=== PATIENT | female | born 1980 | race Caucasian/White ===

== ENCOUNTER → 2017-05-17 15:49 | Outpatient (CLI) | payer BC, SELFPAY ==
[2017-05-24 07:21] LABS: HPV APTIMA, High Risk Negative (Negative)
== END ==
PROVIDERS: Visit Provider Obstetrics & Gynecology
DX: Z12.4 Encounter for screening for malignant neoplasm of cervix (principal)
CPT/HCPCS: 88175; G0145

== ENCOUNTER → 2017-05-19 08:49 | Outpatient (CLI) | payer BC, SELFPAY ==
--- NOTE | 2017-05-19 08:54 | HPBI_ITS ---
MAMMOGRAPHY - BILATERAL DIAGNOSTIC REASON FOR EXAM: Female, 36 years old. Left breast lump. Left nipple inversion. PERTINENT HISTORY: TECHNIQUE: Digital bilateral breast amisha (3D mammographic acquisition) in the CC and MLO projections. 2-D mediolateral oblique (MLO) and craniocaudad (CC) views of both breasts were obtained. CAD: Full Field Digital Mammography with Computer Added Detection was performed. COMPARISON: None. Baseline examination. FINDINGS: Breast Composition: The breasts are heterogeneously dense, which may obscure small masses. There is a 3.1 cm x 2.3 cm spiculated mass in the superior retroareolar region of the left breast corresponding to the palpable abnormality. Suspicious microcalcifications are seen within it. There is also evidence of inversion of left nipple with overlying skin thickening. A biopsy is strongly recommended. No other significant abnormalities are identified. HPBI/DIAG MAMM W/CAD, BILAT IMPRESSION: Spiculated mass in the upper retroareolar region of the left breast as described with amorphus microcalcifications and overlying breast deformity. A biopsy is strongly recommended. ASSESSMENT CATEGORY: BIRADS Category 5: Highly Suggestive of Malignancy - Appropriate Action Should Be Taken. A letter regarding these results will be sent to the patient by the facility within 30 days. Approximately 10% of breast cancers are not detected by mammography. A normal mammogram should not delay biopsy of a clinically suspicious abnormality. Electronically Signed: Ludwin Siu MD at 10:00 EST Tel [phone], Service support ,
--- NOTE | 2017-05-19 08:55 | US_ITS ---
STUDY: ULTRASOUND BREAST - LEFT REASON FOR EXAM: Female, 36 years old. Palpable lump left breast. TECHNIQUE: Axial and longitudinal images of the LEFT breast were performed with a high resolution ultrasound transducer. COMPARISON: Comparison is made with prior mammogram done earlier today. FINDINGS: LEFT Breast: There is a 4 cm x 2.8 cm x 1.8 cm heterogeneous irregular soft tissue mass at the 12:00 region of the breast at 3 cm from nipple. This corresponds to the palpable abnormality and the mammographic abnormality. A biopsy is recommended. US/Breast Limited Unilateral IMPRESSION: 4 cm x 2.8 cm x 1.8 cm heterogeneous hypoechoic solid mass with irregular margins. This is at the 12:00 position breast at 3 cm from the nipple. Biopsy recommended. ASSESSMENT CATEGORY: BIRADS Category 5: Highly Suggestive of Malignancy - Appropriate Action Should Be Taken. A letter regarding these results will be sent to the patient by the facility within 30 days. Electronically Signed: Ludwin Siu MD at 11:29 EST Tel [phone], Service support ,
== END ==
PROVIDERS: Visit Provider Obstetrics & Gynecology
DX: N63.20 Unspecified lump in the left breast, unspecified quadrant (principal)
CPT/HCPCS: 76642; 77062; 77066; G0279

== ENCOUNTER → 2017-05-23 12:19 | Outpatient (CLI) | payer BC, SELFPAY ==
--- NOTE | 2017-05-23 | IMM_PTH ---
PATIENT: LETICIA HAQUE LOC: [facility] U#:[id number] AGE/SX: 44/F ROOM: RE05/23/[address]: Dr. Ede Samayoa MD : 1980 BED: DIS: SPEC #: [id number] RECD: 05/24/17 11:15 STATUS: TAMAR REElmira #: [id number] JEANINE: 05/23/17 00:[address]: Ede Samayoa DEPT: IMMUNOHISTOCHEMISTRY RECD BY: Pam Scott ENTERED: 05/24/17 11:16 SP TYPE: IMMUNO OTHR DR: Dr. Kosta Bernal MD No Primary Care Phys Tissues: Left breast, NOS Procedures: CALPONIN-1 (add) CK5-6 (add) CK8 (add) E-CAD (add) HER2 JITENDRA (add) KI-67 (add) P53 (add) AL (add) IN SITU HYBRIDIZATION P40 (add) ER (initial) PHYSICIAN & INSTITUTION [place] [phone] SPECIMEN INFORMATION: Tissue Source: Left breast Clinical Info: Abnormal mammogram Specimen Number: [id number] CPT code: 15125, 11938 x6, 98953 x3 METHODOLOGY: Deparaffinized sections of prefer/formalin-fixed tissue or PAP/DQ stained slides are incubated with monoclonal/polyclonal antibodies/oligonucleotide probes. Localization is made via biotin free immunoperoxidase method. Appropriate controls are performed and reacted as expected. Results on target cell population are indicated in the following table: RESULTS: ANTIBODY / CLONE RESULT P53 (DO-7) positive, 8% Ki-67 (30-9) positive, moderate CK8 (84tgifR38) positive CK5-6 (D5 & 1684) negative Calponin-1 (EG706X) negative P40 (BC28) negative E-Cad (ECH-6) positive MORPHOMETRIC ANALYSIS ER (clone 6F11) >95%, moderate to strong AL (clone 16/1E2) 75%, moderate Her-2Neu (clone CB11) 1-2+ The prognostic test for HER2 is performed on formalin-fixed paraffin embedded tissue. A 3+ (positive) staining pattern is defined as intense, homogeneous, complete, circumferential membranous staining in >10% of contiguous tumor cells. A similar weak (2+) staining pattern is interpreted as equivocal. RAPHAEL follow-up testing is recommended for all equivocal cases. Positivity/negativity for ER/AL is reported if > or < 1% of the tumor cells are immuno- reactive, respectively. The ASCO/CAP criteria is used for scoring. Reference: Journal of Clinical Oncology, 2013; 31:0176-2429 & 2010; 16:6503-9747. Duration of fixation: 10.5 Hrs; Sample Adequate: Yes. These assays have not been validated on decalcified tissues. Results should be interpreted with caution given the likelihood of false negativity on decalcified specimens. These tests were developed and their performance characteristics determined by [facility]. They may not have been cleared or approved by the U.S. Food and Drug Administration. The FDA has determined that such clearance or approval is not necessary. INTERPRETATION: Left breast, core biopsy: Invasive ductal carcinoma. Positive for estrogen receptors (favorable prognostic indicator). Positive for progesterone receptors (favorable prognostic indicator). Equivocal for overexpression of XOA5xth. AM:bella 05/25/17 ADDENDUM ADDENDUM ADDENDUM ADDENDUM ADDENDUM ADDENDUM ADDENDUM ADDENDUM ADDENDUM ADDENDUM ADDENDUM ADDENDUM ADDENDUM ADDENDUM ADDENDUM ADDENDUM ADDENDUM ADDENDUM ADDENDUM ADDENDUM ADDENDUM 05/29/2017 10:51 ADDENDUM 05/29/2017 10:51 ADDENDUM 05/29/2017 10:51 ADDENDUM 05/29/2017 10:51 ADDENDUM 05/29/2017 10:51 IN SITU HYBRIDIZATION (RAPHAEL) FOR HER2 Interpretation: Not Amplified HER2 : CEP-17 Ratio: 1.32 Average HER2 Signal: 3.25 Average CEP-17 Signal: 2.45 Number of Tumor Cells Scanned: 50 Interpretative Information: The INFORM HER2 Dual RAPHAEL DNA Probe Cocktail assay is performed on formalin-fixed paraffin embedded tissue and determines HER2 gene status by detecting HER2 copies via silver in situ hybridization (SISH) and Chromosome 17 copies via chromogenic red in situ hybridization on tumor cells. A minimum of 20 cells representing > 10% of contiguous and homogeneous invasive tumor cells were analyzed. HER2 gene status is classified as Non-amplified (HER2/Chr17 ratio < 2.0) or Amplified (HER2/Chr17 ratio greater than or equal to 2.0). If the resulting HER2/Chr17 ratio falls within 1.8 - 2.2 (Borderline), retesting by FISH is recommended. Reference: Disha AC, Stephanie BENITO, Slade DG, et al: Recommendations for Human Epidermal Growth Factor Receptor 2 Testing in Breast Cancer: [place] Society of Clinical Oncology / College of [place] [employer] Clinical Practice Guideline Update. J Clin Oncol 31:7892-5590, 2013.
--- NOTE | 2017-05-23 09:00 | BRBX_PTH ---
PATIENT: LETICIA HAQUE LOC: [facility] U#:[id number] AGE/SX: 44/F ROOM: RE05/23/[address]: Dr. Ede Samayoa MD : 1980 BED: DIS: SPEC #: [id number] RECD: 05/23/17 12:07 STATUS: TAMAR DHIRAJ #: [id number] JEANINE: 05/23/17 09:[address]: Ede Samayoa DEPT: SURGICAL PATHOLOGY RECD BY: Rod Yan ENTERED: 05/23/17 13:52 SP TYPE: BREAST BX OTHR DR: Dr. Kosta Bernal MD Tissues: Left breast, NOS Procedures: Surgery Specimen Level IV HEADER OPERATION: Left breast core biopsy PRE-OP DIAGNOSIS: Abnormal mammogram R92.8 TISSUE SUBMITTED: Left breast tissue ISCHEMIC TIME: 5 seconds FIXATION TIME: 10.5 hours MICROSCOPIC DIAGNOSIS Left breast, core biopsy: Invasive ductal carcinoma with the following characteristics: Maximal length ? 6.2 mm Nuclear Grade ? 2/3 Other findings ? 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 AM:bella 05/24/17 COMMENT ER/FL/Ust0qna studies are being performed on sections of tumor and the results from this study will be reported separately ([id number]). MICROSCOPIC DESCRIPTION Slides are reviewed. GROSS DESCRIPTION Received in fixative is one container labeled with the patient's name and designated left breast biopsy. The specimen consists of two elongated fragments of oneill tissue. Each fragment has an average length of 1.5 cm and average diameter of 0.1 cm. The specimen is totally submitted in one cassette. / AM:bella 05/23/17 TC:0 [facility]: [id number]
== END ==
PROVIDERS: Visit Provider Surgery
DX: R92.8 Other abnormal and inconclusive findings on diagnostic imaging of breast (principal)
CPT/HCPCS: 88305; 88341; 88342; 88368

== ENCOUNTER 2017-06-16 08:23 | Day surgery (SDC) | payer BC, SELFPAY ==
--- NOTE | 2017-06-13 15:21 | EKG12_ITS ---
Test Reason : PREOP Blood Pressure : / mmHG Vent. Rate : 086 BPM Atrial Rate : 086 BPM P-R Int : 126 ms QRS Dur : 094 ms QT Int : 364 ms P-R-T Axes : 046 -09 018 degrees QTc Int : 435 ms Normal sinus rhythm Normal ECG Confirmed by LIZANDRO CABRERA, BROOK ([id number]), commissioning editor SELWYN ORTEGA ([id number]) on 06/14/2017 1:17:00 PM Referred By: Sandro Martinez Confirmed By:BROOK BONE MD
[2017-06-13 16:53] LABS: Hematocrit 39.3 % (37-47); Hemoglobin 12.7 g/dl (12.0-15.0); Mean Corp Hgb Conc 32.3 g/gl (32-36); Mean Corpuscular Hgb 29.8 pg (27.0-32.0); Mean Corpuscular Volume 92.3 fL (81-99); Mean Platelet Vol. 10.4 fl (6.2-12.0); Platelet Count 197 K/mm3 (150-450); RBC Distribution Width CV 13.7 % (11.6-14.6); RBC Distribution Width SD 45.9 fl (35.1-43.9); Red Blood Count 4.26 M/mm3 (4.2-5.4); Scan Indicated on CBC? Y/N NO; White Blood Count 7.5 K/mm3 (4.4-11.0)
[2017-06-13 17:04] LABS: Partial Thromboplast Time 29.8 Seconds (24.1-36.2); Prothrombin Time (Protime)PT. 13.3 SECONDS (11.7-14.9)
[2017-06-13 17:15] LABS: AST(SGOT) 5 U/L (15-37); Alanine Aminotransfer ALT/SGPT 14 U/L (13-56); Albumin, Serum 4.4 g/dL (3.2-5.0); Alkaline Phosphatase 57 U/L (45-117); Bilirubin, Direct 0.08 mg/dL (0.00-0.30); Globulin 3.5 g/dL (2.2-4.2); Protein, Total 7.9 g/dL (6.4-8.2)
--- NOTE | 2017-06-15 18:21 | HP.PCM_ITS ---
History and Physical Date of Admission: 06/16/17 HISTORY OF PRESENT ILLNESS 36-year-old woman presents with recent diagnosis of left breast cancer and wants to discuss her breast reconstruction options. The patient had first noticed a breast mass in her left breast in the superior aspect by the nipple. The mammogram and ultrasound was done on May 19, 2017. It was suspicious for carcinoma. Dr. Samayoa then proceeded with a left breast biopsy on May 23, 2017. 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 Estrogen receptors are positive. Progesterone receptors were positive. Her-2Neu was not amplified. The patient is small breasted and decided on a mastectomy. Patient also has concerns about developing breast cancer in her right breast at some point in her life and has developed cancerophobia. She is also interested in discussing a prophylactic mastectomy at this time as well. She presents at this time for further evaluation and treatment. PAST MEDICAL HISTORY Newly diagnosed left breast cancer PAST SURGICAL HISTORY Left breast biopsy on May 23, 2017. MEDICATIONS Norethindrone. ALLERGIES None. SOCIAL HISTORY Patient is a smoker. Patient drinks alcohol occasionally. FAMILY HISTORY Negative for breast cancer. Hypertension - Mother. REVIEW OF SYSTEMS General - Denies fever, fatigue, and weight loss. Eyes - Denies eye pain. ENT - Denies nasal congestion and sore throat. Endocrine - Denies excessive thirst and urination. Has recent diagnosis of left breast cancer. Skin - No suspicious lesions. Musculoskeletal - Denies joint pain, joint stiffness, weakness of muscles and joints, back pain, and arthritis. Neuro - Denies headaches. Cardiovascular - Denies chest pain. Denies shortness of breath with exertion. Respiratory - Denies cough and shortness of breath. Patient is a smoker. Psych - Denies anxiety and depression. Gastrointestinal - Denies nausea, vomiting, diarrhea, and constipation. Hematologic -Denies abnormal bruising and bleeding. Genitourinary - Denies hematuria and urinary frequency. PHYSICAL EXAMINATION General - Alert and oriented. Bra size is 36 B. HEENT - PERRL. EOMI. Throat is clear. Neck - Supple and nontender. No cervical adenopathy. Lungs - Clear to auscultation. Breasts - Palpable mass superolateral aspect left breast at the nipple area. Bruising from recent biopsy. No ptosis seen. Nipple located above inframammary fold. No breast masses noted on right breast. No axillary adenopathy noted. Breast width is 14 cm bilaterally. Breast height is 13 cm. Heart - Regular rate and rhythm. Abdomen - No abdominal scarring. Some skin and subcutaneous redundancy between the umbilicus and the pubic area. Good skin elasticity noted. Extremities - FROM. No axillary adenopathy. Neuro - CN II - XII grossly intact. ASSESSMENT 1. Left breast cancer. 2. Cancer phobia right breast. 3. Planned acquired absence bilateral breasts. 4. Planned disproportion reconstructed breasts. 5. Smoker. 6. Estrogen receptor positive status. PLAN Discussed with the patient her breast reconstruction options. These range from expanders/implants to autogenous tissue to a combination of the two. Because of her concern of cancer phobia, it was recommended to proceed with a prophylactic mastectomy at the same time and then proceed with bilateral reconstruction. The patient is small breasted and wants to stay that way and is a candidate for a bilateral TRAM flap procedure. Because of her history of smoking, a first stage TRAM flap delay would be necessary which can be done at the time of the mastectomies. Because of the longer procedure and longer hospitalization and longer recovery, she expressed interest in proceeding with the use of expanders/implants. It's a shorter hospitalization and shorter recovery period. She has family activities in the Spring and wants to get back to her regular routine in a timely fashion. I gave her the option of immediate placement of implants with prepectoral placement of acellular dermal matrix graft for implant coverage since she is not concerned about the final size of her breasts. I discussed with her that the tissue expanders are a safer procedure because there is no tension on the skin which can have healing issues initially because of the fresh mastectomy skin flaps. Placement of the implants would have a little more tension on the mastectomy skin flaps. The patient has decided to proceed with the placement of the saline tissue expanders bilaterally under the pectoralis major muscle and placement of Alloderm inferiorly for django developer coverage. The approximate time of expansion is 1-2 months. Then wait a month after expansion is completed before proceeding with removal of the expanders with replacement cohesive gel implants. If adjuvant therapy is needed, then the implant replacement procedure would occur after the adjuvant therapy is completed. After creation of the breast mound, can discuss nipple reconstruction options in the future. Will coordinate with Dr. Samayoa's office regarding scheduling these procedures. The mastectomies can be done at the same time using separate instruments and separate staff so there is no cross contamination of cancer cells to the non cancer side. Surgery will be done under general anesthesia with a surgical observation overnight stay in the hospital. She will have drains in for several days and be maintained on antibiotics until the drains are removed. She will wear a compression USHA wrap to minimize seroma formation. Patient was informed of the risks and complications of the procedure including alternatives to surgery. These were discussed with her personally. She voices understanding and wishes to proceed. Some of the risks and complications were included in a form from the [place] [employer]. Encouraged the patient to stop smoking as it may have deleterious effects on wound healing. The patient was nervous and anxious during her visit today. I wrote a script for Valium which she can use preop for anxiety and will need them postop for muscle spasm (30 tabs).
[2017-06-16] VITALS (14 sets, daily range): BP systolic 113–140; BP diastolic 66–98; PULSE 66–98; RESP 16–20; TEMP 36.1–37.5; O2SAT 96–100; BMI 26.8
--- NOTE | 2017-06-16 | BREAST_PTH ---
PATIENT: LETICIA HAQUE LOC: [facility] [place] U#:[id number] AGE/SX: 36/F ROOM: RE06/16/[address]: Dr. Sandro Martinez MD : 1980 BED: DIS: 06/18/2017 SPEC #: [id number] RECD: 06/16/17 12:00 STATUS: TMAAR HEARN #: [id number] JEANINE: 06/16/17 00:[address]: Sandro Martinez DEPT: SURGICAL PATHOLOGY RECD BY: Pam Scott ENTERED: 06/16/17 12:56 SP TYPE: BREAST OTHR DR: No Primary Care Phys Tissues: A - Left breast, NOS B - Left breast, NOS C - Axillary lymph node, NOS D - Right breast, NOS E - Axilla, NOS Procedures: Frozen Section (charge) Surgery Specimen Level IV Surgery Specimen Level V Surgery Specimen Level Frozen (no charge) HEADER OPERATION: Right mastectomy, prophylactic bilateral breast reconstruction PRE-OP DIAGNOSIS: Cancer phobia right breast TISSUE SUBMITTED: A ? Left breast check margins, B ? Left breast additional tissue, FS, C ? Left sentinel node, FS, D ? Right breast, E ? Left axillary contents FROZEN SECTION DIAGNOSIS B. Additional left breast tissue, biopsy: Benign breast tissue. No evidence of malignancy. C. Left axillary sentinel lymph node, biopsy: One out of one lymph node positive for macrometastatic carcinoma. AM:bella 06/16/17 Case has been reviewed in consultation with Dr. Haney who concurs with the above diagnosis. IDC:SJ MICROSCOPIC DIAGNOSIS A. Left breast, mastectomy: Invasive ductal carcinoma. See cancer checklist below. B. Additional left breast tissue, biopsy: Benign breast tissue. No evidence of malignancy. C. Left axillary sentinel lymph node, biopsy: One out of one lymph node positive for macrometastatic carcinoma (2.5 in greatest dimension). No perinodal tumor extension seen. D. Right breast, mastectomy: Fibrocystic change and focal involutional change. Margins of excision with no pathologic change. No evidence of malignancy. E. Left axillary sentinel lymph node dissection. Five out of five lymph nodes negative for carcinoma. AM: 06/20/17 COMMENT A. INVASIVE BREAST CANCER SUMMARY: Specimen: Complete breast Procedure: Mastectomy Specimen integrity: Single intact specimen. Specimen size: 15 x 12 x 4 cm Specimen laterality: Left breast Invasive tumor: Tumor size: 3.5 x 3 x 1.5 cm Tumor focality: Single focus of invasive carcinoma Macroscopic and Microscopic extent of tumor: Skin: Free of carcinoma Nipple: Free of carcinoma Skeletal muscle: Not present Histologic type of invasive carcinoma: Invasive ductal carcinoma Histologic Grade (Dariana grade): Glandular/tubular differentiation score: 3 Nuclear pleomorphism score: 3 Mitotic count score: 3 Overall grade: Grade 3 (total score of 9) Margins: Uninvolved by invasive carcinoma. Distance from closest margin (posterior margin) ? 2 mm Lymph-Vascular invasion: Not identified Dermal lymph-vascular invasion: Not identified Ductal carcinoma in situ (DCIS): Estimated size (extent) of DCIS: 2 x 1 x 1 mm Number of blocks with DCIS: 4 of 12 Architectural patterns: Solid and focal comedo Nuclear grade: Grade 3 (high grade) Necrosis: Focally present Lobular carcinoma in situ (LCIS): Not present Lymph nodes: (See specimens C and E) Number of sentinel lymph nodes examined - 1 Total number of lymph nodes examined (sentinel and nonsentinel) ? 6 Macrometastatic carcinoma (2.5 cm in greatest dimension) is present in the specimens submitted as ?sentinel lymph node? (specimen C). Microcalcifications ? present in both carcinoma and non-neoplastic tissue. Treatment effect ? unknown Additional pathologic findings: Fibrocystic change and adenosis. Ancillary studies: Previously performed on same tumor ([id number] / [id number]). ER: positive, >95%, moderate to strong ND: 75%, moderate Her2 rodney: 2+ (IHC) Her2 by dual RAPHAEL: Negative (1.32) PATHOLOGIC STAGE: pT2 N1a Mx The above summary is in compliance with [employer] [place] [employer] (CAP) Cancer Protocols Checklist and [place] Joint Committee on Cancer (AJCC), Staging Manual, 8th Ed. Case has been reviewed in consultation with Dr. Haney who concurs with the above diagnosis. IDC:SJ MICROSCOPIC DESCRIPTION Slides are reviewed. GROSS DESCRIPTION A - Received fresh for OR consultation labeled with the patient's name is a specimen designated left breast. The specimen consists of a left breast mastectomy specimen measuring 15 x 12 x 4 cm and weighing 240 gm. The anterior portion contains portion of skin with centrally located nipple and areola measuring 8 x 3.5 cm. The nipple measures 1 cm in diameter. No cutaneous lesions are identified. The specimen is differentially inked as follows: anterior ? yellow, posterior ? black, superior ? blue, inferior ? green, medial ? red and lateral - orange. Serial sections reveal a firm, oneill-white lesion measuring 3.5 x 3 x 1.5 cm and located 0.2 cm from its closest (posterior) margin of excision. The remainder of the breast parenchyma is yellow-white in color. No other mass lesions are identified. The size of tumor and proximity to closest margin is conveyed to the surgeon intraoperatively. Pipe Finishing Supervisor sections are submitted in 12 cassettes as follows: 1 ? nipple and areola and perpendicular inked margin, 2 & 3 - perpendicular inked margins, 4 ? tumor with adjacent perpendicular posterior margin, 5-7 ? tumor, 812 - telecommunications sales representative sections of uninvolved breast parenchyma. / AM: 06/16/17 B - Received fresh for frozen section consultation labeled with the patient's name is a specimen designated additional left breast tissue. The specimen consists of a oneill-yellow fragment of fibrofatty tissue measuring 2 x 1.5 x 0.6 cm. The specimen is inked, bisected and submitted in its entirety for frozen section consultation in one block. / AM: 06/16/17 C - Received fresh for frozen section consultation labeled with the patient's name is a specimen designated left sentinel lymph node. The specimen consists of an irregular fragment of oneill-yellow fibrofatty tissue measuring 5 x 4 x 1.5 cm. Dissection reveals a firm, oneill-white nodule measuring 2.5 cm in greatest dimension. A telecommunications sales representative section with nodule is submitted for frozen section consultation in one block. The remainder of the specimen is submitted in cassettes 2-5. / AM:bella 06/16/17 D - Received in fixative is one container labeled with the patient's name and designated right breast. The specimen consists of a mastectomy specimen consisting of a piece of breast tissue with overlying skin ellipse measuring 14 x 13 x 4 cm. The skin ellipse measures 8 x 2 cm. The nipple measures 1.5 cm in greatest dimension. The specimen is inked as follows: anterior ? yellow, posterior ? black, superior ? blue, inferior ? green, medial ? red and lateral ? orange. Serial sections reveal oneill-yellow adipose cut surfaces mixed with oneill-white fibrous area. No obvious mass lesion is identified. Pipe Finishing Supervisor sections are submitted in 11 cassettes as follows: 1 ? nipple, 2 ? skin adjacent to the nipple, 3-5 ? telecommunications sales representative sections from the medial portion of the breast, 6-8 - telecommunications sales representative sections from the central portion of the breast, 9-11 - telecommunications sales representative sections from the lateral portion of the breast. / SJ:bella 06/19/17 E - Received in fixative is one container labeled with the patient's name and designated left axillary contents. The specimen consists of a piece of yellow adipose tissue measuring 5.5 x 3 x 2.5 cm. Multiple nodules consistent with lymph nodes are identified. The largest lymph node measures 2.5 cm in greatest dimension. The lymph nodes are submitted in entirety. Pipe Finishing Supervisor sections are submitted in four cassettes as follows: 1 & 2 ? one largest lymph node, 3 ? one bisected lymph node, 4 - one bisected lymph node, 5 ? two possible lymph nodes. / SJ:bella 06/19/17 TC:0 CPT: 25169, 22336 x3, 00532, 89110 x2, 29594
[2017-06-16 09:23] LABS: Internal QC Validated? YES +Cl - CLEAR BKGD
[2017-06-16 09:26] LABS: Pregnancy, Urine Negative Negative
--- NOTE | 2017-06-16 10:48 | PCM.OPRPT ---
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 Estrogen receptor positive Post-Operative Diagnosis: same Surgery/Procedure Performed:: 1. [id number] Injection of 5 cc of Lymphazurin blue. 2. Left modified radical mastectomy. 3. sentinel lymph node biopsy Type of Anesthesia:: General Anesthesiologist: Malick Emerson Specimen's removed: left breast. sln Estimated Blood Loss (mL): 50 cc Description of Procedure: Patient was brought into the operating room. Under excellent general endotracheal intubation I injected 5 cc of Lymphazurin blue circumareolar the around the left nipple. Both the left and right side of the chest were sterilely prepped and draped in the usual fashion. Dr. Martinez did a mastectomy on the right side and will be dictating this part of the procedure. I made a teardrop incision around the nipple areolar complex. The plasma blade was used to create flaps in a medial standpoint superior standpoint and inferior standpoint the dissection went down to the rectus abdominis muscle inferiorly, sternum medially, and down to the latissimus dorsi muscle laterally. I rotated the breast off of the pectoralis major muscle with the use of the plasma blade. Perforating vessels were controlled with small ligaclips. I came to the lateral border of the pectoralis major muscle. I entered the clavipectoral fascia. I encountered an extremely large and hard lymph node which I removed and sent to pathology for frozen section. The sentinel lymph node came back grossly positive. I then performed a standard axillary node dissection identifying the axillary vein the chest wall and down to the latissimus dorsi muscle and removed a grouping of lymph nodes. I sent these to pathology for permanent sectioning and formaldehyde. I transected the remaining part of the breast and sent it to pathology to check for margins. My inferior margin was the closest margin that was down to the pectoralis major muscle this tumor did not involve the muscle whatsoever. I irrigated out the wound. The wound was packed and then Dr. Martinez was going to do temporary implants. Patient tolerated the procedure well.
[2017-06-16] MEDS: Cefazolin 2 GM in 0.9% Normal Saline 100 ML IV (11:04)
[2017-06-16] MEDS: Methylene Blue 1% 100 MG/10 ML VIAL (11:20)
--- NOTE | 2017-06-16 14:40 | PCM.IMDPSTOP ---
Immediate Post-Op Note Date of Procedure: 06/16/17 Primary Surgeon/Physician: Sandro Martinez resume writer: Dane Whitfield. resume writer: Codey Jaffe. Pre-Operative Diagnosis: 1. Left breast cancer. 2. Cancer phobia right breast. 3. Planned acquired absence bilateral breasts. 4. Planned disproportion reconstructed breasts. 5. Smoker. 6. Estrogen receptor positive status. Post-Operative Diagnosis: Same. Surgery/Procedure Performed:: 1. Prophylactic mastectomy right breast. 2. Immediate bilateral breast reconstruction with placement of submuscular saline tissue expanders (350 ml each) and placement of DermACELL decellularized dermis graft (128 cm2, each side). Description of Surgical Findings:: 36-year-old woman presents with recent diagnosis of left breast cancer and wants to discuss her breast reconstruction options. The patient had first noticed a breast mass in her left breast in the superior aspect by the nipple. The mammogram and ultrasound was done on May 19, 2017. It was suspicious for carcinoma. Dr. Samayoa then proceeded with a left breast biopsy on May 23, 2017. 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 Estrogen receptors are positive. Progesterone receptors were positive. Her-2Neu was not amplified. The patient is small breasted and decided on a mastectomy. Patient also has concerns about developing breast cancer in her right breast at some point in her life and has developed cancerophobia. She is also interested in discussing a prophylactic mastectomy at this time as well. Today the patient underwent injection of 5 cc of Lymphazurin blue and left-sided mastectomy and sentinel lymph node biopsy by Dr. Samayoa and prophylactic mastectomy right breast and immediate bilateral breast reconstruction with placement of submuscular saline tissue expanders (350 ml each) and placement of DermACELL decellularized dermis graft (128 cm2, each side) by Dr. Martinez. IV Fluids - 1300 ml. Urine Output - 180 ml. I used [place] CPX4 with Suture Tabs, Medium Height Breast Tissue Box Brander, Textured, Integral Injection Dome, 350 ml, Right Breast. Reference Number - [id number]. Lot Number - [id number]. Serial Number - [id number]. I used [place] CPX4 with Suture Tabs, Medium Height Breast Tissue Box Brander, Textured, Integral Injection Dome, 350 ml, Left Breast. Reference Number - [id number]. Lot Number - [id number]. Serial Number - [id number]. I used DermACELL Decellularized Dermis Graft, 8x16 cm, 128 cm2, Right Breast. ID - [id number]. Code - [id number]. Expiration - November 25, 2020. I used DermACELL Decellularized Dermis Graft, 8x16 cm, 128 cm2, Left Breast. ID - [id number]. Code - [id number]. Expiration - November 25, 2020. I used Pao absorbable hemostat, (I used 2 vials, one in each breast). Reference Number - [id number]. Lot Number - [id number]. Expiration - March 07, 2022. Estimated Blood Loss: 150 ml. Specimen's removed: Right breast tissue to Pathology. Drains: Otoniel x4 (2 drains in each breast). Type of Anesthesia:: General - Admit VTE Documentation VTE Present on Admission: No VTE Mechan Device Prophylaxis: SCD's VTE Pharm Prophylaxis ordered?: Yes
--- NOTE | 2017-06-16 14:43 | OP.PN_ITS ---
Immediate Post-Op Note Date of Procedure: 06/16/17 Primary Surgeon/Physician: Sandro Martinez contact center professional: Dane Whitfield. contact center professional: Codey Jaffe. Pre-Operative Diagnosis: 1. Left breast cancer. 2. Cancer phobia right breast. 3. Planned acquired absence bilateral breasts. 4. Planned disproportion reconstructed breasts. 5. Smoker. 6. Estrogen receptor positive status. Post-Operative Diagnosis: Same. Surgery/Procedure Performed:: 1. Prophylactic mastectomy right breast. 2. Immediate bilateral breast reconstruction with placement of submuscular saline tissue expanders (350 ml each) and placement of DermACELL decellularized dermis graft (128 cm2, each side). Description of Surgical Findings:: 36-year-old woman presents with recent diagnosis of left breast cancer and wants to discuss her breast reconstruction options. The patient had first noticed a breast mass in her left breast in the superior aspect by the nipple. The mammogram and ultrasound was done on May 19, 2017. It was suspicious for carcinoma. Dr. Samayoa then proceeded with a left breast biopsy on May 23, 2017. 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 Estrogen receptors are positive. Progesterone receptors were positive. Her-2Neu was not amplified. The patient is small breasted and decided on a mastectomy. Patient also has concerns about developing breast cancer in her right breast at some point in her life and has developed cancerophobia. She is also interested in discussing a prophylactic mastectomy at this time as well. Today the patient underwent injection of 5 cc of Lymphazurin blue and left- sided mastectomy and sentinel lymph node biopsy by Dr. Samayoa and prophylactic mastectomy right breast and immediate bilateral breast reconstruction with placement of submuscular saline tissue expanders (350 ml each) and placement of DermACELL decellularized dermis graft (128 cm2, each side) by Dr. Martinez. IV Fluids - 1300 ml. Urine Output - 180 ml. I used [place] CPX4 with Suture Tabs, Medium Height Breast Tissue Showroom Consultant, Textured, Integral Injection Dome, 350 ml, Right Breast. Reference Number - [id number]. Lot Number - [id number]. Serial Number - [id number]. I used [place] CPX4 with Suture Tabs, Medium Height Breast Tissue Showroom Consultant, Textured, Integral Injection Dome, 350 ml, Left Breast. Reference Number - [id number]. Lot Number - [id number]. Serial Number - [id number]. I used DermACELL Decellularized Dermis Graft, 8x16 cm, 128 cm2, Right Breast. ID - [id number]. Code - [id number]. Expiration - November 25, 2020. I used DermACELL Decellularized Dermis Graft, 8x16 cm, 128 cm2, Left Breast. ID - [id number]. Code - [id number]. Expiration - November 25, 2020. I used Pao absorbable hemostat, (I used 2 vials, one in each breast). Reference Number - [id number]. Lot Number - [id number]. Expiration - March 07, 2022. Estimated Blood Loss: 150 ml. Specimen's removed: Right breast tissue to Pathology. Drains: Otoniel x4 (2 drains in each breast). Type of Anesthesia:: General - Admit VTE Documentation VTE Present on Admission: No VTE Mechan Device Prophylaxis: SCD's VTE Pharm Prophylaxis ordered?: Yes
--- NOTE | 2017-06-16 15:18 | EKG12_ITS ---
Test Reason : CP Blood Pressure : / mmHG Vent. Rate : 077 BPM Atrial Rate : 077 BPM P-R Int : 146 ms QRS Dur : 084 ms QT Int : 398 ms P-R-T Axes : 067 -02 029 degrees QTc Int : 450 ms Normal sinus rhythm Low voltage QRS Borderline ECG When compared with ECG of 13-JUN-2017 15:26, No significant change was found Confirmed by LIZANDRO CABRERA, BROOK ([id number]), senior editor SELWYN ORTEGA ([id number]) on 06/21/2017 4:17:46 PM Referred By: Sandro Martinez Confirmed By:BROOK BONE MD
--- NOTE | 2017-06-16 16:28 | SUR.PHASEI ---
TROPONIN NEGATIVE, EKG UNCHANGED, PATIENT CONTINUES TO DESCRIBE CHEST PAIN PRESSURE OR BRICKS, EXPLAINED TO PATIENT THAT SHE HAS AN USHA WRAP AND DRAINS IN CHEST. DR HARGROVE NOTIFIED, REVIEWED EKG, NO NEW ORDERS.
--- NOTE | 2017-06-16 17:46 | PCM.OPRPT ---
Report of Operation Date of Procedure: 06/16/17 Pre-Operative Diagnosis: 1. Left breast cancer. 2. Cancer phobia right breast. 3. Planned acquired absence bilateral breasts. 4. Planned disproportion reconstructed breasts. 5. Smoker. 6. Estrogen receptor positive status. Post-Operative Diagnosis: Same. Surgery/Procedure Performed:: 1. Prophylactic mastectomy right breast. 2. Immediate bilateral breast reconstruction with placement of submuscular saline tissue expanders (350 ml each) and placement of DermACELL decellularized dermis graft (128 cm2, each side). Description of Surgical Findings:: 36-year-old woman presents with recent diagnosis of left breast cancer and wants to discuss her breast reconstruction options. The patient had first noticed a breast mass in her left breast in the superior aspect by the nipple. The mammogram and ultrasound was done on May 19, 2017. It was suspicious for carcinoma. Dr. Samayoa then proceeded with a left breast biopsy on May 23, 2017. 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 Estrogen receptors are positive. Progesterone receptors were positive. Her-2Neu was not amplified. The patient is small breasted and decided on a mastectomy. Patient also has concerns about developing breast cancer in her right breast at some point in her life and has developed cancerophobia. She is also interested in discussing a prophylactic mastectomy at this time as well. Patient was informed of the risks and complications of the procedure including alternatives to surgery. These were discussed with her personally. She voices understanding and wishes to proceed. Some of the risks and complications were included in a form from the [place] [employer]. Encouraged the patient to stop smoking as it may have deleterious effects on wound healing. IV Fluids - 1300 ml. Urine Output - 180 ml. I used [place] CPX4 with Suture Tabs, Medium Height Breast Tissue Automotive Customer Experience Advisor, Textured, Integral Injection Dome, 350 ml, Right Breast. Reference Number - [id number]. Lot Number - [id number]. Serial Number - [id number]. I used [place] CPX4 with Suture Tabs, Medium Height Breast Tissue Automotive Customer Experience Advisor, Textured, Integral Injection Dome, 350 ml, Left Breast. Reference Number - [id number]. Lot Number - [id number]. Serial Number - [id number]. I used DermACELL Decellularized Dermis Graft, 8x16 cm, 128 cm2, Right Breast. ID - [id number]. Code - [id number]. Expiration - November 25, 2020. I used DermACELL Decellularized Dermis Graft, 8x16 cm, 128 cm2, Left Breast. ID - [id number]. Code - [id number]. Expiration - November 25, 2020. I used Pao absorbable hemostat, (I used 2 vials, one in each breast). Reference Number - [id number]. Lot Number - [id number]. Expiration - March 07, 2022. informatics physician liaison: Dane Whitfield. informatics physician liaison: Codey Jaffe. Type of Anesthesia:: General Specimen's removed: Right breast tissue to Pathology. Drains: Otoniel x4 (2 in each breast). Estimated Blood Loss (mL): 150 ml. Fluids Replaced: 1480 ml (IV Fluids 1300 ml, Urine Output 180 ml). Description of Procedure: Patient was seen in the preop area and was placed in the sitting position. Preop markings were made. I marked the sternal midline down toward the umbilicus. The midclavicular line was marked to the nipple and then from the nipple to the inframammary fold. The inframammary folds were marked bilaterally. I sabi oval markings around the nipple areolar complex vertically toward the inframammary fold. She was placed in supine position and taken to OR and placed under general anesthesia. Her breasts were prepped and draped in the usual fashion. SCD's were placed for DVT prophylaxis. Perioperative antibiotics were given intravenously. A galindo catheter was then placed. Dr. Samayoa then injected the left breast in preparation for the sentinel node biopsy. Separate teams were used and separate instruments were used to avoid contaminating the noncancerous right side with possible cancer cells. I then proceeded with the prophylactic mastectomy on the right side. The vertical markings were infiltrated with xylocaine and epinephrine. The vertical incision is part of the eventual need for a mastopexy incision for breast reconstruction. A mastopexy incision is usually a combination vertical incision and horizontal incision in the inframammary fold depending on the degree of ptosis. She has slight pseudoptosis and may not need a horizontal incision in the future at the time of the removal of the bender helper with replacement cohesive gel implantation. I dissected the breast tissue off the breast skin flaps at the level of Yadira's fascia down to the chest wall muscular fascia. The breast tissue was then dissected off the chest wall muscular fascia. Dissection was carried superiorly to the clavicle and medially to the sternum and laterally to the anterior axillary line and inferiorly to the inframammary fold. The tissue was then sent to Pathology for analysis to rule out carcinoma. Hemostasis was obtained with electrocautery. The wound was irrigated with saline. I then proceeded with saline tissue bender helper on the right while Dr. Samayoa was working on the left breast. Incision was made at the level of the inferior aspect of the pectoralis muscle. A submuscular pocket was created. Some of the inferior and medial muscular fibers were excised to allow a larger submuscular pocket and to allow ease in insetting the decellularized dermis graft over the bender helper. The wound was irrigated with saline. Hemostasis was obtained with electrocautery. Two size 15 Otoniel drains were placed through separate stab incisions laterally and secured to the skin with 3-0 Nylon interrupted sutures. One drain was used for the breast pocket and the other was for the mastectomy area and axillary area. Based on the size of the submuscular pocket, I determined a size 350 ml saline tissue bender helper from [place] would be used. I removed the air from the [place] saline tissue bender helper. I used a CPX4 with Suture tabs, medium height bender helper. After I removed the air, I instilled 30 ml of saline and tested to see if there were any leaks in the bender helper. When it was noted there were no leaks, the saline was removed. The bender helper was then placed in the submuscular position. The bender helper was secured to the chest wall with 3-0 Vicryl interrupted sutures through the suture tabs. I then covered the inferior aspect of the bender helper with DermACELL decellularized dermis graft and secured the graft to the muscle with 3-0 Vicryl interrupted sutures and from the graft to the chest wall with 3-0 Vicryl interrupted sutures. I then sprayed Pao absorbable hemostat into the right breast wound pocket to minimize seroma formation postoperatively. The vertical breast incision was then approximated in multiple layers with 3-0 Monocryl interrupted sutures for the deep dermis and subcutaneous tissue. The skin was approximated with 3-0 V-lock unidirectional barbed running subcuticular suture followed by Histoacryl skin tissue adhesive. Once the right side was closed, Dr. Samayoa was finished with the left side. There was additional surgery necessary because of the presence of positive lymph nodes. Once he was completed with his portion, I then proceeded with the left breast reconstruction. I incised the inferior aspect of the pectoralis muscle and created a submuscular pocket. I incised the inferior muscle fibers and medial muscle fibers to enlarge the submuscular pocket. The wound was irrigated with saline. Hemostasis was obtained using electrocautery. I placed two size 15 Otoniel drains through separate stab incisions laterally and secured to the skin using 3-0 Nylon suture. Based on the size of the breast pocket, I determined a 350 ml tissue bender helper from [place] will be used for the reconstruction. I removed the air from the bender helper and instilled 30 ml saline into the bender helper. Once it was determined there were no leaks in the bender helper, I removed the saline. The [place] bender helper is the CPX4 with Suture tabs breast tissue bender helper which was then secured to the chest wall using 3-0 Vicryl interrupted sutures through the suture tabs. DermACELL was then used to close the inferior aspect of the bender helper to the pectoralis muscle superiorly using 3-0 Vicryl interrupted sutures and inferiorly to the chest wall using 3-0 Vicryl interrupted sutures. The Otoniel drains were used to drain the axilla and the breast pocket. I then sprayed Pao absorbable hemostat into the left breast pocket. I used two vials, one in each breast. I then closed the vertical incision with 3-0 Monocryl interrupted sutures for the deep dermis and subcutaneous tissue. The skin was approximated with 3-0 V-lock unidirectional barbed running subcuticular suture. This was then followed by Histoacryl skin tissue adhesive. No vascular compromise was noted on both breast area skin flaps. Kerlix gauze was used for dressing followed by a compression USHA wrap. Patient tolerated the procedure well and was sent to PACU in satisfactory condition. She will be sent upstairs for postop care. She will be discharged when tolerated po analgesia and when she is more steady on her feet with ambulation. I anticipate 2-3 days. She will have her drains in for up to 14 days. She will be maintained on antibiotics until the drains are removed. She will keep her head elevated during the initial postop period and be on a lifting restriction. Grafts/Implants Used: [place] CPX4 Breast Tissue Expanders x2, DermACELL Graft x 2. - Complications None. - Admit VTE Documentation VTE Present on Admission: No VTE Mechan Device Prophylaxis: SCD's VTE Pharm Prophylaxis ordered?: Yes Code Visit Surgery Charges CPT - 70564 ICD-10 - C50.412, F40.298, Z90.13, N65.1, Z17.0, F17.200 [id number] C50.412, F40.298, Z90.13, N65.1, Z17.0, F17.200 [id number] C50.412, F40.298, Z90.13, N65.1, Z17.0, F17.200 75837 C50.412, F40.298, Z90.13, N65.1, Z17.0, F17.200 [id number] C50.412, F40.298, Z90.13, N65.1, Z17.0, F17.200
[2017-06-16] MEDS: Cefazolin 1 GM/50 ML BAG IV (18:36)
[2017-06-16] MEDS: HYDROmorphone 1 MG/ML Syringe IV (18:41)
[2017-06-16] MEDS: 0.9% NaCl Peripheral Flush Adult/Peds IV (18:42)
[2017-06-16] MEDS: Docusate Sodium 100 MG Capsule PO (21:45)
[2017-06-17] MEDS: HYDROmorphone 1 MG/ML Syringe IV ×3 (00:36→20:12)
[2017-06-17 04:43] VITALS: BP 121/73; PULSE 86; RESP 16; TEMP 36.6; O2SAT 97
[2017-06-17] MEDS: Cefazolin 1 GM/50 ML BAG IV ×3 (05:06→21:43)
[2017-06-17] MEDS: Enoxaparin 30 MG/0.3 ML Syringe SC (05:06)
[2017-06-17] MEDS: Ondansetron 4 MG/2 ML Vial IV (06:42)
[2017-06-17 07:10] LABS: Hematocrit 34.9 % (37-47); Hemoglobin 11.2 g/dl (12.0-15.0); Mean Corp Hgb Conc 32.1 g/gl (32-36); Mean Corpuscular Volume 93.6 fL (81-99); Mean Platelet Vol. 10.2 fl (6.2-12.0); Platelet Count 166 K/mm3 (150-450); RBC Distribution Width CV 13.7 % (11.6-14.6); RBC Distribution Width SD 47.3 fl (35.1-43.9); Red Blood Count 3.73 M/mm3 (4.2-5.4); White Blood Count 7.7 K/mm3 (4.4-11.0)
[2017-06-17 07:12] LABS: Scan Indicated on CBC? Y/N NO
[2017-06-17 07:31] LABS: Anion Gap 8 (5-15); BUN 15 mg/dL (7-18); Calcium,Total 8.4 mg/dL (8.5-10.1); Chloride 107 mmol/L (98-107); EST Glomerular Filtration Rate 119 mL/min (>60); Est Glom Filt Rate - Afr Amer 144 mL/min (>60); Estimated Creatinine Clearance 124.84 ml/min; Glucose 104 mg/dL (74-106); Potassium 4.1 mmol/L (3.5-5.1); Prealbumin 23.1 mg/dL (20.0-40.0); Sodium Level 140 mmol/L (136-145)
[2017-06-17] MEDS: oxyCODONE 5 MG Tablet 10 MG PO ×4 (07:56→23:05)
[2017-06-17 08:01] VITALS: BP 129/85; PULSE 84; RESP 16; TEMP 36.7; O2SAT 93
--- NOTE | 2017-06-17 08:46 | OP.PCM_ITS ---
Report of Operation Date of Procedure: 06/16/17 Pre-Operative Diagnosis: 1. Left breast cancer. 2. Cancer phobia right breast. 3. Planned acquired absence bilateral breasts. 4. Planned disproportion reconstructed breasts. 5. Smoker. 6. Estrogen receptor positive status. Post-Operative Diagnosis: Same. Surgery/Procedure Performed:: 1. Prophylactic mastectomy right breast. 2. Immediate bilateral breast reconstruction with placement of submuscular saline tissue expanders (350 ml each) and placement of DermACELL decellularized dermis graft (128 cm2, each side). Description of Surgical Findings:: 36-year-old woman presents with recent diagnosis of left breast cancer and wants to discuss her breast reconstruction options. The patient had first noticed a breast mass in her left breast in the superior aspect by the nipple. The mammogram and ultrasound was done on May 19, 2017. It was suspicious for carcinoma. Dr. Samayoa then proceeded with a left breast biopsy on May 23, 2017. 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 Estrogen receptors are positive. Progesterone receptors were positive. Her-2Neu was not amplified. The patient is small breasted and decided on a mastectomy. Patient also has concerns about developing breast cancer in her right breast at some point in her life and has developed cancerophobia. She is also interested in discussing a prophylactic mastectomy at this time as well. Patient was informed of the risks and complications of the procedure including alternatives to surgery. These were discussed with her personally. She voices understanding and wishes to proceed. Some of the risks and complications were included in a form from the [employer] [place] [employer]. Encouraged the patient to stop smoking as it may have deleterious effects on wound healing. IV Fluids - 1300 ml. Urine Output - 180 ml. I used Magnolia CPX4 with Suture Tabs, Medium Height Breast Tissue Education Assistant, Textured, Integral Injection Dome, 350 ml, Right Breast. Reference Number - [id number]. Lot Number - [id number]. Serial Number - [id number]. I used Magnolia CPX4 with Suture Tabs, Medium Height Breast Tissue Education Assistant, Textured, Integral Injection Dome, 350 ml, Left Breast. Reference Number - [id number]. Lot Number - [id number]. Serial Number - [id number]. I used DermACELL Decellularized Dermis Graft, 8x16 cm, 128 cm2, Right Breast. ID - [id number]. Code - [id number]. Expiration - November 25, 2020. I used DermACELL Decellularized Dermis Graft, 8x16 cm, 128 cm2, Left Breast. ID - [id number]. Code - [id number]. Expiration - November 25, 2020. I used Pao absorbable hemostat, (I used 2 vials, one in each breast). Reference Number - [id number]. Lot Number - [id number]. Expiration - March 07, 2022. rotor assembler: Dane Whitfield. rotor assembler: Codey Jaffe. Type of Anesthesia:: General Specimen's removed: Right breast tissue to Pathology. Drains: Otoniel x4 (2 in each breast). Estimated Blood Loss (mL): 150 ml. Fluids Replaced: 1480 ml (IV Fluids 1300 ml, Urine Output 180 ml). Description of Procedure: Patient was seen in the preop area and was placed in the sitting position. Preop markings were made. I marked the sternal midline down toward the umbilicus. The midclavicular line was marked to the nipple and then from the nipple to the inframammary fold. The inframammary folds were marked bilaterally. I sabi oval markings around the nipple areolar complex vertically toward the inframammary fold. She was placed in supine position and taken to OR and placed under general anesthesia. Her breasts were prepped and draped in the usual fashion. SCD's were placed for DVT prophylaxis. Perioperative antibiotics were given intravenously. A galindo catheter was then placed. Dr. Samayoa then injected the left breast in preparation for the sentinel node biopsy. Separate teams were used and separate instruments were used to avoid contaminating the noncancerous right side with possible cancer cells. I then proceeded with the prophylactic mastectomy on the right side. The vertical markings were infiltrated with xylocaine and epinephrine. The vertical incision is part of the eventual need for a mastopexy incision for breast reconstruction. A mastopexy incision is usually a combination vertical incision and horizontal incision in the inframammary fold depending on the degree of ptosis. She has slight pseudoptosis and may not need a horizontal incision in the future at the time of the removal of the chemical engraver with replacement cohesive gel implantation. I dissected the breast tissue off the breast skin flaps at the level of Yadira's fascia down to the chest wall muscular fascia. The breast tissue was then dissected off the chest wall muscular fascia. Dissection was carried superiorly to the clavicle and medially to the sternum and laterally to the anterior axillary line and inferiorly to the inframammary fold. The tissue was then sent to Pathology for analysis to rule out carcinoma. Hemostasis was obtained with electrocautery. The wound was irrigated with saline. I then proceeded with saline tissue chemical engraver on the right while Dr. Samayoa was working on the left breast. Incision was made at the level of the inferior aspect of the pectoralis muscle. A submuscular pocket was created. Some of the inferior and medial muscular fibers were excised to allow a larger submuscular pocket and to allow ease in insetting the decellularized dermis graft over the chemical engraver. The wound was irrigated with saline. Hemostasis was obtained with electrocautery. Two size 15 Otoniel drains were placed through separate stab incisions laterally and secured to the skin with 3-0 Nylon interrupted sutures. One drain was used for the breast pocket and the other was for the mastectomy area and axillary area. Based on the size of the submuscular pocket, I determined a size 350 ml saline tissue chemical engraver from Magnolia would be used. I removed the air from the Magnolia saline tissue chemical engraver. I used a CPX4 with Suture tabs, medium height chemical engraver. After I removed the air, I instilled 30 ml of saline and tested to see if there were any leaks in the chemical engraver. When it was noted there were no leaks, the saline was removed. The chemical engraver was then placed in the submuscular position. The chemical engraver was secured to the chest wall with 3-0 Vicryl interrupted sutures through the suture tabs. I then covered the inferior aspect of the chemical engraver with DermACELL decellularized dermis graft and secured the graft to the muscle with 3-0 Vicryl interrupted sutures and from the graft to the chest wall with 3-0 Vicryl interrupted sutures. I then sprayed Pao absorbable hemostat into the right breast wound pocket to minimize seroma formation postoperatively. The vertical breast incision was then approximated in multiple layers with 3-0 Monocryl interrupted sutures for the deep dermis and subcutaneous tissue. The skin was approximated with 3-0 V-lock unidirectional barbed running subcuticular suture followed by Histoacryl skin tissue adhesive. Once the right side was closed, Dr. Samayoa was finished with the left side. There was additional surgery necessary because of the presence of positive lymph nodes. Once he was completed with his portion, I then proceeded with the left breast reconstruction. I incised the inferior aspect of the pectoralis muscle and created a submuscular pocket. I incised the inferior muscle fibers and medial muscle fibers to enlarge the submuscular pocket. The wound was irrigated with saline. Hemostasis was obtained using electrocautery. I placed two size 15 Otoniel drains through separate stab incisions laterally and secured to the skin using 3 -0 Nylon suture. Based on the size of the breast pocket, I determined a 350 ml tissue chemical engraver from Magnolia will be used for the reconstruction. I removed the air from the chemical engraver and instilled 30 ml saline into the chemical engraver. Once it was determined there were no leaks in the chemical engraver, I removed the saline. The Magnolia chemical engraver is the CPX4 with Suture tabs breast tissue chemical engraver which was then secured to the chest wall using 3-0 Vicryl interrupted sutures through the suture tabs. DermACELL was then used to close the inferior aspect of the chemical engraver to the pectoralis muscle superiorly using 3-0 Vicryl interrupted sutures and inferiorly to the chest wall using 3-0 Vicryl interrupted sutures. The Otoniel drains were used to drain the axilla and the breast pocket. I then sprayed Pao absorbable hemostat into the left breast pocket. I used two vials, one in each breast. I then closed the vertical incision with 3-0 Monocryl interrupted sutures for the deep dermis and subcutaneous tissue. The skin was approximated with 3-0 V-lock unidirectional barbed running subcuticular suture. This was then followed by Histoacryl skin tissue adhesive. No vascular compromise was noted on both breast area skin flaps. Kerlix gauze was used for dressing followed by a compression USHA wrap. Patient tolerated the procedure well and was sent to PACU in satisfactory condition. She will be sent upstairs for postop care. She will be discharged when tolerated po analgesia and when she is more steady on her feet with ambulation. I anticipate 2-3 days. She will have her drains in for up to 14 days. She will be maintained on antibiotics until the drains are removed. She will keep her head elevated during the initial postop period and be on a lifting restriction. Grafts/Implants Used: Magnolia CPX4 Breast Tissue Expanders x2, DermACELL Graft x 2. - Complications None. - Admit VTE Documentation VTE Present on Admission: No VTE Mechan Device Prophylaxis: SCD's VTE Pharm Prophylaxis ordered?: Yes Code Visit Surgery Charges CPT - 39013 ICD-10 - C50.412, F40.298, Z90.13, N65.1, Z17.0, F17.200 24121 C50.412, F40.298, Z90.13, N65.1, Z17.0, F17.200 15379-51 C50.412, F40.298, Z90.13, N65.1, Z17.0, F17.200 46837 C50.412, F40.298, Z90.13, N65.1, Z17.0, F17.200 [id number] C50.412, F40.298, Z90.13, N65.1, Z17.0, F17.200
[2017-06-17] MEDS: Lactated Ringers 1,000 ML 60 ML IV (09:30)
[2017-06-17] MEDS: Docusate Sodium 100 MG Capsule PO ×2 (09:32→21:44)
--- NOTE | 2017-06-17 11:30 | PN.SURG_ITS ---
Patient Problems: Active and Suspected Problems (Last Reviewed 05/29/17 @ 08:21 by Ede Samayoa MD) Malignant neoplasm of upper-outer quadrant of left female breast (Acute) Subjective: Postop #1 Patient complains of some incisional pain and some reflux symptoms and burning in her sternal area. She states she takes an occasional Nexium at home with relief. She is a little unsteady on her feet when she gets out of bed. - Physical Exam General: Alert, Oriented x3 HEENT: PERRLA, EOMI Neck: Supple Lungs: Clear to auscultation Cardiovascular: Regular rate, Regular Rhythm Abdomen: Soft, Non-Distended Skin: Incision - Bilateral breast incisions are dry and intact. No clinical evidence of hematoma. No vascular compromise noted on the breast skin flaps. Neurological: Cranial nerves II-XII grossly intact Psych/Mental Status: Normal Affect, Appropriate Vital Signs Temp Pulse Resp BP Pulse Ox 98.1 F 84 16 129/85 H 93 06/17/17 08:01 06/17/17 08:01 06/17/17 08:01 06/17/17 08:01 06/17/17 08:01 Oxygen Flow Rate (L/min) 1 Oxygen Delivery Method Room Air Weight: 171 lb 1.259 oz Body Mass Index (BMI) 26.8 Intake and Output for Last 24 Hours 06/15/17 06/16/17 06/17/17 23:59 23:59 23:59 Intake Total 2900 / 2900 904 / 904 Output Total 505 / 505 665 / 665 Balance 2395 / 2395 239 / 239 Drainage 215 ml yesterday. Laboratory Tests Past 24 Hrs 06/16/17 06/17/17 06/17/17 15:28 06:45 06:45 WBC 7.7 RBC 3.73 L Hgb 11.2 L Hct 34.9 L MCV 93.6 MCH 30.0 MCHC 32.1 RDW 13.7 RDW Differential 47.3 H Plt Count 166 MPV 10.2 Sodium 140 Potassium 4.1 Chloride 107 Carbon Dioxide 25.0 Anion Gap 8 BUN 15 Creatinine 0.60 Estim Creat Clear Calc 124.84 Est GFR (MDRD) Af Amer 144 Est GFR (MDRD) Non-Af 119 BUN/Creatinine Ratio 25.0 H Glucose 104 Calcium 8.4 L Troponin I < 0.02 Prealbumin 23.1 Assessment/Plan Active and Suspected Problems (Last Reviewed 05/29/17 @ 08:21 by Ede Samayoa MD) Malignant neoplasm of upper-outer quadrant of left female breast (Acute) 1. Left breast cancer. 2. 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 4. Disproportion reconstructed breasts. 5. Smoker. 6. Estrogen receptor positive status. 7. s/p injection of 5 cc of Lymphazurin blue and left-sided mastectomy and ssentinel lymph node biopsy by Dr. Samayoa and prophylactic mastectomy right breast and immediate bilateral breast reconstruction with placement of submuscular saline tissue expanders (350 ml each) and placement of DermACELL decellularized dermis graft (128 cm2, each side) by Dr. Martinez. 8. GERD. Incisions are dry and intact. Continue USHA wrap for chest wall compression. Keep head elevated. Ambulate with assist. If more steady on her feet and tolerating po analgesia, anticipate discharge tomorrow. Has some reflux symptoms. She takes Nexium at home as needed with relief. Will order Protonix. She will followup with her PCP after discharge for further management. She states she needs to find one. If she has difficulty, I will assist in her quest. When discharged, apply dry dressings daily. Maintain on antibiotics until the drains are removed in the office. Anticipate 10-14 days. Wrote script for Minocycline until drains are removed (28 tabs). Wrote scripts for Percocet for pain (60 tabs) and for Valium for spasm (30 tabs) . Wrote scripts for Phenergan for nausea (30 tabs) and a refill and for Colace for constipation (60 tabs). Wrote script for Protonix for GERD (30 tabs) and a refill. Will followup in office in a week. Will try and coordinate with Dr. Samayoa so the patient sees both of us on the same day.
--- NOTE | 2017-06-17 11:44 | PCM.DC ---
- Discharge Diagnoses Current Active Problems: Current Active and Chronic Problems (Last Reviewed 05/29/17 @ 08:21 by Ede Samayoa MD) Malignant neoplasm of upper-outer quadrant of left female breast (Acute) You will use the following diet at home:: No restrictions Discharge Activity: May not drive while taking narcotic pain medications., May Not Shower - until the drains are removed., - - keep head elevated. no heavy lifting. May shower in (days): 14 - when the drains are removed. May resume sexual activity in: 10-14 days Weight Bearing Status: Weight bearing as tolerated Lifting Restrictions: 20 lbs. Keep extremity elevated above heart level: - - elevate head. Call your doctor if your incision/area has: Continuous Slow Oozing, Sudden Increased Bleeding, Increased Pain/ Swelling, Increased Redness, Foul Smelling Discharge, Swelling at the incision site Call your doctor if you observe: Fever of 101 or Higher, Coldness, Increased Pain, Shortness of breath, Chest pain, Calf discomfort, Uncontrolled pain Suture Line Care: - - dry dressings daily followed by compression USHA wrap. Change Dressing in (Days):: 1 - dry dressings daily. Cleanse incision/area with: - - may get incisions wet in the shower after the drains are removed. Drain: Suction - katlin drain x4 to bulb suction. empty and record output daily. Allergies/Adverse Reactions: Allergies No Known Allergies Allergy (Verified 05/30/17 16:15) Medications to take at Discharge norethindrone (contraceptive) 0.35 mg tablet 0.35 mg PO QDAY 05/23/17 Diazepam [Valium] See Label Instructions PO 4X/DAY PRN PRN #30 tab 06/17/17 Docusate Sodium [Colace] 100 mg PO BID #60 cap 06/17/17 Minocycline [Minocin] 100 mg PO BID #28 cap 06/17/17 Oxycodone HCl/Acetaminophen [Percocet 5/325] 1 - 2 tab PO 4X/DAY PRN PRN #60 tab 06/17/17 Pantoprazole Sodium [Protonix] 40 mg PO DAILY #30 tab 06/17/17 ProMETHAzine [Phenergan] 25 mg PO 4X/DAY PRN PRN #30 tab 06/17/17 The following prescriptions were given: Diazepam [Valium] See Label Instructions PO 4X/DAY PRN PRN #30 tab PRN Reason: spasms Oxycodone HCl/Acetaminophen [Percocet 5/325] 1 - 2 tab PO 4X/DAY PRN PRN #60 tab PRN Reason: Pain Pantoprazole Sodium [Protonix] 40 mg PO DAILY #30 tab ProMETHAzine [Phenergan] 25 mg PO 4X/DAY PRN PRN #30 tab PRN Reason: NAUSEA/VOMITING Docusate Sodium [Colace] 100 mg PO BID #60 cap Minocycline [Minocin] 100 mg PO BID #28 cap Primary Care Physician: Care Physician,No Primary [Primary Care Provider] - Please follow up with your Primary Care Physician in: 4-6 weeks to evaluate GERD so she can find a PCP. Please Follow Up With: Sandro Martinez MD - will try and coordinate appointment with Dr. Samayoa on same day. When: one week. call [phone] for appt. Please Follow Up With: Ede Samayoa MD - will try and coordinate appointment with Dr. Martinez on same day. When: one week. call [phone] for appt. Proposed Discharge Date: 06/18/17
[2017-06-17] MEDS: Pantoprazole Sodium 40 MG Tablet PO (12:38)
[2017-06-17 14:00] VITALS: BP 113/64; PULSE 62; RESP 16; TEMP 36.8; O2SAT 97
[2017-06-17] MEDS: 0.9% NaCl Peripheral Flush Adult/Peds IV (20:12)
[2017-06-17 20:24] VITALS: BP 139/93; PULSE 90; RESP 18; TEMP 36.9; O2SAT 99
[2017-06-18 03:30] VITALS: BP 120/72; PULSE 73; RESP 16; TEMP 36.9; O2SAT 95
[2017-06-18] MEDS: Lactated Ringers 1,000 ML 60 ML IV (03:49)
[2017-06-18] MEDS: oxyCODONE 5 MG Tablet 10 MG PO ×2 (03:59→08:07)
[2017-06-18] MEDS: Enoxaparin 30 MG/0.3 ML Syringe SC (05:50)
[2017-06-18] MEDS: Cefazolin 1 GM/50 ML BAG IV (05:50)
[2017-06-18] MEDS: Ondansetron 4 MG/2 ML Vial IV (08:13)
[2017-06-18] MEDS: 0.9% NaCl Peripheral Flush Adult/Peds IV (08:13)
[2017-06-18 08:26] VITALS: BP 114/74; PULSE 64; RESP 16; TEMP 37; O2SAT 95
--- NOTE | 2017-06-18 09:37 | PCM.PN.SRG ---
Patient Problems: Active and Suspected Problems (Last Reviewed 05/29/17 @ 08:21 by Ede Samayoa MD) Malignant neoplasm of upper-outer quadrant of left female breast (Acute) Subjective: pain is improving. roland po Objective: dressing dry - Physical Exam Vital Signs Temp Pulse Resp BP Pulse Ox 98.6 F 64 16 114/74 95 06/18/17 08:26 06/18/17 08:26 06/18/17 08:26 06/18/17 08:26 06/18/17 08:26 Oxygen Flow Rate (L/min) 1 Oxygen Delivery Method Room Air Weight: 171 lb 1.259 oz Body Mass Index (BMI) 26.8 Intake and Output for Last 24 Hours 06/16/17 06/17/17 06/19/17 23:59 23:59 00:59 Intake Total 2900 / 2900 3044 / 3044 1135 / 1135 Output Total 505 / 505 2644 / 2644 817 / 817 Balance 2395 / 2395 400 / 400 318 / 318 Assessment/Plan Active and Suspected Problems (Last Reviewed 05/29/17 @ 08:21 by Ede Samayoa MD) Malignant neoplasm of upper-outer quadrant of left female breast (Acute) will d/c home
[2017-06-18] MEDS: Docusate Sodium 100 MG Capsule PO (10:49)
[2017-06-18] MEDS: Pantoprazole Sodium 40 MG Tablet PO (10:50)
[2017-06-18] MEDS: NORETHINDRONE 0.35 MG TABLET PO (11:11)
== END 2017-06-18 09:40 | disposition home or self-care (01) ==
LOC: SDC 08:23 → AC 08:24 → MS2 15:37
PROVIDERS: Anesthesiology; Surgery; Visit Provider Surgery
PROC: (CPT 19357; principal; 2017-06-16 10:15)
PROC: (CPT 19307; 2017-06-16 10:15)
DX: C50.412 Malignant neoplasm of upper-outer quadrant of left female breast (principal); C77.3 Secondary and unspecified malignant neoplasm of axilla and upper limb lymph nodes; Z17.0 Estrogen receptor positive status [ER+]; F45.29 Other hypochondriacal disorders; N65.1 Disproportion of reconstructed breast; K21.9 Gastro-esophageal reflux disease without esophagitis; F17.200 Nicotine dependence, unspecified, uncomplicated; Z90.13 Acquired absence of bilateral breasts and nipples
CPT/HCPCS: 00404; 19307; 19357; 38900; 36415; 80048; 80076; 81025; 84134; 84484; 85027; 85610; 85730; 88305; 88307; 88309; 88331; 93005; 97802; J3010; J7120; A4216; J2405; Q9968

== ENCOUNTER → 2017-07-06 19:12 | Outpatient (CLI) | payer BC, SELFPAY | PROVIDERS: Visit Provider Surgery | DX: T81.89XA Other complications of procedures, not elsewhere classified, initial encounter (principal); C50.412 Malignant neoplasm of upper-outer quadrant of left female breast; Z90.13 Acquired absence of bilateral breasts and nipples; F17.200 Nicotine dependence, unspecified, uncomplicated | CPT/HCPCS: 87070; 87075; 87077; 87205 ==

== ENCOUNTER 2017-07-19 11:40 | Day surgery (SDC) | payer BC, SELFPAY ==
[2017-07-19 12:06] VITALS: BP 117/88; PULSE 77; RESP 16; TEMP 37.2; O2SAT 100; BMI 28.2
[2017-07-19 12:17] LABS: Internal QC Validated? YES +Cl - CLEAR BKGD; Pregnancy, Urine Negative Negative
[2017-07-19] MEDS: Cefazolin 2 GM in 0.9% Normal Saline 100 ML IV (14:16)
--- NOTE | 2017-07-19 14:28 | PCM.OPRPT ---
Problem List (1) Malignant neoplasm of upper-outer quadrant of left female breast Status: Acute Qualifiers: Estrogen receptor status: positive Qualified Code(s): C50.412 - Malignant neoplasm of upper-outer quadrant of left female breast; Z17.0 - Estrogen receptor positive status [ER+] Report of Operation Date of Procedure: 07/19/17 Pre-Operative Diagnosis: c50.412 malignancy in the upper outer quadrant of the left breast Post-Operative Diagnosis: Same Surgery/Procedure Performed:: Placement of a right IJ PowerPort Type of Anesthesia:: MAC Anesthesiologist: Malick Emerson Description of Procedure: Patient was brought into the operating room placed in the supine position under excellent MAC anesthetic. I ultrasound the right side of her neck identify the internal jugular vein. I marked the neck and chest appropriately. The neck and chest were then sterilely prepped and draped in the usual fashion. Local was injected into the neck. Seldinger's technique was used to gain access to the right internal jugular vein. Guidewire was placed of the needle the needle was removed. Fluoroscopy was used to confirm proper placement. I injected local into the chest. An incision was made. A pocket was created for the port. This was done with the use of electrocautery. A skin dre was made in the neck. Dilator and sheath were placed over the guidewire leaving the sheath in place and removing the guidewire and dilator. Single-lumen catheter was placed into the internal jugular vein and the sheath was removed. Fluoroscopy was used to confirm proper length. I tunneled from the pocket created over the collarbone into the neck and brought the catheter down. It flushed and irrigated well I cut the catheter to length. I placed the locking hub onto the catheter. I placed the port onto the catheter. I secured the 2 with the locking hub. I flushed with 5 cc of hep flush. I sutured it into the pocket created with 2 sutures of 2-0 Prolene. Skin incisions were closed with subcuticular stitches of 3-0 Vicryl in a running 4-0 Monocryl Dermabond was applied sterile dressings were applied and the patient tolerated the procedure well. Postoperative chest x-ray was ordered. - Admit VTE Documentation VTE Present on Admission: No VTE Mechan Device Prophylaxis: SCD's VTE Pharm Prophylaxis ordered?: No Reason prophylaxis not ordered:: Treatment Not Indicated
[2017-07-19] MEDS: Bupivacaine Mpf 0.5% 30 ML VIAL (14:33)
--- NOTE | 2017-07-19 14:57 | DCINST_ITS ---
Discharge Diet: No Restrictions - Pain medication may cause nausea. You should typically eat light foods as you take your pain medication. Discharge Activity: May Shower - with the bandage in place 1-2 days after surgery. DO NOT SHOWER WHEN YOUR PORT IS ACCESSED. Additional Activity Instructions:: May not drive, work with heavy equipment, or sign legal documents for [address] if you are no longer taking narcotic pain medications. You may drive when you are no longer taking pain medications. Additional Dressing/Incision Instructions:: Leave the bandage on for 2-3 days. When you remove the bandage, leave the steri-strips intact until they fall off. Allergies/Adverse Reactions: Allergies No Known Allergies Allergy (Verified 07/18/17 11:17) Medications to take at Discharge norethindrone (contraceptive) 0.35 mg tablet 0.35 mg PO QDAY 05/23/17 Oxycodone HCl/Acetaminophen [Percocet 5/325] 1 - 2 tab PO 4X/DAY PRN PRN #60 tab 06/17/17 Pantoprazole Sodium [Protonix] 40 mg PO DAILY #30 tab 06/17/17 proMETHazine tablet [Phenergan tablet] 25 mg PO 4X/DAY PRN PRN #30 tab 06/17/17 gabapentin 300 mg capsule 300 mg PO BID #60 cap 07/06/17 metronidazole 500 mg tablet 500 mg PO TID #30 tab 07/12/17 Diazepam [Valium] 5 mg PO BID 07/18/17 Oxycodone HCl/Acetaminophen [Percocet 5/325] 1 - 2 tab PO Q4H PRN PRN 4 Days # 30 tab 07/19/17 The following prescriptions were given: Oxycodone HCl/Acetaminophen [Percocet 5/325] 1 - 2 tab PO Q4H PRN PRN 4 Days # 30 tab PRN Reason: Pain Primary Care Physician: Jack Mancuso DO [Primary Care Provider] - Please Follow Up With: Ede Samayoa MD - [phone] When: Please plan to follow up in 7 days in the office.
--- NOTE | 2017-07-19 15:03 | RAD_ITS ---
STUDY: X-RAY CHEST REASON FOR EXAM: Female, 37 years old. Port placement. History of breast cancer. TECHNIQUE: Single AP portable view of the chest. COMPARISON: None. FINDINGS: A right-sided anca catheter is in situ. The tip is at the junction of the superior vena cava and right atrium. The patient is status post bilateral mastectomy and breast implants. The lungs are clear and expanded. There is no demonstrated pleural abnormality. Normal size heart. Normal mediastinum and jason. Normal visualized pulmonary arteries. Normal visualized aortic arch and descending thoracic aorta. Normal visualized thoracic spine. Normal visualized ribs, clavicles, and shoulders. There is no demonstrated abnormality of the visualized soft tissue structures of the upper abdomen. RAD/Chest 1 View (Portable) IMPRESSION: The tip of the right-sided anca catheter is at the junction of the superior vena cava and right atrium. Electronically Signed: Ludwin Siu MD at 15:38 EDT Tel [phone], Service support ,
[2017-07-19 15:04] VITALS: BP 117/88; BP 128/87; PULSE 94; RESP 16; TEMP 36.8; O2SAT 96
[2017-07-19 15:09] VITALS: BP 117/88; BP 124/85; PULSE 91; RESP 16; O2SAT 98
[2017-07-19 15:14] VITALS: BP 117/88; BP 122/89; PULSE 82; RESP 16; O2SAT 100
[2017-07-19 15:19] VITALS: BP 117/88; BP 121/87; PULSE 79; RESP 16; TEMP 36.4; O2SAT 98
[2017-07-19 15:50] VITALS: BP 117/88
== END 2017-07-19 16:14 | disposition home or self-care (01) ==
LOC: SDC 11:41 → AC 11:42
PROVIDERS: Anesthesiology; Family Provider Student in an Organized Health Care Education/Training Program; PCP Student in an Organized Health Care Education/Training Program; Visit Provider Surgery
PROC: (CPT 36561; principal; 2017-07-19 13:35)
DX: C50.412 Malignant neoplasm of upper-outer quadrant of left female breast (principal); Z17.0 Estrogen receptor positive status [ER+]; Z45.2 Encounter for adjustment and management of vascular access device; F45.29 Other hypochondriacal disorders; N65.1 Disproportion of reconstructed breast; K21.9 Gastro-esophageal reflux disease without esophagitis; F41.9 Anxiety disorder, unspecified; F17.210 Nicotine dependence, cigarettes, uncomplicated; Z79.899 Other long term (current) drug therapy
CPT/HCPCS: 36561; 71045; 77001; 81025; J7120; C1788

== ENCOUNTER 2018-07-26 06:00 | Day surgery (SDC) | payer BC, SELFPAY ==
[2018-07-05 15:02] VITALS: BMI 26.8
--- NOTE | 2018-07-18 12:23 | HP.PCM_ITS ---
History and Physical Date of Admission: 07/26/18 Mikki Kraus Physician DIRECTOR OF CURRICULUM H&P Signed Encounter Date: 07/18/2018 Hide copied text Esha for details Tri Marrero is a 38 year old female who presents for discussion for Laparoscopic BSO- pt with ER+ breast cancer (NEGATIVE BRCA) -pt along with oncologist have decided for BSO. Pt is aware of vermin exterminator risks with removal of ovaries. Pt denies any concerns today- denies CP, fever, sob, dizziness. Pt would like to proceed with CARLA scheduled 07/26/18. ? PAST MEDICAL HISTORY Diagnosis Date ? Breast cancer (HCC) 05/2017 ? Left side ? PAST SURGICAL HISTORY Procedure Laterality Date ? BREAST SURGERY HX ? 06/16/2017 ? bilateral ? FAMILY HISTORY Problem Relation Age of Onset ? Heart disease Maternal Grandmother ? ? Cancer Maternal Grandfather ? ? bladder ? Diabetes Maternal Grandfather ? ? Diabetes Paternal Grandmother ? ? other (lupus) Paternal Grandmother ? ? Cancer Paternal Grandfather ? ? colon ? Cancer Paternal Aunt ? ? Uterine cancer ? Social History Socioeconomic History Marital status: Spouse name: Not on file Number of children: 2 Years of education: Not on file Highest education level: Not on file Social Needs Financial resource strain: Not on file Food insecurity - worry: Not on file Food insecurity - inability: Not on file Transportation needs - medical: Not on file Transportation needs - non-medical: Not on file Occupational History Not on file Tobacco Use Smoking status: Current Every Day Smoker Packs/day: 0.50 Years: 20.00 Pack years: 10 Types: Cigarettes Smokeless tobacco: Never Used Substance and Sexual Activity Alcohol use: Yes Alcohol/week: 10.5 oz Types: 7 Glasses of Wine (5oz) per week Drug use: No Sexual activity: Not Currently control/protection: Abstinence Other Topics Concerns: Not on file Social History Narrative , 2 daughters ? ? Current Outpatient Medications: 0.9 % sodium chloride (0.9% NACL) Access implanted vascular access device (IVAD) as needed for flush, blood draw or treatment.Flush IVAD with 10-20 mL NS every 4 weeks and PRN when IVAD not in use. heparin 100 unit/mL injection Access implanted vascular access device (IVAD) as needed for flush, blood draw or treatment. Before de-accessing port, flush with 10-20ml normal saline and follow with 5 mL heparin (100 units/mL) (if no heparin allergy). De-access port on treatment completion. sertraline (ZOLOFT) 50 mg tablet Take 1 tablet by mouth once daily. gabapentin (NEURONTIN) 300 mg capsule Take 1 capsule by mouth twice daily. (Patient taking differently: Take 300 mg by mouth once daily. ) sertraline (ZOLOFT) 25 mg tablet Take 1 tablet by mouth once daily. pantoprazole DR (PROTONIX) 40 mg tablet Take 1 tablet by mouth once daily. melatonin 10 mg tab Take 1-2 tablets by mouth at bedtime as needed. anastrozole (ARIMIDEX) 1 mg tablet Take 1 tablet by mouth once daily. mv,drake,iron,mn/folic acid/chol (BODY, HAIR, SKIN AND NAILS ORAL) Take 3 tablets by mouth once daily. pyridoxine, vitamin B6, (VITAMIN B-6) 100 mg tablet Take 100 mg by mouth twice daily. Cyanocobalamin (VITAMIN B-12) 1,000 mcg subl Dissolve 1 tablet under the tongue twice daily. ibuprofen (MOTRIN) 600 mg tablet Take 1 tablet by mouth every 6 hours as needed for Pain. FOR PAIN. simethicone, chewable (MYLICON) 80 mg chewable tablet Take 1 tablet by mouth every 6 hours as needed. lidocaine-prilocaine (EMLA) cream Apply 1 application to affected area as needed. (Patient not taking: Reported on 06/21/2018 ) ? No current facility-administered medications for this visit. Allergies As of Date: 07/18/2018 (No Known Allergies) Fully Assessed 07/18/2018 ? ? REVIEW OF SYSTEMS Abdomen: No abdominal pain, nausea, vomiting, diarrhea, or constipation. Bladder: no dysuria.. Expanded ROS: GENERAL: Negative for fever Allergies and current medication updated:Yes ? EXAM: BP 112/76 Wt 172 lb (78.0kg) ? GENERAL: pleasant, female in no apparent distress HEENT: Normocephalic, atraumatic, mucus membranes moist and no lesions NECK: Supple, full range of motion, no adenopathy DERMATOLOGY: Normal, without lesions, non-icteric and non-hirsute BREAST: deferred CHEST: Normal inspiratory effort. Clear to auscultation CARDIAC: regular rate and rhythm NEURO: alert and oriented x3,exam grossly non-focal EXTREMITIES: normal ? ASSESSMENT AND PLAN: Encounter Diagnosis ? ? ICD-10-CM ? 1. Malignant neoplasm of left breast in female, estrogen receptor positive, unspecified site of breast (HCC) C50.912 ? ? Z17.0 ? ? 2. Laparoscopic BSO reviewed in detail with patient. We reviewed vermin exterminator comp lications with removal including but not limited to - possible ovarian remnant syndrome- bone disease, cardiac disease, dementia, vaginal dryness, weight changes. Pt wishes to proceed at this time 3. Pt has been counseled on risks/benefits and alternatives of surgery including but not limited to anesthesia, bleeding, infection, injury to pelvic structures including bowel, bladder, ureters and vessels. Pt wishes to proceed with surgery at this time. 4. Post op Motrin and Mylicon given 5. Note for work given 6. Post op restrictions reviewed and pre op direction reviewed ? ? Mikki Clemons MD ?
--- NOTE | 2018-07-23 14:21 | RAD_ITS ---
STUDY: X-RAY CHEST REASON FOR EXAM: Female, 38 years old. Preop for mastectomy TECHNIQUE: PA and lateral views of the chest. COMPARISON: 2017 FINDINGS: Right subclavian port noted, tip is in the distal SVC. Tissue expanders noted over each lung field. The lungs are clear and expanded. There is no demonstrated pleural abnormality. Normal size heart. Normal mediastinum and jason. Normal visualized pulmonary arteries. Normal visualized aortic arch and descending thoracic aorta. Normal visualized thoracic spine. Normal visualized ribs, clavicles, and shoulders. There is no demonstrated abnormality of the visualized soft tissue structures of the upper abdomen. RAD/Chest PA and Lateral IMPRESSION: No acute pulmonary process Electronically Signed: Ignacio Alves MD at 14:52 EDT , Service support ,
[2018-07-23 17:06] LABS: Prothrombin Time (Protime)PT. 12.5 SECONDS (11.7-14.9)
[2018-07-23 17:07] LABS: Partial Thromboplast Time 26.6 Seconds (24.1-36.2)
[2018-07-26] VITALS (8 sets, daily range): BP systolic 87–120; BP diastolic 58–92; PULSE 63–84; RESP 14–18; TEMP 36.4–36.7; O2SAT 94–100; BMI 26.6
--- NOTE | 2018-07-26 | OV_PTH ---
PATIENT: LETICIA HAQUE LOC: [facility] U#:[id number] AGE/SX: 38/F ROOM: RE07/26/[address]: Dr. Mikki Clemons, MDDOB: 1980 BED: DIS: 07/26/2018 SPEC #: [id number] RECD: 07/26/18 14:28 STATUS: TAMAR DHIRAJ #: [id number] JEANINE: 07/26/18 00:[address]: Mikki Clemons DEPT: SURGICAL PATHOLOGY RECD BY: Brandon Patton ENTERED: 07/26/18 14:29 SP TYPE: OVARY OTHR DR: Dr. Jack Mancuso, Tissues: Ovary, NOS Procedures: Surgery Specimen Level IV HEADER OPERATION: Laparoscopic bilateral salpingo-oophorectomy PRE-OP DIAGNOSIS: Breast cancer, ER receptor positive TISSUE SUBMITTED: Bilateral ovaries and fallopian tubes MICROSCOPIC DIAGNOSIS Bilateral fallopian tube and ovaries, bilateral salpingo-oophorectomy: Bilateral fallopian tube and ovaries, no pathologic diagnosis. AVRIL:bella 07/27/18 MICROSCOPIC DESCRIPTION Slides are reviewed. GROSS DESCRIPTION Received in fixative is one container labeled with the patient's name and designated bilateral tubes and ovaries. The specimen consists of bilateral fallopian tubes and ovaries. The ovaries are not identified as right or left. One of the fallopian tubes measure 2.5 cm in length and 0.5 cm in diameter. The fimbrial end is identified. Sections reveal unremarkable cut surfaces. No tubo-ovarian adhesions are noted. The adjacent ovary measures 3 x 1.5 x 1.5 cm. Sections reveal unremarkable cut surfaces. The second fallopian tube measures 5 cm in length and 0.5 cm in diameter. A portion of second ovary is also present adjacent to it measuring 2.5 x 0.7 x 0.7 cm. The second fallopian tube is similar appearance to the first one. The rest of the second ovary present separately in the container and measures 3 x 2 x 1.5 cm. Sections reveal unremarkable cut surfaces. Monument Setter Helper sections are submitted in six cassettes as follows: 1-3 - one fallopian tube and ovary (1 - fallopian tube, 2 & 3 - adjacent ovary), 4-6 - second fallopian tube and ovary (4 - fallopian tube, 5 & 6 - adjacent ovary). / AVRIL:bella 07/26/18 TC:4 CPT: 82490 x2
[2018-07-26 06:33] LABS: Internal QC Validated? YES +Cl - CLEAR BKGD; Pregnancy, Urine Negative Negative
--- NOTE | 2018-07-26 07:05 | EKG12_ITS ---
Test Reason : PRE OP Blood Pressure : / mmHG Vent. Rate : 080 BPM Atrial Rate : 080 BPM P-R Int : 126 ms QRS Dur : 084 ms QT Int : 384 ms P-R-T Axes : 064 001 035 degrees QTc Int : 442 ms Normal sinus rhythm Normal ECG Confirmed by JUAN R CABRERA, MAURICIO ([id number]), editorial specialist COSME GARCIA ([id number]) on 07/30/2018 10:50:24 AM Referred By: Mikki Clemons Confirmed By:MAURICIO PETE MD
--- NOTE | 2018-07-26 07:31 | DCINST_ITS ---
Discharge Diet: No Restrictions, - - Increase fluid intake for 48 hours. Discharge Activity: Return to Normal Activity, May Drive - when you are no longer taking narcotic pain medications., May Shower, May Take a Tub Bath - in 7 days., - - Ambulate often the next week after surgery. May resume sexual activity in: 2 weeks Lifting Restrictions: 20 Additional Activity Instructions:: Nothing in the vagina for the next 5 days. Call your doctor if your incision/area has: Continuous Slow Oozing, Sudden Increased Bleeding, Increased Pain/ Swelling, Increased Redness, Foul Smelling Discharge, Swelling at the incision site Call your doctor if you observe: Fever of 101 or Higher Cleanse incision/area with: - - you have skin glue over incisions, do not pick off. May shower and let soap and water run over incision sites. Allergies/Adverse Reactions: Allergies ondansetron [From Zofran] Adverse Reaction (Verified 07/19/18 10:06) MIGRAINES Medications to take at Discharge Pantoprazole Sodium [Protonix] 40 mg PO DAILY #30 tab 06/17/17 anastrozole 1 mg tablet 1 mg PO DAILY 07/05/18 cyanocobalamin (vitamin B-12) 1,000 mcg capsule 1,000 mcg PO DAILY 07/05/18 gabapentin 300 mg capsule 300 mg PO BID cap 07/05/18 multivitamin tablet 1 tab PO DAILY 07/05/18 pyridoxine (vitamin B6) 100 mg tablet 100 mg PO DAILY 07/05/18 Sertraline HCl [Zoloft] 75 mg PO QDAY 07/19/18 Orders to be completed after discharge: 12 Lead EKG [CVS] Time Frame: 07/19/18, Facility: [facility], Location: Cardiovascular Services Chest PA and Lateral [RAD] Time Frame: 07/19/18, Facility: [facility], Location: Radiology, [facility] Partial Thromboplast Time Time Frame: 07/19/18, Location: Laboratory Prothrombin Time w/INR Time Frame: 07/19/18, Location: Laboratory ,Urine Time Frame: 07/26/18, Location: Laboratory Primary Care Physician: Jack Mancuso DO [Primary Care Provider] - Test Results: Test results from this visit will be discussed in further detail at your follow- up appointment, if applicable. Please Follow Up With: Mikki Clemons MD When: 2 weeks post op
[2018-07-26] MEDS: Bupivacaine Mpf 0.5% 30 ML VIAL (07:52)
--- NOTE | 2018-07-26 08:18 | PCM.OPRPT ---
Report of Operation Date of Procedure: 07/26/18 Pre-Operative Diagnosis: Estrogen receptor Positive Breast cancer Post-Operative Diagnosis: same Surgery/Procedure Performed:: Laparoscopic BSO Description of Surgical Findings:: Normal ovaries and tubes. Both ureters visualized peristalsing after removal of adnexa mine technician: Jennifer Pugh Type of Anesthesia:: General Special Medications: 0.5% marcaine Specimen's removed: Bilateral ovaries and tubes Drains: none Estimated Blood Loss (mL): 5 Fluids Replaced: 800 Description of Procedure: Operative note: After informed consent was obtained patient was taken to the operating room she was placed in supine position she was given anesthesia. She was then placed in the [facility] stirrups and she was prepped and draped in normal sterile fashion. Bladder was drained prior to the start of procedure approximately 100cc of clear yellow urine was expelled. At this time attention was turned to the vaginal portion where weighted speculum placed at posterior fornix vagina single-tooth tenaculum was used to gently grasp the internal the cervix. uterus was gently sounded to approximately 7cm. Uterine manipulator was placed without difficulty. Legs then placed in parallel with the abdomen the tenaculum and the weighted speculum were removed. 2 towel clamps were placed at umbilicus. After Marcaine was injected infraumbilical a small incision was made and a 5 mm trocar was placed under direct visualization. CO2 gas was used to insufflate the intra-abdominal cavity. Upon inspection no gross abnormalities uterus tubes and ovaries appeared to be normal. At this time then the LLQ port was placed again Marcaine was injected small incision was made a knife and the 5 mm trocar was placed. this was repeated on right side. At this time then tubes were traced back to the fimbriated ends. Ligasure was used to coagulate and ligate along IP ligament, uteroovarian and the mesosalpinx bilaterally until ovaries and tubes removed completely. Good hemostasis was appreciated. RLQ incision was extended to 10mm port and endocatch bag placed- specimens collected and removed. The pat tucker was then used to closed fascia of umbilical incision using 0-vicryl suture. At this time procedure was deemed complete successful. The gas was desufflated on from the intra-abdominal cavity. The trochars were removed. Skin was closed using 4-0 Monocryl in a subcutaneous fashion. Dermabond glue was placed. Instrument lap and needle counts were correct ?2. The uterine manipulator was removed. Vaginal sweep was performed it was negative. There were no complications anticipated normal postoperative course for this patient. Grafts/Implants Used: none - Complications none - Admit VTE Documentation VTE Present on Admission: Yes VTE Mechan Device Prophylaxis: SCD's VTE Pharm Prophylaxis ordered?: No
--- NOTE | 2018-07-26 08:22 | OP.PCM_ITS ---
Report of Operation Date of Procedure: 07/26/18 Pre-Operative Diagnosis: Estrogen receptor Positive Breast cancer Post-Operative Diagnosis: same Surgery/Procedure Performed:: Laparoscopic BSO Description of Surgical Findings:: Normal ovaries and tubes. Both ureters visualized peristalsing after removal of adnexa cartographic engineer: Jennifer Pugh Type of Anesthesia:: General Special Medications: 0.5% marcaine Specimen's removed: Bilateral ovaries and tubes Drains: none Estimated Blood Loss (mL): 5 Fluids Replaced: 800 Description of Procedure: Operative note: After informed consent was obtained patient was taken to the operating room she was placed in supine position she was given anesthesia. She was then placed in the [facility] stirrups and she was prepped and draped in normal sterile fashion. Bladder was drained prior to the start of procedure approximately 100cc of clear yellow urine was expelled. At this time attention was turned to the vaginal portion where weighted speculum placed at posterior fornix vagina single-tooth tenaculum was used to gently grasp the internal the cervix. uterus was gently sounded to approximately 7cm. Uterine manipulator was placed without difficulty. Legs then placed in parallel with the abdomen the tenaculum and the weighted speculum were removed. 2 towel clamps were placed at umbilicus. After Marcaine was injected infraumbilical a small incision was made and a 5 mm trocar was placed under direct visualization. CO2 gas was used to insufflate the intra-abdominal cavity. Upon inspection no gross abnormalities uterus tubes and ovaries appeared to be normal. At this time then the LLQ port was placed again Marcaine was injected small incision was made a knife and the 5 mm trocar was placed. this was repeated on right side. At this time then tubes were traced back to the fimbriated ends. Ligasure was used to coagulate and ligate along IP ligament, uteroovarian and the mesosalpinx bilaterally until ovaries and tubes removed completely. Good hemostasis was appreciated. RLQ incision was extended to 10mm port and endocatch bag placed- specimens collected and removed. The pat tucker was then used to closed fascia of umbilical incision using 0- vicryl suture. At this time procedure was deemed complete successful. The gas was desufflated on from the intra-abdominal cavity. The trochars were removed. Skin was closed using 4-0 Monocryl in a subcutaneous fashion. Dermabond glue was placed. Instrument lap and needle counts were correct ?2. The uterine manipulator was removed. Vaginal sweep was performed it was negative. There were no complications anticipated normal postoperative course for this patient. Grafts/Implants Used: none - Complications none - Admit VTE Documentation VTE Present on Admission: Yes VTE Mechan Device Prophylaxis: SCD's VTE Pharm Prophylaxis ordered?: No
[2018-07-26] MEDS: HYDROcodone Bitartrate/Apap 5/325 Tablet PO (10:05)
== END 2018-07-26 10:42 | disposition home or self-care (01) ==
LOC: SDC 06:02 → AC 06:03
PROVIDERS: Anesthesiology; Family Provider Student in an Organized Health Care Education/Training Program; PCP Student in an Organized Health Care Education/Training Program; Referring Provider Obstetrics & Gynecology; Visit Provider Obstetrics & Gynecology
PROC: (CPT 58661; principal; 2018-07-26 07:15)
DX: Z40.02 Encounter for prophylactic removal of ovary(s) (principal); C50.912 Malignant neoplasm of unspecified site of left female breast; Z17.0 Estrogen receptor positive status [ER+]; K21.9 Gastro-esophageal reflux disease without esophagitis; F41.9 Anxiety disorder, unspecified; F17.210 Nicotine dependence, cigarettes, uncomplicated; Z90.13 Acquired absence of bilateral breasts and nipples
CPT/HCPCS: 58661; 36415; 71046; 81025; 85610; 85730; 88305; 93005; J7120; A4216

== ENCOUNTER 2018-09-07 14:06 | Inpatient (IN) | payer BC, SELFPAY ==
[2018-08-22 09:05] VITALS: BMI 26.6
[2018-09-07] VITALS (13 sets, daily range): BP systolic 94–114; BP diastolic 55–80; PULSE 61–85; RESP 14–18; TEMP 36.3–36.9; O2SAT 92–100; BMI 27.5; BMI 27.4
--- NOTE | 2018-09-07 00:15 | PCM.HP.BLA ---
History and Physical Date of Admission: 09/07/18 HISTORY OF PRESENT ILLNESS 38-year-old woman presents for discussion of further breast reconstruction after finishing her radiation therapy on March 06, 2018. Her left breast cancer was biopsied on 05/23/17. On 06/16/17 where she underwent injection of 5 cc of Lymphazurin blue and left modified radical mastectomy and sentinel lymph node biopsy by Dr. Samayoa and prophylactic mastectomy right breast and immediate bilateral breast reconstruction with placement of submuscular saline tissue expanders (350 ml each) and placement of DermACELL decellularized dermis graft (128 cm2, each side) by Dr. Martinez. 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 One node showed macrometastasis. Estrogen receptors are positive. Progesterone receptors were positive. Her-2Neu was negative. She underwent chemotherapy and radiation therapy. Today she has pain in her breast reconstruction thus far worse on the left on the lateral aspect. She recently had her ovaries removed on 07/26/18. PAST MEDICAL HISTORY Malignant neoplasm of upper-outer quadrant of left female breast Estrogen receptor positive status [ER+] Current smoker Disproportion of reconstructed breast Acquired absence of bilateral breasts and nipples Cancer phobia PAST SURGICAL HISTORY bilateral mastectomy Port-a-cath ALLERGIES ondansetron [From Zofran] MEDICATIONS Pantoprazole Sodium [Protonix] anastrozole cyanocobalamin (vitamin B-12) gabapentin multivitamin pyridoxine (vitamin B6) Sertraline HCl [Zoloft] FAMILY HISTORY Mother - Hypertension SOCIAL HISTORY Smoking Status: Current some day smoker tobacco type: cigarettes alcohol intake: current alcohol intake frequency: a few times a month substance use type: does not use REVIEW OF SYSTEMS General - Denies fever, fatigue, and weight loss. Eyes - Denies eye pain. ENT - Denies nasal congestion and sore throat. Endocrine - Denies excessive thirst and urination. Has diagnosis of left breast cancer. Underwent bilateral mastectomy in 06/25 with initial reconstruction with placement of saline tissue expanders. She has undergone chemotherapy and radiation therapy. Has pain in her bilateral breast reconstruction worse on the left. Skin - No suspicious lesions. Musculoskeletal - Denies joint pain, joint stiffness, weakness of muscles and joints, back pain, and arthritis. Neuro - Denies headaches. Cardiovascular - Denies chest pain. Denies shortness of breath with exertion. Respiratory - Denies cough and shortness of breath. Patient is a smoker. Psych - Denies anxiety and depression. Gastrointestinal - Denies nausea, vomiting, diarrhea, and constipation. Hematologic -Denies abnormal bruising and bleeding. Genitourinary - Denies hematuria and urinary frequency. PHYSICAL EXAMINATION General - Alert and oriented. Bra size was 36 B before the mastectomy. HEENT - PERRL. EOMI. Throat is clear. Neck - Supple and nontender. No cervical adenopathy. Lungs - Clear to auscultation. Breasts - Bilateral mastectomy incisions are well healed. No axillary adenopathy noted. Breast width is 14 cm bilaterally. Breast height is 13 cm. There is firmness in her breasts from the expansion and subsequent chemotherapy and radiation therapy. There is tenderness in both breasts worse on the left in the lateral aspect. Also tenderness in the medial aspect. There is some medial contracture which has led to some lateral migration of the expanders with a distance of 6 cm between the tissue expanders in the sternal area. Heart - Regular rate and rhythm. Abdomen - No abdominal scarring. Some skin and subcutaneous redundancy between the umbilicus and the pubic area. Good skin elasticity noted. Extremities - FROM. No axillary adenopathy. Neuro - CN II - XII grossly intact. ASSESSMENT 1. Left breast cancer. 2. 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 4. Disproportion reconstructed breasts. 5. Deformity of reconstructed left breast with radiation scar contour deformity. 6. 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 7. Painful radiation capsular contracture bilateral breast healthcare technician reconstruction. 8. Smoker. 9. Estrogen receptor positive status. PLAN Discussed with the patient her breast reconstruction options. The patient is interested in bringing in nonradiated tissue to the left breast with a latissimus dorsi myocutaneous flap. Since she has decided to proceed with the latissimus flap, would remove the healthcare technician and do a capsulectomy at the same time. Will extend the breast pocket a little more medially since there was some lateral migration from the radiation therapy. I will let the flap heal first before placing an implant because I want to make sure the incisions heal satisfactory because of the presence of radiated tissue peripherally. Due to the presence of soft tissue radionecrosis, she will also need excision of radiated scar contour deformity and multiple W-plasty reconstruction to minimize radiation pincushioning of the flap. After healing has occurred, (tentatively 3 months), will proceed with placement of a cohesive gel implant on the left along with acellular dermal matrix graft. On the right will proceed with removal of the healthcare technician with a capsulectomy followed by placement of a cohesive gel implant along with acellular dermal matrix graft. Will also extend the breast pocket a little more medially as well secondary to the capsular contracture. In the meantime after the latissimus flap, I would like the patient to have HBO treatments to help the healing process prior to placement of the implants. Since the patient states she wants to be the same size as she is now with the expanders, that I may need to place another healthcare technician underneath the latissimus flap if I think the breast pocket is not large enough because of the radiation effects in order to enlarge the pocket to equal the size of the breast pocket on the right. She is aware of that possibility and voices understanding. Since the radiation therapy finished on 03/06/18, we like to wait at least 6 months before proceeding with breast reconstruction. Will aim for the end of August or early September. The surgery would be done under general anesthesia with an inpatient stay of 3-5 days. Drains would be placed for several days and be maintained on antibiotics until the drains are removed. She will have an USHA wrap for chest wall compression to minimize back seroma. Any tissue that is removed will be sent to Pathology for analysis to rule out carcinoma. Any abnormal fluid that is seen at the time of removal of the healthcare technician will be sent to Microbiology for culture. A positive culture will necessitate antibiotic therapy. Patient was informed of the risks and complications of the procedure including alternatives to surgery. These were discussed with the patient personally. Patient voices understanding and wishes to proceed. Some of the risks and complications were included in a form from the [employer]. Encouraged the patient to stop smoking as it may have deleterious effects on wound healing.
--- NOTE | 2018-09-07 00:21 | HP.PCM_ITS ---
History and Physical Date of Admission: 09/07/18 HISTORY OF PRESENT ILLNESS 38-year-old woman presents for discussion of further breast reconstruction after finishing her radiation therapy on March 06, 2018. Her left breast cancer was biopsied on 05/23/17. On 06/16/17 where she underwent injection of 5 cc of Lymphazurin blue and left modified radical mastectomy and sentinel lymph node biopsy by Dr. Samayoa and prophylactic mastectomy right breast and immediate bilateral breast reconstruction with placement of submuscular saline tissue expanders (350 ml each) and placement of DermACELL decellularized dermis graft (128 cm2, each side) by Dr. Martinez. 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 One node showed macrometastasis. Estrogen receptors are positive. Progesterone receptors were positive. Her-2Neu was negative. She underwent chemotherapy and radiation therapy. Today she has pain in her breast reconstruction thus far worse on the left on the lateral aspect. She recently had her ovaries removed on 07/26/18. PAST MEDICAL HISTORY Malignant neoplasm of upper-outer quadrant of left female breast Estrogen receptor positive status [ER+] Current smoker Disproportion of reconstructed breast Acquired absence of bilateral breasts and nipples Cancer phobia PAST SURGICAL HISTORY bilateral mastectomy Port-a-cath ALLERGIES ondansetron [From Zofran] MEDICATIONS Pantoprazole Sodium [Protonix] anastrozole cyanocobalamin (vitamin B-12) gabapentin multivitamin pyridoxine (vitamin B6) Sertraline HCl [Zoloft] FAMILY HISTORY Mother - Hypertension SOCIAL HISTORY Smoking Status: Current some day smoker tobacco type: cigarettes alcohol intake: current alcohol intake frequency: a few times a month substance use type: does not use REVIEW OF SYSTEMS General - Denies fever, fatigue, and weight loss. Eyes - Denies eye pain. ENT - Denies nasal congestion and sore throat. Endocrine - Denies excessive thirst and urination. Has diagnosis of left breast cancer. Underwent bilateral mastectomy in 06/25 with initial reconstruction with placement of saline tissue expanders. She has undergone chemotherapy and radiation therapy. Has pain in her bilateral breast reconstruction worse on the left. Skin - No suspicious lesions. Musculoskeletal - Denies joint pain, joint stiffness, weakness of muscles and joints, back pain, and arthritis. Neuro - Denies headaches. Cardiovascular - Denies chest pain. Denies shortness of breath with exertion. Respiratory - Denies cough and shortness of breath. Patient is a smoker. Psych - Denies anxiety and depression. Gastrointestinal - Denies nausea, vomiting, diarrhea, and constipation. Hematologic -Denies abnormal bruising and bleeding. Genitourinary - Denies hematuria and urinary frequency. PHYSICAL EXAMINATION General - Alert and oriented. Bra size was 36 B before the mastectomy. HEENT - PERRL. EOMI. Throat is clear. Neck - Supple and nontender. No cervical adenopathy. Lungs - Clear to auscultation. Breasts - Bilateral mastectomy incisions are well healed. No axillary adenopathy noted. Breast width is 14 cm bilaterally. Breast height is 13 cm. There is firmness in her breasts from the expansion and subsequent chemotherapy and radiation therapy. There is tenderness in both breasts worse on the left in the lateral aspect. Also tenderness in the medial aspect. There is some medial contracture which has led to some lateral migration of the expanders with a distance of 6 cm between the tissue expanders in the sternal area. Heart - Regular rate and rhythm. Abdomen - No abdominal scarring. Some skin and subcutaneous redundancy between the umbilicus and the pubic area. Good skin elasticity noted. Extremities - FROM. No axillary adenopathy. Neuro - CN II - XII grossly intact. ASSESSMENT 1. Left breast cancer. 2. 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 4. Disproportion reconstructed breasts. 5. Deformity of reconstructed left breast with radiation scar contour deformity. 6. 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 7. Painful radiation capsular contracture bilateral breast insulation sprayer reconst ruction. 8. Smoker. 9. Estrogen receptor positive status. PLAN Discussed with the patient her breast reconstruction options. The patient is interested in bringing in nonradiated tissue to the left breast with a latissimus dorsi myocutaneous flap. Since she has decided to proceed with the latissimus flap, would remove the insulation sprayer and do a capsulectomy at the same time. Will extend the breast pocket a little more medially since there was some lateral migration from the radiation therapy. I will let the flap heal first before placing an implant because I want to make sure the incisions heal satisfactory because of the presence of radiated tissue peripherally. Due to the presence of soft tissue radionecrosis, she will also need excision of radiated scar contour deformity and multiple W-plasty reconstruction to minimize radiation pincushioning of the flap. After healing has occurred, (tentatively 3 months), will proceed with placement of a cohesive gel implant on the left along with acellular dermal matrix graft. On the right will proceed with removal of the insulation sprayer with a capsulectomy followed by placement of a cohesive gel implant along with acell ular dermal matrix graft. Will also extend the breast pocket a little more medially as well secondary to the capsular contracture. In the meantime after the latissimus flap, I would like the patient to have HBO treatments to help the healing process prior to placement of the implants. Since the patient states she wants to be the same size as she is now with the expanders, that I may need to place another insulation sprayer underneath the latissimus flap if I think the breast pocket is not large enough because of the radiation effects in order to enlarge the pocket to equal the size of the breast pocket on the right. She is aware of that possibility and voices understanding. Since the radiation therapy finished on 03/06/18, we like to wait at least 6 months before proceeding with breast reconstruction. Will aim for the end of August or early September. The surgery would be done under general anesthesia with an inpatient stay of 3-5 days. Drains would be placed for several days and be maintained on antibiotics until the drains are removed. She will have an USHA wrap for chest wall compression to minimize back seroma. Any tissue that is removed will be sent to Pathology for analysis to rule out ca rcinoma. Any abnormal fluid that is seen at the time of removal of the insulation sprayer will be sent to Microbiology for culture. A positive culture will necessitate antibiotic therapy. Patient was informed of the risks and complications of the procedure including alternatives to surgery. These were discussed with the patient personally. Patient voices understanding and wishes to proceed. Some of the risks and complications were included in a form from the [employer]. Encouraged the patient to stop smoking as it may have deleterious effects on wound healing.
[2018-09-07 08:36] LABS: Prothrombin Time Fingerstick 11.3 SEC (11.9-14.4)
[2018-09-07] MEDS: Cefazolin 2 GM in 0.9% Normal Saline 100 ML IV (09:25)
--- NOTE | 2018-09-07 09:25 | BREAST_PTH ---
PATIENT: LETICIA HAQUE LOC: MS2 U#:[id number] AGE/SX: 38/F ROOM: [facility] [id number] RE09/07/[address]: Dr. Sandro Martinez MD : 1980 BED: 1 DIS: 09/09/2018 SPEC #: [id number] RECD: 09/07/18 15:23 STATUS: TAMAR REElmira #: [id number] JEANINE: 09/07/18 09:[address]: Sandro Martinez DEPT: SURGICAL PATHOLOGY RECD BY: Carmen Heard ENTERED: 09/10/18 09:19 SP TYPE: BREAST OTHR DR: Dr. Jack Mancuso DO Tissues: Left breast, NOS Procedures: Surgery Specimen Level IV HEADER OPERATION: Second stage delayed breast reconstruction with removal of tissue PRE-OP DIAGNOSIS: Left breast cancer, cancer phobia right breast, acquired absence bilateral breasts, disproportion reconstructed breasts, deformity of reconstructed breasts, late effect radiation therapy left breast reconstruction, ER positive status TISSUE SUBMITTED: Left radiation breast tissue and capsule MICROSCOPIC DIAGNOSIS Left breast tissue and capsule, excision: Collagenized tissue with minimal chronic inflammation and reactive change. Skeletal muscle tissue with no significant pathologic change. No evidence of malignancy. AM:bella 09/11/18 COMMENT Reference is made to the patient's left breast mastectomy ([id number]) in which invasive ductal carcinoma was identified. MICROSCOPIC DESCRIPTION Slides are reviewed. GROSS DESCRIPTION Received in fixative is one container labeled with the patient's name and designated left radiation breast tissue and capsule. The specimen consists of multiple glistening fragments of light oneill-yellow soft tissue ranging in size from 1.2 cm to 8 cm in greatest dimension. A fragment of light oneill skin is present and does not contain mass lesions. This fragment measures 8 x 2 cm. No distinct mass lesions are identified. Jordan Man sections are submitted in two cassettes. / AM:bella 09/10/18 TC:5 CPT: 36904
--- NOTE | 2018-09-07 13:53 | PCM.OPRPT ---
Report of Operation Date of Procedure: 09/07/18 Pre-Operative Diagnosis: 1. Left breast cancer. 2. 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 4. Disproportion reconstructed breasts. 5. Deformity of reconstructed left breast with radiation scar contour deformity. 6. 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 7. Painful radiation capsular contracture bilateral breast membership director reconstruction. 8. Smoker. 9. Estrogen receptor positive status. Post-Operative Diagnosis: Same. Surgery/Procedure Performed:: 1. Revision reconstructed left breast with excision painful radiation scar contour deformity. 2. 2nd stage delayed left breast reconstruction with removal of tissue membership director and capsulectomy. 3. 2nd stage delayed left breast reconstruction with placement of left latissimus dorsi myocutaneous flap. Description of Surgical Findings:: 38-year-old woman presents for discussion of further breast reconstruction after finishing her radiation therapy on March 06, 2018. Her left breast cancer was biopsied on 05/23/17. On 06/16/17 where she underwent injection of 5 cc of Lymphazurin blue and left modified radical mastectomy and sentinel lymph node biopsy by Dr. Samayoa and prophylactic mastectomy right breast and immediate bilateral breast reconstruction with placement of submuscular saline tissue expanders (350 ml each) and placement of DermACELL decellularized dermis graft (128 cm2, each side) by Dr. Martinez. 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 One node showed macrometastasis. Estrogen receptors are positive. Progesterone receptors were positive. Her-2Neu was negative. She underwent chemotherapy and radiation therapy. Today she has pain in her breast reconstruction thus far worse on the left on the lateral aspect. She recently had her ovaries removed on 07/26/18. Patient was informed of the risks and complications of the procedure including alternatives to surgery. These were discussed with the patient personally. Patient voices understanding and wishes to proceed. Some of the risks and complications were included in a form from the [place] [employer]. Encouraged patient to stop smoking as it may have deleterious effects on wound healing. IV Fluids - 1600 ml. Urine Output - 485 ml. I used Pao absorbable hemostat, (I used 3 vials, 2 in the back and one in the breast). Reference Number - [id number]. Lot Number - [id number]. Expiration - April 06, 2023, (back). Reference Number - [id number]. Lot Number - [id number]. Expiration - May 07, 2023, (back). Reference Number - [id number]. Lot Number - [id number]. Expiration - May 07, 2023, (breast). furnace worker: Cameron Wynn. Type of Anesthesia:: General Specimen's removed: Radiation breast tissue and capsule to Pathology and Microbiology. Drains: Otoniel x3 (2 in the back and one in the breast). Estimated Blood Loss (mL): 100 ml. Fluids Replaced: 2085 ml (IV Fluids 1600 ml, Urine Output 485 ml). Description of Procedure: While in the preop area, markings were made with the patient in the sitting position. I marked the sternal midline to the umbilicus. I marked the inframammary folds bilaterally. On the back, I marked out an area of skin laxity over the latissimus dorsi muscle. The elliptical skin paddle was oriented from superomedial to inferolateral. It measured 15 x 6 cm. This would allow ease in rotation of the flap into the left breast defect. The patient was then placed back in the supine position and taken to the operating room. The patient was then placed under general anesthesia and a Chin catheter was then placed. SCDs were placed for DVT prophylaxis. Perioperative antibiotics were given intravenously. The breasts were prepped and draped in the usual fashion. The vertical mastectomy scar was infiltrated with xylocaine with epinephrine. After waiting 5 minutes for the anesthetic to take effect, I excised the radiation scar in an elliptical fashion down into the subcutaneous tissue until the capsule was seen. Some fat necrosis and radiation fibrosis was seen in the subcutaneous tissue and was also excised. A capsulotomy was performed, and I incised the membership director to remove the saline to aid in the removal of the membership director. The capsule was quite thickened with a contracture. Most of the thickening was lateral and medial. Some thickening was seen superiorly as well. An extensive capsulectomy was performed which widened the breast pocket especially medially. Some lateral radiation fibrosis deformity was seen and also excised. Because of the severity of the capsular thickness, some of the tissue was sent to Microbiology for culture. A positive culture would necessitate antibiotic therapy. The rest of the thickened capsule and radiation breast tissue was sent to Pathology for analysis to rule out carcinoma. Hemostasis was obtained with electrocautery. I irrigated the left breast wound with Irrisept 0.05% Chlorhexidine solution. I waited 60 seconds before irrigating the breast wound with saline. I placed a gauze in the left breast wound and temporarily closed the breast incision with surgical clips. A sterile dressing was applied. The patient was then placed in the lateral position and her back was prepped and draped in the usual fashion. The previous markings for the latissimus dorsi flap were infiltrated with xylocaine with epinephrine. I made incisions through the back ellipse down through the subcutaneous tissue until the muscle was seen. I dissected the muscle medially to the trapezius muscle, superiorly to the teres major muscle, laterally to the posterior axillary line and inferiorly to the lumbar region. I made an incision in the muscle inferiorly and elevated the muscle from inferior to superior. The perforators were ligated using surgical clips. When I got close to the axilla, the vascular pedicle was seen and preserved. I felt there was enough freeing up of the flap, then I dissected a subcutaneous tunnel up toward the axilla to the lateral aspect of the breast. I then was able to rotate the latissimus dorsi flap through the subcutaneous tunnel into the breast defect. Hemostasis was obtained using electrocautery. The back wound was irrigated with Irrisept 0.05% Chlorhexidine solution. I waited 60 seconds before irrigating the back wound with saline. I then placed 2 Otoniel drains through a separate stab incision superiorly and laterally on the back and secured to the skin using 3-0 nylon suture. This would drain the back wound up toward the axilla. After the back wound was irrigated with saline, hemostasis was obtained using electrocautery, I then sprayed Pao absorbable hemostat into the back wound to minimize seroma formation. I sprayed 2 vials into the back wound. I then closed the back wound in multiple layers using 2-0 Vicryl [id number] interrupted sutures for the underlying fascia. The deep dermis and subcutaneous tissue was approximated using 2-0 Vicryl interrupted sutures and 3-0 Monocryl interrupted sutures. The skin was approximated using 3-0 V lock unidirectional barbed running subcuticular suture. Histoacryl skin tissue adhesive was then applied. This was covered by a Kerlix gauze dressing. I then placed the patient back in the supine position and prepped the left breast in the usual fashion. With each position change, I changed gown and gloves. I removed the surgical clips. The left breast wound was irrigated with saline again, and hemostasis was obtained with electrocautery. I then inset the latissimus dorsi flap into the left breast wound centrally. I palpated into the axilla and there appeared to be no tethering or tension on the muscle. I then placed a Otoniel drain through separate stab incision laterally and secured to the skin using 3-0 nylon suture. This will drain the left breast. I then sprayed Pao absorbable hemostat into the left breast wound. I used one vial. I then inset the latissimus dorsi flap into the left breast wound by first approximating the muscle to portions of the pectoralis muscle with 3-0 Monocryl figure of eight interrupted sutures to have muscular continuity for the future implant placement. I then approximated the deep dermis and subcutaneous tissue with 3-0 Monocryl interrupted sutures. Skin was approximated with a few 4-0 Prolene simple interrupted sutures at the elliptical ends and the middle of the incisions followed by Histoacryl skin tissue adhesive. The flap was pink and soft. Good vascularity was noted on the flap. No evidence of vascular compromise was seen. No hematomas were noted. Good contour was noted. Kerlix gauze dressing was applied to the left breast incisions. This was followed with a compression USHA wrap. The patient tolerated the procedure well and will be sent to the recovery room in satisfactory condition. She will be sent upstairs for postoperative care. She will be allowed to ambulate with assistance. She will keep her head elevated during the initial postoperative period. She will have drains in for several days and to maintain antibiotics until the drains are removed. If the operative culture is positive, then antibiotic modification may be necessary. We will also check a prealbumin as I anticipate increased metabolic demands from the stress of the surgery and I will encourage nutritional supplementation with protein to help with the healing process. Grafts/Implants Used: None. - Complications None. - Admit VTE Documentation VTE Present on Admission: No VTE Mechan Device Prophylaxis: SCD's VTE Pharm Prophylaxis ordered?: Yes Code Visit Surgery Charges CPT - 26771 ICD-10 - C50.412, Z90.13, N65.0, T85.44xA, T66.xxxS, L59.8, F17.200, Z17.0 [id number] C50.412, Z90.13, N65.0, T66.xxxS, L59.8, T85.44xA, F17.200, Z17.0 44515 C50.412, F40.298, Z90.13, N65.0, T66.xxxS, L59.8, T85.44xA, N65.1, F17.200, Z17.0
--- NOTE | 2018-09-07 14:00 | OP.PCM_ITS ---
Report of Operation Date of Procedure: 09/07/18 Pre-Operative Diagnosis: 1. Left breast cancer. 2. 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 4. Disproportion reconstructed breasts. 5. Deformity of reconstructed left breast with radiation scar contour deformity. 6. 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 7. Painful radiation capsular contracture bilateral breast library specialist reconstruction. 8. Smoker. 9. Estrogen receptor positive status. Post-Operative Diagnosis: Same. Surgery/Procedure Performed:: 1. Revision reconstructed left breast with excision painful radiation scar contour deformity. 2. 2nd stage delayed left breast reconstruction with removal of tissue library specialist and capsulectomy. 3. 2nd stage delayed left breast reconstruction with placement of left latissimus dorsi myocutaneous flap. Description of Surgical Findings:: 38-year-old woman presents for discussion of further breast reconstruction after finishing her radiation therapy on March 06, 2018. Her left breast cancer was biopsied on 05/23/17. On 06/16/17 where she underwent injection of 5 cc of Lymphazurin blue and left modified radical mastectomy and sentinel lymph node b iopsy by Dr. Samayoa and prophylactic mastectomy right breast and immediate bilateral breast reconstruction with placement of submuscular saline tissue expanders (350 ml each) and placement of DermACELL decellularized dermis graft (128 cm2, each side) by Dr. Martinez. 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 One node showed macrometastasis. Estrogen receptors are positive. Progesterone receptors were positive. Her-2Neu was negative. She underwent chemotherapy and radiation therapy. Today she has pain in her breast reconstruction thus far worse on the left on the lateral aspect. She recently had her ovaries removed on 07/26/18. Patient was informed of the risks and complications of the procedure including alternatives to surgery. These were discussed with the patient personally. Patient voices understanding and wishes to proceed. Some of the risks and complications were included in a form from the [employer]. Encouraged patient to stop smoking as it may have deleterious effects on wound healing. IV Fluids - 1600 ml. Urine Output - 485 ml. I used Pao absorbable hemostat, (I used 3 vials, 2 in the back and one in the breast). Reference Number - [id number]. Lot Number - [id number]. Expiration - April 06, 2023, (back). Reference Number - [id number]. Lot Number - [id number]. Expiration - May 07, 2023, (back). Reference Number - [id number]. Lot Number - [id number]. Expiration - May 07, 2023, (breast). system manager: Cameron Wynn. Type of Anesthesia:: General Specimen's removed: Radiation breast tissue and capsule to Pathology and Microbiology. Drains: Otoniel x3 (2 in the back and one in the breast). Estimated Blood Loss (mL): 100 ml. Fluids Replaced: 2085 ml (IV Fluids 1600 ml, Urine Output 485 ml). Description of Procedure: While in the preop area, markings were made with the patient in the sitting position. I marked the sternal midline to the umbilicus. I marked the inframammary folds bilaterally. On the back, I marked out an area of skin laxity over the latissimus dorsi muscle. The elliptical skin paddle was oriented from superomedial to inferolateral. It measured 15 x 6 cm. This would allow ease in rotation of the flap into the left breast defect. The patient was then placed back in the supine position and taken to the operating room. The patient was then placed under general anesthesia and a Chin catheter was then placed. SCDs were placed for DVT prophylaxis. Perioperative antibiotics were given intravenously. The breasts were prepped and draped in the usual fashion. The vertical mastectomy scar was infiltrated with xylocaine with epinephrine. After waiting 5 minutes for the anesthetic to take effect, I excised the radiation scar in an elliptical fashion down into the subcutaneous tissue until the capsule was seen. Some fat necrosis and radiation fibrosis was seen in the subcutaneous tissue and was also excised. A capsulotomy was performed, and I incised the library specialist to remove the saline to aid in the removal of the library specialist. The capsule was quite thickened with a contracture. Most of the thickening was lateral and medial. Some thickening was seen superiorly as well. An extensive capsulectomy was performed which widened the breast pocket especially medially. Some lateral radiation fibrosis deformity was seen and also excised. Because of the severity of the capsular thickness, some of the tissue was sent to Microbiology for culture. A positive culture would necessitate antibiotic therapy. The rest of the thickened capsule and radiation breast tissue was sent to Pathology for analysis to rule out carcinoma. Hemostasis was obtained with electrocautery. I irrigated the left breast wound with Irrisept 0.05% Chlorhexidine solution. I waited 60 seconds before irrigating the breast wound with saline. I placed a gauze in the left breast wound and temporarily closed the breast incision with surgical clips. A sterile dressing was applied. The patient was then placed in the lateral position and her back was prepped and draped in the usual fashion. The previous markings for the latissimus dorsi flap were infiltrated with xylocaine with epinephrine. I made incisions through the back ellipse down through the subcutaneous tissue until the muscle was seen. I dissected the muscle medially to the trapezius muscle, superiorly to the teres major muscle, laterally to the posterior axillary line and inferiorly to the lumbar region. I made an incision in the muscle inferiorly and elevated the muscle from inferior to superior. The perforators were ligated using surgical clips. When I got close to the axilla, the vascular pedicle was seen and preserved. I felt there was enough freeing up of the flap, then I dissected a subcutaneous tunnel up toward the axilla to the lateral aspect of the breast. I then was able to rotate the latissimus dorsi flap through the subcutaneous tunnel into the breast defect. Hemostasis was obtained using electrocautery. The back wound was irrigated with Irrisept 0.05% Chlorhexidine solution. I waited 60 seconds before irrigating the back wound with saline. I then placed 2 Otoniel drains through a separate stab incision superiorly and laterally on the back and secured to the skin using 3-0 nylon suture. This would drain the back wound up toward the axilla. After the back wound was irrigated with saline, hemostasis was obtained using electrocautery, I then sprayed Pao absorbable hemostat into the back wound to minimize seroma formation. I sprayed 2 vials into the back wound. I then closed the back wound in multiple layers using 2-0 Vicryl [id number] interrupted sutures for the underlying fascia. The deep dermis and subcutaneous tissue was approximated using 2-0 Vicryl interrupted sutures and 3-0 Monocryl interrupted sutures. The skin was approximated using 3-0 V lock unidirectional barbed running subcuticular suture. Histoacryl skin tissue adhesive was then applied. This was covered by a Kerlix gauze dressing. I then placed the patient back in the supine position and prepped the left breast in the usual fashion. With each position change, I changed gown and gloves. I removed the surgical clips. The left breast wound was irrigated with saline again, and hemostasis was obtained with e lectrocautery. I then inset the latissimus dorsi flap into the left breast wound centrally. I palpated into the axilla and there appeared to be no tethering or tension on the muscle. I then placed a Otoniel drain through separate stab incision laterally and secured to the skin using 3-0 nylon suture. This will drain the left breast. I then sprayed Pao absorbable hemostat into the left breast wound. I used one vial. I then inset the latissimus dorsi flap into the left breast wound by first approximating the muscle to portions of the pectoralis muscle with 3-0 Monocryl figure of eight interrupted sutures to have muscular continuity for the future implant placement. I then approximated the deep dermis and subcutaneous tissue with 3-0 Monocryl interrupted sutures. Skin was approximated with a few 4-0 Prolene simple interrupted sutures at the elliptical ends and the middle of the incisions followed by Histoacryl skin tissue adhesive. The flap was pink and soft. Good vascularity was noted on the flap. No evidence of vascular compromise was seen. No hematomas were noted. Good contour was noted. Kerlix gauze dressing was applied to the left breast incisions. This was followed with a compression USHA wrap. The patient tolerated the procedure well and will be sent to the recovery room in satisfactory condition. She will be sent upstairs for postoperative care. She will be allowed to ambulate with assistance. She will keep her head elevated during the initial postoperative period. She will have drains in for several days and to maintain antibiotics until the drains are removed. If the operative culture is positive, then antibiotic modification may be necessary. We will also check a prealbumin as I anticipate increased metabolic demands from the stress of the surgery and I will encourage nutritional supplementation with protein to help with the healing process. Grafts/Implants Used: None. - Complications None. - Admit VTE Documentation VTE Present on Admission: No VTE Mechan Device Prophylaxis: SCD's VTE Pharm Prophylaxis ordered?: Yes Code Visit Surgery Charges CPT - 56892 ICD-10 - C50.412, Z90.13, N65.0, T85.44xA, T66.xxxS, L59.8, F17.200, Z17.0 37309 C50.412, Z90.13, N65.0, T66.xxxS, L59.8, T85.44xA, F17.200, Z17.0 48962 C50.412, F40.298, Z90.13, N65.0, T66.xxxS, L59.8, T85.44xA, N65.1, F17.200, Z17.0
[2018-09-07] MEDS: diazePAM 5 MG Tablet PO (18:49)
[2018-09-07] MEDS: oxyCODONE 5 MG Tablet 10 MG PO (20:25)
[2018-09-07] MEDS: Gabapentin 300 MG Capsule PO (22:02)
[2018-09-07] MEDS: Docusate Sodium 100 MG Capsule PO (22:02)
[2018-09-07] MEDS: Lactated Ringers 1,000 ML 60 ML IV (22:02)
[2018-09-08] MEDS: oxyCODONE 5 MG Tablet 10 MG PO ×6 (00:30→22:28)
[2018-09-08 05:15] VITALS: BP 124/79; PULSE 99; RESP 16; TEMP 36.6; O2SAT 98
[2018-09-08] MEDS: Enoxaparin 30 MG/0.3 ML Syringe SC (05:27)
[2018-09-08] MEDS: 0.9% NaCl Peripheral Flush Adult/Peds IV ×2 (05:37→05:38)
[2018-09-08 06:05] LABS: Hematocrit 33.2 % (37-47); Mean Corp Hgb Conc 33.1 g/gl (32-36); Mean Corpuscular Hgb 30.5 pg (27.0-32.0); Mean Platelet Vol. 9.8 fl (6.2-12.0); Platelet Count 160 K/mm3 (150-450); RBC Distribution Width CV 13.2 % (11.6-14.6); RBC Distribution Width SD 44.1 fl (35.1-43.9); Red Blood Count 3.61 M/mm3 (4.2-5.4); White Blood Count 11.2 K/mm3 (4.4-11.0)
[2018-09-08 06:06] LABS: Scan Indicated on CBC? Y/N NO
[2018-09-08 06:14] LABS: Anion Gap 6 (5-15); BUN 14 mg/dL (7-18); BUN/Creat Ratio 25.2 RATIO (10-20); Calcium,Total 8.6 mg/dL (8.5-10.1); Chloride 107 mmol/L (98-107); Creatinine, Serum 0.56 mg/dL (0.55-1.02); EST Glomerular Filtration Rate 129 mL/min (>60); Est Glom Filt Rate - Afr Amer 156 mL/min (>60); Estimated Creatinine Clearance 131.16 ml/min; Glucose 125 mg/dL (74-106); Potassium 3.6 mmol/L (3.5-5.1); Prealbumin 20.9 mg/dL (20.0-40.0); Sodium Level 142 mmol/L (136-145)
[2018-09-08] MEDS: Pantoprazole Sodium 40 MG Tablet PO (07:25)
[2018-09-08] MEDS: Multivitamins,Therapeutic Tablet 1 TABLET PO (07:25)
[2018-09-08] MEDS: Gabapentin 300 MG Capsule PO ×2 (07:25→21:02)
[2018-09-08] MEDS: Pyridoxine HCl 100 MG Tablet PO (07:26)
[2018-09-08] MEDS: Cyanocobalamin 500 MCG Tablet 1000 MCG PO (07:26)
[2018-09-08] MEDS: Sertraline 50 MG Tablet 75 MG PO (07:26)
[2018-09-08] MEDS: Anastrozole 1 MG Tablet PO (07:27)
[2018-09-08 08:00] VITALS: BP 130/85; PULSE 88; RESP 18; TEMP 36.8; O2SAT 100
[2018-09-08] MEDS: diazePAM 5 MG Tablet PO ×3 (09:48→22:29)
--- NOTE | 2018-09-08 10:06 | CM.UR ---
RN CM Assessment Met face to face with patient for initial transition planning/care coordination assessment. Introduced myself and my role. Verb understanding and agreement for assessment. Presentation: scheduled breast reconstruction. PCP: Bartolome Specialists: Dr. Martinez and Dr. Velasquez Preferred Pharmacy: [facility] Insurance: Yes Prescription Benefit: Yes. States can afford co-pays. LNOK: , [place] Home: 1 story with 2 steps in. ADLs: Independent Transportation: self DME: None SNF/HHC: Denies Passport/waiver trimmer operator three knife: denies Advance Directives: None, declined education. Instructed on how can be completed w/o using a editor publications. DC PLAN: Home, no needs anticipated. Dick Torre RN, CCM.
[2018-09-08 14:15] VITALS: BP 125/90; PULSE 90; RESP 18; TEMP 36.4; O2SAT 100
--- NOTE | 2018-09-08 15:09 | PCM.PN.SRG ---
Subjective: Postop #1 Patient is resting comfortably. - Physical Exam General: Alert, Oriented x3 HEENT: PERRLA, EOMI Oral: Moist Mucosa Neck: Supple Abdomen: Soft, Non-Distended Skin: Incision - left breast incision dry and intact. Flap is pink and soft and viable. No clinical evidence of hematoma. Neurological: Cranial nerves II-XII grossly intact Psych/Mental Status: Normal Affect, Appropriate Vital Signs Temp Pulse Resp BP Pulse Ox 97.6 F L 90 18 125/90 H 100 09/08/18 14:15 09/08/18 14:15 09/08/18 14:15 09/08/18 14:15 09/08/18 14:15 Oxygen Flow Rate (L/min) 2 Oxygen Delivery Method Room Air Weight: 175 lb 4.28 oz Body Mass Index (BMI) 27.4 Intake and Output for Last 24 Hours 09/06/18 09/07/18 09/08/18 23:59 23:59 23:59 Intake Total 3200 / 3200 1572 / 1572 Output Total 2166 / 2166 305 / 305 Balance 1034 / 1034 1267 / 1267 Drainage 306 ml yesterday, 205 ml today. Microbiology Past 72 Hours 09/07/18 14:00 Gram Stain - Final Tissue - Breast Wound Culture - Preliminary No growth-Final to follow Laboratory Tests Past 24 Hrs 09/08/18 09/08/18 05:40 05:40 WBC 11.2 H RBC 3.61 L Hgb 11.0 L Hct 33.2 L MCV 92.0 MCH 30.5 MCHC 33.1 RDW 13.2 RDW Differential 44.1 H Plt Count 160 MPV 9.8 Sodium 142 Potassium 3.6 Chloride 107 Carbon Dioxide 29.0 Anion Gap 6 BUN 14 Creatinine 0.56 Estim Creat Clear Calc 131.16 Est GFR (MDRD) Af Amer 156 Est GFR (MDRD) Non-Af 129 BUN/Creatinine Ratio 25.2 H Glucose 125 H Calcium 8.6 Prealbumin 20.9 Medical Necessity - Tobacco Use Smoking Status: Current some day smoker Assessment/Plan All Active Problems (Last Updated 07/07/18 @ 13:11 by Sandro Martinez MD) Nonhealing surgical wound (Resolved) 1. Left breast cancer. 2. 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 4. Disproportion reconstructed breasts. 5. Deformity of reconstructed left breast with radiation scar contour deformity. 6. 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 7. Painful radiation capsular contracture bilateral breast food service tray attendant reconstruction. 8. Smoker. 9. Estrogen receptor positive status. 10. s/p revision reconstructed left breast with excision painful radiation scar contour deformity and 2nd stage delayed left breast reconstruction with removal of tissue food service tray attendant and capsulectomy and 2nd stage delayed left breast reconstruction with placement of left latissimus dorsi myocutaneous flap. Patient is resting comfortably. She is a little unsteady on her feet with ambulation. Keep head elevated. Operative culture is negative thus far. Continue Ancef. Prealbumin was 20.9. Encourage nutritional supplementation with protein to help the healing process. Chin has been removed. She is voiding without difficulty.
[2018-09-08 20:48] VITALS: BP 123/82; PULSE 90; RESP 16; TEMP 36.8; O2SAT 94
[2018-09-08 22:27] VITALS: BP 136/95; PULSE 67; RESP 18; O2SAT 95
[2018-09-09 03:17] VITALS: BP 106/74; PULSE 72; RESP 16; TEMP 36.4; O2SAT 96
[2018-09-09] MEDS: oxyCODONE 5 MG Tablet 10 MG PO ×3 (03:21→11:47)
[2018-09-09 03:25] VITALS: O2SAT 96
[2018-09-09 07:25] VITALS: BP 113/77; PULSE 90; RESP 16; TEMP 36.9; O2SAT 95
[2018-09-09] MEDS: Cyanocobalamin 500 MCG Tablet 1000 MCG PO (07:28)
[2018-09-09] MEDS: Enoxaparin 30 MG/0.3 ML Syringe SC (07:28)
[2018-09-09] MEDS: diazePAM 5 MG Tablet PO (07:28)
[2018-09-09] MEDS: Sertraline 50 MG Tablet 75 MG PO (07:29)
[2018-09-09] MEDS: Multivitamins,Therapeutic Tablet 1 TABLET PO (07:29)
[2018-09-09] MEDS: Pyridoxine HCl 100 MG Tablet PO (07:29)
[2018-09-09] MEDS: Gabapentin 300 MG Capsule PO (07:29)
[2018-09-09] MEDS: Pantoprazole Sodium 40 MG Tablet PO (07:30)
[2018-09-09] MEDS: Anastrozole 1 MG Tablet PO (08:56)
--- NOTE | 2018-09-09 11:54 | PN.SURG_ITS ---
Subjective: Postop #2 Patient is resting comfortably. She is more steady on her feet with ambulation. - Physical Exam General: Alert, Oriented x3 HEENT: PERRLA, EOMI Oral: Moist Mucosa Neck: Supple Abdomen: Soft, Non-Distended Skin: Incision - left breast incision dry and intact. Flap is pink and soft and viable. No clinical evidence of hematoma. Neurological: Cranial nerves II-XII grossly intact Psych/Mental Status: Normal Affect, Appropriate Vital Signs Temp Pulse Resp BP Pulse Ox 98.4 F 90 16 113/77 95 09/09/18 07:25 09/09/18 07:25 09/09/18 07:25 09/09/18 07:25 09/09/18 07:25 Oxygen Flow Rate (L/min) 2 Oxygen Delivery Method Room Air Weight: 175 lb 4.28 oz Body Mass Index (BMI) 27.4 Intake and Output for Last 24 Hours 09/07/18 09/08/18 09/09/18 23:59 23:59 23:59 Intake Total 3200 / 3200 1932 / 1932 780 / 780 Output Total 2166 / 2166 385 / 385 228 / 228 Balance 1034 / 1034 1547 / 1547 552 / 552 Drainage 285 ml yesterday, 228 ml today. Microbiology Past 72 Hours 09/07/18 14:00 Gram Stain - Final Tissue - Breast Wound Culture - Preliminary No growth-Final to follow Medical Necessity - Tobacco Use Smoking Status: Current some day smoker Assessment/Plan All Active Problems (Last Updated 07/07/18 @ 13:11 by Sandro Martinez MD) Nonhealing surgical wound (Resolved) 1. Left breast cancer. 2. 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 4. Disproportion reconstructed breasts. 5. Deformity of reconstructed left breast with radiation scar contour deformity. 6. 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 7. Painful radiation capsular contracture bilateral breast alliances consultant reconstruction. 8. Smoker. 9. Estrogen receptor positive status. 10. s/p revision reconstructed left breast with excision painful radiation scar contour deformity and 2nd stage delayed left breast reconstruction with removal of tissue alliances consultant and capsulectomy and 2nd stage delayed left breast reconstruction with placement of left latissimus dorsi myocutaneous flap. Patient is resting comfortably. She is more steady on her feet with ambulation. Keep head elevated. Continue lifting restriction. Continue michel wrap compression. Operative culture is negative thus far. Will discharge her on Cefadroxil until the drains are removed. Prealbumin was 20.9. Encourage nutritional supplementation with protein to help the healing process. Discharge home today. She is tolerating po analgesia. Wrote script for Cefadroxil for 14 days. Wrote scripts for Percocet for pain (50 tabs) and for Valium for spasm (30 tabs). Followup Monday09/14/18 to remove one of the drains. Encouraged patient to stop smoking as it may have deleterious effects on wound healing.
--- NOTE | 2018-09-09 11:59 | PCM.DC ---
You will use the following diet at home:: No restrictions Discharge Activity: May not drive while taking narcotic pain medications., May Not Shower - until the drains are removed., - - keep head elevated. no heavy lifting. May shower in (days): 14 - after the drains are removed. May resume sexual activity in: 10-14 days Weight Bearing Status: Weight bearing as tolerated Lifting Restrictions: 20 lbs. Keep extremity elevated above heart level: - - elevate head. Call your doctor if your incision/area has: Continuous Slow Oozing, Sudden Increased Bleeding, Increased Pain/ Swelling, Increased Redness, Foul Smelling Discharge, Swelling at the incision site Call your doctor if you observe: Fever of 101 or Higher, Coldness, Increased Pain, Shortness of breath, Chest pain, Calf discomfort, Uncontrolled pain Suture Line Care: - - dry dressings daily. Change Dressing in (Days):: 1 - dry dressings daily. Cleanse incision/area with: - - may get incisions wet in the shower after the drains are removed. Drain: Suction - katlin drain x3 to bulb suction. empty and record output daily. Allergies/Adverse Reactions: Allergies ondansetron [From Zofran] Adverse Reaction (Verified 08/22/18 09:05) MIGRAINES Medications to take at Discharge anastrozole 1 mg tablet 1 mg PO DAILY 07/05/18 cyanocobalamin (vitamin B-12) 1,000 mcg capsule 1,000 mcg PO DAILY 07/05/18 gabapentin 300 mg capsule 300 mg PO BID cap 07/05/18 multivitamin tablet 1 tab PO DAILY 07/05/18 pyridoxine (vitamin B6) 100 mg tablet 100 mg PO DAILY 07/05/18 Sertraline HCl [Zoloft] 75 mg PO QDAY 07/19/18 Pantoprazole Sodium [Protonix] 40 mg PO DAILY 08/31/18 Cefadroxil [Duricef] 500 mg PO BID #28 cap 09/09/18 Diazepam [Valium] 5 mg PO 4X/DAY PRN PRN #30 tab 09/09/18 Oxycodone HCl/Acetaminophen [Percocet 5/325] 1 - 2 tab PO 4X/DAY PRN PRN 7 Days #50 tab 09/09/18 The following prescriptions were given: Diazepam [Valium] 5 mg PO 4X/DAY PRN PRN #30 tab PRN Reason: Spasms Oxycodone HCl/Acetaminophen [Percocet 5/325] 1 - 2 tab PO 4X/DAY PRN PRN 7 Days #50 tab PRN Reason: Pain Cefadroxil [Duricef] 500 mg PO BID #28 cap Primary Care Physician: Jack Mancuso DO [Primary Care Provider] - Test Results: Test results from this visit will be discussed in further detail at your follow-up appointment, if applicable. Please Follow Up With: Sandro Martinez MD When: monday09/14/18. call [phone] for appt. Proposed Discharge Date: 09/09/18
--- NOTE | 2018-09-09 12:03 | DCINST_ITS ---
You will use the following diet at home:: No restrictions Discharge Activity: May not drive while taking narcotic pain medications., May Not Shower - until the drains are removed., - - keep head elevated. no heavy lifting. May shower in (days): 14 - after the drains are removed. May resume sexual activity in: 10-14 days Weight Bearing Status: Weight bearing as tolerated Lifting Restrictions: 20 lbs. Keep extremity elevated above heart level: - - elevate head. Call your doctor if your incision/area has: Continuous Slow Oozing, Sudden Increased Bleeding, Increased Pain/ Swelling, Increased Redness, Foul Smelling Discharge, Swelling at the incision site Call your doctor if you observe: Fever of 101 or Higher, Coldness, Increased Pain, Shortness of breath, Chest pain, Calf discomfort, Uncontrolled pain Suture Line Care: - - dry dressings daily. Change Dressing in (Days):: 1 - dry dressings daily. Cleanse incision/area with: - - may get incisions wet in the shower after the drains are removed. Drain: Suction - katlin drain x3 to bulb suction. empty and record output daily. Allergies/Adverse Reactions: Allergies ondansetron [From Zofran] Adverse Reaction (Verified 08/22/18 09:05) MIGRAINES Medications to take at Discharge anastrozole 1 mg tablet 1 mg PO DAILY 07/05/18 cyanocobalamin (vitamin B-12) 1,000 mcg capsule 1,000 mcg PO DAILY 07/05/18 gabapentin 300 mg capsule 300 mg PO BID cap 07/05/18 multivitamin tablet 1 tab PO DAILY 07/05/18 pyridoxine (vitamin B6) 100 mg tablet 100 mg PO DAILY 07/05/18 Sertraline HCl [Zoloft] 75 mg PO QDAY 07/19/18 Pantoprazole Sodium [Protonix] 40 mg PO DAILY 08/31/18 Cefadroxil [Duricef] 500 mg PO BID #28 cap 09/09/18 Diazepam [Valium] 5 mg PO 4X/DAY PRN PRN #30 tab 09/09/18 Oxycodone HCl/Acetaminophen [Percocet 5/325] 1 - 2 tab PO 4X/DAY PRN PRN 7 Days #50 tab 09/09/18 The following prescriptions were given: Diazepam [Valium] 5 mg PO 4X/DAY PRN PRN #30 tab PRN Reason: Spasms Oxycodone HCl/Acetaminophen [Percocet 5/325] 1 - 2 tab PO 4X/DAY PRN PRN 7 Days #50 tab PRN Reason: Pain Cefadroxil [Duricef] 500 mg PO BID #28 cap Primary Care Physician: Jack Mancuso DO [Primary Care Provider] - Test Results: Test results from this visit will be discussed in further detail at your follow- up appointment, if applicable. Please Follow Up With: Sandro Martinez MD When: monday09/14/18. call [phone] for appt. Proposed Discharge Date: 09/09/18
[2018-09-09] MEDS: Cefazolin 1 GM/50 ML BAG IV (12:35)
[2018-09-09 13:20] VITALS: BP 120/89; PULSE 83; RESP 18; TEMP 36.9; O2SAT 97
--- NOTE | 2018-09-09 19:50 | PCM.DC.SUM ---
Discharge Date and Diagnosis Date of Admission: 09/07/18 Date of Discharge: 09/09/18 - Primary Discharge Diagnosis Left breast cancer. Acquired absence bilateral breasts. Deformity of reconstructed left breast with radiation scar contour deformity. 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 Painful radiation capsular contracture bilateral breast carpenter assistant reconstruction. - Secondary Discharge Diagnosis Estrogen receptor positive status [ER+] Current smoker Disproportion of reconstructed breast Cancer phobia right breast Hospital Course and Treatment Imaging Results: None. Consultations None. Operations: - - 09/07/18 - 1. Revision reconstructed left breast with excision painful radiation scar contour deformity. 2. 2nd stage delayed left breast reconstruction with removal of tissue carpenter assistant and capsulectomy. 3. 2nd stage delayed left breast reconstruction with placement of left latissimus dorsi myocutaneous flap. Procedures: None Summary of Care Provided: 38-year-old woman presents for discussion of further breast reconstruction after finishing her radiation therapy on March 06, 2018. Her left breast cancer was biopsied on 05/23/17. On 06/16/17 where she underwent injection of 5 cc of Lymphazurin blue and left modified radical mastectomy and sentinel lymph node biopsy by Dr. Samayoa and prophylactic mastectomy right breast and immediate bilateral breast reconstruction with placement of submuscular saline tissue expanders (350 ml each) and placement of DermACELL decellularized dermis graft (128 cm2, each side) by Dr. Martinez. 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 One node showed macrometastasis. Estrogen receptors are positive. Progesterone receptors were positive. Her-2Neu was negative. She underwent chemotherapy and radiation therapy. Today she has pain in her breast reconstruction thus far worse on the left on the lateral aspect. She recently had her ovaries removed on 07/26/18. Patient was taken to the OR on 09/07/18 and underwent revision reconstructed left breast with excision painful radiation scar contour deformity and 2nd stage delayed left breast reconstruction with removal of tissue carpenter assistant and capsulectomy and 2nd stage delayed left breast reconstruction with placement of left latissimus dorsi myocutaneous flap. She tolerated the procedure well. Her hospital stay was uneventful. Her flap remained pink and soft and viable during her hospital stay. Her drainage ranged from 306 ml to 228 ml at discharge. Her postop Hgb was 11.2. Her Prealbumin was 20.9. Encouraged nutritional supplementation with protein to help the healing process. By the second postop day she was tolerating po analgesia and was more steady on her feet with ambulation. Operative culture was negative at discharge. She was discharged on Cefadroxil until the drains are removed. On the second postop day, she was discharged home. She will keep her head elevated during the initial postop period. Continue lifting restriction. Continue michel wrap compression. Wrote script for Cefadroxil for 14 days. Wrote scripts for Percocet for pain (50 tabs) and for Valium for spasm (30 tabs). Followup Monday09/14/18 to remove one of the drains. Encouraged patient to stop smoking as it may have deleterious effects on wound healing. - Physical Exam Vital Signs Temp Pulse Resp BP Pulse Ox 98.5 F 83 18 120/89 H 97 09/09/18 13:20 09/09/18 13:20 09/09/18 13:20 09/09/18 13:20 09/09/18 13:20 Oxygen Flow Rate (L/min) 2 Oxygen Delivery Method Room Air Weight: 175 lb 4.28 oz Body Mass Index (BMI) 27.4 Intake and Output for Last 24 Hours 09/07/18 09/08/18 09/09/18 23:59 23:59 23:59 Intake Total 3200 / 3200 1932 / 1932 780 / 780 Output Total 2166 / 2166 385 / 385 228 / 228 Balance 1034 / 1034 1547 / 1547 552 / 552 Microbiology Past 72 Hours 09/07/18 14:00 Gram Stain - Final Tissue - Breast Wound Culture - Preliminary No growth-Final to follow Discharge Diet: No Restrictions Discharge Activity: May not drive while taking narcotic pain medications., May Not Shower - until the drains are removed., - - keep head elevated. no heavy lifting. May shower in (days): 14 - after the drains are removed. May resume sexual activity in: 10-14 days Weight Bearing Status: Weight bearing as tolerated Lifting Restrict to (lbs):: 20 Keep extremity elevated above heart level: - - elevate head. Call your doctor if your incision/area has: Continuous Slow Oozing, Sudden Increased Bleeding, Increased Pain/ Swelling, Increased Redness, Foul Smelling Discharge, Swelling at the incision site Call your doctor if you observe: Fever of 101 or Higher, Coldness, Increased Pain, Shortness of breath, Chest pain, Calf discomfort, Uncontrolled pain Suture Line Care: - - dry dressings daily. Change Dressing in (Days):: 1 - dry dressings daily. Cleanse incision/area with: - - may get incisions wet in the shower after the drains are removed. Drain: Suction - katlin drain x3 to bulb suction. empty and record output daily. Home Medications: Medications to take at Discharge anastrozole 1 mg tablet 1 mg PO DAILY 07/05/18 cyanocobalamin (vitamin B-12) 1,000 mcg capsule 1,000 mcg PO DAILY 07/05/18 gabapentin 300 mg capsule 300 mg PO BID cap 07/05/18 multivitamin tablet 1 tab PO DAILY 07/05/18 pyridoxine (vitamin B6) 100 mg tablet 100 mg PO DAILY 07/05/18 Sertraline HCl [Zoloft] 75 mg PO QDAY 07/19/18 Pantoprazole Sodium [Protonix] 40 mg PO DAILY 08/31/18 Cefadroxil [Duricef] 500 mg PO BID #28 cap 09/09/18 Diazepam [Valium] 5 mg PO 4X/DAY PRN PRN #30 tab 09/09/18 Oxycodone HCl/Acetaminophen [Percocet 5/325] 1 - 2 tab PO 4X/DAY PRN PRN 7 Days #50 tab 09/09/18 Following Prescrptions Were Given to Patient: Diazepam [Valium] 5 mg PO 4X/DAY PRN PRN #30 tab PRN Reason: Spasms Oxycodone HCl/Acetaminophen [Percocet 5/325] 1 - 2 tab PO 4X/DAY PRN PRN 7 Days #50 tab PRN Reason: Pain Cefadroxil [Duricef] 500 mg PO BID #28 cap Primary Care Physician: Jack Mancuso DO [Primary Care Provider] - Please Follow Up With: Sandro Martinez MD When: monday09/14/18. call [phone] for appt. Disposition: Home Minutes spent on discharge:: 30 Patient Condition:: Stable Medical Necessity - Tobacco Use Smoking Status: Current some day smoker Meaningful Use Info Meaningful Use Diagnoses (Choose all that apply): None applicable
== END 2018-09-09 13:40 | disposition home or self-care (01) | DRG 582 ==
LOC: SDC 09-10 12:28 → MS2 09-10 12:28
PROVIDERS: Admitting Provider Surgery; Family Provider Student in an Organized Health Care Education/Training Program; PCP Student in an Organized Health Care Education/Training Program; Referring Provider Surgery; Visit Provider Surgery
PROC: 0HPU0JZ Removal of Synthetic Substitute from Left Breast, Open Approach (ICD-10-PCS; CPT 19361; principal; 2018-09-07 08:55)
DX: C50.412 Malignant neoplasm of upper-outer quadrant of left female breast (principal); T85.44XA Capsular contracture of breast implant, initial encounter; Z17.0 Estrogen receptor positive status [ER+]; Z90.13 Acquired absence of bilateral breasts and nipples; N65.0 Deformity of reconstructed breast; N65.1 Disproportion of reconstructed breast; L59.8 Other specified disorders of the skin and subcutaneous tissue related to radiation; F17.210 Nicotine dependence, cigarettes, uncomplicated; F41.9 Anxiety disorder, unspecified; K21.9 Gastro-esophageal reflux disease without esophagitis; Y83.1 Surgical operation with implant of artificial internal device as the cause of abnormal reaction of the patient, or of later complication, without mention of misadventure at the time of the procedure; Y84.2 Radiological procedure and radiotherapy as the cause of abnormal reaction of the patient, or of later complication, without mention of misadventure at the time of the procedure; Z79.899 Other long term (current) drug therapy
CPT/HCPCS: 36416; 80048; 84134; 85027; 85610; 87070; 87075; 87102; 87176; 87205; 87206; 88305; 88307; J7120; A4216; Q9968

== ENCOUNTER 2018-09-13 23:23 | Emergency (ER) | payer BC, SELFPAY ==
[2018-09-12 08:44] VITALS: BMI 27.4
[2018-09-13 23:24] VITALS: BP 103/69; PULSE 112; RESP 18; TEMP 37.5; O2SAT 96; BMI 26.6
--- NOTE | 2018-09-14 00:07 | RAD_ITS ---
STUDY: X-RAY CHEST REASON FOR EXAM: Female, 38 years old. Fever.HAD SURGERY ON RADIATION NECROSIS AND A REVISED MUSCLE FLAP ON 09/08 TECHNIQUE: Single AP portable view of the chest. COMPARISON: 07/23/2018 FINDINGS: Right subclavian port noted, tip is in the distal SVC. Tissue expanders noted over each lung field. The lungs are clear and expanded. There is no demonstrated pleural abnormality. Normal size heart. Normal mediastinum and jason. Normal visualized pulmonary arteries. Normal visualized aortic arch and descending thoracic aorta. Normal visualized thoracic spine. Normal visualized ribs, clavicles, and shoulders. There is no demonstrated abnormality of the visualized soft tissue structures of the upper abdomen. RAD/Chest PA and Lateral IMPRESSION: No demonstrated acute cardiopulmonary process. Electronically Signed: Radha Canseco, at 2:46 EDT Tel , Service support ,
--- NOTE | 2018-09-14 00:09 | ED.VIS.GEN ---
History of Present Illness Chief Complaint: Fever Narrative: Patient is a 38-year-old female who presents with a fever. She has a history of breast cancer. She has had previous bilateral mastectomy. She had reconstruction by Dr. carl Amaya. She then had some radiation necrosis and painful scar on the left which was revised 1 week ago and she had a muscle flap. She was just discharged yesterday. Except for expected postoperative pain she was doing well until today. She developed fever, fatigue, headache, muscle and joint aches, nausea. She states she is just been sleeping all day. She contacted Dr. small who advised that she be evaluated here in the emergency department. She has not had any breast cancer treatment such as chemotherapy or radiation since last March. She denies any cough or shortness of breath. She denies any urinary symptoms. She denies any pain or swelling in the legs. Past Medical History - Allergies and Home Meds Allergies/Adverse Reactions: Allergies ondansetron [From Zofran] Adverse Reaction (Verified 09/13/18 23:26) MIGRAINES Primary Care Physician: Jack Mancuso DO [Primary Care Provider] - Past Medical History: - - Breast cancer Surgical History: - - bilateral mastectomy and revisions Smoking Status: Current some day smoker Review of Systems General: Reports: Fever Cardiovascular: Denies: Chest pain Respiratory: Denies: Dyspnea, Cough Gastrointestinal: Reports: Nausea. Denies: Abdominal pain, Vomiting, Diarrhea Musculoskeletal: Reports: Myalgias, Arthralgias Neurological: Reports: Headache Physical Exam Vital Signs/Narrative: Vital Signs Temp Pulse Resp BP Pulse Ox 09/13/18 23:24 99.5 F H 112 H 18 103/69 96 General: - - Patient appears uncomfortable Eyes: EOMI ENT: Moist mucous membranes Neck: Supple Cardiovascular: - - Heart is regular tachycardia Respiratory: No distress, CTA bilaterally, - - Chest wounds are clean dry and intact with no drainage, 3 MARBELLA drains are noted with serosanguineous drainage Abdomen: Soft, Nontender, Nondistended Skin: Normal color Neurological: Alert Psychological: Normal affect Diagnostic/Tx/Re-eval Impressions Chest X-Ray 09/14/18 00:07 IMPRESSION: No demonstrated acute cardiopulmonary process. Electronically Signed: Radha Canseco, at 2:46 EDT Tel , Service support , 09/14/18 00:07 Chest PA and Lateral [RAD] Stat Laboratory Results 09/14/18 09/14/18 09/14/18 00:40 00:40 00:40 WBC 10.5 RBC 3.78 L Hgb 11.5 L Hct 34.2 L MCV 90.5 MCH 30.4 MCHC 33.6 RDW 13.1 RDW Differential 42.5 Plt Count 186 MPV 10.1 Immature Gran % (Auto) 0.200 Neut % (Auto) 79.5 H Lymph % (Auto) 7.1 L Nicholas % (Auto) 12.9 H Eos % (Auto) 0.2 Baso % (Auto) 0.1 Absolute Neuts (auto) 8.3 H Absolute Lymphs (auto) 0.74 L Total Counted Not Reportable Sodium 137 Potassium 3.5 Chloride 102 Carbon Dioxide 27.0 Anion Gap 8 BUN 10 Creatinine 0.64 Estim Creat Clear Calc 114.76 Est GFR (MDRD) Af Amer 133 Est GFR (MDRD) Non-Af 110 BUN/Creatinine Ratio 15.6 Glucose 116 H Lactic Acid 0.4 Calcium 8.8 Urine Color Urine Clarity Urine pH Ur Specific [place] Urine Protein Urine Glucose (UA) Urine Ketones Urine Occult Blood Urine Nitrite Urine Bilirubin Urine Urobilinogen Ur Leukocyte Esterase Urine RBC Urine WBC Ur Squamous Epith Cells Urine Bacteria Urine Mucus 09/14/18 00:50 WBC RBC Hgb Hct MCV MCH MCHC RDW RDW Differential Plt Count MPV Immature Gran % (Auto) Neut % (Auto) Lymph % (Auto) Nicholas % (Auto) Eos % (Auto) Baso % (Auto) Absolute Neuts (auto) Absolute Lymphs (auto) Total Counted Sodium Potassium Chloride Carbon Dioxide Anion Gap BUN Creatinine Estim Creat Clear Calc Est GFR (MDRD) Af Amer Est GFR (MDRD) Non-Af BUN/Creatinine Ratio Glucose Lactic Acid Calcium Urine Color Straw Urine Clarity Clear Urine pH 7.0 Ur Specific [place] 1.005 Urine Protein Negative Urine Glucose (UA) Normal Urine Ketones Negative Urine Occult Blood Negative Urine Nitrite Negative Urine Bilirubin Negative Urine Urobilinogen Normal Ur Leukocyte Esterase 25 H Urine RBC 0 SEEN Urine WBC 0 SEEN Ur Squamous Epith Cells 0 SEEN Urine Bacteria 0 SEEN Urine Mucus 0 SEEN - Medical Decision Making Patient was treated with IV fluids, Toradol, Phenergan. She feels much better on reevaluation. Her work-up is unremarkable. No pneumonia, no UTI. She did not have evidence of wound infection. No leukocytosis and lactic acid is normal. I spoke to her surgeon who agrees with my plan for discharge and outpatient follow-up. In discussion we did decide to add on Bactrim for additional coverage specifically MRSA coverage. Patient does understand return for new or worsening symptoms and was discharged home. ED Disposition - Plan for ED Patient: Disposition: [facility] - Main Diagnosis: Fever Instructions: ED Wound Check Post Op No Infec, ED Fever Unconf Cause Prescriptions: Smz/Tmp Ds [Bactrim Ds] 1 tab PO BID #20 tab Referrals: Jack Mancuso DO [Primary Care Provider] - Sandro Martinez MD [STAFF PHYSICIAN] -
[2018-09-14] MEDS: 0.9% Normal Saline 1,000 ML 1000 ML IV (00:47)
[2018-09-14] MEDS: proMETHazine 25 MG/ML Syringe 12.5 MG IV (00:47)
[2018-09-14] MEDS: Ketorolac 30 MG/ML Syringe IV (00:47)
[2018-09-14 01:01] VITALS: BP 115/85; PULSE 86; RESP 22; TEMP 37.2; O2SAT 97
[2018-09-14 01:05] LABS: Absolute Lymphocyte Count 0.74 X10^3/ul (0.83-4.51); Absolute Neutrophil Count 8.3 X10^3/uL (2.0-7.7); Basophil# 0.01 X10^3/uL; Basophil% 0.1 % (0-1); Eosinophil# 0.02 X10^3/uL; Eosinophils% 0.2 % (0-5); Hematocrit 34.2 % (37-47); Hemoglobin 11.5 g/dl (12.0-15.0); Lymphocyte # 0.74 X10^3/ul (4.0); Lymphocyte % 7.1 % (19-41); Mean Corp Hgb Conc 33.6 g/gl (32-36); Mean Corpuscular Hgb 30.4 pg (27.0-32.0); Mean Corpuscular Volume 90.5 fL (81-99); Mean Platelet Vol. 10.1 fl (6.2-12.0); Monocyte# 1.35 X10^3/uL; Monocyte% 12.9 % (0-10); Neutrophil # 8.33 X10^3/uL (2.7-7.7); Neutrophil % 79.5 % (47-70); Platelet Count 186 K/mm3 (150-450); RBC Distribution Width CV 13.1 % (11.6-14.6); RBC Distribution Width SD 42.5 fl (35.1-43.9); Red Blood Count 3.78 M/mm3 (4.2-5.4); White Blood Count 10.5 K/mm3 (4.4-11.0)
[2018-09-14 01:07] LABS: POSITIVE COUNT NO; POSITIVE DIFFERENTIAL NO; POSITIVE MORPHOLOGY NO
[2018-09-14 01:19] LABS: Anion Gap 8 (5-15); BUN 10 mg/dL (7-18); BUN/Creat Ratio 15.6 RATIO (10-20); Calcium,Total 8.8 mg/dL (8.5-10.1); Chloride 102 mmol/L (98-107); Creatinine, Serum 0.64 mg/dL (0.55-1.02); EST Glomerular Filtration Rate 110 mL/min (>60); Est Glom Filt Rate - Afr Amer 133 mL/min (>60); Estimated Creatinine Clearance 114.76 ml/min; Glucose 116 mg/dL (74-106); Potassium 3.5 mmol/L (3.5-5.1); Sodium Level 137 mmol/L (136-145)
[2018-09-14 01:35] LABS: Lactic Acid 0.4 mmol/L (0.4-2.0)
[2018-09-14 01:36] VITALS: BP 115/85; PULSE 80; RESP 17; O2SAT 94
[2018-09-14 03:26] LABS: Bacteria 0 SEEN /hpf (None Seen); Mucous, Urine 0 SEEN /hpf (<or=2+); Red Blood Cells-Urine 0 SEEN /hpf (0-5); Squamous Epithelial Cells - UA 0 SEEN /hpf (5-10); White Blood Cells 0 SEEN /hpf (0-5)
[2018-09-14 03:28] LABS: Color, Urine Straw (Yellow); Glucose, Dipstick Normal (Normal); Ketone-Dipstick Negative (Negative); Leukocyte Esterase-Dipstick 25 /ul (Negative); Nitrite-Dipstick Negative (Negative); Occult Blood-Urine Negative /ul (Negative); Protein-Dipstick Negative (Negative); Specific Gravity, Urine 1.005 (1.002-1.030); Urine Bilirubin Dipstick Negative (Negative); Urine Clarity Clear (Clear); Urine Urobilinogen Normal (Normal)
[2018-09-14 04:26] VITALS: BP 103/60; PULSE 72; RESP 16; O2SAT 96
[2018-09-14 05:05] VITALS: O2SAT 98
== END 2018-09-14 05:05 | disposition home or self-care (01) ==
PROVIDERS: Emergency Provider Emergency Medicine; Family Provider Student in an Organized Health Care Education/Training Program; PCP Student in an Organized Health Care Education/Training Program
DX: R50.9 Fever, unspecified (principal); F17.200 Nicotine dependence, unspecified, uncomplicated; Z90.13 Acquired absence of bilateral breasts and nipples; Z85.3 Personal history of malignant neoplasm of breast
CPT/HCPCS: 36415; 71046; 80048; 81001; 83605; 85025; 87040; 87086; 87088; 96361; 96374; 96375; 99283; J7030; A4216

== ENCOUNTER 2019-01-15 09:44 | Observation (INO) | payer BC, SELFPAY ==
[2018-10-17 09:46] VITALS: BMI 26.6
--- NOTE | 2019-01-14 22:36 | PCM.HP.BLA ---
History and Physical Date of Admission: 01/15/19 HISTORY OF PRESENT ILLNESS 38-year-old woman presents for discussion of further breast reconstruction. She finished her radiation therapy on March 06, 2018. Her left breast cancer was biopsied on 05/23/17. On 06/16/17 where she underwent injection of 5 cc of Lymphazurin blue and left modified radical mastectomy and sentinel lymph node biopsy by Dr. Samayoa and prophylactic mastectomy right breast and immediate bilateral breast reconstruction with placement of submuscular saline tissue expanders (350 ml each) and placement of DermACELL decellularized dermis graft (128 cm2, each side) by Dr. Martinez. 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 One node showed macrometastasis. Estrogen receptors were positive. Progesterone receptors were positive. Her-2Neu was negative. She underwent chemotherapy and radiation therapy. She then underwent further surgery in 08/26 with revision reconstructed left breast with excision painful radiation scar contour deformity and 2nd stage delayed left breast reconstruction with removal of tissue primary class teacher and capsulectomy and 2nd stage delayed left breast reconstruction with placement of left latissimus dorsi myocutaneous flap. She healed uneventfully. Her next stage in the breast reconstruction process is placement of a saline tissue primary class teacher in the left breast. PAST MEDICAL HISTORY Malignant neoplasm of upper-outer quadrant of left female breast Estrogen receptor positive status [ER+] Current smoker Disproportion of reconstructed breast Acquired absence of bilateral breasts and nipples Cancer phobia PAST SURGICAL HISTORY bilateral mastectomy Port-a-cath oophorectomy - 07/27 Revision reconstructed left breast with excision painful radiation scar contour deformity and 2nd stage delayed left breast reconstruction with removal of tissue primary class teacher and capsulectomy and 2nd stage delayed left breast reconstruction with placement of left latissimus dorsi myocutaneous flap - 08/26 ALLERGIES ondansetron [From Zofran] MEDICATIONS Pantoprazole Sodium [Protonix] anastrozole cyanocobalamin (vitamin B-12) gabapentin multivitamin pyridoxine (vitamin B6) Sertraline HCl [Zoloft] FAMILY HISTORY Mother - Hypertension SOCIAL HISTORY Smoking Status: Current some day smoker tobacco type: cigarettes alcohol intake: current alcohol intake frequency: a few times a month substance use type: does not use REVIEW OF SYSTEMS General - Denies fever, fatigue, and weight loss. Eyes - Denies eye pain. ENT - Denies nasal congestion and sore throat. Endocrine - Denies excessive thirst and urination. Has diagnosis of left breast cancer. Underwent bilateral mastectomy in 06/25 with initial reconstruction with placement of saline tissue expanders. She has undergone chemotherapy and radiation therapy. She underwent removal of left breast primary class teacher with capsulectomy and placement of latissimus dorsi myocutaneous flap in 08/26. Skin - No suspicious lesions. Musculoskeletal - Denies joint pain, joint stiffness, weakness of muscles and joints, back pain, and arthritis. Neuro - Denies headaches. Cardiovascular - Denies chest pain. Denies shortness of breath with exertion. Respiratory - Denies cough and shortness of breath. Patient is a smoker. Psych - Denies anxiety and depression. Gastrointestinal - Denies nausea, vomiting, diarrhea, and constipation. Hematologic -Denies abnormal bruising and bleeding. Genitourinary - Denies hematuria and urinary frequency. PHYSICAL EXAMINATION General - Alert and oriented. Bra size was 36 B before the mastectomy. HEENT - PERRL. EOMI. Throat is clear. Neck - Supple and nontender. No cervical adenopathy. Lungs - Clear to auscultation. Breasts - Bilateral mastectomy incisions are well healed. No axillary adenopathy noted. Breast width is 14 cm bilaterally. Breast height is 13 cm. There is firmness in her right breast from the expansion and subsequent chemotherapy. There is a capsular contracture on the right that is painful. There is also a medial contracture as well. There is a well healed latissimus dorsi myocutaneous flap that is soft. Heart - Regular rate and rhythm. Abdomen - No abdominal scarring. Some skin and subcutaneous redundancy between the umbilicus and the pubic area. Good skin elasticity noted. Extremities - FROM. No axillary adenopathy. Neuro - CN II - XII grossly intact. ASSESSMENT 1. Left breast cancer. 2. 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 4. Disproportion reconstructed breasts. 5. 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 6. Smoker. 7. Estrogen receptor positive status. 8. Painful capsular contracture right breast reconstruction. PLAN Discussed with the patient her breast reconstruction options. After finishing radiation therapy in 02/25, we waited 6 months before proceeding with placement of a left latissimus dorsi myocutaneous flap along with a capsulectomy and removal of the tissue primary class teacher. The latissimus dorsi flap healed uneventfully. She is ready to proceed with the next stage in the breast reconstruction process which is placement of a left saline tissue primary class teacher. After expansion, will remove the primary class teacher and place a cohesive gel implant. On the right side for symmetry, will remove the primary class teacher with a capsulectomy to enlarge the breast pocket. This will also be followed by placement of a cohesive gel implant. The surgery would be done under general anesthesia with a surgical observation overnight stay in the hospital. Drains would be placed for several days and be maintained on antibiotics until the drains are removed. Any tissue that is removed will be sent to Pathology for analysis to rule out carcinoma. Patient was informed of the risks and complications of the procedure including alternatives to surgery. These were discussed with the patient personally. Patient voices understanding and wishes to proceed. Some of the risks and complications were included in a form from the [employer]. Encouraged the patient to stop smoking as it may have deleterious effects on wound healing.
[2019-01-15] VITALS (17 sets, daily range): BP systolic 105–138; BP diastolic 57–92; PULSE 59–79; RESP 16–18; TEMP 36.3–37; O2SAT 95–100; BMI 27.8; BMI 27.7
--- NOTE | 2019-01-15 | SCAR_PTH ---
PATIENT: LETICIA HAQUE LOC: [facility] U#:[id number] AGE/SX: 38/F ROOM: [facility]316 RE01/15/[address]: Dr. Sandro Martinez MD : 1980 BED: 1 DIS: 01/16/2019 SPEC #: [id number] RECD: 01/15/19 14:17 STATUS: TAMAR REQ #: [id number] JEANINE: 01/15/19 00:[address]: Sandro Martinez DEPT: SURGICAL PATHOLOGY RECD BY: Brandon Patton ENTERED: 01/15/19 14:17 SP TYPE: Scar OTHR DR: Dr. Jack Mancuso, DO Tissues: CICATRIX/SCAR Procedures: Surgery Specimen Level IV HEADER OPERATION: Delayed left breast reconstruction with placement saline PRE-OP DIAGNOSIS: Left breast cancer; disproportion reconstructed breasts; late effect radiation therapy; ER positive TISSUE SUBMITTED: Radiation scar tissue left breast MICROSCOPIC DIAGNOSIS Left breast, radiation scar, excision: Fibrosis and suture granulomas with focal fat necrosis consistent with scar. No evidence of malignancy. AVRIL:bella 01/16/19 MICROSCOPIC DESCRIPTION Slides are reviewed. GROSS DESCRIPTION Received in fixative is one container labeled with the patient's name and designated radiation scar tissue left breast. The specimen consists of multiple pieces of pink-yellow soft tissue that in aggregate measure 7 x 4 x 1 cm. No mass lesion is identified. Pin Maker sections are submitted in three cassettes. / AVRIL:bella 01/15/19 TC:5 CPT: 51038
[2019-01-15] MEDS: Magnesium Sulfate 4gm/100mL 4 GM/100 ML IV.SOLN. IV (07:00)
[2019-01-15 07:01] LABS: Hematocrit 36.5 % (37-47); Hemoglobin 11.9 g/dL (12.0-15.0); Mean Corp Hgb Conc 32.6 g/dL (32-36); Mean Corpuscular Hgb 29.4 pg (27.0-32.0); Mean Corpuscular Volume 90.1 fL (81-99); Mean Platelet Vol. 10.2 fl (6.2-12.0); Platelet Count 145 K/mm3 (150-450); RBC Distribution Width CV 14.6 % (11.6-14.6); RBC Distribution Width SD 48.3 fl (35.1-43.9); Red Blood Count 4.05 M/mm3 (4.2-5.4); White Blood Count 4.6 K/mm3 (4.4-11.0)
[2019-01-15 07:10] LABS: Prothrombin Time (Protime)PT. 12.9 SECONDS (11.7-14.9)
[2019-01-15 07:11] LABS: Partial Thromboplast Time 37.7 Seconds (24.1-36.2)
[2019-01-15] MEDS: Lactated Ringers 1,000 ML 60 ML IV (07:11)
[2019-01-15] MEDS: Acetaminophen 500 MG Tablet 1000 MG PO ×3 (07:12→23:47)
[2019-01-15] MEDS: Scopolamine 1mg/72hr Patch 1 PATCH TRANSDERM. (07:12)
[2019-01-15 07:13] LABS: AST(SGOT) 8 U/L (15-37); Alanine Aminotransfer ALT/SGPT 18 U/L (13-56); Albumin, Serum 3.9 g/dL (3.2-5.0); Alkaline Phosphatase 68 U/L (45-117); Bilirubin, Direct 0.09 mg/dL (0.00-0.30); Globulin 3.2 g/dL (2.2-4.2); Protein, Total 7.1 g/dL (6.4-8.2)
[2019-01-15 07:20] LABS: Bedside Glucose 102 mg/dL (70-110)
[2019-01-15] MEDS: Gabapentin 600 MG Tablet PO (07:22)
[2019-01-15] MEDS: Cefazolin 2 GM in 0.9% Normal Saline 100 ML IV (07:34)
--- NOTE | 2019-01-15 09:31 | OP.PCM_ITS ---
Report of Operation Date of Procedure: 01/15/19 Pre-Operative Diagnosis: 1. Left breast cancer. 2. 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 4. Disproportion reconstructed breasts. 5. 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 6. Smoker. 7. Estrogen receptor positive status. 8. Painful capsular contracture right breast reconstruction. Post-Operative Diagnosis: 1. Left breast cancer. 2. 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 4. Disproportion reconstructed breasts. 5. Deformity left breast reconstruction radiation scar contour deformity. 6. 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 7. Smoker. 8. Estrogen receptor positive status. 9. Painful capsular contracture right breast reconstruction. Surgery/Procedure Performed:: 1. Revision left breast reconstruction with excision radiation scar contour deformity. 2. Delayed left breast reconstruction with placement of submuscular saline tissue corporate administrative assistant (350 ml). Description of Surgical Findings:: 38-year-old woman presents for discussion of further breast reconstruction. She finished her radiation therapy on March 06, 2018. Her left breast cancer was biopsied on 05/23/17. On 06/16/17 where she underwent injection of 5 cc of Lymphazurin blue and left modified radical mastectomy and sentinel lymph node b iopsy by Dr. Samayoa and prophylactic mastectomy right breast and immediate bilateral breast reconstruction with placement of submuscular saline tissue expanders (350 ml each) and placement of DermACELL decellularized dermis graft (128 cm2, each side) by Dr. Martinez. 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 One node showed macrometastasis. Estrogen receptors were positive. Progesterone receptors were positive. Her-2Neu was negative. She underwent chemotherapy and radiation therapy. She then underwent further surgery in 08/26 with revision reconstructed left breast with excision painful radiation scar contour deformity and 2nd stage delayed left breast reconstruction with removal of tissue corporate administrative assistant and capsulectomy and 2nd stage delayed left breast reconstruction with placement of left latissimus dorsi myocutaneous flap. She healed uneventfully. Her next stage in the breast reconstruction process is placement of a saline tissue corporate administrative assistant in the left b reast. Patient was informed of the risks and complications of the procedure including alternatives to surgery. These were discussed with the patient personally. Patient voices understanding and wishes to proceed. Some of the risks and complications were included in a form from the [employer]. Encouraged patient to stop smoking as it may have deleterious effects on wound healing. IV Fluids - 750 ml. Urine Output - 650 ml. I used [employer] Ultra High Profile, Smooth Breast Tissue Fiberglasser, Suture Tabs with Integral Injection Dome, (350 ml). Reference Number - [id number]. Lot Number - [id number]. Serial Number - [id number]. Expiration - June 21, 2022. I used Pao absorbable hemostat. Reference Number - [id number]. Lot Number - [id number]. Expiration - July 06, 2023. toll gate tender: Leyla Jean-Baptiste. Type of Anesthesia:: General Specimen's removed: Radiation scar contour deformity left breast reconstruction to Pathology. Drains: Otoniel. Estimated Blood Loss (mL): 50 ml. Fluids Replaced: 1400 ml (IV Fluids 750ml, Urine Output 650 ml). Description of Procedure: In the preop area, I made markings from the sternal midline to the umbilicus. The inframammary folds were marked bilaterally. Patient was taken to OR in supine position and was placed under general anesthesia. The breasts were prepped and draped in the usual fashion. SCD's were placed for DVT prophylaxis. Perioperative antibiotics were given intravenously. A galindo catheter was placed. Using xylocaine with epinephrine, the incision on the medial aspect of the latissimus flap was infiltrated. After waiting 5 minutes for the anesthetic to take effect, I made an incision into the subcutaneous tissue until the muscle was seen. A submuscular pocket was then created laterally to the anterior axillary line and superiorly to the clavicle and inferiorly to the inframammary fold and medially to the sternum. There was some thickened radiation scar contour deformity medially that was sharply excised which softened the breast pocket skin flap. This radiation scar tissue was sent to Pathology for analysis to rule out carcinoma. I irrigated the breast pocket with Irrisept chlorhexidine 0.05% solution and waited 60 seconds. I then irrigated the breast pocket with saline. Hemostasis was obtained with electrocautery. I placed a size 15 Otoniel drain into the breast pocket through a separate stab incision laterally and secured to the skin with 3-0 Nylon suture. I sprayed Pao absorbable hemostat into the breast pocket to minimize seroma formation postoperatively. I measured the width of the breast pocket and decided on a [employer] Ultra High Profile saline tissue corporate administrative assistant, 350 ml. I removed the air out of the corporate administrative assistant and then infiltrated the corporate administrative assistant with 50 ml saline. I then squeezed the corporate administrative assistant to make sure there were no leaks in the corporate administrative assistant. No leaks could be appreciated clinically. I then removed the saline out of the corporate administrative assistant. The corporate administrative assistant was then placed in sterile Betadine and then placed into the breast pocket. I secured the corporate administrative assistant to the chest wall via the suture tabs with 3-0 Vicryl suture. I placed 2 sutures. The other suture tabs were difficult to obtain visualization so no additional sutures were placed. It was a snug pocket so there was no need for acellular dermal matrix graft placement at this time. I closed the left breast wound in a layered fashion with 3-0 Monocryl figure of eight interrupted sutures for the underlying muscle. I placed a malleable retractor into the wound to protect the corporate administrative assistant while placing these deeper sutures. The deep dermis and subcutaneous tissue was approximated with 3-0 Monocryl interrupted suture. The skin was approximated with 4-0 V lock unidirectional barbed running subcuticular suture and followed with Histoacryl skin tissue adhesive. Gauze dressing was applied followed by a compression michel wrap. No vascular compromise was noted on the latissimus flap. No clinical evidence of bleeding noted. Patient tolerated the procedure well and was sent to PACU in satisfactory condition. Patient will be sent upstairs for continued postop care. She will discharged home when tolerating po analgesia. Tentatively she will have the drain in for 10-14 days and will start the saline expansion process after that. Grafts/Implants Used: None. - Complications None. - Admit VTE Documentation VTE Present on Admission: No VTE Mechan Device Prophylaxis: SCD's VTE Pharm Prophylaxis ordered?: Yes Code Visit Surgery Charges CPT - 64308 ICD-10 - C50.412, F40.298, Z90.13, N65.1, N65.0, T66.xxxS, L59.8, T85.44xA, Z17.0, F17.200 72176 C50.412, F40.298, Z90.13, N65.1, N65.0, T66.xxxS, L59.8, T85.44xA, Z17.0, F17.200
[2019-01-15] MEDS: Lactated Ringers 1,000 ML 40 ML IV (12:02)
[2019-01-15] MEDS: Cefazolin 1 GM/50 ML BAG IV ×2 (15:11→21:58)
[2019-01-15] MEDS: oxyCODONE 5 MG Tablet PO ×3 (15:15→22:08)
[2019-01-15] MEDS: Docusate Sodium 100 MG Capsule PO (21:58)
[2019-01-15] MEDS: Pyridoxine HCl 100 MG Tablet PO (21:59)
[2019-01-15] MEDS: Gabapentin 300 MG Capsule PO (21:59)
[2019-01-16 02:40] VITALS: BP 123/79; PULSE 71; RESP 18; TEMP 36.4; O2SAT 98
[2019-01-16] MEDS: oxyCODONE 5 MG Tablet PO ×3 (02:54→14:28)
[2019-01-16] MEDS: Acetaminophen 500 MG Tablet 1000 MG PO ×2 (06:06→11:31)
[2019-01-16] MEDS: Cefazolin 1 GM/50 ML BAG IV (06:06)
[2019-01-16] MEDS: 0.9% NaCl Peripheral Flush Adult/Peds IV ×3 (06:51→06:54)
[2019-01-16 07:04] LABS: Hematocrit 34.5 % (37-47); Hemoglobin 11.3 g/dL (12.0-15.0); Mean Corp Hgb Conc 32.8 g/dL (32-36); Mean Corpuscular Hgb 29.9 pg (27.0-32.0); Mean Corpuscular Volume 91.3 fL (81-99); Mean Platelet Vol. 10.3 fl (6.2-12.0); Platelet Count 151 K/mm3 (150-450); RBC Distribution Width CV 14.6 % (11.6-14.6); RBC Distribution Width SD 49.1 fl (35.1-43.9); Red Blood Count 3.78 M/mm3 (4.2-5.4)
[2019-01-16 07:33] LABS: Anion Gap 7 (5-15); BUN 13 mg/dL (7-18); BUN/Creat Ratio 18.8 RATIO (10-20); Calcium,Total 8.6 mg/dL (8.5-10.1); Chloride 109 mmol/L (98-107); Creatinine, Serum 0.69 mg/dL (0.55-1.02); EST Glomerular Filtration Rate 100 mL/min (>60); Est Glom Filt Rate - Afr Amer 121 mL/min (>60); Estimated Creatinine Clearance 102.47 ml/min; Glucose 120 mg/dL (74-106); Potassium 3.8 mmol/L (3.5-5.1); Prealbumin 24.5 mg/dL (20.0-40.0); Sodium Level 144 mmol/L (136-145)
[2019-01-16 09:33] VITALS: BP 112/67; PULSE 61; RESP 18; TEMP 36.8; O2SAT 98
[2019-01-16] MEDS: Ensure Surgery 237 ML LIQUID PO (09:35)
[2019-01-16] MEDS: Gabapentin 300 MG Capsule PO (09:36)
[2019-01-16] MEDS: Sertraline 100 MG Tablet PO (09:36)
[2019-01-16] MEDS: Cyanocobalamin 500 MCG Tablet 1000 MCG PO (09:36)
[2019-01-16] MEDS: Pyridoxine HCl 100 MG Tablet PO (09:36)
[2019-01-16] MEDS: Pantoprazole Sodium 40 MG Tablet PO (09:36)
[2019-01-16] MEDS: Docusate Sodium 100 MG Capsule PO (09:37)
[2019-01-16] MEDS: Anastrozole 1 MG Tablet PO (09:37)
[2019-01-16] MEDS: Enoxaparin 40 MG/0.4 ML Syringe SC (09:37)
[2019-01-16] MEDS: Lactated Ringers 1,000 ML 40 ML IV (11:31)
--- NOTE | 2019-01-16 13:14 | PN.SURG_ITS ---
Subjective: Postop #1 Patient has incisional pain. She is tolerating po analgesia. - Physical Exam General: Alert, Oriented x3 HEENT: PERRLA, EOMI Oral: Moist Mucosa Neck: Supple Abdomen: Soft, Non-Distended Skin: Incision - dry and intact. No vascular compromise noted on the latissimus dorsi flap. No clinical evidence of hematoma. Neurological: Cranial nerves II-XII grossly intact Psych/Mental Status: Normal Affect, Appropriate Vital Signs Temp Pulse Resp BP Pulse Ox 98.3 F 61 18 112/67 98 01/16/19 09:33 01/16/19 09:33 01/16/19 09:33 01/16/19 09:33 01/16/19 09:33 Oxygen Flow Rate (L/min) 6 Oxygen Delivery Method Room Air Weight: 172 lb Body Mass Index (BMI) 27.7 Intake and Output for Last 24 Hours 01/14/19 01/15/19 01/16/19 23:59 23:59 23:59 Intake Total 1679.33 / 2479.33 2870.67 / 2870.67 Output Total 930 / 930 60 / 60 Balance 749.33 / 1549.33 2810.67 / 2810.67 Drainage 130 ml yesterday, 60 ml today. Laboratory Tests Past 24 Hrs 01/16/19 01/16/19 06:50 06:50 WBC 10.0 RBC 3.78 L Hgb 11.3 L Hct 34.5 L MCV 91.3 MCH 29.9 MCHC 32.8 RDW Std Deviation 49.1 H RDW Coeff of Silvana 14.6 Plt Count 151 MPV 10.3 Sodium 144 Potassium 3.8 Chloride 109 H Carbon Dioxide 28.0 Anion Gap 7 BUN 13 Creatinine 0.69 Estim Creat Clear Calc 102.47 Est GFR (MDRD) Af Amer 121 Est GFR (MDRD) Non-Af 100 BUN/Creatinine Ratio 18.8 Glucose 120 H Calcium 8.6 Prealbumin 24.5 Medical Necessity - Tobacco Use Smoking Status: Current some day smoker Tobacco Use: Cigarettes Assessment/Plan All Active Problems (Last Reviewed 11/28/18 @ 10:33 by Joycelyn Paulino) Muscle spasm of left shoulder (Acute) Muscle spasm of back (Acute) Nonhealing surgical wound (Resolved) 1. Left breast cancer. 2. 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 4. Disproportion reconstructed breasts. 5. Deformity left breast reconstruction radiation scar contour deformity. 6. 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 7. Smoker. 8. Estrogen receptor positive status. 9. Painful capsular contracture right breast reconstruction. 10. s/p revision left breast reconstruction with excision radiation scar contour deformity and delayed left breast reconstruction with placement of submuscular saline tissue scaffold erector (350 ml). Patient has incisional pain and is tolerating po analgesia. Incision is dry and intact. No clinical evidence of hematoma. Prealbumin was 24.5. Encourage nutritional supplementation with protein to help the healing process. Discharge home today. Keep head elevated. Continue michel wrap chest wall compression. Continue lifting restriction. Will remove the drain in the office in 10-14 days. She may shower after the drain is removed. Wrote a script for Cefadroxil for 14 days until the drain is removed. Wrote scripts for Percocet for pain (50 tabs) and for Valium for spasm (30 tabs). Followup office one week. Will tentatively begin the saline tissue expansion process in two weeks after the drain is removed. Will tentatively plan on removing the scaffold erector with replacement cohesive gel implant in mid March. Encouraged patient to stop smoking as it may have deleterious effects on wound healing.
--- NOTE | 2019-01-16 13:44 | DCINST_ITS ---
You will use the following diet at home:: No restrictions Discharge Activity: May not drive while taking narcotic pain medications., May Not Shower - until the drain is removed., May Take a Tub Bath - from the umbilicus down., - - no heavy lifting. head elevated. Weight Bearing Status: Weight bearing as tolerated Lifting Restrictions: 20 lbs. Keep extremity elevated above heart level: - - elevate head. Call your doctor if your incision/area has: Continuous Slow Oozing, Sudden Increased Bleeding, Increased Pain/ Swelling, Increased Redness, Foul Smelling Discharge, Swelling at the incision site Call your doctor if you observe: Fever of 101 or Higher, Coldness, Increased Pain, Shortness of breath, Chest pain, Calf discomfort, Uncontrolled pain Suture Line Care: - - dry dressing daily. Change Dressing in (Days):: 1 - dry dressing daily. Cleanse incision/area with: - - may get incision wet in the shower after the drain is removed. Drain: Suction - katlin drain to bulb suction. empty and record output daily. Allergies/Adverse Reactions: Allergies ondansetron [From Zofran] Adverse Reaction (Verified 01/15/19 07:09) MIGRAINES Medications to take at Discharge anastrozole 1 mg tablet 1 mg PO DAILY 07/05/18 cyanocobalamin (vitamin B-12) 1,000 mcg capsule 1,000 mcg PO DAILY 07/05/18 gabapentin 300 mg capsule 300 mg PO BID cap 07/05/18 pyridoxine (vitamin B6) 100 mg tablet 100 mg PO BID 07/05/18 Sertraline HCl [Zoloft] 100 mg PO QDAY 07/19/18 Pantoprazole Sodium [Protonix] 40 mg PO DAILY 08/31/18 Vitamin C/Biotin [Hair, Skin and Nails Gummies] 2 ea PO DAILY 01/08/19 Cefadroxil [Duricef] 500 mg PO BID #28 cap 01/16/19 Diazepam [Valium] 5 mg PO 4X/DAY PRN #30 tab 01/16/19 Oxycodone HCl/Acetaminophen [Percocet 5/325] 1 - 2 tab PO 4X/DAY PRN PRN 7 Days #50 tab 01/16/19 The following prescriptions were given: Cefadroxil [Duricef] 500 mg PO BID #28 cap Prescription Printed Oxycodone HCl/Acetaminophen [Percocet 5/325] 1 - 2 tab PO 4X/DAY PRN PRN 7 Days #50 tab PRN Reason: Pain Prescription Printed Diazepam [Valium] 5 mg PO 4X/DAY PRN #30 tab PRN Reason: spasm Prescription Printed Primary Care Physician: Jack Mancuso DO [Primary Care Provider] - Test Results: Test results from this visit will be discussed in further detail at your follow- up appointment, if applicable. Please Follow Up With: Sandro Martinez MD When: one week. call [phone] for appt. Proposed Discharge Date: 01/16/19
[2019-01-16 14:23] VITALS: BP 126/83; PULSE 65; RESP 16; TEMP 36.7; O2SAT 96
--- NOTE | 2019-01-16 15:20 | CASEMGMT ---
Social Work Note SW reviewed pt's chart, pt does have history of breast cancer. SW met with pt. Pt currently getting ready to leave. Pt states that she has everything she needs at home and denied additional needs or concerns at this time. Lilia Shipley MOLD UNLOADER, MANAGEMENT INTERN
[2019-01-22 10:00] LABS: Cotinine Screen Blood 268.1 ng/mL (.); Nicotine Blood 11.8 ng/mL (.)
== END 2019-01-16 14:20 | disposition home or self-care (01) ==
LOC: MS3 11:14
PROVIDERS: Anesthesiology; Admitting Provider Surgery; Family Provider Student in an Organized Health Care Education/Training Program; PCP Student in an Organized Health Care Education/Training Program; Referring Provider Surgery; Visit Provider Surgery
PROC: (CPT 19357; principal; 2019-01-15 07:15)
DX: C50.412 Malignant neoplasm of upper-outer quadrant of left female breast (principal); N65.1 Disproportion of reconstructed breast; Z17.0 Estrogen receptor positive status [ER+]; N64.1 Fat necrosis of breast; Y84.2 Radiological procedure and radiotherapy as the cause of abnormal reaction of the patient, or of later complication, without mention of misadventure at the time of the procedure; F45.29 Other hypochondriacal disorders; F17.210 Nicotine dependence, cigarettes, uncomplicated; Z79.899 Other long term (current) drug therapy; K21.9 Gastro-esophageal reflux disease without esophagitis
CPT/HCPCS: 19357; 19380; 80048; 80076; 80323; 82962; 84134; 85027; 85610; 85730; 88304; 88305; 94762; 96365; 96366; 96372; 99218; 99406; J7120; A4216; G0378; G0379

== ENCOUNTER 2019-03-26 13:48 | Observation (INO) | payer BC, SELFPAY ==
[2019-02-04 15:33] VITALS: BMI 27.7
[2019-03-13 08:54] VITALS: BMI 27.7
--- NOTE | 2019-03-25 18:07 | HP.PCM_ITS ---
History and Physical Date of Admission: 03/26/19 HISTORY OF PRESENT ILLNESS 38-year-old woman presents for discussion of further breast reconstruction. She finished her radiation therapy on March 06, 2018. Her left breast cancer was biopsied on 05/23/17. On 06/16/17 where she underwent injection of 5 cc of Lymphazurin blue and left modified radical mastectomy and sentinel lymph node biopsy by Dr. Samayoa and prophylactic mastectomy right breast and immediate bilateral breast reconstruction with placement of submuscular saline tissue expanders (350 ml each) and placement of DermACELL decellularized dermis graft (128 cm2, each side) by Dr. Martinez. 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 One node showed macrometastasis. Estrogen receptors were positive. Progesterone receptors were positive. Her-2Neu was negative. She underwent chemotherapy and radiation therapy. She then underwent further surgery in 09/07/18 with revision reconstructed left breast with excision painful radiation scar contour deformity and 2nd stage delayed left breast reconstruction with removal of tissue training and development director and capsulectomy and 2nd stage delayed left breast reconstruction with placement of left latissimus dorsi myocutaneous flap. She healed uneventfully. She continued her breast reconst ruction process with revision left breast reconstruction with excision radiation scar contour deformity and delayed left breast reconstruction with placement of submuscular saline tissue training and development director (350 ml) on 01/15/19. She finished the saline tissue expansion and presents today for removal of the expanders with replacement cohesive gel implants. PAST MEDICAL HISTORY Malignant neoplasm of upper-outer quadrant of left female breast Estrogen receptor positive status [ER+] Current smoker Disproportion of reconstructed breast Acquired absence of bilateral breasts and nipples Cancer phobia PAST SURGICAL HISTORY Injection of 5 cc of Lymphazurin blue and left modified radical mastectomy and sentinel lymph node biopsy - 06/16/17 Prophylactic mastectomy right breast and immediate bilateral breast reconstruction with placement of submuscular saline tissue expanders (350 ml each) and placement of DermACELL decellularized dermis graft (128 cm2, each side) - 06/16/17 Placement of a right IJ PowerPort - 07/19/17 Laparoscopic BSO - 07/26/18 Revision reconstructed left breast with excision painful radiation scar contour deformity and 2nd stage delayed left breast reconstruction with removal of tissue training and development director and capsulectomy and 2nd stage delayed left breast reconstruction with placement of left latissimus dorsi myocutaneous flap - 09/07/18 Revision left breast reconstruction with excision radiation scar contour deformity and delayed left breast reconstruction with placement of submuscular saline tissue training and development director (350 ml) - 01/15/19 ALLERGIES ondansetron [From Zofran] MEDICATIONS Pantoprazole Sodium [Protonix] anastrozole cyanocobalamin (vitamin B-12) multivitamin pyridoxine (vitamin B6) Sertraline HCl [Zoloft] Valium Percocet Vitamin C FAMILY HISTORY Mother - Hypertension SOCIAL HISTORY Smoking Status: Current some day smoker tobacco type: cigarettes alcohol intake: current alcohol intake frequency: a few times a month substance use type: does not use REVIEW OF SYSTEMS General - Denies fever, fatigue, and weight loss. Eyes - Denies eye pain. ENT - Denies nasal congestion and sore throat. Endocrine - Denies excessive thirst and urination. Has diagnosis of left breast cancer. Underwent bilateral mastectomy in 06/25 with initial reconstruction with placement of saline tissue expanders. She has undergone chemotherapy and radiation therapy. She underwent removal of left breast training and development director with capsulectomy and placement of latissimus dorsi myocutaneous flap in 08/26. Skin - No suspicious lesions. Musculoskeletal - Denies joint pain, joint stiffness, weakness of muscles and joints, back pain, and arthritis. Neuro - Denies headaches. Cardiovascular - Denies chest pain. Denies shortness of breath with exertion. Respiratory - Denies cough and shortness of breath. Patient is a smoker. Psych - Denies anxiety and depression. Gastrointestinal - Denies nausea, vomiting, diarrhea, and constipation. Hematologic -Denies abnormal bruising and bleeding. Genitourinary - Denies hematuria and urinary frequency. PHYSICAL EXAMINATION General - Alert and oriented. Bra size was 36 B before the mastectomy. HEENT - PERRL. EOMI. Throat is clear. Neck - Supple and nontender. No cervical adenopathy. Lungs - Clear to auscultation. Breasts - Bilateral mastectomy incisions are well healed. No axillary adenopathy noted. Breast width is 14 cm bilaterally. Breast height is 13 cm. There is firmness in her right breast from the expansion and subsequent chemotherapy. There is a capsular contracture on the right that is painful. There is also a medial contracture as well. There is a well healed latissimus dorsi myocutaneous flap that is soft on the left. The left breast is expanded as well. There is a deformity of the left breast reconstruction with a pincushioning effect of the latissimus flap on the radiated skin of the breast. Heart - Regular rate and rhythm. Abdomen - No abdominal scarring. Some skin and subcutaneous redundancy between the umbilicus and the pubic area. Good skin elasticity noted. Extremities - FROM. No axillary adenopathy. Neuro - CN II - XII grossly intact. ASSESSMENT 1. Left breast cancer. 2. 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 4. Disproportion reconstructed breasts. 5. 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 6. Smoker. 7. Estrogen receptor positive status. 8. Painful capsular contracture right breast reconstruction. 9. Deformity left breast reconstruction with pincushioning of the latissimus flap secondary to late effect of radiation. PLAN Patient has finished the saline tissue expansion. She presents today for continuation of the breast reconstruction process with removal of the saline tissue expanders with replacement cohesive gel implants. She has a capsular contracture on the right that will necessitate a capsulectomy and expanding the breast pocket medially since there was lateral migration from the capsular contracture. She has a deformity left breast reconstruction with pincushioning of the latissimus flap secondary to late effect of radiation. Multiple W plasty reconstruction will be necessary to smooth out the pincushioning effect. I will just do one side, probably the medial scar. If there is persistent pincushioning, I can always address the lateral scar at a later date to further smooth out the pincushioning effect. The patient is a smoker, and if I do both sides of the scar at the same time, I don't want to risk any vascular compromise and wound healing problems with the flap. The final size of the implant will be based on the left breast because it was radi ated. I will adjust the right breast accordingly for symmetry purposes. Will have drains in for several days and be maintained on antibiotics until the drains are removed. Depending on the pocket size, I will use acellular dermal matrix graft as an inferolateral sling to maintain the implant centrally and minimize lateral migration. Sometimes a medial sling is needed as well to help minimize wrinkling especially on the radiated side. Surgery will be done under general anesthesia with a surgical observation overnight stay in the hospital. Tissue that is removed will be sent to Pathology for analysis to rule out carcinoma. Patient was informed of the risks and complications of the procedure including alternatives to surgery. These were discussed with the patient personally. Patient voices understanding and wishes to proceed. Some of the risks and complications were included in a form from the [employer]. Encouraged patient to stop smoking as it may have deleterious effects on wound healing.
[2019-03-26] VITALS (13 sets, daily range): BP systolic 102–119; BP diastolic 65–86; PULSE 53–76; RESP 14–18; TEMP 36.4–37; O2SAT 95–100; BMI 24.3
[2019-03-26] MEDS: Acetaminophen 500 MG Tablet 1000 MG PO ×3 (06:58→23:19)
[2019-03-26] MEDS: Gabapentin 600 MG Tablet PO (06:58)
[2019-03-26] MEDS: Scopolamine 1mg/72hr Patch 1 PATCH TRANSDERM. (06:59)
[2019-03-26] MEDS: Magnesium Sulfate 4gm/100mL 4 GM/100 ML IV.SOLN. IV (06:59)
[2019-03-26] MEDS: Lactated Ringers 1,000 ML 40 ML IV ×2 (07:15→10:30)
[2019-03-26 07:20] LABS: Bedside Glucose 94 mg/dL (70-110)
--- NOTE | 2019-03-26 07:30 | BRBX_PTH ---
PATIENT: LETICIA HAQUE LOC: [facility] U#:[id number] AGE/SX: 38/F ROOM: [facility]313 RE03/26/[address]: Dr. Sandro Martinez MD : 1980 BED: 1 DIS: 03/28/2019 SPEC #: [id number] RECD: 03/26/19 14:58 STATUS: TAMAR REQ #: [id number] JEANINE: 03/26/19 07:[address]: Sandro Martinez DEPT: SURGICAL PATHOLOGY RECD BY: Carmen Heard ENTERED: 03/27/19 12:03 SP TYPE: BREAST BX OTHR DR: Dr. Jack Mancuso DO Tissues: A - Left breast, NOS B - Right breast, NOS Procedures: Surgery Specimen Level IV HEADER OPERATION: Breast reconstruction with removal of saline tissue mint machine operator PRE-OP DIAGNOSIS: Left breast cancer, late effect radiation therapy left breast reconstruction with soft tissue radionecrosis, cancer phobia right breast TISSUE SUBMITTED: A. Left breast tissue, B. Right breast tissue MICROSCOPIC DIAGNOSIS A. Left breast tissue: Pieces of fibroadipose tissue and fibroconnective tissue with fibrosis, chronic inflammation and foreign body giant cell reaction. Skin, no pathologic diagnosis. Breast tissue is not identified. B. Right breast tissue: Pieces of fibroadipose tissue, fibroconnective tissue and skeletal muscle tissue with fibrosis and chronic inflammation. Skin, no pathologic diagnosis. Breast tissue is not identified. AVRIL:bella 03/28/19 MICROSCOPIC DESCRIPTION Slides are reviewed. GROSS DESCRIPTION A - Received in fixative is one container labeled with the patient's name and designated left breast tissue. The specimen consists of multiple fragments of oneill-yellow fibroadipose tissue mixed with membranous tissue consistent with capsule and skin that in aggregate measure 9 x 8 x 3 cm. No mass lesion is identified. Racing Driver sections are submitted in three cassettes. B - Received in fixative is one container labeled with the patient's name and designated right breast tissue. The specimen consists of multiple fragments of oneill-yellow fibroadipose tissue mixed with membranous tissue consistent with capsule and that in aggregate measure 10 x 11 x 3 cm. No mass lesion is identified. Racing Driver sections are submitted in three cassettes. / AVRIL:bella 03/27/19 TC:3 CPT: 07716 x2
[2019-03-26] MEDS: Lactated Ringers 1,000 ML 60 ML IV ×2 (13:30→16:14)
--- NOTE | 2019-03-26 13:33 | OP.PCM_ITS ---
Report of Operation Date of Procedure: 03/26/19 Pre-Operative Diagnosis: 1. Left breast cancer. 2. 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 4. Disproportion reconstructed breasts. 5. 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 6. Smoker. 7. Estrogen receptor positive status. 8. Painful capsular contracture right breast reconstruction. 9. Deformity left breast reconstruction with pincushioning of the latissimus flap secondary to late effect of radiation. Post-Operative Diagnosis: Same. Surgery/Procedure Performed:: 1. Revision right breast reconstruction with removal of saline tissue ceramic engineering professor and capsulectomy. 2. Delayed right breast reconstruction with placement of cohesive gel implant (430 ml) and placement Alloderm Select acellular dermal matrix graft (132 cm2). 3. Revision left breast reconstruction with removal of saline tissue ceramic engineering professor and capsulectomy. 4. Revision left breast reconstruction radiation scar contour deformity with multiple W-plasty reconstruction (12 cm2). 5. Delayed left breast reconstruction with placement cohesive gel implant (350 ml). Description of Surgical Findings:: 38-year-old woman presents for discussion of further breast reconstruction. She finished her radiation therapy on March 06, 2018. Her left breast cancer was biopsied on 05/23/17. On 06/16/17 where she underwent injection of 5 cc of Lym phazurin blue and left modified radical mastectomy and sentinel lymph node biopsy by Dr. Samayoa and prophylactic mastectomy right breast and immediate bilateral breast reconstruction with placement of submuscular saline tissue expanders (350 ml each) and placement of DermACELL decellularized dermis graft (128 cm2, each side) by Dr. Martinez. 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 One node showed macrometastasis. Estrogen receptors were positive. Progesterone receptors were positive. Her-2Neu was negative. She underwent chemotherapy and radiation therapy. She then underwent further surgery in 09/07/18 with revision reconstructed left breast with excision painful radiation scar contour deformity and 2nd stage delayed left breast reconstruction with removal of tissue ceramic engineering professor and capsulectomy and 2nd stage delayed left breast reconstruction with placement of left latissimus dorsi myocutaneous flap. She healed uneventfully. She continued her breast re construction process with revision left breast reconstruction with excision radiation scar contour deformity and delayed left breast reconstruction with placement of submuscular saline tissue ceramic engineering professor (350 ml) on 01/15/19. She finished the saline tissue expansion and presents today for removal of the expanders with replacement cohesive gel implants. Patient was informed of the risks and complications of the procedure including alternatives to surgery. These were discussed with the patient personally. Patient voices understanding and wishes to proceed. Some of the risks and complications were included in a form from the [employer]. Encouraged patient to stop smoking as it may have deleterious effects on wound healing. IV Fluids - 1950 ml. Urine Output - 700 ml. I used Eunice MemoryGel Smooth Round Ultra High Profile Breast Implant, (430 ml on the right). Reference Number - [id number]. Lot Number - [id number]. Serial Number - [id number]. Expiration - October 28, 2023. I used Eunice MemoryGel Smooth Round Ultra High Profile Breast Implant, (350 ml on the left). Reference Number - [id number]. Lot Number - [id number]. Serial Number - [id number]. Expiration - March 13, 2020. I used Alloderm Select Acellular Dermal Matrix Graft, Contour Medium Perforated, Thick, (2.4 mm, 132 cm2). Reference Number - [id number]. Lot Number - [id number]. Expiration - December,. I used Pao absorbable hemostat, (I used 2 vials, one in each breast). Reference Number - [id number]. Lot Number - [id number]. Expiration - December 06, 2023. precipitation equipment tender: Cameron Wynn. Type of Anesthesia:: General Specimen's removed: 1. Left breast tissue and capsule to Pathology. 2. Right breast tissue and capsule to Pathology. Drains: Otoniel x3 (one in left breast and 2 in right breast). Estimated Blood Loss (mL): 50 ml. Fluids Replaced: 2650 ml (IV Fluids 1950 ml, Urine Output 700 ml). Description of Procedure: While the patient was in the preop area, markings were made from the sternal midline to the umbilicus. The inframammary folds were marked bilaterally. She was then taken to the OR in supine position and placed under general anethesia. SCD's were placed for DVT prophylaxis. Perioperative antibiotics were given intravenously. Her breasts were prepped and draped in the usual fashion. Ioban draping was also used. A galindo catheter was placed. Using xylocaine with epinephrine, the longitudinal latissimus scar left breast was infiltrated. I made multiple W-plasty markings along the longitudinal latissimus scar. For the right breast, I made a horizontal marking inferiorly at the base of the longitudinal scar and also infiltrated with xylocaine with epinephrine. After waiting 5 minutes for the anesthetic to take effect, zig zag incisions were made through the W plasty markings into the subcutaneous tissue and muscle. The breast capsule was seen. A capsulotomy was performed and the saline tissue ceramic engineering professor was removed. No abnormal fluid or exudate was seen in the breast pocket. There was dense capsular scar tissue present. A ca psulectomy was performed which freed up the pocket and made it feel softer for the replacement cohesive gel implant. After trying Moderate Plus Xtra sizers from [employer], it was noted that the medial aspect of the breast was relatively flat compared to the rest of the breast. So I decided to try an Ultra High profile implant. I settled on the 350 ml Ultra High implant. It gave good shape medially and the breast still felt soft without evidence of vascular compromise. When I tried these various sizers before deciding on the 350 ml implant, I temporarily closed the zig zag incision with surgical clips. I then made a horizontal incision on the right breast through the subcutaneous tissue until the capsule was seen. A capsulotomy was done and the ceramic engineering professor was removed. No abnormal fluid or exudate was seen in the breast pocket. There was a capsular contracture preop and a capsulectomy was performed. It wasn't as densely thick as the left side which has a radiation effect. This capsulectomy freed up the pocket and made it feel softer for the replacement cohesive gel implant. Since the right side was not radiated, I went right for the Ultra High sizers. I settled on the 430 ml implant as it gave good shape and contour and symmetry with the left breast. When I tried these various sizers before deciding on the 430 ml implant, I temporarily closed the horizontal incision with surgical clips. We then changed gloves before inserting the final implants. The left breast pocket was more snug than on the right and it was felt that there was no need for a piece of acellular dermal matrix graft for inferolateral support. However in the right breast, there was migration of the implant laterally into the axilla. I had extended the pocket medially to the sternum to help with medial shaping and cleavage formation for the patient. In order to keep the implant centrally located, a inferolateral sling would be necessary. I placed size 15 Otoniel drains through separate stab incisions laterally and secured to the skin with 3-0 Nylon suture. I used one drain on the left and 2 drains on the right. Both breast pockets were irrigated with Irrisept 0.05% Chlorhexidine solution. This was followed by saline irrigation. I placed the Alloderm acellular dermal matrix graft into saline. I placed the Eunice MemoryGel Smooth Round Ultra High Profile implants in sterile Betadine. I used a 350 ml implant on the left and a 430 ml implant on the right. Prior to placing the implants, I sprayed Pao absorbable hemostat into both breast pockets to minimize seroma formation postoperatively. Before placing the implants in the breasts, I had temporary sizers in the breasts. I had placed the patient in the sitting position and good breast shape and contour was noted. The patient was placed back in the supine position for closure of the incisions. I placed the Alloderm acellular dermal matrix graft in the right breast pocket as an inferolateral sling. The size was 132 cm2. It was secured to the chest wall with 3-0 Vicryl suture in 2 layers. This allowed central positioning of the implant. When I closed the horizontal incision on the right, I stabilized the sling with 3-0 Vicryl sutures from the breast flap to the sling to keep it from migrating laterally. I closed the deeper subcutaneous tissue with 3-0 Vicryl interrupted suture. The deep dermis and subcutaneous tissue was approximated with 3-0 Monocryl interrupted sutures. The skin was approximated with 3-0 V lock unidirectional barbed running subcuticular suture. For the left breast after placement of the cohesive gel implant, I closed the deeper muscle with 3-0 Vicryl interrupted sutures. The deep dermis and subcutaneous tissue was approximated with 3-0 Monocryl interrupted sutures. The skin was approximated with 4-0 Prolene simple interrupted and vertical mattress sutures. The size of the multiple W-plasty closure was 12 cm2. Histoacryl skin tissue adhesive was applied to both br easts. This was followed by Kerlix gauze and a surgical bra followed by a compression michel wrap. Patient tolerated the procedure well and was sent to PACU in satisfactory condition. Patient will be sent upstairs for continued postop care. Will discharge her when she is tolerating po analgesia and is steady with ambulation. Drains will be removed in 10-14 days. She will keep her head elevated and maintain lifting restriction. Grafts/Implants Used: Eunice MemoryGel Smooth Round Breast Implants x2, Alloderm tissue graft - Complications None. - Admit VTE Documentation VTE Present on Admission: No VTE Mechan Device Prophylaxis: SCD's VTE Pharm Prophylaxis ordered?: Yes Code Visit Surgery Charges CPT - 77113 ICD-10 - C50.412, T85.44xA, F40.298, Z90.13, N65.0, N65.1, T66.xxxS, L59.8, Z17.0, F17.200 18948-26 C50.412, T85.44xA, F40.298, Z90.13, N65.0, N65.1, T66.xxxS, L59.8, Z17.0, F17.200 72158 C50.412, F40.298, Z90.13, N65.0, N65.1, T66.xxxS, L59.8, T85.44xA, Z17.0, F17.200 28346-36 C50.412, F40.298, Z90.13, N65.0, N65.1, T66.xxxS, L59.8, T85.44xA, Z17.0, F17.200 47116 C50.412, N65.1, F40.298, Z90.13, N65.0, T66.xxxS, L59.8, T85.44xA, Z17.0, F17.200 67538 C50.412, N65.0, T66.xxxS, L59.8, F40.298, Z90.13, N65.1, T85.44xA, Z17.0, F17.200 98524 C50.412, F40.298, Z90.13, N65.0, N65.1, T66.xxxS, L59.8, T85.44xA, Z17.0, F17.200
[2019-03-26] MEDS: oxyCODONE 5 MG Tablet PO ×2 (16:33→20:42)
[2019-03-26] MEDS: diazePAM 5 MG Tablet PO (20:43)
[2019-03-26] MEDS: Anastrozole 1 MG Tablet PO (21:10)
[2019-03-26] MEDS: Sertraline 100 MG Tablet PO (21:11)
[2019-03-26] MEDS: Pantoprazole Sodium 40 MG Tablet PO (21:11)
[2019-03-26] MEDS: Pyridoxine HCl 100 MG Tablet PO (21:11)
[2019-03-27] MEDS: oxyCODONE 5 MG Tablet PO ×5 (02:16→21:14)
[2019-03-27 02:18] VITALS: BP 127/70; PULSE 53; RESP 20; TEMP 36.3; O2SAT 99
[2019-03-27 02:21] VITALS: PULSE 50
[2019-03-27 04:39] LABS: Hematocrit 33.9 % (37-47); Hemoglobin 10.9 g/dL (12.0-15.0); Mean Corp Hgb Conc 32.2 g/dL (32-36); Mean Corpuscular Hgb 29.3 pg (27.0-32.0); Mean Corpuscular Volume 91.1 fL (81-99); Mean Platelet Vol. 9.7 fl (6.2-12.0); Platelet Count 191 K/mm3 (150-450); RBC Distribution Width CV 13.4 % (11.6-14.6); RBC Distribution Width SD 44.4 fl (35.1-43.9); Red Blood Count 3.72 M/mm3 (4.2-5.4); White Blood Count 11.6 K/mm3 (4.4-11.0)
[2019-03-27 04:57] LABS: Anion Gap 2 (5-15); BUN 10 mg/dL (7-18); BUN/Creat Ratio 13.5 RATIO (10-20); Chloride 108 mmol/L (98-107); Creatinine, Serum 0.74 mg/dL (0.55-1.02); EST Glomerular Filtration Rate 92 mL/min (>60); Est Glom Filt Rate - Afr Amer 111 mL/min (>60); Estimated Creatinine Clearance 99.26 ml/min; Glucose 123 mg/dL (74-106); Potassium 4.1 mmol/L (3.5-5.1); Prealbumin 18.4 mg/dL (20.0-40.0); Sodium Level 139 mmol/L (136-145)
[2019-03-27] MEDS: Acetaminophen 500 MG Tablet 1000 MG PO ×3 (05:53→19:06)
[2019-03-27] MEDS: 0.9% Saline Lock 10 ML Syringe IV ×3 (05:54→06:26)
[2019-03-27 08:15] VITALS: BP 111/70; PULSE 66; RESP 16; TEMP 36.8; O2SAT 97
[2019-03-27] MEDS: Cyanocobalamin 500 MCG Tablet 1000 MCG PO (09:04)
[2019-03-27] MEDS: Docusate Sodium 100 MG Capsule PO ×2 (09:04→21:14)
[2019-03-27] MEDS: Enoxaparin 40 MG/0.4 ML Syringe SC (09:04)
[2019-03-27] MEDS: Ensure Surgery 237 ML LIQUID PO (09:07)
--- NOTE | 2019-03-27 09:14 | CASEMGMT ---
Social Work Note SW met with pt as pt has diagnosis of breast cancer. SW introduced self and role at [facility]. Pt is alert and orientated x3. Pt confirms that she was diagnosed with breast cancer last year and have been handling it well. Pt states that she has good family and friends for support and feels supported. Pt denied additional needs or concerns at this time. Lilia Shipley STRAIGHT CUTTER MACHINE, [employer]
[2019-03-27 14:25] VITALS: BP 106/73; PULSE 63; RESP 18; TEMP 36.8; O2SAT 98
[2019-03-27 20:00] VITALS: BP 112/64; PULSE 64; RESP 16; TEMP 36.6; O2SAT 97
--- NOTE | 2019-03-27 20:30 | PCM.PN.SRG ---
Subjective: Postop #1 Patient has incisional pain. She is a little unsteady on her feet with ambulation. - Physical Exam Vitals/I&O's: Vital Signs Temp Pulse Resp BP Pulse Ox 98.3 F 63 18 106/73 98 03/27/19 14:25 03/27/19 14:25 03/27/19 14:25 03/27/19 14:25 03/27/19 14:25 Oxygen Flow Rate (L/min) 6 Oxygen Delivery Method Room Air Weight: 155 lb 3.287 oz Body Mass Index (BMI) 24.3 Intake and Output for Last 24 Hours 03/25/19 03/26/19 03/27/19 23:59 23:59 23:59 Intake Total 3331.75 / 3744.75 3509.50 / 3509.50 Output Total 1465 / 1465 75 / 75 Balance 1866.75 / 2279.75 3434.50 / 3434.50 Drainage 15 ml yesterday, 75 ml today. General: Alert, Oriented x3 HEENT: PERRLA, EOMI Oral: Moist Mucosa Neck: Supple Abdomen: Soft, Non-Distended Skin: Incision - breast incisions are dry and intact. Breasts are soft and symmetrical. No clinical evidence of hematoma. Neurological: Cranial nerves II-XII grossly intact Psych/Mental Status: Normal Affect, Appropriate Laboratory Results 03/27/19 04:20: Sodium 139, Potassium 4.1, Chloride 108 H, Carbon Dioxide 29.0, Anion Gap 2 L, BUN 10, Creatinine 0.74, Estim Creat Clear Calc 99.26, Est GFR (MDRD) Af Amer 111, Est GFR (MDRD) Non-Af 92, BUN/Creatinine Ratio 13.5, Glucose 123 H, Calcium 8.0 L, Prealbumin 18.4 L 03/27/19 04:20: WBC 11.6 H, RBC 3.72 L, Hgb 10.9 L, Hct 33.9 L, MCV 91.1, MCH 29.3, MCHC 32.2, RDW Std Deviation 44.4 H, RDW Coeff of Silvana 13.4, Plt Count 191, MPV 9.7 Current Medications Acetaminophen (Tylenol) 1,000 mg PO Q6 [facility] Last Admin: 03/27/19 19:06 Dose: 1,000 mg Documented by: Anastrozole (Arimidex) 1 mg PO QHS [facility] Last Admin: 03/26/19 21:10 Dose: 1 mg Documented by: Cyanocobalamin (Vitamin B12) 1,000 mcg PO DAILY [facility] Last Admin: 03/27/19 09:04 Dose: 1,000 mcg Documented by: Diazepam (Valium) 5 mg PO 4X/DAY PRN PRN Reason: spasm Last Admin: 03/26/19 20:43 Dose: 5 mg Documented by: Diphenhydramine HCl (Benadryl) 50 mg PO Q6H PRN PRN PRN Reason: ITCHING Docusate Sodium (Colace) 100 mg PO BID [facility] Last Admin: 03/27/19 09:04 Dose: 100 mg Documented by: Enoxaparin Sodium (Lovenox) 40 mg SC DAILY [facility] Last Admin: 03/27/19 09:04 Dose: 40 mg Documented by: Enteral Nutritional Formula (Ensure Surgery) 237 ml PO TIDCM [facility] Last Admin: 03/27/19 14:24 Dose: Not Given Documented by: Hydromorphone HCl (Dilaudid Inj) 0.5 - 1 mg IV Q3H PRN PRN PRN Reason: Pain Score 6-10/10 Ampicillin Sodium/Sulbactam (Sodium 3 gm/ Sodium Chloride) 112 mls @ 150 mls/hr IV Q6 [facility] Last Infusion: 03/27/19 19:34 Dose: Infused Documented by: Sodium Chloride () 250 mls @ 15 mls/hr IV .[id number] PRN PRN Reason: Saline Flush Last Infusion: 03/27/19 16:15 Dose: 15 mls/hr Documented by: Sodium Chloride () 250 mls @ 15 mls/hr IV .[id number] PRN PRN Reason: Additional IVPB Infusion Insulin Human Lispro (Humalog Kwikpen (Bkc)) 1 - 6 unit SC Q4H PRN PRN; Protocol PRN Reason: BG>/= 180, SEE PROTOCOL Magnesium Oxide (Mag-Ox 400) 400 mg PO BID PRN PRN PRN Reason: Constipation Ondansetron HCl (Zofran Odt) 4 mg PO Q6H PRN PRN PRN Reason: NAUSEA Oxycodone HCl (Oxyir) 5 - 10 mg PO Q4H PRN PRN PRN Reason: Pain Score 4-10/10 Last Admin: 03/27/19 17:12 Dose: 10 mg Documented by: Pantoprazole Sodium (Protonix) 40 mg PO QHS [facility] Last Admin: 03/26/19 21:11 Dose: 40 mg Documented by: Pyridoxine HCl (Vitamin B-6) 100 mg PO QHS [facility] Last Admin: 03/26/19 21:11 Dose: 100 mg Documented by: Sertraline HCl (Zoloft) 100 mg PO QHS [facility] Last Admin: 03/26/19 21:11 Dose: 100 mg Documented by: Sodium Chloride () 10 - 40 ml IV UD PRN PRN Reason: SALINE FLUSH Last Admin: 03/27/19 06:26 Dose: 10 ml Documented by: Medical Necessity - Tobacco Use Smoking Status: Current some day smoker Tobacco Use: Cigarettes Assessment/Plan All Active Problems (Last Reviewed 03/13/19 @ 08:37 by Yasmin Horton) Muscle spasm of left shoulder (Acute) Muscle spasm of back (Acute) Nonhealing surgical wound (Resolved) 1. Left breast cancer. 2. 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 4. Disproportion reconstructed breasts. 5. 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 6. Smoker. 7. Estrogen receptor positive status. 8. Painful capsular contracture right breast reconstruction. 9. Deformity left breast reconstruction with pincushioning of the latissimus flap secondary to late effect of radiation. 10. s/p eevision right breast reconstruction with removal of saline tissue scrap baller and capsulectomy and delayed right breast reconstruction with placement of cohesive gel implant (430 ml) and placement Alloderm Select acellular dermal matrix graft (132 cm2) and revision left breast reconstruction with removal of saline tissue scrap baller and capsulectomy and revision left breast reconstruction radiation scar contour deformity with multiple W-plasty reconstruction (12 cm2) and delayed left breast reconstruction with placement cohesive gel implant (350 ml). Patient has incisional pain. Needs occasional IV analgesia. Breasts are soft and symmetrical. Incisions are dry and intact. Prealbumin was 18.4. Encourage nutritional supplementation with protein to help the healing process. She is a little unsteady on her feet with ambulation. Will keep one more day and encourage ambulation with assist. Anticipate discharge tomorrow. Will wean to po analgesia for discharge. Will remove the drains in the office. Continue Unasyn. Will discharge on Augmentin until the drains are removed. Encouraged patient to stop smoking as it may have deleterious effects on wound healing.
[2019-03-27] MEDS: DiphenhydrAMINE 25 MG Capsule 50 MG PO (20:33)
[2019-03-27] MEDS: Pantoprazole Sodium 40 MG Tablet PO (21:14)
[2019-03-27] MEDS: Anastrozole 1 MG Tablet PO (21:14)
[2019-03-27] MEDS: Sertraline 100 MG Tablet PO (21:14)
[2019-03-27] MEDS: Pyridoxine HCl 100 MG Tablet PO (21:14)
[2019-03-28] MEDS: Acetaminophen 500 MG Tablet 1000 MG PO ×2 (00:07→06:36)
[2019-03-28 02:00] VITALS: BP 109/61; PULSE 71; RESP 16; TEMP 36.8; O2SAT 100
[2019-03-28] MEDS: oxyCODONE 5 MG Tablet PO ×2 (02:01→10:43)
--- NOTE | 2019-03-28 09:46 | PCM.PN.SRG ---
Subjective: Postop #2 Patient is resting comfortably. Tolerating po analgesia. She is more steady on her feet with ambulation. - Physical Exam Vitals/I&O's: Vital Signs Temp Pulse Resp BP Pulse Ox 98.2 F 71 16 109/61 100 03/28/19 02:00 03/28/19 02:00 03/28/19 02:00 03/28/19 02:00 03/28/19 02:00 Oxygen Flow Rate (L/min) 6 Oxygen Delivery Method Room Air Weight: 155 lb 3.287 oz Body Mass Index (BMI) 24.3 Intake and Output for Last 24 Hours 03/26/19 03/27/19 03/28/19 23:59 23:59 23:59 Intake Total 3331.75 / 3744.75 3580.25 / 4080.25 1104 / 1104 Output Total 1465 / 1465 130 / 165 35 / 35 Balance 1866.75 / 2279.75 3450.25 / 3915.25 1069 / 1069 Drainage 130 ml yesterday, 35 ml today. General: Alert, Oriented x3 HEENT: PERRLA, EOMI Oral: Moist Mucosa Neck: Supple Abdomen: Soft, Non-Distended Skin: Incision - breast incisions are dry and intact. Breasts are soft and symmetrical. No clinical evidence of hematoma. Neurological: Cranial nerves II-XII grossly intact Psych/Mental Status: Normal Affect, Appropriate Current Medications Acetaminophen (Tylenol) 1,000 mg PO Q6 [facility] Last Admin: 03/28/19 06:36 Dose: 1,000 mg Documented by: Anastrozole (Arimidex) 1 mg PO QHS [facility] Last Admin: 03/27/19 21:14 Dose: 1 mg Documented by: Cyanocobalamin (Vitamin B12) 1,000 mcg PO DAILY [facility] Last Admin: 03/27/19 09:04 Dose: 1,000 mcg Documented by: Diazepam (Valium) 5 mg PO 4X/DAY PRN PRN Reason: spasm Last Admin: 03/26/19 20:43 Dose: 5 mg Documented by: Diphenhydramine HCl (Benadryl) 50 mg PO Q6H PRN PRN PRN Reason: ITCHING Last Admin: 03/27/19 20:33 Dose: 50 mg Documented by: Docusate Sodium (Colace) 100 mg PO BID [facility] Last Admin: 03/27/19 21:14 Dose: 100 mg Documented by: Enoxaparin Sodium (Lovenox) 40 mg SC DAILY [facility] Last Admin: 03/27/19 09:04 Dose: 40 mg Documented by: Hydromorphone HCl (Dilaudid Inj) 0.5 - 1 mg IV Q3H PRN PRN PRN Reason: Pain Score 6-10/10 Ampicillin Sodium/Sulbactam (Sodium 3 gm/ Sodium Chloride) 112 mls @ 150 mls/hr IV Q6 [facility] Last Infusion: 03/28/19 06:37 Dose: Infused Documented by: Sodium Chloride () 250 mls @ 15 mls/hr IV .[id number] PRN PRN Reason: Saline Flush Last Admin: 03/27/19 21:21 Dose: 15 mls/hr Documented by: Sodium Chloride () 250 mls @ 15 mls/hr IV .[id number] PRN PRN Reason: Additional IVPB Infusion Insulin Human Lispro (Humalog Kwikpen (Bkc)) 1 - 6 unit SC Q4H PRN PRN; Protocol PRN Reason: BG>/= 180, SEE PROTOCOL Magnesium Oxide (Mag-Ox 400) 400 mg PO BID PRN PRN PRN Reason: Constipation Ondansetron HCl (Zofran Odt) 4 mg PO Q6H PRN PRN PRN Reason: NAUSEA Oxycodone HCl (Oxyir) 5 - 10 mg PO Q4H PRN PRN PRN Reason: Pain Score 4-10/10 Last Admin: 03/28/19 02:01 Dose: 10 mg Documented by: Pantoprazole Sodium (Protonix) 40 mg PO QHS [facility] Last Admin: 03/27/19 21:14 Dose: 40 mg Documented by: Pyridoxine HCl (Vitamin B-6) 100 mg PO QHS [facility] Last Admin: 03/27/19 21:14 Dose: 100 mg Documented by: Sertraline HCl (Zoloft) 100 mg PO QHS [facility] Last Admin: 03/27/19 21:14 Dose: 100 mg Documented by: Sodium Chloride () 10 - 40 ml IV UD PRN PRN Reason: SALINE FLUSH Last Admin: 03/27/19 06:26 Dose: 10 ml Documented by: Medical Necessity - Tobacco Use Smoking Status: Current some day smoker Tobacco Use: Cigarettes Assessment/Plan All Active Problems (Last Reviewed 03/13/19 @ 08:37 by Yasmin Horton) Muscle spasm of left shoulder (Acute) Muscle spasm of back (Acute) Nonhealing surgical wound (Resolved) 1. Left breast cancer. 2. 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 4. Disproportion reconstructed breasts. 5. 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 6. Smoker. 7. Estrogen receptor positive status. 8. Painful capsular contracture right breast reconstruction. 9. Deformity left breast reconstruction with pincushioning of the latissimus flap secondary to late effect of radiation. 10. s/p revision right breast reconstruction with removal of saline tissue tectonophysicist and capsulectomy and delayed right breast reconstruction with placement of cohesive gel implant (430 ml) and placement Alloderm Select acellular dermal matrix graft (132 cm2) and revision left breast reconstruction with removal of saline tissue tectonophysicist and capsulectomy and revision left breast reconstruction radiation scar contour deformity with multiple W-plasty reconstruction (12 cm2) and delayed left breast reconstruction with placement cohesive gel implant (350 ml). Patient has incisional pain. Tolerating po analgesia. Breasts are soft and symmetrical. Incisions are dry and intact. Prealbumin was 18.4. Encourage nutritional supplementation with protein to help the healing process. She is more steady on her feet with ambulation. Discharge home today. Will remove the drains in the office. Will discharge on Augmentin until the drains are removed. Followup office one week. Keep head elevated. Continue lifting restriction. Continue michel wrap compression along with the surgical bra. Wrote script for Augmentin until the drains are removed. Wrote scripts for Percocet for pain (40 tabs) and for Valium for spasm (30 tabs). Encouraged patient to stop smoking as it may have deleterious effects on wound healing.
--- NOTE | 2019-03-28 10:15 | DCINST_ITS ---
You will use the following diet at home:: No restrictions, Other - encourage nutritional supplementation with protein to help the healing process. Discharge Activity: May not drive while taking narcotic pain medications., May Not Shower - until the drains are removed., - - keep head elevated. no heavy lifting. wear compression michel with surgical bra. May shower in (days): 14 - after the drains are removed. May resume sexual activity in: 10-14 days Ice area for (Minutes): 5 - as tolerated. Do not place on skin directly. May place over the michel wrap. Weight Bearing Status: Weight bearing as tolerated Lifting Restrictions: 20 lbs. Keep extremity elevated above heart level: - - elevate head. Call your doctor if your incision/area has: Continuous Slow Oozing, Sudden Increased Bleeding, Increased Pain/ Swelling, Increased Redness, Foul Smelling Discharge, Swelling at the incision site Call your doctor if you observe: Fever of 101 or Higher, Coldness, Increased Pain, Shortness of breath, Chest pain, Calf discomfort, Uncontrolled pain Suture Line Care: - - dry dressings daily. Change Dressing in (Days):: 1 - dry dressings daily. Cleanse incision/area with: - - may get incisions wet in the shower after the drains are removed. Drain: Suction - katlin drain x3 to bulb suction. empty and record output dailiy. Allergies/Adverse Reactions: Allergies ondansetron [From Zofran] Adverse Reaction (Verified 03/20/19 08:21) MIGRAINES Medications to take at Discharge anastrozole 1 mg tablet 1 mg PO QHS 07/05/18 cyanocobalamin (vitamin B-12) 1,000 mcg capsule 1,000 mcg PO DAILY 07/05/18 pyridoxine (vitamin B6) 100 mg tablet 100 mg PO QHS 07/05/18 Sertraline HCl [Zoloft] 100 mg PO QHS 07/19/18 Pantoprazole Sodium [Protonix] 40 mg PO QHS 08/31/18 Vitamin C/Biotin [Hair, Skin and Nails Gummies] 2 ea PO QHS 01/08/19 Amox/Clavulanate Tablet [Augmentin Tablet] 875 mg PO BID #30 tab 03/28/19 Diazepam [Valium] 5 mg PO 4X/DAY PRN #30 tab 03/28/19 DiphenhydrAMINE [Benadryl] 50 mg PO Q6H PRN PRN cap 03/28/19 Docusate Sodium [Colace] 100 mg PO BID cap 03/28/19 Oxycodone HCl/Acetaminophen [Percocet 5-325] 1 tab PO .[id number] PRN PRN 7 Days #40 tab 03/28/19 The following prescriptions were given: Amox/Clavulanate Tablet [Augmentin Tablet] 875 mg PO BID #30 tab Transmission Status: Pending to [id number] Oxycodone HCl/Acetaminophen [Percocet 5-325] 1 tab PO .[id number] PRN PRN 7 Days #40 tab PRN Reason: Pain Score 4-5/10 Transmission Status: Received by [id number] Diazepam [Valium] 5 mg PO 4X/DAY PRN #30 tab PRN Reason: spasm Transmission Status: Received by [id number] Primary Care Physician: Jack Mancuso DO [Primary Care Provider] - Test Results: Test results from this visit will be discussed in further detail at your follow- up appointment, if applicable. Please Follow Up With: Sandro Martinez MD When: one week. call [phone] for appt. Proposed Discharge Date: 03/28/19
[2019-03-28] MEDS: Docusate Sodium 100 MG Capsule PO (10:40)
[2019-03-28] MEDS: Cyanocobalamin 500 MCG Tablet 1000 MCG PO (10:40)
[2019-03-28 10:49] VITALS: BP 126/81; PULSE 62; RESP 18; TEMP 36.8; O2SAT 98
== END 2019-03-28 10:52 | disposition home or self-care (01) ==
LOC: SDC 14:52 → MS3 14:52
PROVIDERS: Admitting Provider Surgery; Family Provider Student in an Organized Health Care Education/Training Program; PCP Student in an Organized Health Care Education/Training Program; Referring Provider Surgery; Visit Provider Surgery
PROC: (CPT 14001; principal; 2019-03-26 07:10)
DX: C50.412 Malignant neoplasm of upper-outer quadrant of left female breast (principal); Z17.0 Estrogen receptor positive status [ER+]; L59.8 Other specified disorders of the skin and subcutaneous tissue related to radiation; Y84.2 Radiological procedure and radiotherapy as the cause of abnormal reaction of the patient, or of later complication, without mention of misadventure at the time of the procedure; N65.1 Disproportion of reconstructed breast; F45.29 Other hypochondriacal disorders; K21.9 Gastro-esophageal reflux disease without esophagitis; Z92.21 Personal history of antineoplastic chemotherapy; Z79.899 Other long term (current) drug therapy; F17.210 Nicotine dependence, cigarettes, uncomplicated
CPT/HCPCS: 14001; 15777; 19342; 19371; 80048; 82962; 84134; 85027; 88305; 96365; 96366; 99218; 99251; 99406; J7050; J7120; A4216; G0378; G0463; J0295; Q9968

== ENCOUNTER → 2019-04-17 12:03 | Outpatient (CLI) | payer BC, SELFPAY ==
[2019-04-17 09:25] VITALS: BMI 24.3
== END ==
PROVIDERS: Family Provider Student in an Organized Health Care Education/Training Program; PCP Student in an Organized Health Care Education/Training Program; Referring Provider Nurse Practitioner Family; Visit Provider Nurse Practitioner Family
DX: N64.89 Other specified disorders of breast (principal)
CPT/HCPCS: 87070; 87075; 87077; 87186; 87205

== ENCOUNTER 2019-04-22 15:21 | Inpatient (IN) | payer BC, SELFPAY ==
[2019-04-22 08:42] VITALS: BMI 24.3
[2019-04-22 14:48] VITALS: BMI 22.3
[2019-04-22 15:07] VITALS: BP 108/72; PULSE 65; RESP 16; TEMP 36.8
--- NOTE | 2019-04-22 15:09 | HP.PCM_ITS ---
History and Physical Date of Admission: 04/22/19 History and Physical Date of Admission: 03/26/19 HISTORY OF PRESENT ILLNESS 38-year-old woman presents for discussion of further breast reconstruction. She finished her radiation therapy on March 06, 2018. Her left breast cancer was biopsied on 05/23/17. On 06/16/17 where she underwent injection of 5 cc of Lymphazurin blue and left modified radical mastectomy and sentinel lymph node biopsy by Dr. Samayoa and prophylactic mastectomy right breast and immediate bilateral breast reconstruction with placement of submuscular saline tissue expanders (350 ml each) and placement of DermACELL decellularized dermis graft (128 cm2, each side) by Dr. Martinez. 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 One node showed macrometastasis. Estrogen receptors were positive. Progesterone receptors were positive. Her-2Neu was negative. She underwent chemotherapy and radiation therapy. She then underwent further surgery in 09/07/18 with revision reconstructed left breast with excision painful radiation scar contour deformity and 2nd stage delayed left breast reconstruction with removal of tissue director of social media marketing and capsulectomy and 2nd stage delayed left breast reconstruction with placement of left latissimus dorsi myocutaneous flap. She healed uneventfully. She continued her breast reconstruction process with revision left breast reconstruction with excision radiation scar contour deformity and delayed left breast reconstruction with placement of submuscular saline tissue director of social media marketing (350 ml) on 01/15/19. She finished the saline tissue expansion and presents today for removal of the expanders with replacement cohesive gel implants. PAST MEDICAL HISTORY Malignant neoplasm of upper-outer quadrant of left female breast Estrogen receptor positive status [ER+] Current smoker Disproportion of reconstructed breast Acquired absence of bilateral breasts and nipples Cancer phobia PAST SURGICAL HISTORY Injection of 5 cc of Lymphazurin blue and left modified radical mastectomy and sentinel lymph node biopsy - 06/16/17 Prophylactic mastectomy right breast and immediate bilateral breast reconstruction with placement of submuscular saline tissue expanders (350 ml each) and placement of DermACELL decellularized dermis graft (128 cm2, each side) - 06/16/17 Placement of a right IJ PowerPort - 07/19/17 Laparoscopic BSO - 07/26/18 Revision reconstructed left breast with excision painful radiation scar contour deformity and 2nd stage delayed left breast reconstruction with removal of tissue director of social media marketing and capsulectomy and 2nd stage delayed left breast reconstruction with placement of left latissimus dorsi myocutaneous flap - 09/07/18 Revision left breast reconstruction with excision radiation scar contour deformity and delayed left breast reconstruction with placement of submuscular saline tissue director of social media marketing (350 ml) - 01/15/19 ALLERGIES ondansetron [From Zofran] MEDICATIONS Pantoprazole Sodium [Protonix] anastrozole cyanocobalamin (vitamin B-12) multivitamin pyridoxine (vitamin B6) Sertraline HCl [Zoloft] Valium Percocet Vitamin C FAMILY HISTORY Mother - Hypertension SOCIAL HISTORY Smoking Status: Current some day smoker tobacco type: cigarettes alcohol intake: current alcohol intake frequency: a few times a month substance use type: does not use REVIEW OF SYSTEMS General - Denies fever, fatigue, and weight loss. Eyes - Denies eye pain. ENT - Denies nasal congestion and sore throat. Endocrine - Denies excessive thirst and urination. Has diagnosis of left breast cancer. Underwent bilateral mastectomy in 06/25 with initial reconstruction with placement of saline tissue expanders. She has undergone chemotherapy and radiation therapy. She underwent removal of left breast director of social media marketing with capsulectomy and placement of latissimus dorsi myocutaneous flap in 08/26. Skin - No suspicious lesions. Musculoskeletal - Denies joint pain, joint stiffness, weakness of muscles and joints, back pain, and arthritis. Neuro - Denies headaches. Cardiovascular - Denies chest pain. Denies shortness of breath with exertion. Respiratory - Denies cough and shortness of breath. Patient is a smoker. Psych - Denies anxiety and depression. Gastrointestinal - Denies nausea, vomiting, diarrhea, and constipation. Hematologic -Denies abnormal bruising and bleeding. Genitourinary - Denies hematuria and urinary frequency. PHYSICAL EXAMINATION General - Alert and oriented. Bra size was 36 B before the mastectomy. HEENT - PERRL. EOMI. Throat is clear. Neck - Supple and nontender. No cervical adenopathy. Lungs - Clear to auscultation. Breasts - Bilateral mastectomy incisions are well healed. No axillary adenopathy noted. Breast width is 14 cm bilaterally. Breast height is 13 cm. There is firmness in her right breast from the expansion and subsequent chemotherapy. There is a capsular contracture on the right that is painful. There is also a medial contracture as well. There is a well healed latissimus dorsi myocutaneous flap that is soft on the left. The left breast is expanded as well. There is a deformity of the left breast reconstruction with a pincushioning effect of the latissimus flap on the radiated skin of the breast. Heart - Regular rate and rhythm. Abdomen - No abdominal scarring. Some skin and subcutaneous redundancy between the umbilicus and the pubic area. Good skin elasticity noted. Extremities - FROM. No axillary adenopathy. Neuro - CN II - XII grossly intact. ASSESSMENT 1. Left breast cancer. 2. 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 4. Disproportion reconstructed breasts. 5. 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 6. Smoker. 7. Estrogen receptor positive status. 8. Painful capsular contracture right breast reconstruction. 9. Deformity left breast reconstruction with pincushioning of the latissimus flap secondary to late effect of radiation. PLAN Patient has finished the saline tissue expansion. She presents today for continuation of the breast reconstruction process with removal of the saline tissue expanders with replacement cohesive gel implants. She has a capsular contracture on the right that will necessitate a capsulectomy and expanding the breast pocket medially since there was lateral migration from the capsular contracture. She has a deformity left breast reconstruction with pincushioning of the latissimus flap secondary to late effect of radiation. Multiple W plasty reconstruction will be necessary to smooth out the pincushioning effect. I will just do one side, probably the medial scar. If there is persistent pincushioning, I can always address the lateral scar at a later date to further smooth out the pincushioning effect. The patient is a smoker, and if I do both sides of the scar at the same time, I don't want to risk any vascular compromise and wound healing problems with the flap. The final size of the implant will be based on the left breast because it was radiated. I will adjust the right breast accordingly for symmetry purposes. Will have drains in for several days and be maintained on antibiotics until the drains are removed. Depending on the pocket size, I will use acellular dermal matrix graft as an inferolateral sling to maintain the implant centrally and minimize lateral migration. Sometimes a medial sling is needed as well to help minimize wrinkling especially on the radiated side. Surgery will be done under general anesthesia with a surgical observation overnight stay in the hospital. Tissue that is removed will be sent to Pathology for analysis to rule out carcinoma. Patient was informed of the risks and complications of the procedure including alternatives to surgery. These were discussed with the patient personally. Patient voices understanding and wishes to proceed. Some of the risks and complications were included in a form from the [place] [employer]. Encouraged patient to stop smoking as it may have deleterious effects on wound healing.
[2019-04-22] MEDS: 0.9 % NaCl (Sterile) Posiflush 10 mL IV (15:50)
[2019-04-22] MEDS: Lactated Ringers 1,000 ML 60 ML IV (16:00)
[2019-04-22] MEDS: 0.9% Saline Lock 10 ML Syringe IV (17:12)
[2019-04-22] MEDS: levoFLOXacin IV 500 MG/100 ML BAG 100 MG IV (17:12)
[2019-04-22 17:21] LABS: Hematocrit 33.4 % (37-47); Hemoglobin 10.8 g/dL (12.0-15.0); Mean Corp Hgb Conc 32.3 g/dL (32-36); Mean Corpuscular Hgb 28.9 pg (27.0-32.0); Mean Corpuscular Volume 89.3 fL (81-99); Mean Platelet Vol. 9.6 fl (6.2-12.0); Platelet Count 216 K/mm3 (150-450); RBC Distribution Width CV 13.2 % (11.6-14.6); RBC Distribution Width SD 43.3 fl (35.1-43.9); Red Blood Count 3.74 M/mm3 (4.2-5.4); White Blood Count 4.3 K/mm3 (4.4-11.0)
[2019-04-22] MEDS: oxyCODONE 5 MG Tablet 10 MG PO (17:24)
[2019-04-22 17:32] LABS: Erythrocyte Sedimentation Rate 63 mm/hr (0-20)
[2019-04-22 17:43] LABS: ALB/GLOB Ratio 0.8 RATIO (0.9-2.4); AST(SGOT) 7 U/L (15-37); Alanine Aminotransfer ALT/SGPT 15 U/L (13-56); Albumin, Serum 3.2 g/dL (3.2-5.0); Alkaline Phosphatase 81 U/L (45-117); Anion Gap 5 (5-15); BUN 10 mg/dL (7-18); BUN/Creat Ratio 15.6 RATIO (10-20); Calcium,Total 9.1 mg/dL (8.5-10.1); Chloride 106 mmol/L (98-107); Creatinine, Serum 0.64 mg/dL (0.55-1.02); EST Glomerular Filtration Rate 110 mL/min (>60); Est Glom Filt Rate - Afr Amer 133 mL/min (>60); Estimated Creatinine Clearance 114.76 ml/min; Globulin 3.9 g/dL (2.2-4.2); Glucose 79 mg/dL (74-106); Potassium 3.6 mmol/L (3.5-5.1); Protein, Total 7.1 g/dL (6.4-8.2); Sodium Level 139 mmol/L (136-145)
[2019-04-22 20:00] VITALS: BP 101/62; PULSE 72; RESP 16; TEMP 36.8; O2SAT 97
[2019-04-22] MEDS: Anastrozole 1 MG Tablet PO (22:12)
[2019-04-22] MEDS: Sertraline 50 MG Tablet 150 MG PO (22:13)
[2019-04-22] MEDS: Pantoprazole Sodium 40 MG Tablet PO (22:13)
[2019-04-22] MEDS: Docusate Sodium 100 MG Capsule PO (22:13)
[2019-04-22] MEDS: Pyridoxine HCl 100 MG Tablet PO (22:13)
[2019-04-23] VITALS (13 sets, daily range): BP systolic 95–126; BP diastolic 66–99; PULSE 58–100; RESP 16–18; TEMP 36.2–37.4; O2SAT 93–100; BMI 22.8
[2019-04-23] MEDS: oxyCODONE 5 MG Tablet 10 MG PO ×3 (00:24→18:26)
--- NOTE | 2019-04-23 05:00 | EKG12_ITS ---
Test Reason : AM Blood Pressure : / mmHG Vent. Rate : 058 BPM Atrial Rate : 058 BPM P-R Int : 128 ms QRS Dur : 092 ms QT Int : 446 ms P-R-T Axes : 055 031 045 degrees QTc Int : 437 ms Sinus bradycardia Otherwise normal ECG When compared with ECG of 26-JUL-2018 06:29, No significant change was found Confirmed by CARLITA CARLOS ([id number]), market editor ANDRA RILEY ([id number]) on 04/25/2019 8:55:26 AM Referred By: FATMATA Confirmed By:CARLITA CARLOS
[2019-04-23] MEDS: Lactated Ringers 1,000 ML 60 ML IV ×3 (08:56→17:35)
[2019-04-23] MEDS: levoFLOXacin IV 500 MG/100 ML BAG 100 MG IV (08:58)
[2019-04-23] MEDS: Cyanocobalamin 500 MCG Tablet 1000 MCG PO (09:01)
[2019-04-23] MEDS: Docusate Sodium 100 MG Capsule PO ×2 (09:02→22:12)
--- NOTE | 2019-04-23 09:55 | CASEMGMT ---
RN CM Face to Face with patient for initial transition planning/care coordination assessment. RN CM introduced self and role at [facility]. Patient lying in bed, alert and oriented, family at bedside. Patient willing to participate in assessment and is able to answer all questions appropriately. Care providers, pharmacy, and demographics verified. Patient wishes to discharge home, denies need for home health at this time. Patient states she has no further needs or concerns at this time. CM to follow for discharge planning needs that may arise. PCP: Darrick Specialists: Michelle, plastic surgeon; Ron, oncologist Preferred Pharmacy: [facility] Insurance: [employer] Prescription Benefit: yes Living Will/HPOA: none LNOK: , daughter Living Arrangements: Patient lives with in 1 story duplex with 1 step to enter the home. Patient is independent at home. Transportation: self//daughter DME/HHC: Patient denies any DME or previous HHC Disposition Plan: Patient to discharge home with family support and follow-up plans in place. Lilia LEE, RN, CM
--- NOTE | 2019-04-23 13:00 | BREAST_PTH ---
PATIENT: LETICIA HAQUE LOC: [facility]3 U#:[id number] AGE/SX: 38/F ROOM: MS318 RE04/22/[address]: Dr. Sandro Martinez MD : 1980 BED: 1 DIS: 04/25/2019 SPEC #: [id number] RECD: 04/23/19 16:32 STATUS: TAMAR DHIRAJ #: [id number] JEANINE: 04/23/19 13:[address]: Sandro Martinez DEPT: SURGICAL PATHOLOGY RECD BY: Carmen Heard ENTERED: 04/24/19 08:30 SP TYPE: BREAST OTHR DR: Dr. Jack Mancuso, DO Tissues: Right breast, NOS Procedures: Surgery Specimen Level IV HEADER OPERATION: Revision breast reconstruction with removal exposed infected PRE-OP DIAGNOSIS: Left breast cancer; ER positive status; deformity left breast reconstruction TISSUE SUBMITTED: Right breast tissue capsule and implant MICROSCOPIC DIAGNOSIS Right breast tissue capsule, excision: Fibrous capsular tissue with acute and chronic inflammation and suture granulomas. No evidence of malignancy. AM:bella 04/25/19 MICROSCOPIC DESCRIPTION Slides are reviewed. GROSS DESCRIPTION Received in fixative is one container labeled with the patient's name and designated right breast tissue capsule and implant. The specimen consists of an implant measuring 12 cm in diameter and up to 8 cm in thickness. The surface appears smooth. No obvious tear is noted. Also present in the container are multiple pieces of oneill, indurated tissue measuring in aggregate 10.5 x 3 x 3 cm. A piece of skin is noted in one of the pieces which measures 8.5 x 1 cm. A healed scar is noted in the center of the skin piece. Business Administration Instructor sections are submitted in three cassettes. Cassette 1 contains the skin. / SJ:bella 04/24/19 TC:2 CPT: 12290
[2019-04-23] MEDS: Mupirocin Ointment 22gm Tube 1 APPLIC (15:32)
--- NOTE | 2019-04-23 15:42 | PCM.OPRPT ---
Report of Operation Date of Procedure: 04/23/19 Pre-Operative Diagnosis: 1. Left breast cancer. 2. Exposed painful infected right breast reconstruction implant. 3. Nonhealing surgical wound right breast reconstruction. 4. Acquired absence bilateral breasts. 5. Pseudomonas infection. 6. Disproportion reconstructed breasts. 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 8. Smoker. 9. Estrogen receptor positive status. 10. Cancer phobia left breast. 11. History of bilateral cohesive gel implants reconstruction. Post-Operative Diagnosis: Same. Surgery/Procedure Performed:: Revision right breast reconstruction with excisional debridement nonhealing infected wound with removal of Alloderm acellular dermal matrix graft and removal exposed infected cohesive gel implant and complex secondary wound closure. Description of Surgical Findings:: Patient had surgery on 03/26/19 where she underwent revision right breast reconstruction with removal of saline tissue patient escort and capsulectomy and delayed right breast reconstruction with placement of cohesive gel implant (430 ml) and placement Alloderm Select acellular dermal matrix graft (132 cm2) and revision left breast reconstruction with removal of saline tissue patient escort and capsulectomy and revision left breast reconstruction radiation scar contour deformity with multiple W-plasty reconstruction (12 cm2) and delayed left breast reconstruction with placement cohesive gel implant (350 ml). She did well initially. A week after the drains were removed, she noted increasing discomfort in her right breast. Upon closer inspection, the incision was thin in spots, and with gentle prodding, there was a small wound separation and I expressed about 50 ml of serous fluid. No exposed implant at that time. Wound culture showed Pseudomonas and she was started on Levaquin. Silver dressing changes were started. Patient came in today, and there was exposure of the implant as well as further thinning of the incision. Combined with the presence of Pseudomonas, I anticipate further weakening of the incision. I discussed with the patient that the wound will not heal with Silver dressing changes and antibiotics as further wound separation is problematic. Recommended to the patient to admit to the hospital to begin IV antibiotics (Levaquin and Cefepime) and return to the OR tomorrow for revision of her right breast reconstruction with removal of the exposed infected implant along with excisional debridement. Tissue will be sent to Pathology for analysis to rule out carcinoma and to Microbiology for culture. A positive culture may necessitate antibiotic modification. I should be able to close the wound over a drain unless gross pus is seen in which case the wound would be left open and wound care started with the VAC. Once the infection is treated, can return to OR for further debridement and complex secondary wound closure. Usually wait around 6 months before proceeding with further breast reconstruction surgery. Depending on the quality of the skin envelope at that time, further tissue expansion may be possible versus the need to bring in additional tissue to reinforce the skin envelope. Patient was informed of the risks and complications of the procedure including alternatives to surgery. These were discussed with the patient personally. Patient voices understanding and wishes to proceed. Some of the risks and complications were included in a form from the [place] [employer]. Encouraged patient to stop smoking as it may have deleterious effects on wound healing. I used Pao absorbable hemostat, (I used 2 vials). Reference Number - [id number]. Lot Number - [id number]. Expiration - December 06, 2023. senior data quality analyst: Codey Jaffe. Type of Anesthesia:: General Specimen's removed: Right breast tissue and Alloderm acellular dermal matrix graft and capsule and implant to Pathology and Microbiology. Drains: Otoniel Estimated Blood Loss (mL): 50 ml. Description of Procedure: Patient was taken to OR in supine position and was placed under general anesthesia. The right breast was prepped and draped in the usual fashion. SCD's were placed for DVT prophylaxis. Perioperative antibiotics were given intravenously. Using xylocaine with epinephrine, the nonhealing wound right breast was infiltrated. After waiting 5 minutes for the anesthetic to take effect, I proceeded with excision of the nonhealing wound down to the cohesive gel implant. The implant was removed and was intact. I then excised and debrided the Alloderm acellular dermal matrix graft. Some granulation tissue was present on the chest wall that was debrided with a curette. Some of the debridement extended into muscle with some bleeding that was controlled with electrocautery. One lateral muscular bleeder required 3-0 Vicryl figure of eight ligature for hemostasis. Tissue was sent to Pathology for analysis to rule out carcinoma and to Microbiology for culture. A positive culture may necessitate antibiotic modification. The wound was irrigated with Irrisept 0.05% Chlorhexidine solution and followed with saline irrigation. A size 15 Otoniel drain was placed through a separate stab incision laterally and secured to the skin with 3-0 Nylon suture. I then sprayed Pao absorbable hemostat into the wound to minimize seroma formation. I used 2 vials. I closed the breast wound with 3-0 Monocryl interrupted sutures for the deep dermis and subcutaneous tissue. The skin was approximated with 4-0 Prolene vertical mattress interrupted sutures. Antibiotic ointment was applied to the incision followed by Kerlix gauze and ABD pad and a compression USHA wrap. Patient tolerated the procedure well and was sent to PACU in satisfactory condition. Patient will be sent upstairs for continued postop care. Will continue IV antibiotics with Levaquin and Cefepime. Will be discharged when tolerating po analgesia. Grafts/Implants Used: None. - Complications None. - Admit VTE Documentation VTE Present on Admission: No VTE Mechan Device Prophylaxis: SCD's VTE Pharm Prophylaxis ordered?: Yes Code Visit Surgery Charges CPT - 93767 ICD-10 - C50.412, T81.89xA, T85.49xA, T85.848A, T85.79xA, A49.8, N65.1, Z98.82, F40.298, Z90.13, F17.200 [id number] C50.412, T81.89xA, T85.49xA, T85.848A, T85.79xA, A49.8, N65.1, Z98.82, F40.298, Z90.13, F17.200
[2019-04-23] MEDS: 0.9% Saline Lock 10 ML Syringe IV (17:30)
[2019-04-23] MEDS: HYDROmorphone 1 MG/ML Syringe IV ×2 (17:30→20:45)
[2019-04-23] MEDS: Gabapentin 100 MG Capsule 200 MG PO (18:26)
[2019-04-23] MEDS: Magnesium Oxide 400 MG Tablet PO (18:26)
[2019-04-23] MEDS: Pantoprazole Sodium 40 MG Tablet PO (22:12)
[2019-04-23] MEDS: Pyridoxine HCl 100 MG Tablet PO (22:13)
[2019-04-23] MEDS: Sertraline 50 MG Tablet 150 MG PO (22:13)
[2019-04-23] MEDS: Anastrozole 1 MG Tablet PO (22:13)
[2019-04-23] MEDS: Acetaminophen 500 MG Tablet 1000 MG PO (22:17)
[2019-04-24 01:53] VITALS: BP 108/75; PULSE 73; RESP 16; TEMP 36.6; O2SAT 96
[2019-04-24] MEDS: HYDROmorphone 1 MG/ML Syringe IV ×3 (02:04→20:14)
[2019-04-24] MEDS: 0.9% Saline Lock 10 ML Syringe IV ×2 (05:42→21:51)
[2019-04-24] MEDS: Enoxaparin 40 MG/0.4 ML Syringe SC (05:51)
[2019-04-24] MEDS: Acetaminophen 500 MG Tablet 1000 MG PO ×3 (05:51→21:33)
[2019-04-24 05:54] LABS: Hematocrit 31.5 % (37-47); Hemoglobin 10.2 g/dL (12.0-15.0); Mean Corp Hgb Conc 32.4 g/dL (32-36); Mean Corpuscular Volume 89.5 fL (81-99); Mean Platelet Vol. 9.9 fl (6.2-12.0); Platelet Count 198 K/mm3 (150-450); RBC Distribution Width CV 13.4 % (11.6-14.6); RBC Distribution Width SD 43.8 fl (35.1-43.9); Red Blood Count 3.52 M/mm3 (4.2-5.4); White Blood Count 5.6 K/mm3 (4.4-11.0)
[2019-04-24] MEDS: oxyCODONE 5 MG Tablet 10 MG PO ×5 (06:01→22:28)
[2019-04-24 06:18] LABS: Anion Gap 2 (5-15); BUN 13 mg/dL (7-18); BUN/Creat Ratio 21.5 RATIO (10-20); Calcium,Total 9.1 mg/dL (8.5-10.1); Chloride 108 mmol/L (98-107); EST Glomerular Filtration Rate 117 mL/min (>60); Est Glom Filt Rate - Afr Amer 141 mL/min (>60); Estimated Creatinine Clearance 122.42 ml/min; Glucose 114 mg/dL (74-106); Potassium 4.2 mmol/L (3.5-5.1); Prealbumin 14.4 mg/dL (20.0-40.0); Sodium Level 142 mmol/L (136-145)
[2019-04-24 07:50] VITALS: BP 113/78; PULSE 65; RESP 16; TEMP 36.8; O2SAT 97
[2019-04-24] MEDS: Magnesium Oxide 400 MG Tablet PO ×2 (07:57→17:29)
[2019-04-24] MEDS: Cyanocobalamin 500 MCG Tablet 1000 MCG PO (07:58)
[2019-04-24] MEDS: Docusate Sodium 100 MG Capsule PO ×2 (07:58→21:34)
[2019-04-24] MEDS: levoFLOXacin IV 500 MG/100 ML BAG 100 MG IV (10:18)
[2019-04-24 14:20] VITALS: BP 112/75; PULSE 73; RESP 14; TEMP 36.3; O2SAT 93
[2019-04-24] MEDS: Lactated Ringers 1,000 ML 60 ML IV (14:41)
--- NOTE | 2019-04-24 17:41 | PN.SURG_ITS ---
Subjective: Postop #1 Patient has incisional pain. - Physical Exam Vitals/I&O's: Vital Signs Temp Pulse Resp BP Pulse Ox 97.4 F L 73 14 112/75 93 04/24/19 14:20 04/24/19 14:20 04/24/19 14:20 04/24/19 14:20 04/24/19 14:20 Oxygen Delivery Method Room Air Weight: 145 lb 15.136 oz Body Mass Index (BMI) 22.8 Intake and Output for Last 24 Hours 04/22/19 04/23/19 04/24/19 23:59 23:59 23:59 Intake Total 500 / 1300 4188 / 4388 1962 / 1962 Output Total 0 / 25 215 / 215 Balance 500 / 1300 4188 / 4363 1747 / 1747 Drainage 245 ml. General: Alert, Oriented x3 HEENT: PERRLA, EOMI Oral: Moist Mucosa Neck: Supple Abdomen: Soft, Non-Distended Skin: Incision - right breast incision is dry and intact. No clinical evidence of hematoma. No vascular compromise on the breast skin flaps. Neurological: Cranial nerves II-XII grossly intact Psych/Mental Status: Normal Affect, Appropriate Microbiology Past 72 Hours 04/23/19 14:52 Tissue - Breast Gram Stain - Final 04/23/19 14:52 Tissue - Breast Wound Culture - Preliminary No growth-Final to follow Laboratory Results 04/24/19 05:43: WBC 5.6, RBC 3.52 L, Hgb 10.2 L, Hct 31.5 L, MCV 89.5, MCH 29.0, MCHC 32.4, RDW Std Deviation 43.8, RDW Coeff of Silvana 13.4, Plt Count 198, MPV 9.9 04/24/19 05:43: Sodium 142, Potassium 4.2, Chloride 108 H, Carbon Dioxide 32.0, Anion Gap 2 L, BUN 13, Creatinine 0.60, Estim Creat Clear Calc 122.42, Est GFR (MDRD) Af Amer 141, Est GFR (MDRD) Non-Af 117, BUN/Creatinine Ratio 21.5 H, Glucose 114 H, Calcium 9.1, Prealbumin 14.4 L Current Medications Acetaminophen (Tylenol) 1,000 mg PO Q8 [facility] Last Admin: 04/24/19 13:39 Dose: 1,000 mg Documented by: Anastrozole (Arimidex) 1 mg PO QHS [facility] Last Admin: 04/23/19 22:13 Dose: 1 mg Documented by: Cyanocobalamin (Vitamin B12) 1,000 mcg PO DAILY [facility] Last Admin: 04/24/19 07:58 Dose: 1,000 mcg Documented by: Diazepam (Valium) 5 mg PO 4X/DAY PRN PRN PRN Reason: SPASMS Docusate Sodium (Colace) 100 mg PO BID [facility] Last Admin: 04/24/19 07:58 Dose: 100 mg Documented by: Enoxaparin Sodium (Lovenox) 40 mg SC DAILY@0600 [facility] Last Admin: 04/24/19 05:51 Dose: 40 mg Documented by: Heparin Sodium (Beef Lung) () 50 units IV UD PRN PRN Reason: Port-a-Cath (VAD)Heparin Flush Hydromorphone HCl (Dilaudid Inj) 1 mg IV Q3H PRN PRN PRN Reason: Pain Score 6-10/10 Last Admin: 04/24/19 08:05 Dose: 1 mg Documented by: Cefepime HCl 2 gm/ Sodium (Chloride) 100 mls @ 200 mls/hr IV Q8 [facility] Last Infusion: 04/24/19 14:09 Dose: Infused Documented by: Lactated Ringer's () 1,000 mls @ 60 mls/hr IV .[id number] [facility] Last Admin: 04/24/19 14:41 Dose: 60 mls/hr Documented by: Levofloxacin (Levaquin Iv) 500 mg in 100 mls @ 100 mls/hr IV Q24 [facility] Last Infusion: 04/24/19 11:18 Dose: Infused Documented by: Magnesium Oxide (Mag-Ox 400) 400 mg PO BIDCM [facility] Last Admin: 04/24/19 17:29 Dose: 400 mg Documented by: Nutritional Formula (Jem - [place] Flavor) 1 packet PO BIDCM [facility] Last Admin: 04/24/19 17:29 Dose: 1 packet Documented by: Ondansetron HCl (Zofran) 4 mg IV Q6H PRN PRN PRN Reason: NAUSEA Oxycodone HCl (Oxyir) 10 mg PO Q4H PRN PRN PRN Reason: Pain Score 6-10/10 Last Admin: 04/24/19 14:24 Dose: 10 mg Documented by: Pantoprazole Sodium (Protonix) 40 mg PO QHS [facility] Last Admin: 04/23/19 22:12 Dose: 40 mg Documented by: Promethazine HCl (Phenergan Tablet) 25 mg PO Q4H PRN PRN PRN Reason: NAUSEA/VOMITING Pyridoxine HCl (Vitamin B-6) 100 mg PO QHS [facility] Last Admin: 04/23/19 22:13 Dose: 100 mg Documented by: Scopolamine HBr (Transderm-Scop) 1 patch TD Q3D [facility] Last Admin: 04/23/19 18:21 Dose: Not Given Documented by: Sertraline HCl (Zoloft) 150 mg PO QHS [facility] Last Admin: 04/23/19 22:13 Dose: 150 mg Documented by: Sodium Chloride () 10 - 40 ml IV UD PRN PRN Reason: Port-a-Cath (VAD) Flush Last Admin: 04/24/19 05:42 Dose: 30 ml Documented by: Sodium Chloride (0.9% Nacl (Sterile) Posiflush) 10 - 40 ml IV UD PRN PRN Reason: Port access or dressing change Last Admin: 04/22/19 15:50 Dose: 10 ml Documented by: Medical Necessity - Tobacco Use Smoking Status: Current some day smoker Tobacco Use: Cigarettes Assessment/Plan All Active Problems (Last Reviewed 04/22/19 @ 22:23 by Sandro Martinez MD) Infection of breast implant (Acute) History of bilateral breast implants (Acute) Pain from breast implant (Acute) Exposed breast implant (Acute) Pseudomonas aeruginosa infection (Acute) Muscle spasm of left shoulder (Acute) Muscle spasm of back (Acute) Nonhealing surgical wound (Resolved) . Left breast cancer. 2. 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 4. Exposed painful infected right breast reconstruction implant. 5. Pseudomonas infection. 6. Disproportion reconstructed breasts. 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 8. Smoker. 9. Estrogen receptor positive status. 10. s/p revision right breast reconstruction with excisional debridement nonhealing infected wound with removal of Alloderm acellular dermal matrix graft and removal exposed infected cohesive gel implant and complex secondary wound closure. Incision is dry and intact. No clinical evidence of hematoma. No vascular compromise noted on the breast skin flaps. She has incisional pain. Still needs occasional IV analgesia. Will wean to po analgesia in anticipation of discharge tomorrow. Operative culture is pending. Preop culture showed Pseudomonas aeroginosa. Continue Levaquin and Cefepime. Anticipate discharging her on Levaquin. Prealbumin was 14.4. Encourage nutritional supplementation with protein to help the healing process. Continue USHA wrap chest wall compression. Will remove the drain in the office. Keep head elevated and maintain lifting restriction. Encouraged patient to stop smoking as it may have deleterious effects on wound healing.
[2019-04-24 20:20] VITALS: BP 117/79; PULSE 64; RESP 18; TEMP 36.6; O2SAT 98
[2019-04-24] MEDS: Pantoprazole Sodium 40 MG Tablet PO (21:33)
[2019-04-24] MEDS: Pyridoxine HCl 100 MG Tablet PO (21:33)
[2019-04-24] MEDS: Sertraline 50 MG Tablet 150 MG PO (21:33)
[2019-04-24] MEDS: Anastrozole 1 MG Tablet PO (21:34)
[2019-04-25 02:20] VITALS: BP 111/74; PULSE 69; RESP 18; TEMP 36.9; O2SAT 94
[2019-04-25] MEDS: oxyCODONE 5 MG Tablet 10 MG PO ×2 (02:27→08:43)
[2019-04-25] MEDS: Enoxaparin 40 MG/0.4 ML Syringe SC (06:02)
[2019-04-25] MEDS: HYDROmorphone 1 MG/ML Syringe IV ×2 (06:02→12:21)
[2019-04-25] MEDS: Acetaminophen 500 MG Tablet 1000 MG PO (06:02)
[2019-04-25] MEDS: 0.9% Saline Lock 10 ML Syringe IV ×3 (06:03→12:21)
[2019-04-25] MEDS: Lactated Ringers 1,000 ML 60 ML IV (08:39)
[2019-04-25] MEDS: Magnesium Oxide 400 MG Tablet PO (08:40)
[2019-04-25] MEDS: Cyanocobalamin 500 MCG Tablet 1000 MCG PO (08:40)
[2019-04-25] MEDS: Docusate Sodium 100 MG Capsule PO (08:40)
[2019-04-25 08:45] VITALS: BP 112/70; PULSE 62; RESP 16; TEMP 36.9; O2SAT 97
[2019-04-25] MEDS: levoFLOXacin IV 500 MG/100 ML BAG 100 MG IV (10:00)
--- NOTE | 2019-04-25 11:47 | PCM.PN.SRG ---
Subjective: Postop #2 Patient is resting comfortably. She is tolerating po analgesia. - Physical Exam Vitals/I&O's: Vital Signs Temp Pulse Resp BP Pulse Ox 98.4 F 62 16 112/70 97 04/25/19 08:45 04/25/19 08:45 04/25/19 08:45 04/25/19 08:45 04/25/19 08:45 Oxygen Delivery Method Room Air Weight: 145 lb 15.136 oz Body Mass Index (BMI) 22.8 Intake and Output for Last 24 Hours 04/23/19 04/24/19 04/25/19 23:59 23:59 23:59 Intake Total 4188 / 4388 3091 / 3091 852 / 852 Output Total 0 / 25 245 / 265 40 / 40 Balance 4188 / 4363 2846 / 2826 812 / 812 Drainage 40 ml. General: Alert, Oriented x3 HEENT: PERRLA, EOMI Oral: Moist Mucosa Neck: Supple Abdomen: Soft, Non-Distended Skin: Incision - right breast incision is dry and intact. No clinical evidence of hematoma. No vascular compromise on the breast skin flaps. Neurological: Cranial nerves II-XII grossly intact Psych/Mental Status: Normal Affect, Appropriate Microbiology Past 72 Hours 04/23/19 14:52 Tissue - Breast Gram Stain - Final 04/23/19 14:52 Tissue - Breast Wound Culture - Preliminary No growth-Final to follow Current Medications Acetaminophen (Tylenol) 1,000 mg PO Q8 REPLACED BY [facility] Last Admin: 04/25/19 06:02 Dose: 1,000 mg Documented by: Anastrozole (Arimidex) 1 mg PO QHS REPLACED BY [facility] Last Admin: 04/24/19 21:34 Dose: 1 mg Documented by: Cyanocobalamin (Vitamin B12) 1,000 mcg PO DAILY REPLACED BY [facility] Last Admin: 04/25/19 08:40 Dose: 1,000 mcg Documented by: Diazepam (Valium) 5 mg PO 4X/DAY PRN PRN PRN Reason: SPASMS Docusate Sodium (Colace) 100 mg PO BID [facility]PL[facility]ED BY [facility] Last Admin: 04/25/19 08:40 Dose: 100 mg Documented by: Enoxaparin Sodium (Lovenox) 40 mg SC DAILY@0600 REPLACED BY [facility] Last Admin: 04/25/19 06:02 Dose: 40 mg Documented by: Heparin Sodium (Beef Lung) () 50 units IV UD PRN PRN Reason: Port-a-Cath (VAD)Heparin Flush Hydromorphone HCl (Dilaudid Inj) 1 mg IV Q3H PRN PRN PRN Reason: Pain Score 6-10/10 Last Admin: 04/25/19 06:02 Dose: 1 mg Documented by: Cefepime HCl 2 gm/ Sodium (Chloride) 100 mls @ 200 mls/hr IV Q8 [facility]PLACED BY [facility] Last Infusion: 04/25/19 06:32 Dose: Infused Documented by: Lactated Ringer's () 1,000 mls @ 60 mls/hr IV .[id number] REPLACED BY [facility] Last Infusion: 04/25/19 11:01 Dose: 60 mls/hr Documented by: Levofloxacin (Levaquin Iv) 500 mg in 100 mls @ 100 mls/hr IV Q24 REPLACED BY [facility] Last Infusion: 04/25/19 11:00 Dose: Infused Documented by: Magnesium Oxide (Mag-Ox 400) 400 mg PO BIDCM REPLACED BY [facility] Last Admin: 04/25/19 08:40 Dose: 400 mg Documented by: Nutritional Formula (Jem - [place] Flavor) 1 packet PO BIDCM REPLACED BY [facility] Last Admin: 04/25/19 08:40 Dose: 1 packet Documented by: Ondansetron HCl (Zofran) 4 mg IV Q6H PRN PRN PRN Reason: NAUSEA Oxycodone HCl (Oxyir) 10 mg PO Q4H PRN PRN PRN Reason: Pain Score 6-10/10 Last Admin: 04/25/19 08:43 Dose: 10 mg Documented by: Pantoprazole Sodium (Protonix) 40 mg PO QHS REPLACED BY [facility] Last Admin: 04/24/19 21:33 Dose: 40 mg Documented by: Promethazine HCl (Phenergan Tablet) 25 mg PO Q4H PRN PRN PRN Reason: NAUSEA/VOMITING Pyridoxine HCl (Vitamin B-6) 100 mg PO QHS REPLACED BY [facility] Last Admin: 04/24/19 21:33 Dose: 100 mg Documented by: Scopolamine HBr (Transderm-Scop) 1 patch TD Q3D REPLACED BY [facility] Last Admin: 04/23/19 18:21 Dose: Not Given Documented by: Sertraline HCl (Zoloft) 150 mg PO QHS REPLACED BY [facility] Last Admin: 04/24/19 21:33 Dose: 150 mg Documented by: Sodium Chloride () 10 - 40 ml IV UD PRN PRN Reason: Port-a-Cath (VAD) Flush Last Admin: 04/25/19 06:08 Dose: 10 ml Documented by: Sodium Chloride (0.9% Nacl (Sterile) Posiflush) 10 - 40 ml IV UD PRN PRN Reason: Port access or dressing change Last Admin: 04/22/19 15:50 Dose: 10 ml Documented by: Medical Necessity - Tobacco Use Smoking Status: Current some day smoker Tobacco Use: Cigarettes Assessment/Plan All Active Problems (Last Reviewed 04/22/19 @ 22:23 by Sandro Martinez MD) Infection of breast implant (Acute) History of bilateral breast implants (Acute) Pain from breast implant (Acute) Exposed breast implant (Acute) Pseudomonas aeruginosa infection (Acute) Muscle spasm of left shoulder (Acute) Muscle spasm of back (Acute) Nonhealing surgical wound (Acute) . Left breast cancer. 2. 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 4. Exposed painful infected right breast reconstruction implant. 5. Pseudomonas infection. 6. Disproportion reconstructed breasts. 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 8. Smoker. 9. Estrogen receptor positive status. 10. s/p revision right breast reconstruction with excisional debridement nonhealing infected wound with removal of Alloderm acellular dermal matrix graft and removal exposed infected cohesive gel implant and complex secondary wound closure. Incision is dry and intact. No clinical evidence of hematoma. No vascular compromise noted on the breast skin flaps. She has incisional pain. She is tolerating po analgesia. Operative culture is negative thus far. Preop culture showed Pseudomonas aeroginosa. Will continue Levaquin at home. Prealbumin was 14.4. Encourage nutritional supplementation with protein to help the healing process. Continue USHA wrap chest wall compression. Will remove the drain in the office. Keep head elevated and maintain lifting restriction. Discharge home today. Followup office one week. Wrote script for Levaquin for 21 days with a refill, (six week course of therapy). Wrote scripts for Percocet for pain (40 tabs) and for Valium for spasm (30 tabs). Wrote script for Zoloft 150mg for 30 days and 3 refills. Will followup with her PCP regarding further antidepressant management, since it was increased from 100mg to 150 mg daily. Encouraged patient to stop smoking as it may have deleterious effects on wound healing.
--- NOTE | 2019-04-25 12:03 | DCINST_ITS ---
You will use the following diet at home:: No restrictions, Other - encourage nutritional supplementation with protein to help the healing process. Discharge Activity: May not drive while taking narcotic pain medications., May Not Shower - until the drain is removed., - - keep head elevated. continue michel wrap breast compression. no heavy lifting. May shower in (days): 14 - after the drain is removed. May resume sexual activity in: No Restrictions Weight Bearing Status: Weight bearing as tolerated Lifting Restrictions: 20 lbs. Keep extremity elevated above heart level: - - elevate head. Call your doctor if your incision/area has: Continuous Slow Oozing, Sudden Increased Bleeding, Increased Pain/ Swelling, Increased Redness, Foul Smelling Discharge, Swelling at the incision site Call your doctor if you observe: Fever of 101 or Higher, Coldness, Increased Pain, Shortness of breath, Chest pain, Calf discomfort, Uncontrolled pain Suture Line Care: - - apply antibiotic ointment to suture line daily. Change Dressing in (Days):: 1 - dry dressing daily Cleanse incision/area with: - - may get incision wet in the shower after the drain is removed. Drain: Suction - katlin drain to bulb suction. empty and record output daily. Allergies/Adverse Reactions: Allergies ondansetron [From Zofran] Adverse Reaction (Verified 04/22/19 08:40) MIGRAINES Medications to take at Discharge anastrozole 1 mg tablet 1 mg PO QHS 07/05/18 cyanocobalamin (vitamin B-12) 1,000 mcg capsule 1,000 mcg PO DAILY 07/05/18 pyridoxine (vitamin B6) 100 mg tablet 100 mg PO QHS 07/05/18 Pantoprazole Sodium [Protonix] 40 mg PO QHS 08/31/18 Vitamin C/Biotin [Hair, Skin and Nails Gummies] 2 ea PO QHS 01/08/19 Diazepam [Valium] 5 mg PO 4X/DAY PRN #30 tab 04/25/19 Docusate Sodium [Colace] 100 mg PO BID cap 04/25/19 Oxycodone HCl/Acetaminophen [Oxycodone-Acetaminophen 5-325] 1 tab PO .[id number] PRN PRN 7 Days #40 tab 04/25/19 Sertraline HCl [Zoloft] 150 mg PO QHS #90 tab 04/25/19 levoFLOXacin tablet [Levaquin tablet] 500 mg PO DAILY #21 tab 04/25/19 proMETHazine tablet [Phenergan tablet] 25 mg PO Q4H PRN PRN tab 04/25/19 The following prescriptions were given: levoFLOXacin tablet [Levaquin tablet] 500 mg PO DAILY #21 tab Transmission Status: Received by [facility]/pharmacy #[id number] Oxycodone HCl/Acetaminophen [Oxycodone-Acetaminophen 5-325] 1 tab PO .[id number] PRN PRN 7 Days #40 tab PRN Reason: Pain Score 4-5/10 Transmission Status: Received by [facility]/pharmacy #[id number] Diazepam [Valium] 5 mg PO 4X/DAY PRN #30 tab PRN Reason: spasm Transmission Status: Received by [facility]/pharmacy #[id number] Sertraline HCl [Zoloft] 150 mg PO QHS #90 tab Transmission Status: Received by [facility]pharmacy #[id number] Primary Care Physician: Jack Mancuso DO [Primary Care Provider] - Test Results: Test results from this visit will be discussed in further detail at your follow- up appointment, if applicable. Please Follow Up With: Sandro Martinez MD When: one week. call [phone] for appt. Proposed Discharge Date: 04/25/19
--- NOTE | 2019-04-25 12:15 | DS.PCM_ITS ---
Discharge Date and Diagnosis Date of Admission: 04/22/19 Date of Discharge: 04/25/19 - Primary Discharge Diagnosis Exposed painful infected right breast reconstruction implant. Nonhealing surgical wound right breast reconstruction. Pseudomonas infection. Left breast cancer. 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 Hospital Course and Treatment Imaging Results: None. CONSULTATION None. Operations: - - 04/23/19 - Revision right breast reconstruction with excisional debridement nonhealing infected wound with removal of Alloderm acellular dermal matrix graft and removal exposed infected cohesive gel implant and complex secondary wound closure. Procedures: None Summary of Care Provided: Patient had surgery on 03/26/19 where she underwent revision right breast reconstruction with removal of saline tissue supervisor warping department and capsulectomy and delayed right breast reconstruction with placement of cohesive gel implant (430 ml) and placement Alloderm Select acellular dermal matrix graft (132 cm2) and revision left breast reconstruction with removal of saline tissue supervisor warping department and capsulectomy and revision left breast reconstruction radiation scar contour deformity with multiple W-plasty reconstruction (12 cm2) and delayed left breast reconstruction with placement cohesive gel implant (350 ml). She did well initially. A week after the drains were removed, she noted increasing discomfort in her right breast. Upon closer inspection, the incision was thin in spots, and with gentle prodding, there was a small wound separation and I expressed about 50 ml of serous fluid. No exposed implant at that time. Wound culture showed Pseudomonas and she was started on Levaquin. Silver dressing changes were started. Patient came in today, and there was exposure of the implant as well as further thinning of the incision. Combined with the presence of Pseudomonas, I anticipate further weakening of the incision. I discussed with the patient that the wound will not heal with Silver dressing changes and antibiotics as further wound separation is problematic. Recommended to the patient to admit to the hospital to begin IV antibiotics (Levaquin and Cefepime) and return to the OR tomorrow for revision of her right breast reconstruction with removal of the exposed infected implant along with ex cisional debridement. Tissue will be sent to Pathology for analysis to rule out carcinoma and to Microbiology for culture. A positive culture may necessitate antibiotic modification. I should be able to close the wound over a drain unless gross pus is seen in which case the wound would be left open and wound care started with the VAC. Once the infection is treated, can return to OR for further debridement and complex secondary wound closure. Usually wait around 6 months before proceeding with further breast reconstruction surgery. Depending on the quality of the skin envelope at that time, further tissue expansion may be possible versus the need to bring in additional tissue to reinforce the skin envelope. She was taken to the OR on 04/23/19 where she underwent revision right breast reconstruction with excisional debridement nonhealing infected wound with removal of Alloderm acellular dermal matrix graft and removal exposed infected cohesive gel implant and complex secondary wound closure. She tolerated the procedure well. Her postoperative stay was unremarkable. She remained afebrile. She needed IV analgesia postop and was discharged home in satisfactory condition on postop day #2. Incision was dry and intact. No clinical evidence of hematoma. No vascular compromise noted on the breast skin flaps. Operative culture was negative thus far. Preop culture showed Pseudomonas aeroginosa. She was treated with Cefepime and Levaquin IV while in the hospital. Will discharge her on Levaquin for a 6 week course of therapy. Prealbumin was 14.4. Encourage nutritional supplementation with protein to help the healing process. Continue USHA wrap chest wall compression. Will remove the drain in the office. Keep head elevated and maintain lifting restriction. She was discharged home on postop day #2. Followup office one week. Wrote script for Levaquin for 21 days with a refill, (six week course of therapy). Wrote scripts for Percocet for pain (40 tabs) and for Valium for spasm (30 tabs). Wrote script for Zoloft 150mg for 30 days and 3 refills. Will followup with her PCP regarding further antidepressant management, since it was increased from 100mg to 150 mg daily. Encouraged patient to stop smoking as it may have deleterious effects on wound healing. - Physical Exam Vitals/I&O's: Vital Signs Temp Pulse Resp BP Pulse Ox 98.4 F 62 16 112/70 97 04/25/19 08:45 04/25/19 08:45 04/25/19 08:45 04/25/19 08:45 04/25/19 08:45 Oxygen Delivery Method Room Air Weight: 145 lb 15.136 oz Body Mass Index (BMI) 22.8 Intake and Output for Last 24 Hours 04/23/19 04/24/19 04/25/19 23:59 23:59 23:59 Intake Total 4188 / 4388 3091 / 3091 852 / 852 Output Total 0 / 25 245 / 265 40 / 40 Balance 4188 / 4363 2846 / 2826 812 / 812 Microbiology Past 72 Hours 04/23/19 14:52 Tissue - Breast Gram Stain - Final 04/23/19 14:52 Tissue - Breast Wound Culture - Preliminary No growth-Final to follow Current Medications Acetaminophen (Tylenol) 1,000 mg PO Q8 [facility] Last Admin: 04/25/19 06:02 Dose: 1,000 mg Documented by: Anastrozole (Arimidex) 1 mg PO QHS [facility] Last Admin: 04/24/19 21:34 Dose: 1 mg Documented by: Cyanocobalamin (Vitamin B12) 1,000 mcg PO DAILY [facility] Last Admin: 04/25/19 08:40 Dose: 1,000 mcg Documented by: Diazepam (Valium) 5 mg PO 4X/DAY PRN PRN PRN Reason: SPASMS Docusate Sodium (Colace) 100 mg PO BID [facility] Last Admin: 04/25/19 08:40 Dose: 100 mg Documented by: Enoxaparin Sodium (Lovenox) 40 mg SC DAILY@0600 [facility] Last Admin: 04/25/19 06:02 Dose: 40 mg Documented by: Heparin Sodium (Beef Lung) () 50 units IV UD PRN PRN Reason: Port-a-Cath (VAD)Heparin Flush Hydromorphone HCl (Dilaudid Inj) 1 mg IV Q3H PRN PRN PRN Reason: Pain Score 6-10/10 Last Admin: 04/25/19 06:02 Dose: 1 mg Documented by: Cefepime HCl 2 gm/ Sodium (Chloride) 100 mls @ 200 mls/hr IV Q8 [facility] Last Infusion: 04/25/19 06:32 Dose: Infused Documented by: Lactated Ringer's () 1,000 mls @ 60 mls/hr IV .[id number] [facility] Last Infusion: 04/25/19 11:01 Dose: 60 mls/hr Documented by: Levofloxacin (Levaquin Iv) 500 mg in 100 mls @ 100 mls/hr IV Q24 [facility] Last Infusion: 04/25/19 11:00 Dose: Infused Documented by: [facility]Ox 400) [facility] Last Admin: 04/25/19 08:40 Dose: 400 mg Documented by: Nutritional Formula (Jem - Danevang Flavor) 1 packet PO BIDCM [facility] Last Admin: 04/25/19 08:40 Dose: 1 packet Documented by: Ondansetron HCl (Zofran) 4 mg IV Q6H PRN PRN PRN Reason: NAUSEA Oxycodone HCl (Oxyir) 10 mg PO Q4H PRN PRN PRN Reason: Pain Score 6-10/10 Last Admin: 04/25/19 08:43 Dose: 10 mg Documented by: Pantoprazole Sodium (Protonix) 40 mg PO QHS [facility] Last Admin: 04/24/19 21:33 Dose: 40 mg Documented by: Promethazine HCl (Phenergan Tablet) 25 mg PO Q4H PRN PRN PRN Reason: NAUSEA/VOMITING Pyridoxine HCl (Vitamin B-6) 100 mg PO QHS [facility] Last Admin: 04/24/19 21:33 Dose: 100 mg Documented by: Scopolamine HBr (Transderm-Scop) 1 patch TD Q3D [facility] Last Admin: 04/23/19 18:21 Dose: Not Given Documented by: Sertraline HCl (Zoloft) 150 mg PO QHS [facility] Last Admin: 04/24/19 21:33 Dose: 150 mg Documented by: Sodium Chloride () 10 - 40 ml IV UD PRN PRN Reason: Port-a-Cath (VAD) Flush Last Admin: 04/25/19 06:08 Dose: 10 ml Documented by: Sodium Chloride (0.9% Nacl (Sterile) Posiflush) 10 - 40 ml IV UD PRN PRN Reason: Port access or dressing change Last Admin: 04/22/19 15:50 Dose: 10 ml Documented by: Discharge Diet: No Restrictions, - - encourage nutritional supplementation with protein to help the healing process. Discharge Activity: May not drive while taking narcotic pain medications., May Not Shower - until the drain is removed., - - keep head elevated. continue usha wrap breast compression. no heavy lifting. May shower in (days): 14 - after the drain is removed. May resume sexual activity in: No Restrictions Weight Bearing Status: Weight bearing as tolerated Lifting Restrict to (lbs):: 20 Keep extremity elevated above heart level: - - elevate head. Call your doctor if your incision/area has: Continuous Slow Oozing, Sudden Increased Bleeding, Increased Pain/ Swelling, Increased Redness, Foul Smelling Discharge, Swelling at the incision site Call your doctor if you observe: Fever of 101 or Higher, Coldness, Increased Pain, Shortness of breath, Chest pain, Calf discomfort, Uncontrolled pain Suture Line Care: - - apply antibiotic ointment to suture line daily. Change Dressing in (Days):: 1 - dry dressing daily Cleanse incision/area with: - - may get incision wet in the shower after the drain is removed. Drain: Suction - katlin drain to bulb suction. empty and record output daily. Home Medications: Medications to take at Discharge anastrozole 1 mg tablet 1 mg PO QHS 07/05/18 cyanocobalamin (vitamin B-12) 1,000 mcg capsule 1,000 mcg PO DAILY 07/05/18 pyridoxine (vitamin B6) 100 mg tablet 100 mg PO QHS 07/05/18 Pantoprazole Sodium [Protonix] 40 mg PO QHS 08/31/18 Vitamin C/Biotin [Hair, Skin and Nails Gummies] 2 ea PO QHS 01/08/19 Diazepam [Valium] 5 mg PO 4X/DAY PRN #30 tab 04/25/19 Docusate Sodium [Colace] 100 mg PO BID cap 04/25/19 Sertraline HCl [Zoloft] 150 mg PO QHS #90 tab 04/25/19 levoFLOXacin tablet [Levaquin tablet] 500 mg PO DAILY #21 tab 04/25/19 proMETHazine tablet [Phenergan tablet] 25 mg PO Q4H PRN PRN tab 04/25/19 Following Prescrptions Were Given to Patient: levoFLOXacin tablet [Levaquin tablet] 500 mg PO DAILY #21 tab Transmission Status: Received by [id number] Diazepam [Valium] 5 mg PO 4X/DAY PRN #30 tab PRN Reason: spasm Transmission Status: Received by [id number] Sertraline HCl [Zoloft] 150 mg PO QHS #90 tab Transmission Status: Received by [id number] Primary Care Physician: Jack Mancuso DO [Primary Care Provider] - Please Follow Up With: Sandro Martinez MD When: one week. call [phone] for appt. Disposition: Home Minutes spent on discharge:: 35 Patient Condition:: Stable Medical Necessity - Tobacco Use Smoking Status: Current some day smoker Tobacco Use: Cigarettes Meaningful Use Info Meaningful Use Diagnoses (Choose all that apply): None applicable
== END 2019-04-25 12:45 | disposition home or self-care (01) | DRG 908 ==
PROVIDERS: Admitting Provider Surgery; Family Provider Student in an Organized Health Care Education/Training Program; PCP Student in an Organized Health Care Education/Training Program; Visit Provider Surgery
PROC: 0HPT0JZ Removal of Synthetic Substitute from Right Breast, Open Approach (ICD-10-PCS; CPT 19371; principal; 2019-04-23 12:45)
DX: T85.79XA Infection and inflammatory reaction due to other internal prosthetic devices, implants and grafts, initial encounter (principal); C77.9 Secondary and unspecified malignant neoplasm of lymph node, unspecified; B96.5 Pseudomonas (aeruginosa) (mallei) (pseudomallei) as the cause of diseases classified elsewhere; F17.210 Nicotine dependence, cigarettes, uncomplicated; Z98.82 Breast implant status; Z85.3 Personal history of malignant neoplasm of breast; C50.912 Malignant neoplasm of unspecified site of left female breast; Z79.811 Long term (current) use of aromatase inhibitors; Z17.0 Estrogen receptor positive status [ER+]
CPT/HCPCS: 80048; 80053; 84134; 85027; 85652; 86140; 87015; 87070; 87075; 87102; 87116; 87176; 87205; 87206; 88305; 93005; 99251; 99406; J7040; J7120; A4216; G0463; Q9968

== ENCOUNTER 2019-11-19 09:48 | Observation (INO) | payer BC, SELFPAY ==
[2019-11-06 09:14] VITALS: BMI 22.8
--- NOTE | 2019-11-18 21:59 | HP.PCM_ITS ---
History and Physical Date of Admission: 11/19/19 HISTORY OF PRESENT ILLNESS 39 year old woman presents for further discussion of her breast reconstruction. Her left breast cancer was biopsied on 05/23/17. On 06/16/17 where she underwent injection of 5 cc of Lymphazurin blue and left modified radical mastectomy and sentinel lymph node biopsy by Dr. Samayoa and prophylactic mastectomy right breast and immediate bilateral breast reconstruction with placement of submuscular saline tissue expanders (350 ml each) and placement of DermACELL decellularized dermis graft (128 cm2, each side) by Dr. Martinez. 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 One node showed macrometastasis. Estrogen receptors were positive. Progesterone receptors were positive. Her-2Neu was negative. She underwent chemotherapy and radiation therapy. She finished her radiation therapy on 03/06/18. She then underwent further surgery in 09/07/18 with revision reconstructed left breast with excision painful radiation scar contour deformity and 2nd stage delayed left breast reconstruction with removal of tissue sanitary engineering teacher and capsulectomy and 2nd stage delayed left breast reconstruction with placement of left latissimus dorsi myocutaneous flap. She healed uneventfully. She continued her breast reconstruction process with revision left breast reconstruction with excision radiation scar contour deformity and delayed left breast reconstruction with placement of submuscular saline tissue sanitary engineering teacher (350 ml) on 01/15/19. She finished the saline tissue expansion and proceeded with further surgery on 03/26/19 where she underwent revision right breast reconstruction with removal of saline tissue sanitary engineering teacher and capsulectomy and delayed right breast reconstruction with placement of cohesive gel implant (430 ml) and placement Alloderm Select acellular dermal matrix graft (132 cm2) and revision left breast reconstruction with removal of saline tissue sanitary engineering teacher and capsulectomy and revision left breast reconstruction radiation scar contour deformity with multiple W-plasty reconstruction (12 cm2) and delayed left breast reconstruction with placement cohesive gel implant (350 ml). She developed a Pseudomonas infection in the right breast that necessitated further surgery on 04/23/19 where she underwent revision right breast reconstruction with excisional debridement nonhealing infected wound with removal of Alloderm acellular dermal matrix graft and removal exposed infected cohesive gel implant and complex secondary wound closure. At that time, I told her that further breast reconstruction would have to wait at least 6 months. In the meantime, the incision healed satisfactory. Today she has no pain in the right breast scarring. She has concerns about some residual pincushioning between the latissimus dorsi flap and the radiated skin medially. Also on the medial aspect of the left breast reconstruction, she has some persistent burning that is intermittent. She denies fever. She denies any trauma to the left breast reconstruction. She comes in today to discuss further surgical options for her breast reconstruction. 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 Malignant neoplasm of upper-outer quadrant of left female breast Estrogen receptor positive status [ER+] Current smoker Disproportion of reconstructed breast Acquired absence of bilateral breasts and nipples Cancer phobia Left breast lump PAST SURGICAL HISTORY bilateral mastectomy History of reconstruction of both breasts Port-a-cath in place ALLERGIES ondansetron [From Zofran] MEDICATIONS anastrozole cyanocobalamin (vitamin B-12) pyridoxine (vitamin B6) Pantoprazole Sodium [Protonix] Vitamin C/Biotin [Hair, Skin and Nails Gummies] gabapentin FAMILY HISTORY Mother - Hypertension SOCIAL HISTORY Smoking Status: Current some day smoker tobacco type: cigarettes alcohol intake: current alcohol intake frequency: a few times a month substance use type: does not use REVIEW OF SYSTEMS General - Denies fever, fatigue, and weight loss. Eyes - Denies eye pain. ENT - Denies nasal congestion and sore throat. Endocrine - Denies excessive thirst and urination. Has diagnosis of left breast cancer. Underwent bilateral mastectomy in 06/25. Has undergone bilateral breast reconstruction. Skin - Actinic lesion left upper cheek near the lower eyelid. Has family history of skin cancer. Musculoskeletal - Denies joint pain, joint stiffness, weakness of muscles and joints, back pain, and arthritis. Neuro - Denies headaches. Cardiovascular - Denies chest pain. Denies shortness of breath with exertion. Respiratory - Denies cough and shortness of breath. Patient is a smoker. Psych - Denies anxiety and depression. Gastrointestinal - Denies nausea, vomiting, diarrhea, and constipation. Hematologic -Denies abnormal bruising and bleeding. Genitourinary - Denies hematuria and urinary frequency. PHYSICAL EXAMINATION General - Alert and oriented. Bra size was 36 B before the mastectomy. HEENT - PERRL. EOMI. Throat is clear. Neck - Supple and nontender. No cervical adenopathy. Lungs - Clear to auscultation. Breasts - Bilateral mastectomy incisions are well healed. No axillary adenopathy noted. Breast width is 14 cm bilaterally. Breast height is 13 cm. The mastectomy incision on the right breast is healed. There is mild adherence of the breast skin flaps to the chest wall. The breast skin flaps appear to be good quality but are a little thin. There is a well healed latissimus dorsi myocutaneous flap that is soft on the left. There is a residual deformity of the left breast reconstruction with a pincushioning effect of the latissimus flap on the radiated skin of the breast. There is some firmness medially where some radiated tissue is present. No evidence of infection. Patient has burning in this area of the left breast. Also the skin envelope in this area feels a little thin. Heart - Regular rate and rhythm. Abdomen - No abdominal scarring. Some skin and subcutaneous redundancy between the umbilicus and the pubic area. Good skin elasticity noted. Extremities - FROM. No axillary adenopathy. Neuro - CN II - XII grossly intact. ASSESSMENT 1. Left breast cancer. 2. 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 4. s/p removal right breast implant. 5. status breast reconstruction with implants. 6. Deformity reconstructed left breast. 7. Disproportion reconstructed breasts. 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 11. Smoker. 12. Family history of skin cancer. 13. Estrogen receptor positive status. PLAN Discussed various breast reconstruction options with her. There is an area of thin skin on the left breast medially in an area of radiation damage. Also there is some residual pincushioning at the edge of the latissimus dorsi flap. There may be issues with the quality of the skin envelope in the future on the left breast. She would benefit from improving the quality of the radiated skin medially with a TRAM flap. Since the quality of the skin on the right breast could use some improvement as well she would benefit from a TRAM flap. With her history of smoking and her history of radiation therapy, she would need a first stage bilateral TRAM flap delay. At the time of the delay, I would also revise the reconstructed left breast with excision radiation scar contour deformity and improve the pincushioning defect with multiple W-plasty r econstruction. After the delay procedure, would wait at least 3 weeks before proceeding with the bilateral TRAM flap. Would re-enforce the abdominal wall closure with Strattice acellular dermal matrix graft. Discussed with the patient that there is a small risk of developing a hernia that would require additional surgery. She voices understanding. One way to minimize that risk is to use the microscope for the breast reconstruction which preserves more of the muscle and fascia. That would necessitate going to a tertiary center for the reconstruction. She would prefer to stay local and wa nts to proceed with the pedicled TRAM flap. She would wear an abdominal binder for 6 months and be on a lifting restriction of 10 lbs. She would have drains in for several days and be maintained on antibiotics until the drains are removed. For the initial surgery with the delay and revision reconstruction on the left, it would necessitate a surgical observation night stay in the hospital. Surgery would be done under general anesthesia. Patient is interested in the bilateral TRAM flap for reconstruction. With better quality skin envelope, can always place a small cohesive gel implant underneath the TRAM flap to improve the volume for symmetry. Patient was informed of the risks and complications of the procedure including alternatives to surgery. These were discussed with the patient personally. Patient voices understanding and wishes to proceed. Some of the risks and complications were included in a form from the [employer]. Encouraged patient to stop smoking as it may have deleterious effects on wound healing. We discussed the current risks associated with COVID-19. While it is understood that there is a community spread of COVID-19, the risk of rob COVID-19 while at [facility] ([facility]) is very low; however, the risk cannot be completely mitigated because of the community spread of the disease. We discussed in detail the risk of exposure to and/or potential harm posed by the COVID-19 virus with having a surgery/procedure at this time versus the risk of delaying the surgery/procedure. It is not possible to know either the risk of delaying the surgery or procedure or chance of getting an infection with perfect accuracy, but a joint decision was made to proceed at this time with the scheduled surgery/procedure as indicated on the consent form. Patient was notified that we will need to comply with any screening or testing [facility] wishes to perform or that surgery may be delayed for any positive results. Discussed with the patient that I was tested for COVID-19 on 10/10/19 which was negative and on 10/24/19 which was negative. My testing regimen at this time is to be COVID-19 tested every 2 weeks or so. I was recently tested on 11/07/19, and that test was negative. Procedure Criteria Procedure Type: Elective COVID Risk Discussion: The surgeon/proceduralist and patient have discussed in detail the risk of exposure to and/or potential harm posed by the COVID-19 virus with having a surgery/procedure at this time versus the risk of delaying the surgery/procedure. It is not possible to know either the risk of delaying the surgery or procedure or chance of getting an infection with perfect accuracy, but a joint decision was made between the patient and the surgeon/proceduralist to proceed at this time with the scheduled surgery/procedure as indicated on the consent form.
[2019-11-19] VITALS (18 sets, daily range): BP systolic 102–139; BP diastolic 56–92; PULSE 67–96; RESP 14–18; TEMP 36.3–36.9; O2SAT 92–100; BMI 25.9
[2019-11-19 05:55] LABS: Bedside Glucose 103 mg/dL (70-110)
[2019-11-19 06:10] LABS: COTININE Drug Screen Positive (<200 ng/mL)
[2019-11-19 06:10] LABS: Hematocrit 36.4 % (37-47); Hemoglobin 11.9 g/dL (12.0-15.0); Mean Corp Hgb Conc 32.7 g/dL (32-36); Mean Corpuscular Volume 91.7 fL (81-99); Mean Platelet Vol. 10.1 fl (6.2-12.0); Platelet Count 172 K/mm3 (150-450); RBC Distribution Width CV 13.3 % (11.6-14.6); RBC Distribution Width SD 45.2 fl (35.1-43.9); Red Blood Count 3.97 M/mm3 (4.2-5.4); White Blood Count 4.8 K/mm3 (4.4-11.0)
[2019-11-19] MEDS: Lactated Ringers 1,000 ML 40 ML IV (06:10)
[2019-11-19] MEDS: Acetaminophen 500 MG Tablet 1000 MG PO ×4 (06:17→23:29)
[2019-11-19] MEDS: Scopolamine 1mg/72hr Patch 1 PATCH TRANSDERM. (06:18)
[2019-11-19] MEDS: Gabapentin 600 MG Tablet PO (06:18)
[2019-11-19 06:22] LABS: Magnesium 2.1 mg/dL (1.6-2.6)
--- NOTE | 2019-11-19 07:30 | BRBX_PTH ---
PATIENT: LETICIA HAQUE LOC: [facility]3 U#:[id number] AGE/SX: 39/F ROOM: MS318 RE11/19/[address]: Dr. Sandro Martinez MD : 1980 BED: 1 DIS: 11/20/2019 SPEC #: [id number] RECD: 11/19/19 10:13 STATUS: TAMAR REElmira #: [id number] JEANINE: 11/19/19 07:[address]: Sandro Martinez DEPT: SURGICAL PATHOLOGY RECD BY: Rod Yan ENTERED: 11/19/19 10:36 SP TYPE: BREAST BX OTHR DR: Dr. Jack Mancuso, DO Tissues: Left breast, NOS Procedures: Surgery Specimen Level IV HEADER OPERATION: ERAS, revision reconstructed left breast with excision PRE-OP DIAGNOSIS: Left breast cancer TISSUE SUBMITTED: Left breast tissue MICROSCOPIC DIAGNOSIS Left breast tissue, revision reconstructed left breast with excision: Skin with underlying tissue with dermal fibrosis, consistent with scar and focal histiocytic reaction. Negative for malignancy. AVRIL:bella 11/20/19 MICROSCOPIC DESCRIPTION Slides are reviewed. GROSS DESCRIPTION Received in fixative is one container labeled with the patient's name and designated left breast tissue. The specimen consists of an irregular piece of skin with underlying tissue measuring 9 x 1 x 0.6 cm. No skin lesion is identified. The entire specimen is submitted in three cassettes. / AVRIL:bella 11/19/19 TC:5 CPT: 87312
[2019-11-19] MEDS: Cefazolin 2 GM in 0.9% Normal Saline 100 ML IV (07:32)
[2019-11-19] MEDS: Lactated Ringers 1,000 ML 60 ML IV ×2 (08:46→13:30)
--- NOTE | 2019-11-19 09:38 | OP.PCM_ITS ---
Report of Operation Date of Procedure: 11/19/19 Pre-Operative Diagnosis: 1. Left breast cancer. 2. 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 4. s/p removal right breast implant. 5. status breast reconstruction with implants. 6. Deformity reconstructed left breast. 7. Disproportion reconstructed breasts. 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 11. Smoker. 12. Family history of skin cancer. 13. Estrogen receptor positive status. Post-Operative Diagnosis: Same. Surgery/Procedure Performed:: 1. First stage delayed bilateral breast reconstruction with bilateral TRAM flap delay. 2. Revision left breast reconstruction with excision radiation scar contour deformity with multiple W- plasty reconstruction (18 cm2). Description of Surgical Findings:: 39 year old woman presents for further discussion of her breast reconstruction. Her left breast cancer was biopsied on 05/23/17. On 06/16/17 where she underwent injection of 5 cc of Lymphazurin blue and left modified radical mastectomy and sentinel lymph node biopsy by Dr. Samayoa and prophylactic mastectomy right breast and immediate bilateral breast reconstruction with placement of submuscular saline tissue expanders (350 ml each) and placement of DermACELL decellularized dermis graft (128 cm2, each side) by Dr. Martinez. 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 One node showed macrometastasis. Estrogen receptors were positive. Progesterone receptors were positive. Her-2Neu was negative. She underwent chemotherapy and radiation [facility]. She finished her radiation therapy on 03/06/18. She then underwent further surgery in 09/07/18 with revision reconstructed left breast with excision painful radiation scar contour deformity and 2nd stage delayed left breast reconstruction with removal of tissue automatic dry starch operator and capsulectomy and 2nd stage delayed left breast reconstruction with placement of left latissimus dorsi myocutaneous flap. She healed uneventfully. She continued her breast reconstruction process with revision left breast reconstruction with excision radiation scar contour deformity and delayed left breast reconstruction with placement of submuscular saline tissue automatic dry starch operator (350 ml) on 01/15/19. She finished the saline tissue expansion and proceeded with further surgery on 03/26/19 where she underwent revision right breast reconstruction with removal of saline tissue automatic dry starch operator and capsulectomy and delayed right breast reconstruction with placement of cohesive gel implant (430 ml) and placement Alloderm Select acellular dermal matrix graft (132 cm2) and revision left breast reconstruction with removal of saline tissue automatic dry starch operator and capsulectomy and revision left breast reconstruction radiation scar contour deformity with multiple W-plasty reconstruction (12 cm2) and delayed left breast reconstruction with placement cohesive gel implant (350 ml). She developed a Pseudomonas infection in the right breast that necessitated further surgery on 04/23/19 where she underwent revision right breast reconstruction with excisional debridement nonhealing infected wound with removal of Alloderm acellular dermal matrix graft and removal exposed infected cohesive gel implant and complex secondary wound closure. At that time, I told her that further breast reconstruction would have to wait at least 6 months. In the meantime, the incision healed satisfactory. Today she has no pain in the right breast scarring. She has concerns about some residual pincushioning between the latissimus dorsi flap and the radiated skin medially. Also on the medial aspect of the left breast reconstruction, she has some persistent burning that is intermittent. She denies fever. She denies any trauma to the left breast reconstruction. Patient was informed of the risks and complications of the procedure including alternatives to surgery. These were discussed with the patient personally. Patient voices understanding and wishes to proceed. Some of the risks and complications were included in a form from the [employer]. Encouraged patient to stop smoking as it may have deleterious effects on wound healing. I used Pao absorbable hemostat. Reference Number - [id number]. Lot Number - [id number]. Expiration - September 04, 2024. recoil spring winder: Cameron Wynn. Type of Anesthesia:: General Specimen's removed: Left breast tissue to Pathology. Drains: None. Estimated Blood Loss (mL): 25 ml. Description of Procedure: Patient was taken to OR in supine position and was placed under general anesthesia. The left breast and abdominal wall areas were prepped and draped in the usual fashion. SCD's were placed for DVT prophylaxis. Perioperative antibiotics were given intravenously. A galindo catheter was placed. For the procedure, I wore an N95 mask and wore proper eyewear protection. I made markings in the lower abdominal wall by the pubic area and sabi multiple W- plasty markings at the level of the latissimus dorsi flap and the medial radiated skin. Using xylocaine with epinephrine, these markings were infiltrated. After waiting 5 minutes for the anesthetic to take effect, I made incisions on the left breast. There was some redundancy to the latissimus dorsi skin flap with pincushioning secondary to the radiation scar contour deformity. I excised 1.5 cm of radiated skin contour deformity down into the subcutaneous tissue. Some radiation fibrosis and surrounding scar tissue was excised. This tissue was sent to Pathology for analysis to rule out carcinoma. This freed up the latissimus dorsi flap to be advanced to the radiation skin edge for multiple W-plasty closure. This helped to smooth out the breast contour and take care of the pincushioning of the latissimus dorsi flap. Hemostasis was obtained with electrocautery. The wound was irrigated with saline. The length of the multiple W-plasty design was 12 cm and width of the wound created by excision of the radiation scar contour deformity was 1.5 cm thus making it an 18 cm2 reconstruction defect for the multiple W-plasty. The deep dermis and subcutaneous tissue was approximated with 3-0 Monocryl interrupted sutures. The skin was approximated with 4-0 Prolene simple interrupted sutures. This was followed by Histoacryl skin tissue adhesive. Kerlix gauze dressing was applied. I then made a horizontal incision in the abdominal wall skin crease for the bilateral TRAM flap delay procedure. Incisions were carried down through Yadira's fascia until the abdominal wall fascia was seen. The superficial epigastric veins were ligated with 3-0 Silk suture. I made horizontal incisions in the rectus abdominis fascia until the muscle was seen. I retracted the muscle medially on both the left and right sides. I dissected out the deep inferior epigastric vascular pedicles. There were two veins and one artery on each side. They were individually dissected free and ligated with 3-0 Silk suture and surgical clips. The wound was irrigated with saline. Hemostasis was obtained with electrocautery. The fascia was then closed with 0 Surgipro simple running suture. I then sprayed the wound with Pao absorbable hemostat to minimize seroma formation. Yadira's fascia was approximated with 3-0 Vicryl simple running suture. The deep dermis and subcutaneous tissue was approximated with 3-0 Monocryl sutures. The skin was approximated with 3-0 V-lock unidirectional barbed running subcuticular suture. This was followed by Histoacryl skin tissue adhesive. Kerlix gauze dressing was applied. Patient tolerated the procedure well and was sent to PACU in satisfactory condition. Patient will be sent upstairs for continued postop care. An michel wrap for chest wall compression will be applied on the floor prior to dis charge. She will keep her head elevated during the initial postoperative period. She will be on a lifting restriction as well. Will tentatively schedule the next stage bilateral TRAM flap breast reconstruction in at least 3 weeks. Because of her history of smoking, I may delay the surgery another 2-3 weeks to maximize the dilation of the division traffic superintendent vessels to the skin flap. Grafts/Implants Used: None. - Complications None. - Admit VTE Documentation VTE Present on Admission: No VTE Mechan Device Prophylaxis: SCD's VTE Pharm Prophylaxis ordered?: Yes Surgery Charges CPT - 26845-00 ICD-10 - C50.412, F40.298, Z90.13, N65.1, N65.0, T66.xxxS, L59.8, Z98.82, F17.200 11354 C50.412, N65.0, T66.xxxS, L59.8, F40.298, Z90.13, N65.1, Z98.82, F17.200 34441 C50.412, N65.0, T66.xxxS, L59.8, F40.298, Z90.13, N65.1, Z98.82, F17.200
[2019-11-19 10:36] LABS: Prealbumin 25.8 mg/dL (20.0-40.0)
[2019-11-19] MEDS: Cyanocobalamin 500 MCG Tablet 1000 MCG PO (13:31)
[2019-11-19] MEDS: Docusate Sodium 100 MG Capsule PO ×2 (13:31→21:53)
[2019-11-19] MEDS: Gabapentin 100 MG Capsule 200 MG PO ×2 (13:32→16:41)
[2019-11-19] MEDS: HYDROmorphone 0.5 MG/0.5 ML SYRINGE IV (13:34)
[2019-11-19] MEDS: Cefazolin 1 GM/50 ML BAG IV ×2 (13:34→21:53)
[2019-11-19] MEDS: oxyCODONE 5 MG Tablet PO ×3 (15:01→23:30)
[2019-11-19] MEDS: HYDROmorphone 1 MG/ML Syringe IV ×2 (16:40→20:26)
[2019-11-19] MEDS: Pantoprazole Sodium 40 MG Tablet PO (21:53)
[2019-11-19] MEDS: Anastrozole 1 MG Tablet PO (21:54)
[2019-11-19] MEDS: Pyridoxine HCl 100 MG Tablet PO (21:55)
[2019-11-20 01:10] VITALS: BP 127/88; PULSE 76; RESP 16; TEMP 36.4; O2SAT 99
[2019-11-20] MEDS: HYDROmorphone 1 MG/ML Syringe IV ×3 (01:39→11:49)
[2019-11-20 05:04] VITALS: BP 123/75; PULSE 77; RESP 16; TEMP 36.8; O2SAT 99
[2019-11-20] MEDS: oxyCODONE 5 MG Tablet PO ×3 (05:13→14:37)
[2019-11-20] MEDS: Lactated Ringers 1,000 ML 60 ML IV (05:16)
[2019-11-20] MEDS: Cefazolin 1 GM/50 ML BAG IV (05:16)
[2019-11-20 06:01] LABS: Hematocrit 33.2 % (37-47); Hemoglobin 10.6 g/dL (12.0-15.0); Mean Corp Hgb Conc 31.9 g/dL (32-36); Mean Corpuscular Hgb 29.3 pg (27.0-32.0); Mean Corpuscular Volume 91.7 fL (81-99); Mean Platelet Vol. 10.4 fl (6.2-12.0); Platelet Count 160 K/mm3 (150-450); RBC Distribution Width CV 13.6 % (11.6-14.6); RBC Distribution Width SD 46.5 fl (35.1-43.9); Red Blood Count 3.62 M/mm3 (4.2-5.4); White Blood Count 9.4 K/mm3 (4.4-11.0)
[2019-11-20] MEDS: Acetaminophen 500 MG Tablet 1000 MG PO ×2 (06:37→14:36)
[2019-11-20 06:45] LABS: Anion Gap 1 (5-15); BUN 16 mg/dL (7-18); BUN/Creat Ratio 23.3 RATIO (10-20); Calcium,Total 8.7 mg/dL (8.5-10.1); Chloride 108 mmol/L (98-107); Creatinine, Serum 0.69 mg/dL (0.55-1.02); EST Glomerular Filtration Rate 101 mL/min (>60); Est Glom Filt Rate - Afr Amer 122 mL/min (>60); Estimated Creatinine Clearance 105.39 ml/min; Glucose 108 mg/dL (74-106); Potassium 3.6 mmol/L (3.5-5.1); Sodium Level 140 mmol/L (136-145)
[2019-11-20 06:58] VITALS: O2SAT 97
[2019-11-20 09:29] VITALS: BP 104/63; PULSE 78; RESP 18; TEMP 36.8; O2SAT 98
[2019-11-20] MEDS: Docusate Sodium 100 MG Capsule PO (09:32)
[2019-11-20] MEDS: Cyanocobalamin 500 MCG Tablet 1000 MCG PO (09:33)
[2019-11-20] MEDS: Enoxaparin 40 MG/0.4 ML Syringe SC (09:33)
[2019-11-20] MEDS: Gabapentin 100 MG Capsule 200 MG PO ×2 (09:33→11:48)
[2019-11-20] MEDS: 0.9% Saline Lock 10 ML Syringe IV ×2 (11:49→14:26)
--- NOTE | 2019-11-20 13:39 | PN.SURG_ITS ---
Subjective: Postop #1 Patient complains of incisional pain. - Physical Exam Vitals/I&O's: Vital Signs Temp Pulse Resp BP Pulse Ox 98.2 F 78 18 104/63 98 11/20/19 09:29 11/20/19 09:29 11/20/19 09:29 11/20/19 09:29 11/20/19 09:29 Oxygen Flow Rate (L/min) 6 Oxygen Delivery Method Room Air Weight: 165 lb 12.602 oz Body Mass Index (BMI) 25.9 Intake and Output for Last 24 Hours 11/18/19 11/19/19 11/20/19 23:59 23:59 23:59 Intake Total 2584 / 2584 1467 / 1467 Output Total 1200 / 1200 650 / 650 Balance 1384 / 1384 817 / 817 General: Alert, Oriented x3 HEENT: PERRLA, EOMI Oral: Moist Mucosa Neck: Supple Abdomen: Soft, Non-Distended Skin: Incision - left breast incision and abdominal wall incision are dry and intact. No clinical evidence of hematoma. Neurological: Cranial nerves II-XII grossly intact Psych/Mental Status: Normal Affect, Appropriate Laboratory Results 11/20/19 05:44: WBC 9.4, RBC 3.62 L, Hgb 10.6 L, Hct 33.2 L, MCV 91.7, MCH 29.3, MCHC 31.9 L, RDW Std Deviation 46.5 H, RDW Coeff of Silvana 13.6, Plt Count 160, MPV 10.4 11/20/19 05:44: Sodium 140, Potassium 3.6, Chloride 108 H, Carbon Dioxide 31.0, Anion Gap 1 L, BUN 16, Creatinine 0.69, Estim Creat Clear Calc 105.39, Est GFR (MDRD) Af Amer 122, Est GFR (MDRD) Non-Af 101, BUN/Creatinine Ratio 23.3 H, Glucose 108 H, Calcium 8.7 Current Medications Acetaminophen (Tylenol) 1,000 mg PO Q6 [facility] Last Admin: 11/20/19 06:37 Dose: 1,000 mg Documented by: Anastrozole (Arimidex) 1 mg PO QHS [facility] Last Admin: 11/19/19 21:54 Dose: 1 mg Documented by: Cyanocobalamin (Vitamin B12) 1,000 mcg PO DAILY [facility] Last Admin: 11/20/19 09:33 Dose: 1,000 mcg Documented by: Docusate Sodium (Colace) 100 mg PO BID [facility] Last Admin: 11/20/19 09:32 Dose: 100 mg Documented by: Enoxaparin Sodium (Lovenox) 40 mg SC DAILY [facility] Last Admin: 11/20/19 09:33 Dose: 40 mg Documented by: Enteral Nutritional Formula (Ensure Surgery) 237 ml PO TIDCM [facility] Last Admin: 11/20/19 11:47 Dose: Not Given Documented by: Gabapentin (Neurontin) 200 mg PO TIDCM [facility] Last Admin: 11/20/19 11:48 Dose: 200 mg Documented by: Heparin Sodium (Beef Lung) () 50 units IV UD PRN PRN Reason: R Port Heparin Flush Hydromorphone HCl (Dilaudid Inj) 0.5 - 1 mg IV Q3H PRN PRN PRN Reason: Pain Score 6-10/10 Last Admin: 11/20/19 11:49 Dose: 1 mg Documented by: Hydromorphone HCl (Dilaudid Inj) 0.5 - 1 mg IV Q3H PRN PRN PRN Reason: PAIN 6-10/10 Last Admin: 11/19/19 13:34 Dose: 0.5 mg Documented by: Cefazolin Sodium () 1 gm in 50 mls @ 100 mls/hr IV Q8 [facility] Last Infusion: 11/20/19 05:46 Dose: Infused Documented by: Sodium Chloride () 250 mls @ 15 mls/hr IV .[id number] PRN PRN Reason: Additional IVPB Infusion Insulin Human Lispro (Humalog Kwikpen (Bkc)) 1 - 6 unit SC Q4H PRN PRN; Protocol PRN Reason: BG>/= 180, SEE PROTOCOL Magnesium Oxide (Mag-Ox 400) 400 mg PO BID PRN PRN PRN Reason: Constipation Ondansetron HCl (Zofran Odt) 4 mg PO Q6H PRN PRN PRN Reason: NAUSEA Oxycodone HCl (Oxyir) 5 - 10 mg PO Q4H PRN PRN PRN Reason: Pain Score 4-10/10 Last Admin: 11/20/19 09:31 Dose: 10 mg Documented by: Pantoprazole Sodium (Protonix) 40 mg PO QHS [facility] Last Admin: 11/19/19 21:53 Dose: 40 mg Documented by: Pyridoxine HCl (Vitamin B-6) 100 mg PO QHS [facility] Last Admin: 11/19/19 21:55 Dose: 100 mg Documented by: Sodium Chloride () 10 - 40 ml IV UD PRN PRN Reason: SALINE FLUSH Last Admin: 11/20/19 11:49 Dose: 10 ml Documented by: Sodium Chloride (0.9% Nacl (Sterile) Posiflush) 10 - 40 ml IV UD PRN PRN Reason: Port access or dressing change Medical Necessity - Tobacco Use Smoking Status: Current some day smoker Tobacco Use: Cigarettes Assessment/Plan All Active Problems (Last Reviewed 11/08/19 @ 00:[address] Sandro Martinez MD) Infection of breast implant (Acute) History of bilateral breast implants (Acute) Pain from breast implant (Acute) Exposed breast implant (Resolved) Pseudomonas aeruginosa infection (Acute) Muscle spasm of left shoulder (Acute) Muscle spasm of back (Acute) Nonhealing surgical wound (Resolved) 1. Left breast cancer. 2. Cancer phobia right breast. Acquired absence bilateral breasts. 4. s/p removal right breast implant. 5. status breast reconstruction with implants. 6. Deformity reconstructed left breast. 7. Disproportion reconstructed breasts. 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 11. Smoker. 12. Family history of skin cancer. 13. Estrogen receptor positive status. 14. s/p first stage delayed bilateral breast reconstruction with bilateral TRAM flap delay and revision left breast reconstruction with excision radiation scar contour deformity with multiple W-plasty reconstruction (18 cm2). Patient has incisional pain. Incisions are dry and intact. No clinical evidence of hematoma. Prealbumin was 25.8. Encourage nutritional supplementation with protein to help the healing process. She is tolerating po analgesia. Discharge home today. Keep head elevated. Continue michel wrap compression. Continue lifting restriction. Wrote script for Cefadroxil for 5 days. Wrote scripts for Dilaudid for pain (40 tabs) and for Valium for spasm (30 tabs). Followup office one week. Will tentatively plan the second stage bilateral TRAM flap in at least 3 weeks. With her history of smoking, I may wait up to 6 weeks before proceeding with the TRAM flap surgery. Encouraged patient to stop smoking as it may have deleterious effects on wound healing.
--- NOTE | 2019-11-20 13:52 | DCINST_ITS ---
You will use the following diet at home:: No restrictions Discharge Activity: May not drive while taking narcotic pain medications., May Shower - tomorrow. May shower in (days): 1 May resume sexual activity in: No Restrictions Lifting Restrictions: 20 lbs. Keep extremity elevated above heart level: - - elevate head Call your doctor if your incision/area has: Continuous Slow Oozing, Sudden Increased Bleeding, Increased Pain/ Swelling, Increased Redness, Foul Smelling Discharge, Swelling at the incision site Call your doctor if you observe: Fever of 101 or Higher, Coldness, Increased Pain, Shortness of breath, Calf discomfort, Uncontrolled pain Suture Line Care: - - dry dressings daily followed by compression michel wrap. Change Dressing in (Days):: 1 - dry dressings daily followed by compression michel wrap. Cleanse incision/area with: - - may get incisions wet in the shower tomorrow. Allergies/Adverse Reactions: Allergies ondansetron [From Zofran] Adverse Reaction (Verified 11/19/19 06:08) MIGRAINES Medications to take at Discharge anastrozole 1 mg tablet 1 mg PO QHS 07/05/18 cyanocobalamin (vitamin B-12) 1,000 mcg capsule 1,000 mcg PO DAILY 07/05/18 pyridoxine (vitamin B6) 100 mg tablet 100 mg PO QHS 07/05/18 Pantoprazole Sodium [Protonix] 40 mg PO QHS 08/31/18 Vitamin C/Biotin [Hair, Skin and Nails Gummies] 2 ea PO QHS 01/08/19 Gabapentin [Neurontin] 100 mg PO BID PRN 11/08/19 Cefadroxil [Duricef] 500 mg PO BID #10 cap 11/20/19 Diazepam [Valium] 5 mg PO 4X/DAY PRN PRN #30 tablet 11/20/19 HYDROmorphone tablet [Dilaudid] 2 mg PO Q4H PRN PRN 7 Days #40 tablet 11/20/19 Ondansetron [Zofran Odt] 4 mg PO Q6H PRN PRN tablet 11/20/19 The following prescriptions were given: HYDROmorphone tablet [Dilaudid] 2 mg PO Q4H PRN PRN 7 Days #40 tablet PRN Reason: Pain Score 4-5/10 Transmission Status: Received by [id number] Cefadroxil [Duricef] 500 mg PO BID #10 cap Transmission Status: Pending to [id number] Diazepam [Valium] 5 mg PO 4X/DAY PRN PRN #30 tablet PRN Reason: Spasms Transmission Status: Received by [id number] Primary Care Physician: Jack Mancuso DO [Primary Care Provider] - Test Results: Test results from this visit will be discussed in further detail at your follow- up appointment, if applicable. Please Follow Up With: Sandro Martinez MD When: one week. call [phone] for appt. Proposed Discharge Date: 11/20/19
[2019-11-20 14:50] VITALS: BP 110/75; PULSE 71; RESP 18; TEMP 36.5; O2SAT 100
== END 2019-11-20 14:54 | disposition home or self-care (01) ==
LOC: MS3 11-20 08:18 → SDC 11-20 10:15
PROVIDERS: Anesthesiology; Admitting Provider Surgery; PCP Student in an Organized Health Care Education/Training Program; Referring Provider Surgery; Visit Provider Surgery
PROC: (CPT 14001; principal; 2019-11-19 07:15)
DX: C50.912 Malignant neoplasm of unspecified site of left female breast (principal); Z17.0 Estrogen receptor positive status [ER+]; L59.8 Other specified disorders of the skin and subcutaneous tissue related to radiation; Y84.2 Radiological procedure and radiotherapy as the cause of abnormal reaction of the patient, or of later complication, without mention of misadventure at the time of the procedure; N65.1 Disproportion of reconstructed breast; F45.29 Other hypochondriacal disorders; F17.210 Nicotine dependence, cigarettes, uncomplicated; F41.9 Anxiety disorder, unspecified; F32.9 Major depressive disorder, single episode, unspecified; K21.9 Gastro-esophageal reflux disease without esophagitis; Z90.13 Acquired absence of bilateral breasts and nipples; Z92.3 Personal history of irradiation; Z80.8 Family history of malignant neoplasm of other organs or systems; Z79.899 Other long term (current) drug therapy; Z86.19 Personal history of other infectious and parasitic diseases
CPT/HCPCS: 00400; 14001; 15600; 19380; 36415; 80048; 80307; 82962; 83735; 84134; 85027; 87635; 88305; 94799; 96365; 96366; 96372; 96375; 96376; 99218; 99251; 99406; J7120; A4216; G0378; G0379; G0463; J2405; U0003

== ENCOUNTER 2020-01-07 05:53 | Inpatient (IN) | payer BC, SELFPAY ==
[2019-11-27 10:47] VITALS: BMI 25.9
[2019-12-04 10:18] VITALS: BMI 25.9
--- NOTE | 2020-01-06 18:03 | HP.PCM_ITS ---
History and Physical Date of Admission: 01/07/20 HISTORY OF PRESENT ILLNESS 39 year old woman presents for further discussion of her breast reconstruction. Her left breast cancer was biopsied on 05/23/17. On 06/16/17 where she underwent injection of 5 cc of Lymphazurin blue and left modified radical mastectomy and sentinel lymph node biopsy by Dr. Samayoa and prophylactic mastectomy right breast and immediate bilateral breast reconstruction with placement of submuscular saline tissue expanders (350 ml each) and placement of DermACELL decellularized dermis graft (128 cm2, each side) by Dr. Martinez. 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 One node showed macrometastasis. Estrogen receptors were positive. Progesterone receptors were positive. Her-2Neu was negative. She underwent chemotherapy and radiation therapy. She finished her radiation therapy on 03/06/18. She then underwent further surgery in 09/07/18 with revision reconstructed left breast with excision painful radiation scar contour deformity and 2nd stage delayed left breast reconstruction with removal of tissue family medicine resident and capsulectomy and 2nd stage delayed left breast reconstruction with placement of left latissimus dorsi myocutaneous flap. She healed uneventfully. She continued her breast reconstruction process with revision left breast reconstruction with excision radiation scar contour deformity and delayed left breast reconstruction with placement of submuscular saline tissue family medicine resident (350 ml) on 01/15/19. She finished the saline tissue expansion and proceeded with further surgery on 03/26/19 where she underwent revision right breast reconstruction with removal of saline tissue family medicine resident and capsulectomy and delayed right breast reconstruction with placement of cohesive gel implant (430 ml) and placement Alloderm Select acellular dermal matrix graft (132 cm2) and revision left breast reconstruction with removal of saline tissue family medicine resident and capsulectomy and revision left breast reconstruction radiation scar contour deformity with multiple W-plasty reconstruction (12 cm2) and delayed left breast reconstruction with placement cohesive gel implant (350 ml). She developed a Pseudomonas infection in the right breast that necessitated further surgery on 04/23/19 where she underwent revision right breast reconstruction with excisional debridement nonhealing infected wound with removal of Alloderm acellular dermal matrix graft and removal exposed infected cohesive gel implant and complex secondary wound closure. At that time, I told her that further breast reconstruction would have to wait at least 6 months. In the meantime, the incision healed satisfactory. She continued the breast reconstruction process on 11/19/19 where she underwent first stage delayed bilateral breast reconstruction with bilateral TRAM flap delay and revision left breast reconstruction with excision radiation scar contour deformity with multiple W-plasty reconstruction (18 cm2). Healing has been uneventful.. She presents today for the second stage bilateral TRAM flap reconstruction. 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 Malignant neoplasm of upper-outer quadrant of left female breast Estrogen receptor positive status [ER+] Current smoker Disproportion of reconstructed breast Acquired absence of bilateral breasts and nipples Cancer phobia Left breast lump PAST SURGICAL HISTORY bilateral mastectomy History of reconstruction of both breasts Port-a-cath in place ALLERGIES ondansetron [From Zofran] MEDICATIONS anastrozole cyanocobalamin (vitamin B-12) pyridoxine (vitamin B6) Pantoprazole Sodium [Protonix] Vitamin C/Biotin [Hair, Skin and Nails Gummies] gabapentin FAMILY HISTORY Mother - Hypertension SOCIAL HISTORY Smoking Status: Current some day smoker tobacco type: cigarettes alcohol intake: current alcohol intake frequency: a few times a month substance use type: does not use REVIEW OF SYSTEMS General - Denies fever, fatigue, and weight loss. Eyes - Denies eye pain. ENT - Denies nasal congestion and sore throat. Endocrine - Denies excessive thirst and urination. Has diagnosis of left breast cancer. Underwent bilateral mastectomy in 06/25. Has undergone bilateral breast reconstruction. Skin - Actinic lesion left upper cheek near the lower eyelid. Has family history of skin cancer. Musculoskeletal - Denies joint pain, joint stiffness, weakness of muscles and joints, back pain, and arthritis. Neuro - Denies headaches. Cardiovascular - Denies chest pain. Denies shortness of breath with exertion. Respiratory - Denies cough and shortness of breath. Patient is a smoker. Psych - Denies anxiety and depression. Gastrointestinal - Denies nausea, vomiting, diarrhea, and constipation. Hematologic -Denies abnormal bruising and bleeding. Genitourinary - Denies hematuria and urinary frequency. PHYSICAL EXAMINATION General - Alert and oriented. Bra size was 36 B before the mastectomy. HEENT - PERRL. EOMI. Throat is clear. Neck - Supple and nontender. No cervical adenopathy. Lungs - Clear to auscultation. Breasts - Bilateral mastectomy incisions are well healed. No axillary adenopathy noted. Breast width is 14 cm bilaterally. Breast height is 13 cm. The mastectomy incision on the right breast is healed. There is mild adherence of the breast skin flaps to the chest wall. The breast skin flaps appear to be good quality but are a little thin. There is a well healed latissimus dorsi myocutaneous flap that is soft on the left. There is some firmness medially where some radiated tissue is present. No evidence of infection. Patient has burning in this area of the left breast. Also the skin envelope in this area feels a little thin. Heart - Regular rate and rhythm. Abdomen - There is a healing horizontal scar in the pubic area which was the result of the recent first stage TRAM flap delay procedure. Some skin and subcutaneous redundancy between the umbilicus and the pubic area. Good skin elasticity noted. Extremities - FROM. No axillary adenopathy. Neuro - CN II - XII grossly intact. ASSESSMENT 1. Left breast cancer. 2. 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 4. s/p removal right breast implant. 5. status breast reconstruction with implants. 6. Deformity reconstructed left breast. 7. Disproportion reconstructed breasts. 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 11. Smoker. 12. Family history of skin cancer. 13. Estrogen receptor positive status. PLAN Discussed various breast reconstruction options with her. There is an area of thin skin on the left breast medially in an area of radiation damage. Also there is some residual pincushioning at the edge of the latissimus dorsi flap. There may be issues with the quality of the skin envelope in the future on the left breast. She would benefit from improving the quality of the radiated skin medially with a TRAM flap. Since the quality of the skin on the right breast could use some improvement as well she would benefit from a TRAM flap. With her history of smoking and her history of radiation therapy, she needed a first stage bilateral TRAM flap delay which was done on November 19, 2019. . At the same time, I revised the reconstructed left breast with excision radiation scar contour deformity and improve the pincushioning defect with multiple W- plasty reconstruction. After the delay procedure, would wait at least 3 weeks before proceeding with the bilateral TRAM flap. Would re-enforce the abdominal wall closure with Strattice acellular dermal matrix graft. Will remove the cohesive gel implant on the left at the time of the TRAM flap along with a capsulectomy. There is some thin radiated skin medially that may need to be excised as well at the time of the TRAM flap. Discussed with the patient that there is a small risk of developing a hernia that would require additional surgery. She voices understanding. One way to minimize that risk is to use the microscope for the breast reconstruction which preserves more of the muscle and fascia. That would necessitate going to a tertiary center for the reconstruction. She would prefer to stay local and wants to proceed with the pedicled TRAM flap. She would wear an abdominal binder for 6 months and be on a lifting restriction of 10 lbs. She would have drains in for several days and be maintained on antibiotics until the drains are removed. Patient is interested in the bilateral TRAM flap for reconstruction. With better quality skin envelope, can always place a small cohesive gel implant underneath the TRAM flap to improve the volume for symmetry in the future after the TRAM flap has healed. Surgery will be dome under general anesthesia with an inpatient stay of approximately 5-7 days. Patient was informed of the risks and complications of the procedure including alternatives to surgery. These were discussed with the patient personally. Patient voices understanding and wishes to proceed. Some of the risks and complications were included in a form from the [employer]. Encouraged patient to stop smoking as it may have deleterious effects on wound healing. We discussed the current risks associated with COVID-19. While it is understood that there is a community spread of COVID-19, the risk of rob COVID-19 while at [facility] ([facility]) is very low; however, the risk cannot be completely mitigated because of the community spread of the disease. We discussed in detail the risk of exposure to and/or potential harm posed by the COVID-19 virus with having a surgery/procedure at this time versus the risk of delaying the surgery/procedure. It is not possible to know either the risk of delaying the surgery or procedure or chance of getting an infection with perfect accuracy, but a joint decision was made to proceed at this time with the scheduled surgery/procedure as indicated on the consent form. Patient was notified that we will need to comply with any screening or testing [facility] wishes to perform or that surgery may be delayed for any positive results. Discussed with the patient that I was tested for COVID-19 on 10/10/19 which was negative and on 10/24/19 which was negative and on 11/07/19 which was negative and on 11/21/19 which was negative and on 12/05/19 which was negative and on 12/26/19 which was negative. My testing regimen at this time is to be COVID-19 tested every 2 weeks or so. Procedure Criteria Procedure Type: Elective COVID Risk Discussion: The surgeon/proceduralist and patient have discussed in detail the risk of exposure to and/or potential harm posed by the COVID-19 virus with having a surgery/procedure at this time versus the risk of delaying the surgery/procedure. It is not possible to know either the risk of delaying the surgery or procedure or chance of getting an infection with perfect accuracy, but a joint decision was made between the patient and the surgeon/proceduralist to proceed at this time with the scheduled surgery/procedure as indicated on the consent form.
[2020-01-07] VITALS (9 sets, daily range): BP systolic 102–131; BP diastolic 61–78; PULSE 57–80; RESP 14–18; TEMP 36.3–37.1; O2SAT 95–100; BMI 26.1
--- NOTE | 2020-01-07 | BRBX_PTH ---
PATIENT: LETICIA HAQUE LOC: [id number] U#:[id number] AGE/SX: 39/F ROOM: [facility] [place] RE01/07/[address]: Dr. Sandro Martinez MD : 1980 BED: 1 DIS: 01/11/2020 SPEC #: [id number] RECD: 01/08/20 07:46 STATUS: TAMAR REQ #: [id number] JEANINE: 01/07/20 00:[address]: Sandro Martinez DEPT: SURGICAL PATHOLOGY RECD BY: Brandon Patton ENTERED: 01/08/20 08:51 SP TYPE: BREAST BX OTHR DR: Dr. Jack Mancuso DO Tissues: A - Left breast, NOS B - Left breast, NOS C - Right breast, NOS Procedures: Surgery Specimen Level IV HEADER OPERATION: Second stage bilateral breast reconstruction PRE-OP DIAGNOSIS: Left breast cancer; acquired absence bilateral breast; ER positive TISSUE SUBMITTED: A - Left breast capsule, B - Left breast tissue, C - Right breast tissue MICROSCOPIC DIAGNOSIS A. Left breast capsule: Pieces of fibroadipose tissue, fibroconnective tissue and skeletal muscle tissue with focal chronic inflammation, foreign body giant cell reaction and reactive changes. B. Left breast tissue: Pieces of skin with underlying tissue with focal chronic inflammation and reactive changes. C. Right breast tissue: Pieces of skin with underlying tissue with dense fibrosis consistent with scar, focal chronic inflammation and reactive changes. AVRIL:bella 01/09/20 MICROSCOPIC DESCRIPTION Slides are reviewed. GROSS DESCRIPTION A - Received in fixative is one container labeled with the patient's name and designated left breast capsule. The specimen consists of multiple irregular fragments of rubbery pink-white soft tissue that in aggregate measure 15 x 12 x 1.2 cm. Serial sections do not reveal mass lesions. Signal Technician sections are submitted in two cassettes. B - Received in fixative is one container labeled with the patient's name and designated left breast tissue. The specimen consists of three irregular fragments of skin with attached yellow fatty tissue that in aggregate measure 6 x 3 x 1 cm. Serial sections do not reveal mass lesions. Signal Technician sections are submitted in two cassettes. C - Received in fixative is one container labeled with the patient's name and designated right breast tissue. The specimen consists of two irregular fragments of skin with attached yellow fatty tissue that in aggregate measure 5.5 x 4.5 x 1 cm. Serial sections do not reveal mass lesions. Signal Technician sections are submitted in two cassettes. / AM:bella 01/08/20 TC:3 CPT: 99507 x3
[2020-01-07] MEDS: Gabapentin 600 MG Tablet PO (06:41)
[2020-01-07] MEDS: Acetaminophen 500 MG Tablet 1000 MG PO ×3 (06:41→23:12)
[2020-01-07] MEDS: Lactated Ringers 1,000 ML 40 ML IV ×2 (06:42→18:58)
[2020-01-07] MEDS: Scopolamine 1mg/72hr Patch 1 PATCH TRANSDERM. (06:43)
[2020-01-07 07:16] LABS: Bedside Glucose 90 mg/dL (70-110)
[2020-01-07] MEDS: Cefazolin 2 GM in 0.9% Normal Saline 100 ML IV (07:44)
--- NOTE | 2020-01-07 16:50 | PCM.OPRPT ---
Report of Operation Date of Procedure: 01/07/20 Pre-Operative Diagnosis: 1. Left breast cancer. 2. 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 4. s/p removal right breast implant. 5. status breast reconstruction with implants. 6. Deformity reconstructed left breast. 7. Disproportion reconstructed breasts. 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 11. Smoker. 12. Family history of skin cancer. 13. Estrogen receptor positive status. Post-Operative Diagnosis: Same. Surgery/Procedure Performed:: 1. Revision reconstructed left breast with removal of cohesive gel implant and capsulectomy and excision radiation fibrosis with multiple W-plasty reconstruction (18 cm2). 2. Second stage bilateral breast reconstruction with bilateral TRAM flaps. 3. Abdominal wall reconstruction with placement of Strattice acellular dermal matrix graft (160 cm2). Description of Surgical Findings:: 39 year old woman presents for further discussion of her breast reconstruction. Her left breast cancer was biopsied on 05/23/17. On 06/16/17 where she underwent injection of 5 cc of Lymphazurin blue and left modified radical mastectomy and sentinel lymph node biopsy by Dr. Samayoa and prophylactic mastectomy right breast and immediate bilateral breast reconstruction with placement of submuscular saline tissue expanders (350 ml each) and placement of DermACELL decellularized dermis graft (128 cm2, each side) by Dr. Martinez. 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 One node showed macrometastasis. Estrogen receptors were positive. Progesterone receptors were positive. Her-2Neu was negative. She underwent chemotherapy and radiation therapy. She finished her radiation therapy on 03/06/18. She then underwent further surgery in 09/07/18 with revision reconstructed left breast with excision painful radiation scar contour deformity and 2nd stage delayed left breast reconstruction with removal of tissue data integrity analyst and capsulectomy and 2nd stage delayed left breast reconstruction with placement of left latissimus dorsi myocutaneous flap. She healed uneventfully. She continued her breast reconstruction process with revision left breast reconstruction with excision radiation scar contour deformity and delayed left breast reconstruction with placement of submuscular saline tissue data integrity analyst (350 ml) on 01/15/19. She finished the saline tissue expansion and proceeded with further surgery on 03/26/19 where she underwent revision right breast reconstruction with removal of saline tissue data integrity analyst and capsulectomy and delayed right breast reconstruction with placement of cohesive gel implant (430 ml) and placement Alloderm Select acellular dermal matrix graft (132 cm2) and revision left breast reconstruction with removal of saline tissue data integrity analyst and capsulectomy and revision left breast reconstruction radiation scar contour deformity with multiple W-plasty reconstruction (12 cm2) and delayed left breast reconstruction with placement cohesive gel implant (350 ml). She developed a Pseudomonas infection in the right breast that necessitated further surgery on 04/23/19 where she underwent revision right breast reconstruction with excisional debridement nonhealing infected wound with removal of Alloderm acellular dermal matrix graft and removal exposed infected cohesive gel implant and complex secondary wound closure. At that time, I told her that further breast reconstruction would have to wait at least 6 months. In the meantime, the incision healed satisfactory. She continued the breast reconstruction process on 11/19/19 where she underwent first stage delayed bilateral breast reconstruction with bilateral TRAM flap delay and revision left breast reconstruction with excision radiation scar contour deformity with multiple W-plasty reconstruction (18 cm2). Healing has been uneventful. She presents today for the second stage bilateral TRAM flap reconstruction. Patient was informed of the risks and complications of the procedure including alternatives to surgery. These were discussed with the patient personally. Patient voices understanding and wishes to proceed. Some of the risks and complications were included in a form from the [employer]. Encouraged patient to stop smoking as it may have deleterious effects on wound healing. To maximize healing of the TRAM flaps, it was discussed with the patient to not smoke for 6 weeks postoperatively. IV Fluids - 2500 ml. Urine Output - 450 ml. I used Strattice Regenerative Tissue Matrix, (10 x 16 cm, firm, 160 cm2). Reference Number - [id number]. Lot Number - [id number]. Expiration - July 08, 2021. I used Pao absorbable hemostat, (I used 4 vials, 2 in the abdomen and one in each breast). Reference Number - [id number]. Lot Number - [id number]. Expiration - September 04, 2024, (2 vials in the abdomen). Reference Number - [id number]. Lot Number - [id number]. Expiration - August 05, 2024, (right breast). Reference Number - [id number]. Lot Number - [id number]. Expiration - May 07, 2024, (left breast). player development manager: Codey Jaffe. Type of Anesthesia:: General Specimen's removed: 1. Left breast tissue and capsule to Pathology. 2. Right breast tissue to Pathology. Drains: Otoniel x4 (2 in abdomen and one in each breast). Estimated Blood Loss (mL): 150 ml. Fluids Replaced: 2950 ml (IV Fluids 2500 ml, Urine Output 450 ml). Description of Procedure: In the preop area, the patient stood up and in the standing position, preoperative markings were made. The sternum midline was marked down to the umbilicus. The inframammary folds were marked bilaterally. I then sabi a horizontal ellipse on the abdominal wall for the TRAM flap. I sabi a superior line in the supraumbilical area and the inferior line in the pubic area over the previous incision. Lower line will be determined by the ability to close the superior line down with the patient in the sitting position during the procedure. The patient was then taken to the OR in the supine position and placed under general anesthesia and her breasts and abdomen were prepped and draped in usual fashion. SCDs were placed for DVT prophylaxis. Perioperative antibiotics were given intravenously. The antibiotics were repeated later in the case. For the procedure, I wore an N95 maske and wore proper eyewear protection. A Chin catheter was then placed. Initially, I infiltrated the previous scar on the bilateral breasts. I also infiltrated the markings on the abdominal wall with 1% Xylocaine and epinephrine. I initially made an incision through the vertial scar on the radiated left breast. In order to have a better contour between the radiated skin and the TRAM flap, I went ahead and marked in a zigzag fashion the skin edges on the left breast reconstruction, which will soften up the skin edges from the radiation fibrosis and allow better contour. I dissected down to the capsule. A capsulotomy was performed. The cohesive gel implant was removed. The capsule was dense and thickened. A capsulectomy was then performed. There was a lot of dense fibrosis from radiation damage in the subcutaneous tissue and on the muscle that was adherent to the dense capsule as well. The tissue was sent to Pathology for analysis to rule out carcinoma. The breast pocket was a lot softer after the excision of the dense fibrotic radiation tissue and the capsulectomy. Hemostasis was obtained with electrocautery. Dry gauze was placed in the left breast pocket. I then made incisions through the previous Tzone scar on the right breast through the subcutaneous tissue down to the chest wall. There was no fluid present and no evidence of infection. I created a breast pocket superiorly to the clavicle and medially to the sternum and inferiorly to the inframammary fold and laterally to the anterior axillary line. Hemostasis was obtained with electrocautery. Dry gauze was placed in the left breast pocket. I then made a horizontal incision in the supraumbilical area down through Yadira's fascia down to the abdominal wall fascia. I then elevated the abdominal wall skin flap up toward the inframammary folds. I made a subcutaneous pocket extending up to the inframammary fold bilaterally in the medial aspect. When I connected the abdominal wall area with the breast pockets, the subcutaneous tunnel was able to fit four fingers into the breast pockets, and I felt that it was a large enough tunnel for the placement of the TRAM flaps. I then sat the patient up and I was able to bring the leading edge of the abdominal wall flap down to the previous incision from the initial delay procedure. I was able to suture it together temporarily without too much tension. I removed the sutures and placed the patient back in the supine position. I went ahead and made the inferior incision. I then made a stormy-shaped incision in the umbilical area. Next, I made vertical incisions in both rectus sheaths and dissected off the rectus muscle down to the TRAM flap, first on the right side and then on the left side. I made a vertical incision through the TRAM flap in the midline as each half of the TRAM flap will be used for the bilateral breast reconstruction. I then elevated the TRAM flaps from the lateral side in toward the lateral rectus sheath. Vascular perforators were ligated using surgical clips. After elevating the portion of the TRAM flap to the lateral side of the muscle, I then carefully went a little bit more medially and dissected out the perforators and ligated them with surgical clips. I also went a little bit laterally from the midline and ligated any vascular perforators with surgical clips. I then dissected around the umbilicus to free up the TRAM flaps. Care was taken to leave some tissue to keep the umbilicus from necrosing, but I did not want to leave too much tissue because I wanted to take some of the umbilical perforators with the TRAM flaps. I then sabi a vertical ellipse from my initial vertical incision on the rectus sheath to encompass the TRAM flaps to the lower portion of the incision. Incisions were made and I then continued to dissect out the rectus muscle from the rectus sheath, with a portion of the rectus muscle still attached to the TRAM flap skin and subcutaneous tissue. I then incised the rectus muscles in the pubic area. I dissected out the deep inferior epigastric artery and accompanying veins and ligated using surgical clips. There were 2 veins accompanying the artery. Once the muscles were incised distally, I then elevated it off of the posterior rectus sheath to the subcostal margin. I placed some 3-0 Vicryl sutures from the TRAM flap through the fascia into the muscle to give extra security to this flap to minimize shearing when I transfer the flaps through the subcutaneous tunnel into the bilateral breast pockets. Once this was completed, the patient was given 250 mg of Solu-Medrol IV to minimize swelling in the vascular pedicles. I then rotated the TRAM flap through the subcutaneous tissue into the left breast wound in a counterclockwise direction and the TRAM flap through the subcutaneous tissue into the right breast wound in a clockwise position. I looked to see that there was no kinking on the muscles and the vascular pedicles. Once, I rotated it into the breast pockets, I secured the skin edges to the TRAM flaps temporally using 3-0 Monocryl suture. I then closed the fascial defect using 0 Surgipro [id number] interrupted sutures. Prior to closing the rectus fascial defects, I made sure that the inferior rectus muscle stump was dry with no evidence of bleeding problems. Any bleeding seen was cauterized. Her fascia did not show any weaknesses during the fascial closure. On the right side toward the subcostal margin, there was a small rent in the posterior rectus sheath. The liver was visible with no evidence of injury. The small defect was approximated with 2-0 Novafil simple running suture. The pickups were placed underneath the small defect to act as a protector against injury with the placement of the sutures. I then excised the sub-Yadira's fat inferiorly where the delay procedure was done. There was some fat necrosis present which was excised as well as the previous operative cavity which had started to form serous tissue which was excised as well. This lower abdominal area was irrigated with saline and hemostasis was obtained with electrocautery. I then re-enforced the fascial closure with Strattice acellular dermal matrix graft. I used a 10 x 16 cm piece of Strattice. It was secured to the abdominal wall fascia with 2-0 Novafill interrupted sutures. I made a juan cross incision in the umbilical area to bring forward the umbilicus. I then placed two size 15 Otoniel drains through separate stab incisions inferiorly to the abdominal incision and secured to the skin with 3-0 Nylon sutures. I elevated the abdominal wall skin flap and removed some of the excess sub Yadira's fat to aid in the contouring of the abdominal wall at wound closure. I then irrigated the abdominal wall with Irrisept which is 0.05% Chlorhexidine and let it sit for 60 seconds before irrigating with saline. Hemostasis was obtained using electrocautery. I then placed the patient in the sitting position about 40-50 degrees and I temporarily closed the abdominal wall incision centrally using 2-0 Vicryl suture. I then made an upside down cruciate incision where the umbilicus is to be brought through. An incision was made and some of the excess subcutaneous tissue was also removed to help with the inward appearance of the umbilicus. I then placed 4 stay sutures from the dermis of the abdominal wall flap to the edge of the Strattice and then to the dermis of the umbilicus. These sutures will be sutured later. I then removed the sutures in the abdominal wall closure to free up the abdominal wall flap at this time and then I sprayed the abdominal wall with Pao absorbable hemostat. I used 2 vials for the abdomen. Once again, I looked up where the muscle went through the subcutaneous tunnel, and there was no evidence of kinking of the muscle and no evidence of bleeding. I then closed the abdominal wall in multiple layers using 2-0 Vicryl [id number] interrupted sutures for Yadira's fascia layer. The deep dermis and subcutaneous tissue was approximated using 3-0 Monocryl interrupted sutures. Skin was approximated using 3-0 V-Loc unidirectional barbed running subcuticular suture. The 3-0 Vicryl sutures were used to cinch down the umbilicus. Between these 4 stay sutures, I used a 3-0 Monocryl interrupted sutures. Good inward appearance was noted on the umbilicus. I then reshaped the TRAM flap in both breast pockets. The radiated skin edges on the left breast medially were excised in a zigzag fashion in preparation for a W-plasties reconstruction. The size of the W-plasties reconstruction is 12 x 1.5 cm or 18 cm2. The W-plasties are being done to minimize the radiation scar contour deformity that develops between radiated skin and non-radiated skin. I went ahead and made markings on the TRAM flap after it was reshaped in the breast pocket. Good shape and contour were noted. No evidence of vascular compromise was seen on the flap. I then cut out my sutures and made incisions where there was excess skin that was covered up by the breast skin. This excess skin was deepithelialized. Once the TRAM flap was out of the breast wall pocket, I then irrigated out the breast pocket with Irrisept 0.05% Chlorhexidine for 60 seconds and then irrigated with saline. Any bleeding was controlled with hemostasis with electrocautery. I placed a size 15 Otoniel drain through separate stab incision laterally and secured to the skin using 3-0 nylon suture. Good hemostasis was noted. No bleeding was noted in the subcutaneous tunnel. Good bleeding was noted in the epithelized areas. No vascular compromise was noted on the TRAM flap. I then sprayed Pao absorbable hemostat into the breast wound. I used one vial. I then placed the TRAM flap back into the wound and closed the breast incisions with 3-0 Monocryl interrupted sutures for deep dermis and subcutaneous tissue. I then placed 4-0 Prolene simple interrupted sutures for the skin. For the right breast, I excised the superior portion of the Tzone to make it a horizontal elliptical wound for the TRAM flap. I went ahead and made markings on the TRAM flap after it was reshaped in the right breast pocket. Good shape and contour were noted. No evidence of vascular compromise was seen on the flap. I then cut out my sutures and made incisions where there was excess skin that was covered up by the breast skin. This excess skin was deepithelialized. Once the TRAM flap was out of the breast wall pocket, I then irrigated out the breast pocket with Irrisept 0.05% Chlorhexidine for 60 seconds and then irrigated with saline. Any bleeding was controlled with hemostasis with electrocautery. I placed a size 15 Otoniel drain through separate stab incision laterally and secured to the skin using 3-0 nylon suture. Good hemostasis was noted. No bleeding was noted in the subcutaneous tunnel. Good bleeding was noted in the epithelized areas. No vascular compromise was noted on the TRAM flap. I then sprayed Pao absorbable hemostat into the breast wound. I used one vial. I then placed the TRAM flap back into the wound and closed the breast incisions with 3-0 Monocryl interrupted sutures for deep dermis and subcutaneous tissue. I then placed 4-0 Prolene simple interrupted sutures for the skin. The skin incisions both in the abdomen and the breasts were then reinforced with Histoacryl skin tissue adhesive. Dry gauze dressings were applied both to the abdomen and the bilateral TRAM flaps. At the end of the procedure, the bilateral TRAM flaps were pink and soft with no evidence of vascular compromise. I then placed an USHA wrap for compression on the breasts and a double USHA wrap for abdominal wall compression. The patient tolerated the procedure well and will be sent to the recovery room in satisfactory condition. She will be admitted for several days. Initially, she will stay in bed tonight and she will then dangle at the bedside in the morning. The next step will be ambulating within the room and then after that will be ambulating in the hallway with assistance. She will have the drains in for several days and be maintained on antibiotics until the drains are removed. She will be on a lifting restriction as well and wearing her USHA wraps for breast and abdominal wall compression. She will keep her head elevated during the initial postoperative care. It is important that she is on no caffeine, no decaf, no tea, no chocolate diet for 6 weeks. Also she will refrain from smoking for 6 weeks as well. I will continue the Solumedrol for 24 hours to minimize swelling on the vascular pedicle. Also postoperatively as long as the BP > 110, I will give daily Procardia XL to minimize spasm in the vascular pedicle. Grafts/Implants Used: Strattice acellular dermal matrix graft. - Complications None. - Admit VTE Documentation VTE Present on Admission: No VTE Mechan Device Prophylaxis: SCD's VTE Pharm Prophylaxis ordered?: Yes Surgery Charges CPT - 07660-68 ICD-10 - C50.412, F40.298, Z90.13, N65.1, N65.0, T66.xxxS, L59.8, Z98.82, Z98.86, F17.200 [id number] C50.412, F40.298, Z90.13, N65.1, N65.0, T66.xxxS, L59.8, Z98.82, Z98.86, F17.200 [id number] C50.412, Z90.13, N65.0, N65.1, T66.xxxS, L59.8, Z98.82, T85.44xA, F17.200 [id number] C50.412, Z90.13, N65.0, N65.1, T85.44xA, T66.xxxS, L59.8, Z98.82, F17.200 [id number] C50.412, Z90.13, N65.0, N65.1, T66.xxxS, L59.8, Z98.82, T85.44xA, F17.200 60392 C50.412, F40.298, Z90.13, N65.1, N65.0, T66.xxxS, L59.8, Z98.82, Z98.86, F17.200
[2020-01-07] MEDS: Lactated Ringers 1,000 ML 60 ML IV (19:42)
[2020-01-07] MEDS: oxyCODONE 5 MG Tablet PO (19:42)
[2020-01-07] MEDS: Cefazolin 1 GM/50 ML BAG IV (21:24)
[2020-01-07] MEDS: Anastrozole 1 MG Tablet PO (21:26)
[2020-01-07] MEDS: Docusate Sodium 100 MG Capsule PO (21:27)
[2020-01-07] MEDS: Pantoprazole Sodium 40 MG Tablet PO (21:27)
[2020-01-07] MEDS: Pyridoxine HCl 100 MG Tablet PO (21:27)
[2020-01-07] MEDS: HYDROmorphone 1 MG/ML Syringe IV (21:27)
[2020-01-08] MEDS: oxyCODONE 5 MG Tablet PO ×4 (00:44→22:46)
[2020-01-08 03:02] VITALS: BP 104/57; PULSE 75; RESP 14; TEMP 37; O2SAT 96
[2020-01-08] MEDS: HYDROmorphone 1 MG/ML Syringe IV ×5 (03:15→20:47)
[2020-01-08 05:36] LABS: Hematocrit 31.6 % (37-47); Hemoglobin 10.4 g/dL (12.0-15.0); Mean Corp Hgb Conc 32.9 g/dL (32-36); Mean Corpuscular Hgb 30.1 pg (27.0-32.0); Mean Corpuscular Volume 91.6 fL (81-99); Mean Platelet Vol. 10.1 fl (6.2-12.0); Platelet Count 161 K/mm3 (150-450); RBC Distribution Width CV 13.9 % (11.6-14.6); RBC Distribution Width SD 47.3 fl (35.1-43.9); Red Blood Count 3.45 M/mm3 (4.2-5.4); White Blood Count 9.9 K/mm3 (4.4-11.0)
[2020-01-08 05:56] LABS: Anion Gap 4 (5-15); BUN 15 mg/dL (7-18); BUN/Creat Ratio 20.9 RATIO (10-20); Calcium,Total 8.6 mg/dL (8.5-10.1); Chloride 106 mmol/L (98-107); Creatinine, Serum 0.72 mg/dL (0.55-1.02); EST Glomerular Filtration Rate 96 mL/min (>60); Est Glom Filt Rate - Afr Amer 116 mL/min (>60); Glucose 152 mg/dL (74-106); Potassium 3.9 mmol/L (3.5-5.1); Prealbumin 22.5 mg/dL (20.0-40.0); Sodium Level 138 mmol/L (136-145)
[2020-01-08] MEDS: Acetaminophen 500 MG Tablet 1000 MG PO ×3 (06:00→22:46)
[2020-01-08] MEDS: Cefazolin 1 GM/50 ML BAG IV ×3 (06:00→22:46)
[2020-01-08 07:10] VITALS: O2SAT 96
[2020-01-08] MEDS: Sertraline 100 MG Tablet PO (08:53)
[2020-01-08] MEDS: Enoxaparin 40 MG/0.4 ML Syringe SC (08:53)
[2020-01-08] MEDS: Cyanocobalamin 500 MCG Tablet 1000 MCG PO (08:53)
[2020-01-08] MEDS: NIFEdipine 30 MG Tablet PO (08:53)
[2020-01-08] MEDS: Docusate Sodium 100 MG Capsule PO ×2 (08:54→20:56)
[2020-01-08] MEDS: Gabapentin 100 MG Capsule 200 MG PO ×3 (08:54→17:19)
[2020-01-08 08:55] VITALS: BP 118/64; PULSE 86; RESP 16; TEMP 37.3; O2SAT 98
--- NOTE | 2020-01-08 10:20 | CASEMGMT ---
RN CHRISTIE Face to Face with patient for initial transition planning/care coordination assessment. RN CM introduced self and role at [facility]. Patient lying in bed, alert and oriented. Patient willing to participate in assessment and is able to answer all questions appropriately. Care providers, pharmacy, and demographics verified. Patient wishes to discharge home, denies need for home health at this time. Patient states she has no further needs or concerns at this time. CM to follow for discharge planning needs that may arise. PCP: Bartolome Specialists: Michelle plastics; Ron, oncologist Preferred Pharmacy: [facility] Insurance: [place] Prescription Benefit: yes Living Will/HPOA: none LNOK: Living Arrangements: Patient lives with in a single story duplex with 1 step to enter the home. Patient states she is independent at home. Transportation: self/ DME/HHC: Patient denies any DME or previous HHC Disposition Plan: Patient to discharge home with family support and follow-up plans in place. Lilia LEE, RN, CM
--- NOTE | 2020-01-08 14:14 | PN.SURG_ITS ---
Subjective: Postop #1 Patient has some incisional pain. She has been up in the room. - Physical Exam Vitals/I&O's: Vital Signs Temp Pulse Resp BP Pulse Ox 99.2 F H 86 16 118/64 98 01/08/20 08:55 01/08/20 08:55 01/08/20 08:55 01/08/20 08:55 01/08/20 08:55 Oxygen Flow Rate (L/min) 6 Oxygen Delivery Method Room Air Weight: 166 lb 10.711 oz Body Mass Index (BMI) 26.1 Intake and Output for Last 24 Hours 01/06/20 01/07/20 01/08/20 23:59 23:59 23:59 Intake Total 3324.67 / 3324.67 2011 Output Total 1242 / 1242 1305 / 1305 Balance 2081. / 2081. 707 / 707 Drainage 242 ml yesterday. General: Alert, Oriented x3 HEENT: PERRLA, EOMI Oral: Moist Mucosa Neck: Supple Abdomen: Soft, Non-Distended Skin: Incision - Bilateral breast incisions are dry and intact. TRAM flaps are pink and soft and healing satisfactory. No clinical evidence of hematoma. Abdominal incision is dry and intact. Neurological: Cranial nerves II-XII grossly intact Psych/Mental Status: Normal Affect, Appropriate Laboratory Results 01/08/20 05:15: Sodium 138, Potassium 3.9, Chloride 106, Carbon Dioxide 28.0, Anion Gap 4 L, BUN 15, Creatinine 0.72, Estim Creat Clear Calc 101.00, Est GFR (MDRD) Af Amer 116, Est GFR (MDRD) Non-Af 96, BUN/Creatinine Ratio 20.9 H, Glucose 152 H, Calcium 8.6, Prealbumin 22.5 01/08/20 05:15: WBC 9.9, RBC 3.45 L, Hgb 10.4 L, Hct 31.6 L, MCV 91.6, MCH 30.1, MCHC 32.9, RDW Std Deviation 47.3 H, RDW Coeff of Silvana 13.9, Plt Count 161, MPV 10.1 Current Medications Acetaminophen (Tylenol) 1,000 mg PO Q6 [facility] Last Admin: 01/08/20 11:36 Dose: 1,000 mg Documented by: Anastrozole (Arimidex) 1 mg PO QHS [facility] Last Admin: 01/07/20 21:26 Dose: 1 mg Documented by: Cyanocobalamin ([facility]itamin B[facility]) [facility] Last Admin: 01/08/20 08:53 Dose: 1,000 mcg Documented by: Diazepam (Valium) 5 mg PO 4X/DAY PRN PRN PRN Reason: SPASMS Docusate Sodium (Colace) 100 mg PO BID [facility] Last Admin: 01/08/20 08:54 Dose: 100 mg Documented by: Enoxaparin Sodium (Lovenox) 40 mg SC DAILY [facility] Last Admin: 01/08/20 08:53 Dose: 40 mg Documented by: Enteral Nutritional Formula (Ensure Surgery) 237 ml PO TIDCM [facility] Last Admin: 01/08/20 11:36 Dose: Not Given Documented by: Gabapentin (Neurontin) 200 mg PO TIDCM [facility] Last Admin: 01/08/20 11:36 Dose: 200 mg Documented by: Hydromorphone HCl (Dilaudid Inj) 0.5 - 1 mg IV Q3H PRN PRN PRN Reason: Pain Score 6-10/10 Last Admin: 01/08/20 13:13 Dose: 1 mg Documented by: Cefazolin Sodium () 1 gm in 50 mls @ 100 mls/hr IV Q8 [facility] Last Infusion: 01/08/20 06:50 Dose: Infused Documented by: Insulin Human Lispro (Humalog Kwikpen (Bkc)) 1 - 6 unit SC Q4H PRN PRN; Protocol PRN Reason: BG>/= 180, SEE PROTOCOL Magnesium Chloride (Mag64) 128 mg PO DAILY PRN PRN PRN Reason: Constipation Nifedipine (Procardia Xl) 30 mg PO DAILY [facility] Last Admin: 01/08/20 08:53 Dose: 30 mg Documented by: Nutritional Formula (Jem - [place] Flavor) [facility] Ondansetron HCl (Zofran Odt) 4 mg PO Q6H PRN PRN PRN Reason: NAUSEA Oxycodone HCl (Oxyir) 5 - 10 mg PO Q3H PRN PRN PRN Reason: Pain Score 4-5/10 Last Admin: 01/08/20 11:38 Dose: 10 mg Documented by: Pantoprazole Sodium (Protonix) 40 mg PO QHS [facility] Last Admin: 01/07/20 21:27 Dose: 40 mg Documented by: Pyridoxine HCl (Vitamin B-6) 100 mg PO QHS [facility] Last Admin: 01/07/20 21:27 Dose: 100 mg Documented by: Scopolamine HBr (Transderm-Scop) 1 patch TD Q3D [facility] Stop: 01/08/20 19:23 Last Admin: 01/07/20 21:23 Dose: Not Given Documented by: Sertraline HCl (Zoloft) 100 mg PO DAILY [facility] Last Admin: 01/08/20 08:53 Dose: 100 mg Documented by: Sodium Chloride () 10 - 40 ml IV UD PRN PRN Reason: SALINE FLUSH Medical Necessity - Tobacco Use Smoking Status: Current some day smoker Tobacco Use: Cigarettes Assessment/Plan All Active Problems (Last Reviewed 12/05/19 @ 13:[address] Sandro Martinez MD) Infection of breast implant (Resolved) Exposed breast implant (Resolved) Pseudomonas aeruginosa infection (Resolved) Muscle spasm of left shoulder (Resolved) Muscle spasm of back (Resolved) Capsular contracture of breast implant, initial encounter (Resolved) Nonhealing surgical wound (Resolved) 1. Left breast cancer. 2. 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 4. s/p removal right breast implant. 5. status breast reconstruction with implants. 6. Deformity reconstructed left breast. 7. Disproportion reconstructed breasts. 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 11. Smoker. 12. Family history of skin cancer. 13. Estrogen receptor positive status. 14. s/p revision reconstructed left breast with removal of cohesive gel implant and capsulectomy and excision radiation fibrosis with multiple W-plasty reconstruction (18 cm2). 2. Second stage bilateral breast reconstruction with bilateral TRAM flap. 3. Abdominal wall reconstruction with placement of Strattice acellular dermal matrix graft (160 cm2). Bilateral breast incisions and abdominal incision are dry and intact. TRAM f laps are pink and soft and healing satisfactory. Has been up in the room with assist. Chin catheter was removed and she is voiding without difficulty. She is having trouble sleeping and will order Melatonin. She has incisional pain and needs occasional IV analgesia along with Valium for spasm. Keep head elevated. Encouraged patient to stop smoking as it may have deleterious effects on wound healing. With the TRAM flap I discussed with the patient that maximal healing of the TRAM flap necessitates no smoking, as well as no chocolate, and no caffeine, and no decaf, and no tea for 6 weeks.
[2020-01-08 14:25] VITALS: BP 115/70; PULSE 80; RESP 16; TEMP 37.2; O2SAT 97
[2020-01-08 20:43] VITALS: BP 119/68; PULSE 89; RESP 16; TEMP 36.6; O2SAT 98
[2020-01-08] MEDS: 0.9% Saline Lock 10 ML Syringe IV (20:47)
[2020-01-08] MEDS: Pantoprazole Sodium 40 MG Tablet PO (20:55)
[2020-01-08] MEDS: MELATONIN 10 MG TABLET 20 MG PO (20:55)
[2020-01-08] MEDS: Pyridoxine HCl 100 MG Tablet PO (20:56)
[2020-01-08] MEDS: Anastrozole 1 MG Tablet PO (20:58)
[2020-01-09] VITALS (7 sets, daily range): BP systolic 90–113; BP diastolic 54–75; PULSE 72–78; RESP 14–18; TEMP 36.4–37.1; O2SAT 93–98
[2020-01-09] MEDS: oxyCODONE 5 MG Tablet PO ×4 (03:06→18:38)
[2020-01-09] MEDS: Acetaminophen 500 MG Tablet 1000 MG PO ×3 (05:39→18:38)
[2020-01-09] MEDS: Cefazolin 1 GM/50 ML BAG IV ×3 (05:39→21:03)
[2020-01-09] MEDS: HYDROmorphone 1 MG/ML Syringe IV ×3 (05:43→21:09)
[2020-01-09] MEDS: 0.9% Saline Lock 10 ML Syringe IV (05:44)
[2020-01-09] MEDS: Gabapentin 100 MG Capsule 200 MG PO ×3 (07:58→16:06)
[2020-01-09] MEDS: Cyanocobalamin 500 MCG Tablet 1000 MCG PO (07:59)
[2020-01-09] MEDS: Enoxaparin 40 MG/0.4 ML Syringe SC (09:47)
[2020-01-09] MEDS: Docusate Sodium 100 MG Capsule PO ×2 (09:47→21:04)
[2020-01-09] MEDS: Sertraline 100 MG Tablet PO (09:47)
--- NOTE | 2020-01-09 13:05 | PN.SURG_ITS ---
Subjective: Postop #2 Patient has incisional pain. - Physical Exam Vitals/I&O's: Vital Signs Temp Pulse Resp BP Pulse Ox 98.4 F 78 16 105/58 L 93 01/09/20 07:42 01/09/20 09:46 01/09/20 07:42 01/09/20 09:46 01/09/20 07:42 Oxygen Flow Rate (L/min) 6 Oxygen Delivery Method Room Air Weight: 166 lb 10.711 oz Body Mass Index (BMI) 26.1 Intake and Output for Last 24 Hours 01/07/20 01/08/20 01/09/20 23:59 23:59 23:59 Intake Total 3324.67 / 3324.67 2787.75 / 3387.75 1095.75 / 1095.75 Output Total 1242 / 1242 1485 / 1685 760 / 760 Balance 2082.67 / 2082.67 1302.75 / 1702.75 335.75 / 335.75 Drainage 385 ml yesterday. General: Alert, Oriented x3 HEENT: PERRLA, EOMI Oral: Moist Mucosa Neck: Supple Abdomen: Soft, Non-Distended Skin: Incision - Bilateral breast incisions are dry and intact. TRAM flaps are pink and soft and healing satisfactory. No clinical evidence of hematoma. Abdominal incision is dry and intact. No clinical evidence of hematoma. Neurological: Cranial nerves II-XII grossly intact Psych/Mental Status: Normal Affect, Appropriate Current Medications Acetaminophen (Tylenol) 1,000 mg PO Q6 [facility] Last Admin: 01/09/20 11:18 Dose: 1,000 mg Documented by: Anastrozole (Arimidex) 1 mg PO QHS [facility] Last Admin: 01/08/20 20:58 Dose: 1 mg Documented by: Cyanocobalamin (Vitamin B12) 1,000 mcg PO DAILYCM [facility] Last Admin: 01/09/20 07:59 Dose: 1,000 mcg Documented by: Diazepam (Valium) 5 mg PO 4X/DAY PRN PRN PRN Reason: SPASMS Docusate Sodium (Colace) 100 mg PO BID [facility] Last Admin: 01/09/20 09:47 Dose: 100 mg Documented by: Enoxaparin Sodium (Lovenox) 40 mg SC DAILY [facility] Last Admin: 01/09/20 09:47 Dose: 40 mg Documented by: Enteral Nutritional Formula (Ensure Surgery) 237 ml PO TIDCM [facility] Last Admin: 01/09/20 11:13 Dose: Not Given Documented by: Gabapentin (Neurontin) 200 mg PO TIDCM [facility] Last Admin: 01/09/20 11:18 Dose: 200 mg Documented by: Hydromorphone HCl (Dilaudid Inj) 0.5 - 1 mg IV Q3H PRN PRN PRN Reason: Pain Score 6-10/10 Last Admin: 01/09/20 05:43 Dose: 1 mg Documented by: Cefazolin Sodium () 1 gm in 50 mls @ 100 mls/hr IV Q8 [facility] Last Infusion: 01/09/20 06:09 Dose: Infused Documented by: Sodium Chloride () 250 mls @ 15 mls/hr IV .[id number] PRN PRN Reason: Saline Flush Last Infusion: 01/09/20 06:09 Dose: 15 mls/hr Documented by: Sodium Chloride () 250 mls @ 15 mls/hr IV .[id number] PRN PRN Reason: Additional IVPB Infusion Insulin Human Lispro (Humalog Kwikpen (Bkc)) 1 - 6 unit SC Q4H PRN PRN; Protocol PRN Reason: BG>/= 180, SEE PROTOCOL Magnesium Chloride (Mag64) 128 mg PO DAILY PRN PRN PRN Reason: Constipation Melatonin (Melatonin) 20 mg PO QHS [facility] Last Admin: 01/08/20 20:55 Dose: 20 mg Documented by: Nifedipine (Procardia Xl) 30 mg PO DAILY [facility] Last Admin: 01/09/20 09:48 Dose: Not Given Documented by: Nutritional Formula (Jem - [place] Flavor) 1 packet PO BIDCM [facility] Last Admin: 01/09/20 07:58 Dose: 1 packet Documented by: Ondansetron HCl (Zofran Odt) 4 mg PO Q6H PRN PRN PRN Reason: NAUSEA Oxycodone HCl (Oxyir) 5 - 10 mg PO Q3H PRN PRN PRN Reason: Pain Score 4-5/10 Last Admin: 01/09/20 11:16 Dose: 10 mg Documented by: Pantoprazole Sodium (Protonix) 40 mg PO QHS [facility] Last Admin: 01/08/20 20:55 Dose: 40 mg Documented by: Pyridoxine HCl (Vitamin B-6) 100 mg PO QHS [facility] Last Admin: 01/08/20 20:56 Dose: 100 mg Documented by: Sertraline HCl (Zoloft) 100 mg PO DAILY [facility] Last Admin: 01/09/20 09:47 Dose: 100 mg Documented by: Sodium Chloride () 10 - 40 ml IV UD PRN PRN Reason: SALINE FLUSH Last Admin: 01/09/20 05:44 Dose: 10 ml Documented by: Medical Necessity - Tobacco Use Smoking Status: Current some day smoker Tobacco Use: Cigarettes Assessment/Plan All Active Problems (Last Reviewed 12/05/19 @ 13:[address] Sandro Martinez MD) Infection of breast implant (Resolved) Exposed breast implant (Resolved) Pseudomonas aeruginosa infection (Resolved) Muscle spasm of left shoulder (Resolved) Muscle spasm of back (Resolved) Capsular contracture of breast implant, initial encounter (Resolved) Nonhealing surgical wound (Resolved) 1. Left breast cancer. 2. 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 4. s/p removal right breast implant. 5. status breast reconstruction with implants. 6. Deformity reconstructed left breast. 7. Disproportion reconstructed breasts. 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 11. Smoker. 12. Family history of skin cancer. 13. Estrogen receptor positive status. 14. s/p revision reconstructed left breast with removal of cohesive gel implant and capsulectomy and excision radiation fibrosis with multiple W-plasty reconstruction (18 cm2). 2. Second stage bilateral breast reconstruction with bilateral TRAM flap. 3. Abdominal wall reconstruction with placement of Strattice acellular dermal matrix graft (160 cm2). Bilateral breast incisions and abdominal incision are dry and intact. TRAM flaps are pink and soft and healing satisfactory. No clinical evidence of hematoma. Has been up in the room with assist. She is a little unsteady on her feet with ambulation. She is having trouble sleeping and will order Melatonin. She has incisional pain and needs occasional IV analgesia along with Valium for spasm. Will wean to po analgesia for discharge. Anticipate discharge over the weekend once she is tolerating po analgesia and is more steady on her feet with ambulation. Keep head elevated. Encouraged patient to stop smoking as it may have deleterious effects on wound healing. With the TRAM flap I discussed with the patient that maximal healing of the TRAM flap necessitates no smoking, as well as no chocolate, and no caffeine, and no decaf, and no tea for 6 weeks.
[2020-01-09] MEDS: diazePAM 5 MG Tablet PO (19:48)
[2020-01-09] MEDS: MELATONIN 10 MG TABLET 20 MG PO (21:04)
[2020-01-09] MEDS: Anastrozole 1 MG Tablet PO (21:04)
[2020-01-09] MEDS: Pyridoxine HCl 100 MG Tablet PO (21:05)
[2020-01-09] MEDS: Pantoprazole Sodium 40 MG Tablet PO (21:05)
[2020-01-10] MEDS: Acetaminophen 500 MG Tablet 1000 MG PO ×3 (00:04→12:26)
[2020-01-10] MEDS: oxyCODONE 5 MG Tablet PO ×5 (00:04→19:09)
[2020-01-10 00:05] VITALS: BP 108/63; PULSE 70; RESP 18; TEMP 36.4; O2SAT 100
[2020-01-10 05:50] VITALS: BP 106/69; PULSE 70; RESP 16; TEMP 36.4; O2SAT 96
[2020-01-10] MEDS: Cefazolin 1 GM/50 ML BAG IV ×3 (05:51→22:52)
[2020-01-10 06:06] LABS: Hematocrit 26.5 % (37-47); Hemoglobin 8.4 g/dL (12.0-15.0); Mean Corp Hgb Conc 31.7 g/dL (32-36); Mean Corpuscular Hgb 29.7 pg (27.0-32.0); Mean Corpuscular Volume 93.6 fL (81-99); Mean Platelet Vol. 10.8 fl (6.2-12.0); Platelet Count 144 K/mm3 (150-450); RBC Distribution Width CV 14.4 % (11.6-14.6); RBC Distribution Width SD 49.2 fl (35.1-43.9); Red Blood Count 2.83 M/mm3 (4.2-5.4); White Blood Count 5.5 K/mm3 (4.4-11.0)
[2020-01-10 06:41] LABS: Anion Gap 2 (5-15); BUN 26 mg/dL (7-18); BUN/Creat Ratio 47.1 RATIO (10-20); Calcium,Total 8.3 mg/dL (8.5-10.1); Chloride 107 mmol/L (98-107); Creatinine, Serum 0.55 mg/dL (0.55-1.02); EST Glomerular Filtration Rate 129 mL/min (>60); Est Glom Filt Rate - Afr Amer 156 mL/min (>60); Estimated Creatinine Clearance 132.22 ml/min; Glucose 87 mg/dL (74-106); Potassium 3.9 mmol/L (3.5-5.1); Sodium Level 141 mmol/L (136-145)
[2020-01-10 07:08] VITALS: O2SAT 96
[2020-01-10 08:50] VITALS: BP 104/64; PULSE 80; RESP 16; TEMP 36.4; O2SAT 98
[2020-01-10] MEDS: Docusate Sodium 100 MG Capsule PO ×2 (09:01→23:11)
[2020-01-10] MEDS: Sertraline 100 MG Tablet PO (09:01)
[2020-01-10] MEDS: 0.9% Saline Lock 10 ML Syringe IV ×2 (09:01→18:11)
[2020-01-10] MEDS: HYDROmorphone 1 MG/ML Syringe IV ×4 (09:01→23:07)
[2020-01-10] MEDS: NIFEdipine 30 MG Tablet PO (09:01)
[2020-01-10] MEDS: Enoxaparin 40 MG/0.4 ML Syringe SC (09:01)
[2020-01-10] MEDS: Cyanocobalamin 500 MCG Tablet 1000 MCG PO (09:02)
[2020-01-10] MEDS: Gabapentin 100 MG Capsule 200 MG PO ×3 (09:02→18:02)
--- NOTE | 2020-01-10 10:57 | NURSING ---
pt resting quietly in bed with eyes closed, resp easy
--- NOTE | 2020-01-10 13:11 | PCM.PN.SRG ---
Subjective: Postop #3 Patient has incisional pain with intermittent spasm. She is ambulating better with less unsteadiness. - Physical Exam Vitals/I&O's: Vital Signs Temp Pulse Resp BP Pulse Ox 97.5 F L 80 16 104/64 98 01/10/20 08:50 01/10/20 08:50 01/10/20 08:50 01/10/20 08:50 01/10/20 08:50 Oxygen Flow Rate (L/min) 6 Oxygen Delivery Method Room Air Weight: 166 lb 10.711 oz Body Mass Index (BMI) 26.1 Intake and Output for Last 24 Hours 01/08/20 01/09/20 01/10/20 23:59 23:59 23:59 Intake Total 2787.75 / 3387.75 1695.50 / 1695.50 832.75 / 832.75 Output Total 1485 / 1685 2410 / 2410 975 / 975 Balance 1302.75 / 1702.75 -714.50 / -714.50 -142.25 / -142.25 Drainage 310 ml yesterday. General: Alert, Oriented x3 HEENT: PERRLA, EOMI Oral: Moist Mucosa Abdomen: Soft, Non-Distended Skin: Incision - Bilateral breast incisions are dry and intact. TRAM flaps are pink and soft and healing satisfactory. Small amount of scattered mild bruising on the right breast at the edges. Will observe. No clinical evidence of hematoma. Abdominal incision is dry and intact. No clinical evidence of hematoma. Laboratory Results 01/10/20 05:38: WBC 5.5, RBC 2.83 L, Hgb 8.4 L, Hct 26.5 L, MCV 93.6, MCH 29.7, MCHC 31.7 L, RDW Std Deviation 49.2 H, RDW Coeff of Silvana 14.4, Plt Count 144 L, MPV 10.8 01/10/20 05:38: Sodium 141, Potassium 3.9, Chloride 107, Carbon Dioxide 32.0, Anion Gap 2 L, BUN 26 H, Creatinine 0.55, Estim Creat Clear Calc 132.22, Est GFR (MDRD) Af Amer 156, Est GFR (MDRD) Non-Af 129, BUN/Creatinine Ratio 47.1 H, Glucose 87, Calcium 8.3 L Current Medications Acetaminophen (Tylenol) 1,000 mg PO Q6 [facility] Last Admin: 01/10/20 12:26 Dose: 1,000 mg Documented by: Anastrozole (Arimidex) 1 mg PO QHS [facility] Last Admin: 01/09/20 21:04 Dose: 1 mg Documented by: Cyanocobalamin (Vitamin B12) 1,000 mcg PO DAILYCM [facility] Last Admin: 01/10/20 09:02 Dose: 1,000 mcg Documented by: Diazepam (Valium) 5 mg PO 4X/DAY PRN PRN PRN Reason: SPASMS Last Admin: 01/09/20 19:48 Dose: 5 mg Documented by: Docusate Sodium (Colace) 100 mg PO BID [facility] Last Admin: 01/10/20 09:01 Dose: 100 mg Documented by: Enoxaparin Sodium (Lovenox) 40 mg SC DAILY [facility] Last Admin: 01/10/20 09:01 Dose: 40 mg Documented by: Enteral Nutritional Formula (Ensure Surgery) 237 ml PO TIDCM [facility] Last Admin: 01/10/20 12:34 Dose: Not Given Documented by: Gabapentin (Neurontin) 200 mg PO TIDCM [facility] Last Admin: 01/10/20 12:26 Dose: 200 mg Documented by: Hydromorphone HCl (Dilaudid Inj) 0.5 - 1 mg IV Q3H PRN PRN PRN Reason: Pain Score 6-10/10 Last Admin: 01/10/20 12:25 Dose: 1 mg Documented by: Cefazolin Sodium () 1 gm in 50 mls @ 100 mls/hr IV Q8 [facility] Last Infusion: 01/10/20 06:21 Dose: Infused Documented by: Sodium Chloride () 250 mls @ 15 mls/hr IV .[id number] PRN PRN Reason: Saline Flush Last Infusion: 01/10/20 06:21 Dose: 15 mls/hr Documented by: Sodium Chloride () 250 mls @ 15 mls/hr IV .[id number] PRN PRN Reason: Additional IVPB Infusion Insulin Human Lispro (Humalog Kwikpen (Bkc)) 1 - 6 unit SC Q4H PRN PRN; Protocol PRN Reason: BG>/= 180, SEE PROTOCOL Magnesium Chloride (Mag64) 128 mg PO DAILY PRN PRN PRN Reason: Constipation Melatonin (Melatonin) 20 mg PO QHS [facility] Last Admin: 01/09/20 21:04 Dose: 20 mg Documented by: Nifedipine (Procardia Xl) 30 mg PO DAILY [facility] Last Admin: 01/10/20 09:01 Dose: 30 mg Documented by: Nutritional Formula (Jem - [employer] Flavor) 1 packet PO BIDCM [facility] Last Admin: 01/10/20 09:02 Dose: 1 packet Documented by: Ondansetron HCl (Zofran Odt) 4 mg PO Q6H PRN PRN PRN Reason: NAUSEA Oxycodone HCl (Oxyir) 5 - 10 mg PO Q3H PRN PRN PRN Reason: Pain Score 4-5/10 Last Admin: 01/10/20 09:16 Dose: 10 mg Documented by: Pantoprazole Sodium (Protonix) 40 mg PO QHS [facility] Last Admin: 01/09/20 21:05 Dose: 40 mg Documented by: Pyridoxine HCl (Vitamin B-6) 100 mg PO QHS [facility] Last Admin: 01/09/20 21:05 Dose: 100 mg Documented by: Sertraline HCl (Zoloft) 100 mg PO DAILY [facility] Last Admin: 01/10/20 09:01 Dose: 100 mg Documented by: Sodium Chloride () 10 - 40 ml IV UD PRN PRN Reason: SALINE FLUSH Last Admin: 01/10/20 09:01 Dose: 10 ml Documented by: Medical Necessity - Tobacco Use Smoking Status: Current some day smoker Tobacco Use: Cigarettes Assessment/Plan All Active Problems (Last Reviewed 12/05/19 @ 13:[address] Sandro Martinez MD) Infection of breast implant (Resolved) Exposed breast implant (Resolved) Pseudomonas aeruginosa infection (Resolved) Muscle spasm of left shoulder (Resolved) Muscle spasm of back (Resolved) Capsular contracture of breast implant, initial encounter (Resolved) Nonhealing surgical wound (Resolved) 1. Left breast cancer. 2. 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 4. s/p removal right breast implant. 5. status breast reconstruction with implants. 6. Deformity reconstructed left breast. 7. Disproportion reconstructed breasts. 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 11. Smoker. 12. Family history of skin cancer. 13. Estrogen receptor positive status. 14. s/p revision reconstructed left breast with removal of cohesive gel implant and capsulectomy and excision radiation fibrosis with multiple W-plasty reconstruction (18 cm2). 2. Second stage bilateral breast reconstruction with bilateral TRAM flap. 3. Abdominal wall reconstruction with placement of Strattice acellular dermal matrix graft (160 cm2). 15. Anemia of chronic disease, acute on chronic, expected operative blood loss. Bilateral breast incisions and abdominal incision are dry and intact. TRAM flaps are pink and soft and healing satisfactory. There is a small amount of mild bruising at the edges of the right breast flap. Probably related to her history of smoking and handling of the flap at the time of surgery. Will observe. If the bruising continues, will remove some of the sutures to take pressure off the flap. If some bleeding seen, may need operative intervention for drainage and to allow better healing. Would allow healing by secondary intention. Revision can be done in the future. If the mild bruising is persistent, will have her evaluated after discharge for HBO treatments. Hgb today was 8.4, a decrease from 10.4. She has anemia of chronic disease, acute on chronic. There was an expect operative blood loss of 150 ml. There is no clinical evidence of hematoma. There has also been IV fluid dilution perioperatively that can lead to a decrease as well. At present her I's/O's are positive 2500 ml. Will recheck a Hgb tomorrow. Will start her on Iron supplementation. Has been up in the room with assist. She is a little more steady on her feet with ambulation. She is having trouble sleeping and will order Melatonin. She has incisional pain and needs occasional IV analgesia along with Valium for spasm. Will wean to po analgesia for discharge. Anticipate discharge over the weekend once she is tolerating po analgesia and is more steady on her feet with ambulation. Keep head elevated. Encouraged patient to stop smoking as it may have deleterious effects on wound healing. With the TRAM flap I discussed with the patient that maximal healing of the TRAM flap necessitates no smoking, as well as no chocolate, and no caffeine, and no decaf, and no tea for 6 weeks.
[2020-01-10 14:24] VITALS: BP 110/71; PULSE 71; RESP 18; TEMP 36.9; O2SAT 99
[2020-01-10] MEDS: Iron Polysaccharide Complex 150 MG CAPSULE PO (18:02)
[2020-01-10 22:46] VITALS: BP 123/76; PULSE 74; RESP 17; TEMP 36.6; O2SAT 98
[2020-01-10] MEDS: MELATONIN 10 MG TABLET 20 MG PO (23:11)
[2020-01-10] MEDS: Pantoprazole Sodium 40 MG Tablet PO (23:11)
[2020-01-10] MEDS: Pyridoxine HCl 100 MG Tablet PO (23:12)
[2020-01-10] MEDS: Anastrozole 1 MG Tablet PO (23:12)
[2020-01-11] MEDS: oxyCODONE 5 MG Tablet PO ×3 (00:18→09:26)
[2020-01-11 04:00] VITALS: BP 102/63; PULSE 70; RESP 16; TEMP 36.8; O2SAT 96
[2020-01-11] MEDS: Cefazolin 1 GM/50 ML BAG IV (06:10)
[2020-01-11] MEDS: HYDROmorphone 1 MG/ML Syringe IV ×2 (06:10→11:47)
[2020-01-11 06:21] LABS: Hematocrit 27.2 % (37-47); Hemoglobin 8.9 g/dL (12.0-15.0); Mean Corp Hgb Conc 32.7 g/dL (32-36); Mean Corpuscular Hgb 29.6 pg (27.0-32.0); Mean Corpuscular Volume 90.4 fL (81-99); Mean Platelet Vol. 10.6 fl (6.2-12.0); Platelet Count 159 K/mm3 (150-450); RBC Distribution Width CV 13.9 % (11.6-14.6); RBC Distribution Width SD 46.3 fl (35.1-43.9); Red Blood Count 3.01 M/mm3 (4.2-5.4); White Blood Count 5.1 K/mm3 (4.4-11.0)
[2020-01-11] MEDS: Iron Polysaccharide Complex 150 MG CAPSULE PO (09:27)
[2020-01-11] MEDS: Cyanocobalamin 500 MCG Tablet 1000 MCG PO (09:27)
[2020-01-11] MEDS: Docusate Sodium 100 MG Capsule PO (09:28)
[2020-01-11] MEDS: Gabapentin 100 MG Capsule 200 MG PO ×2 (09:28→11:50)
[2020-01-11] MEDS: Enoxaparin 40 MG/0.4 ML Syringe SC (09:29)
[2020-01-11] MEDS: NIFEdipine 30 MG Tablet PO (09:29)
[2020-01-11] MEDS: Sertraline 100 MG Tablet PO (09:29)
[2020-01-11 09:48] VITALS: BP 118/75; PULSE 68; RESP 18; TEMP 36.8; O2SAT 98
--- NOTE | 2020-01-11 13:39 | DCINST_ITS ---
You will use the following diet at home:: Regular - No chocolate, no caffeine, no decaf, no tea for 6 weeks., Other - encourage nutritional supplementation with protein to help the healing process. Discharge Activity: May Not Drive, May Not Shower - until the drains are removed., - - keep head elevated. no heavy lifting. wear compression michel wrap for the breasts. wear compression michel wrap/binder for the abdomen. May resume sexual activity in: 6-8 weeks Weight Bearing Status: Weight bearing as tolerated Lifting Restrictions: 10 lbs. Keep extremity elevated above heart level: - - elevate head. Call your doctor if your incision/area has: Continuous Slow Oozing, Sudden Increased Bleeding, Increased Pain/ Swelling, Increased Redness, Foul Smelling Discharge, Swelling at the incision site, - - the flap has turned black. Call your doctor if you observe: Fever of 101 or Higher, Coldness, Increased Pain, Shortness of breath, Chest pain, Calf discomfort, Uncontrolled pain Change Dressing in (Days):: 1 - dry dressings daily. Cleanse incision/area with: - - may get incisions wet in the shower after the drains are removed. Drain: Suction - katlin drains to bulb suction. empty and record output daily. Additional Instructions: No smoking for 6 weeks. Pending Tests on Discharge: Will obtain a repeat Hgb/Hct as an outpatient. Allergies/Adverse Reactions: Allergies ondansetron [From Zofran] Adverse Reaction (Verified 01/07/20 06:17) MIGRAINES Medications to take at Discharge anastrozole 1 mg tablet 1 mg PO QHS 07/05/18 cyanocobalamin (vitamin B-12) 1,000 mcg capsule 1,000 mcg PO DAILY 07/05/18 pyridoxine (vitamin B6) 100 mg tablet 100 mg PO QHS 07/05/18 Pantoprazole Sodium [Protonix] 40 mg PO QHS 08/31/18 Vitamin C/Biotin [Hair, Skin and Nails Gummies] 2 ea PO QHS 01/08/19 Gabapentin [Neurontin] 100 mg PO BID PRN 11/08/19 Sertraline HCl [Zoloft] 100 mg PO DAILY 12/30/19 Cefadroxil [Duricef] 500 mg PO BID #30 cap 01/11/20 Diazepam [Valium] 5 mg PO 4X/DAY PRN PRN #30 tab 01/11/20 Docusate Sodium [Colace] 100 mg PO BID #60 cap 01/11/20 HYDROmorphone tablet [Dilaudid] 2 mg PO Q4H PRN PRN 7 Days #40 tab 01/11/20 Iron Polysaccharide Complex [Ferrex 150] 150 mg PO DAILYCM #30 cap 01/11/20 Melatonin 20 mg PO QHS tab 01/11/20 proMETHazine tablet [Phenergan tablet] 25 mg PO 4X/DAY PRN PRN #30 tab 01/11/20 The following prescriptions were given: Docusate Sodium [Colace] 100 mg PO BID #60 cap Transmission Status: Pending to [id number] HYDROmorphone tablet [Dilaudid] 2 mg PO Q4H PRN PRN 7 Days #40 tab PRN Reason: Pain Score 6-10/10 Transmission Status: Received by [id number] Cefadroxil [Duricef] 500 mg PO BID #30 cap Transmission Status: Pending to [id number] Iron Polysaccharide Complex [Ferrex 150] 150 mg PO DAILYCM #30 cap Transmission Status: Pending to [id number] proMETHazine tablet [Phenergan tablet] 25 mg PO 4X/DAY PRN PRN #30 tab PRN Reason: Nausea Transmission Status: Pending to [id number] Diazepam [Valium] 5 mg PO 4X/DAY PRN PRN #30 tab PRN Reason: muscle spasm Transmission Status: Received by [id number] Orders to be completed after discharge: Hemoglobin Time Frame: 2 Weeks, Facility: [facility], Location: [facility] Primary Care Physician: Jack Mancuso DO [Primary Care Provider] - Test Results: Test results from this visit will be discussed in further detail at your follow- up appointment, if applicable. Please Follow Up With: Sandro Martinez MD When: one week. call [phone] for appt. Proposed Discharge Date: 01/11/20
--- NOTE | 2020-01-11 13:53 | PCM.DC.SUM ---
Discharge Date and Diagnosis Date of Admission: 01/07/20 Date of Discharge: 01/11/20 - Primary Discharge Diagnosis Acute Problems: Left breast cancer. Anemia of chronic disease, acute on chronic, expected operative blood loss. Deformity reconstructed left breast. Disproportion reconstructed breasts. Late effect radiation left breast. Soft tissue radionecrosis. - Secondary Discharge Diagnosis Chronic Problems: Family history of skin cancer actinic damage left upper cheek near the lower eyelid s/p removal right breast implant. status breast reconstruction with implants. Estrogen receptor positive status [ER+] Current smoker Acquired absence of bilateral breasts and nipples Cancer phobia right breast Pseudomonas aeroginosa infection. Hospital Course and Treatment Imaging Results: None. CONSULTATIONS None. Operations: - - 01/07/20 - 1. Revision reconstructed left breast with removal of cohesive gel implant and capsulectomy and excision radiation fibrosis with multiple W-plasty reconstruction (18 cm2). 2. Second stage bilateral breast reconstruction with bilateral TRAM flaps. 3. Abdominal wall reconstruction with placement of Strattice acellular dermal matrix graft (160 cm2). Procedures: None Summary of Care Provided: 39 year old woman presents for further discussion of her breast reconstruction. Her left breast cancer was biopsied on 05/23/17. On 06/16/17 where she underwent injection of 5 cc of Lymphazurin blue and left modified radical mastectomy and sentinel lymph node biopsy by Dr. Samayoa and prophylactic mastectomy right breast and immediate bilateral breast reconstruction with placement of submuscular saline tissue expanders (350 ml each) and placement of DermACELL decellularized dermis graft (128 cm2, each side) by Dr. Martinez. 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 One node showed macrometastasis. Estrogen receptors were positive. Progesterone receptors were positive. Her-2Neu was negative. She underwent chemotherapy and radiation therapy. She finished her radiation therapy on 03/06/18. She then underwent further surgery in 09/07/18 with revision reconstructed left breast with excision painful radiation scar contour deformity and 2nd stage delayed left breast reconstruction with removal of tissue hobbing press operator and capsulectomy and 2nd stage delayed left breast reconstruction with placement of left latissimus dorsi myocutaneous flap. She healed uneventfully. She continued her breast reconstruction process with revision left breast reconstruction with excision radiation scar contour deformity and delayed left breast reconstruction with placement of submuscular saline tissue hobbing press operator (350 ml) on 01/15/19. She finished the saline tissue expansion and proceeded with further surgery on 03/26/19 where she underwent revision right breast reconstruction with removal of saline tissue hobbing press operator and capsulectomy and delayed right breast reconstruction with placement of cohesive gel implant (430 ml) and placement Alloderm Select acellular dermal matrix graft (132 cm2) and revision left breast reconstruction with removal of saline tissue hobbing press operator and capsulectomy and revision left breast reconstruction radiation scar contour deformity with multiple W-plasty reconstruction (12 cm2) and delayed left breast reconstruction with placement cohesive gel implant (350 ml). She developed a Pseudomonas infection in the right breast that necessitated further surgery on 04/23/19 where she underwent revision right breast reconstruction with excisional debridement nonhealing infected wound with removal of Alloderm acellular dermal matrix graft and removal exposed infected cohesive gel implant and complex secondary wound closure. At that time, I told her that further breast reconstruction would have to wait at least 6 months. In the meantime, the incision healed satisfactory. She continued the breast reconstruction process on 11/19/19 where she underwent first stage delayed bilateral breast reconstruction with bilateral TRAM flap delay and revision left breast reconstruction with excision radiation scar contour deformity with multiple W-plasty reconstruction (18 cm2). Healing has been uneventful. She presents today for the second stage bilateral TRAM flap reconstruction. On 01/07/20 the patient went to surgery where she underwent revision reconstructed left breast with removal of cohesive gel implant and capsulectomy and excision radiation fibrosis with multiple W-plasty reconstruction (18 cm2) and second stage bilateral breast reconstruction with bilateral TRAM flaps and abdominal wall reconstruction with placement of Strattice acellular dermal matrix graft (160 cm2). She tolerated the procedure well. Her postoperative course was unremarkable. She was afebrile during her hospital stay. Her drainage ranged from 385 ml per day to 57 ml at the time of discharge. Bilateral breast incisions are dry and intact. TRAM flaps are pink and soft and healing satisfactory. Small amount of scattered mild bruising on the right breast at the edges. Stable. No progression. Will continue to observe. No clinical evidence of hematoma. Abdominal incision is dry and intact. No clinical evidence of hematoma. If the mild bruising is persistent, will have her evaluated after discharge for HBO treatments. Hgb was 10.4 postop and decreased to 8.4 before rebounding to 8.9 at discharge. She has anemia of chronic disease, acute on chronic. There was an expect operative blood loss of 150 ml. There is no clinical evidence of hematoma. There has also been IV fluid dilution perioperatively that can lead to a decrease as well. At present her I's/O's are positive 2500 ml. She was started on Iron supplementation and will continue them after discharge. She had incisional pain initially that needed occasional IV analgesia along with Valium for spasm. Were able to wean to po analgesia for discharge on the 4th postoperative day. At the time of discharge, she was more steady on her feet with ambulation. Encouraged patient to stop smoking as it may have deleterious effects on wound healing. With the TRAM flap I discussed with the patient that maximal healing of the TRAM flap necessitates no smoking, as well as no chocolate, and no caffeine, and no decaf, and no tea for 6 weeks. On the 4th postop day she was discharged. She will keep her head elevated. She will be on a 10 lb lifting restriction. She will be maintained on antibiotics until the drains are removed in the office. Wrote scripts for Dilaudid for pain (40 tabs) and for Valium for spasm (30 tabs). Wrote script for Cefadroxil until the drains are removed. Wrote script for Iron supplement (30 tabs) and 3 refills. Wrote scripts for Phenergan for nausea (30 tabs) and a refill and for Colace for constipation (60 tabs). Will recheck a Hgb in a couple of weeks. Will evaluate postoperatively for the need for HBO treatments for the mild bruising on the right breast. Subjective: Postop #4 Patient resting comfortably. She is tolerating po analgesia. She is steady on her feet with ambulation. - Physical Exam Vitals/I&O's: Vital Signs Temp Pulse Resp BP Pulse Ox 98.2 F 68 18 118/75 98 01/11/20 09:48 01/11/20 09:48 01/11/20 09:48 01/11/20 09:48 01/11/20 09:48 Oxygen Flow Rate (L/min) 6 Oxygen Delivery Method Room Air Weight: 166 lb 10.711 oz Body Mass Index (BMI) 26.1 Intake and Output for Last 24 Hours 10/01/20 10/02/20 10/03/20 23:59 23:59 23:59 Intake Total 1695.50 / 1695.50 1801.00 / 1801.00 1673.75 / 1673.75 Output Total 2410 / 2410 1435 / 1435 457 / 457 Balance -714.50 / -714.50 366.00 / 366.00 1216.75 / 1216.75 Drainage 335 ml yesterday, 57 ml today. General: Alert, Oriented x3 HEENT: PERRLA, EOMI Oral: Moist Mucosa Neck: Supple Abdomen: Soft, Non-Distended Skin: Incision - Bilateral breast incisions are dry and intact. TRAM flaps are pink and soft and healing satisfactory. Small amount of scattered mild bruising on the right breast at the edges. Stable. No progression. Will continue to observe. No clinical evidence of hematoma. Abdominal incision is dry and intact. No clinical evidence of hematoma. Neurological: Cranial nerves II-XII grossly intact Psych/Mental Status: Normal Affect, Appropriate Laboratory Results 01/11/20 05:40: WBC 5.1, RBC 3.01 L, Hgb 8.9 L, Hct 27.2 L, MCV 90.4, MCH 29.6, MCHC 32.7, RDW Std Deviation 46.3 H, RDW Coeff of Silvana 13.9, Plt Count 159, MPV 10.6 Current Medications Anastrozole (Arimidex) 1 mg PO QHS [facility] Last Admin: 01/10/20 23:12 Dose: 1 mg Documented by: Cyanocobalamin (Vitamin B12) 1,000 mcg PO DAILYCM [facility] Last Admin: 01/11/20 09:27 Dose: 1,000 mcg Documented by: Diazepam (Valium) 5 mg PO 4X/DAY PRN PRN PRN Reason: SPASMS Last Admin: 01/09/20 19:48 Dose: 5 mg Documented by: Docusate Sodium (Colace) 100 mg PO BID [facility] Last Admin: 01/11/20 09:28 Dose: 100 mg Documented by: Enoxaparin Sodium (Lovenox) 40 mg SC DAILY [facility] Last Admin: 01/11/20 09:29 Dose: 40 mg Documented by: Enteral Nutritional Formula (Ensure Surgery) 237 ml PO TIDCM [facility] Last Admin: 01/11/20 11:25 Dose: Not Given Documented by: Gabapentin (Neurontin) 200 mg PO TIDCM [facility] Last Admin: 01/11/20 11:50 Dose: 200 mg Documented by: Hydromorphone HCl (Dilaudid Inj) 0.5 - 1 mg IV Q3H PRN PRN PRN Reason: Pain Score 6-10/10 Last Admin: 01/11/20 11:47 Dose: 1 mg Documented by: Cefazolin Sodium () 1 gm in 50 mls @ 100 mls/hr IV Q8 [facility] Last Infusion: 01/11/20 06:40 Dose: Infused Documented by: Sodium Chloride () 250 mls @ 15 mls/hr IV .[id number] PRN PRN Reason: Saline Flush Last Infusion: 01/11/20 09:25 Dose: Infused Documented by: Sodium Chloride () 250 mls @ 15 mls/hr IV .[id number] PRN PRN Reason: Additional IVPB Infusion Insulin Human Lispro (Humalog Kwikpen (Bkc)) 1 - 6 unit SC Q4H PRN PRN; Protocol PRN Reason: BG>/= 180, SEE PROTOCOL Magnesium Chloride (Mag64) 128 mg PO DAILY PRN PRN PRN Reason: Constipation Melatonin (Melatonin) 20 mg PO QHS [facility] Last Admin: 01/10/20 23:11 Dose: 20 mg Documented by: Nifedipine (Procardia Xl) 30 mg PO DAILY [facility] Last Admin: 01/11/20 09:29 Dose: 30 mg Documented by: Nutritional Formula (Jem - [place] Flavor) [facility] Last Admin: 01/11/20 09:27 Dose: 1 packet Documented by: Ondansetron HCl (Zofran Odt) 4 mg PO Q6H PRN PRN PRN Reason: NAUSEA Oxycodone HCl (Oxyir) 5 - 10 mg PO Q3H PRN PRN PRN Reason: Pain Score 4-5/10 Last Admin: 01/11/20 09:26 Dose: 10 mg Documented by: Pantoprazole Sodium (Protonix) 40 mg PO QHS [facility] Last Admin: 01/10/20 23:11 Dose: 40 mg Documented by: Polysaccharide Iron Complex (Ferrex 150) [facility] Last Admin: 01/11/20 09:27 Dose: 150 mg Documented by: Pyridoxine HCl (Vitamin B-6) 100 mg PO QHS [facility] Last Admin: 01/10/20 23:12 Dose: 100 mg Documented by: Sertraline HCl (Zoloft) 100 mg PO DAILY [facility] Last Admin: 01/11/20 09:29 Dose: 100 mg Documented by: Sodium Chloride () 10 - 40 ml IV UD PRN PRN Reason: SALINE FLUSH Last Admin: 01/10/20 18:11 Dose: 10 ml Documented by: Discharge Diet: No Restrictions - No chocolate, no caffeine, no decaf, no tea for 6 weeks., - - encourage nutritional supplementation with protein to help the healing process. Discharge Activity: May Not Drive, May Not Shower - until the drains are removed., - - keep head elevated. no heavy lifting. wear compression michel wrap for the breasts. wear compression michel wrap/binder for the abdomen. May resume sexual activity in: 6-8 weeks Weight Bearing Status: Weight bearing as tolerated Lifting Restrict to (lbs):: 10 Keep extremity elevated above heart level: - - elevate head. Call your doctor if your incision/area has: Continuous Slow Oozing, Sudden Increased Bleeding, Increased Pain/ Swelling, Increased Redness, Foul Smelling Discharge, Swelling at the incision site, - - the flap has turned black. Call your doctor if you observe: Fever of 101 or Higher, Coldness, Increased Pain, Shortness of breath, Chest pain, Calf discomfort, Uncontrolled pain Change Dressing in (Days):: 1 - dry dressings daily. Cleanse incision/area with: - - may get incisions wet in the shower after the drains are removed. Drain: Suction - katlin drains to bulb suction. empty and record output daily. Home Medications: Medications to take at Discharge anastrozole 1 mg tablet 1 mg PO QHS 07/05/18 cyanocobalamin (vitamin B-12) 1,000 mcg capsule 1,000 mcg PO DAILY 07/05/18 pyridoxine (vitamin B6) 100 mg tablet 100 mg PO QHS 07/05/18 Pantoprazole Sodium [Protonix] 40 mg PO QHS 08/31/18 Vitamin C/Biotin [Hair, Skin and Nails Gummies] 2 ea PO QHS 01/08/19 Gabapentin [Neurontin] 100 mg PO BID PRN 11/08/19 Sertraline HCl [Zoloft] 100 mg PO DAILY 12/30/19 Cefadroxil [Duricef] 500 mg PO BID #30 cap 01/11/20 Diazepam [Valium] 5 mg PO 4X/DAY PRN PRN #30 tab 01/11/20 Docusate Sodium [Colace] 100 mg PO BID #60 cap 01/11/20 HYDROmorphone tablet [Dilaudid] 2 mg PO Q4H PRN PRN 7 Days #40 tab 01/11/20 Iron Polysaccharide Complex [Ferrex 150] 150 mg PO DAILYCM #30 cap 01/11/20 Melatonin 20 mg PO QHS tab 01/11/20 proMETHazine tablet [Phenergan tablet] 25 mg PO 4X/DAY PRN PRN #30 tab 01/11/20 Following Prescriptions Were Given to Patient: Docusate Sodium [Colace] 100 mg PO BID #60 cap Transmission Status: Received by [id number] HYDROmorphone tablet [Dilaudid] 2 mg PO Q4H PRN PRN 7 Days #40 tab PRN Reason: Pain Score 6-10/10 Transmission Status: Received by [id number] Cefadroxil [Duricef] 500 mg PO BID #30 cap Transmission Status: Received by [id number] Iron Polysaccharide Complex [Ferrex 150] 150 mg PO DAILYCM #30 cap Transmission Status: Received by [id number] proMETHazine tablet [Phenergan tablet] 25 mg PO 4X/DAY PRN PRN #30 tab PRN Reason: Nausea Transmission Status: Received by [id number] Diazepam [Valium] 5 mg PO 4X/DAY PRN PRN #30 tab PRN Reason: muscle spasm Transmission Status: Received by [id number] Other Amb Orders: Hemoglobin Time Frame: 2 Weeks, Facility: [facility], Location: [facility] Building Primary Care Physician: Jack Mancuso DO [Primary Care Provider] - Please Follow Up With: Sandro Martinez MD When: one week. call [phone] for appt. Disposition: Home Minutes spent on discharge:: 35 Patient Condition:: Stable Medical Necessity - Tobacco Use Smoking Status: Current some day smoker Tobacco Use: Cigarettes Meaningful Use Info Meaningful Use Diagnoses (Choose all that apply): None applicable
[2020-01-11 14:17] VITALS: BP 119/85; PULSE 72; RESP 18; TEMP 36.7; O2SAT 96
== END 2020-01-11 14:20 | disposition home or self-care (01) | DRG 583 ==
LOC: ACINP 05:54 → MS3 18:24
PROVIDERS: Admitting Provider Surgery; PCP Student in an Organized Health Care Education/Training Program; Referring Provider Surgery; Visit Provider Surgery
PROC: 0HR Skin and Breast, Replacement (ICD-10-PCS; principal; 2020-01-07 07:00)
DX: C50.412 Malignant neoplasm of upper-outer quadrant of left female breast (principal); Z17.0 Estrogen receptor positive status [ER+]; Z90.13 Acquired absence of bilateral breasts and nipples; F45.29 Other hypochondriacal disorders; L59.8 Other specified disorders of the skin and subcutaneous tissue related to radiation; Y84.2 Radiological procedure and radiotherapy as the cause of abnormal reaction of the patient, or of later complication, without mention of misadventure at the time of the procedure; Z86.19 Personal history of other infectious and parasitic diseases; Z92.3 Personal history of irradiation; Z92.21 Personal history of antineoplastic chemotherapy; N65.1 Disproportion of reconstructed breast; F17.210 Nicotine dependence, cigarettes, uncomplicated; D63.8 Anemia in other chronic diseases classified elsewhere
CPT/HCPCS: 36415; 80048; 82962; 84134; 85027; 87635; 88305; 97802; 99251; C9803; J7050; J7120; A4216; G0463; J2930; J3490; Q9968; U0003

== ENCOUNTER 2020-01-20 13:50 | Outpatient (RCR) | payer BC, SELFPAY ==
[2020-01-16 14:15] VITALS: BMI 26.1
[2020-01-20 14:12] VITALS: BP 112/80; PULSE 83; RESP 18; TEMP 36.6; BMI 25.0
--- NOTE | 2020-01-20 16:23 | HBO.CON.PC_ITS ---
(1) Soft tissue radionecrosis Status: Chronic Code(s): L59.8 - Other specified disorders of the skin and subcutaneous tissue related to radiation; Y84.2 - Radiological procedure and radiotherapy as the cause of abnormal reaction of the patient, or of later complication, without mention of misadventure at the time of the procedure (2) Late effect of radiation Status: Chronic Code(s): T66.XXXS - Radiation sickness, unspecified, sequela Comment: left breast reconstruction (3) Malignant neoplasm of upper-outer quadrant of left female breast Status: Resolved Qualifiers: Code(s): C50.412 - Malignant neoplasm of upper-outer quadrant of left female breast (4) Acquired absence of bilateral breasts and nipples Status: Chronic Code(s): Z90.13 - Acquired absence of bilateral breasts and nipples (5) Estrogen receptor positive status [ER+] Status: Chronic Code(s): Z17.0 - Estrogen receptor positive status [ER+] (6) History of removal of right breast implant Status: Chronic Code(s): Z98.86 - Personal history of breast implant removal History of Present Illness Date of Service: 01/20/20 Presenting Chief Complaint: 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 Tri underwent a diagnostic mammogram and ultrasound on 05/19/2017 for a left breast lump and left nipple inversion, which were suspicious for carcinoma. She subsequently underwent a left breast biopsy on 05/23/2017 which revealed invasive ductal carcinoma with positive estrogen receptors, positive progesterone receptors, and equivocal for overexpression of AXD2jnq. The patient consulted with Dr. Martinez and decided on a mastectomy. Due to concerns about developing breast cancer in her right breast, she opted for prophylactic right breast mastectomy as well. On 06/16/2017 the patient underwent a left-sided mastectomy and sentinel lymph node biopsy by Dr. Samayoa and prophylactic right breast mastectomy and intermediate bilateral breast reconstruction with placement of submuscular saline tissue expanders and placement of DermACELL decellularized dermis graft by Dr. Martinez. Pathology report showed the tumor size to be 3.5 x 3 x 1.5 cm. [place] lymph node biopsy did confirm macro metastatic disease and she subsequently underwent further axillary node dissection of the level 1 lymph nodes which showed 5 lymph nodes negative for carcinoma. She was given a pathologic stage of T2 N1 aMX. She was referred to oncology for further management. During the postoperative phase following her 06/08/2017 surgery, the patient developed a superficial abrasion ulcer on the superior aspect of her left breast incision, which developed an infection with Propionibacterium acnes and re quired treatment with Flagyl. Superficial abrasion ulcer of her left breast incision healed in August 2017. She had postoperative pain which was managed with Percocet and Valium. The patient had a vascular port placed on 07/19/2017 for chemotherapy. The patient started chemotherapy on 08/03/2017. She underwent chemotherapy every 2 weeks for 3 months, before starting Taxol weekly for 3 months. She started radiation treatment of the left breast at the end of January 2018. She completed radiation therapy on March 06, 2018. On July 26, 2018, she underwent a laparoscopic bilateral salpingo-oophorectomy. The patient continued to have painful scarring of her left breast. On 09/07/2018, the patient underwent a revision of the reconstructed left breast with excision of painful radiation scar contour deformity. During that surgery, she also went a second stage delayed left breast reconstruction with removal of tissue seat pack inspector and capsulectomy, as well as a second stage delayed breast re construction with placement of a left latissimus dorsi myocutaneous flap. During the surgery, fat necrosis and radiation fibrosis were noted in the subcutaneous tissue and excised. Her pain was again managed with Percocet and Valium. 1 week after the surgical procedure, the patient was evaluated in the ER for a fever. There were no clinical signs of surgical wound infection, but the patient was discharged on Bactrim DS for MRSA coverage and discharged home in stable condition. At several weeks postop, the patient continued to have left axillary pain which was felt to be possibly related to radiation fibrosis. On 01/15/2019 the patient underwent another revision of the left breast reconstruction with excision of radiation scar contour deformity and delayed left breast reconstruction with placement of submuscular saline tissue seat pack inspector. During this procedure, thickened radiation scar contour deformity located medially was sharply excised and sent to pathology for analysis to rule out carcinoma. Pathology indicated fibrosis and suture granulomas with focal fat necrosis consistent with scar; no evidence of malignancy.Her pain was again managed with Valium and Percocet. On 03/26/2019, the patient underwent another surgery which included revision of the right breast reconstruction with removal of saline tissue seat pack inspector and capsulectomy, delayed right breast reconstruction with placement of cohesive gel implant and placement AlloDerm select acellular dermal matrix graft, revision of left breast reconstruction with removal of saline tissue seat pack inspector and capsulectomy, revision of left breast reconstruction radiation scar contour deformity with multiple W-plasty reconstruction, and delayed left breast reconstruction with placement of cohesive gel implant. During this procedure, dense capsular scar tissue was noted on the left side due to radiation effect. Pathology of the left breast showed fibroadipose tissue and fibroconnective tissue with fibrosis, chronic inflammation and foreign body giant cell reaction. Her pain was managed with Percocet postoperatively. In April, she had a small separation of her right breast incision. A wound culture showed Pseudom onas and she was started on Levaquin and silver dressing changes. Further thinning of the incision developed and there was exposure of the implant of the right breast. She was admitted to the hospital for IV antibiotic treatment and returned to the OR on 04/23/2019 for revision of the right breast reconstruction with excisional debridement of the nonhealing infected wound with removal of AlloDerm acellular dermal matrix graft and removal of exposed infected cohesive gel implant, with complex secondary wound closure. She had appropriate healing following this surgery. She did have additional pain, which was managed with Neurontin. On 11/19/2019, the patient underwent another surgery: First stage delayed bilateral breast reconstruction with bilateral TRAM flap delay and revision of the left breast reconstruction with excision of radiation scar contour deformity with multiple W-plasty reconstruction. During this operation, there was some redundancy to the latissimus dorsi skin flap with pincushioning secondary to the radiation scar contour deformity of the left side. 1.5 cm of radiated skin contour deformity was excised down into the subcutaneous tissue. Some radiation fibrosis and surrounding scar tissue was excised. This left breast tissue was sent to pathology to rule out carcinoma. Pathology report revealed skin with underlying tissue with dermal fibrosis, consistent with scar and focal histiocytic reaction; negative for malignancy. Her postoperative pain was again managed with Percocet and Valium. On 01/07/2020, the patient underwent her most recent surgery: Revision of reconstructed left breast with removal of cohesive gel implant and capsulectomy and excision radiation fibrosis with multiple W-plasty reconstruction; second stage bilateral breast reconstruction with bilateral TRAM flaps; abdominal wall reconstruction with placement of Strattice acellular dermal matrix graft. During this operation, there was a lot of dense fibrosis from radiation damage in the subcutaneous tissue and on the muscle of the left breast. This was sent to pathology to rule out carcinoma. The dense fibrotic radiation tissue was excised. Pathology reports demonstrated the followin. Left breast capsule: Pieces of fibroadipose tissue, fibroconnective tissue and skeletal muscle tissue with focal chronic inflammation, foreign body giant cell reaction and reactive changes. 2. Left breast tissue: Pieces of skin with underlying tissue with focal chronic inflammation and reactive changes. 3. Right breast tissue: Pieces of skin with underlying tissue with dense fibrosis consistent with scar, focal chronic inflammation and reactive changes. Both left and right breast tissue were negative for malignancy. Following surgery, her hemoglobin dropped from 10.4 to 8.4. It subsequently increased to 8.9 at discharge and she was started on iron supplementation. 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 It is my impression that left breast soft tissue radionecrosis, which was noted on several operative evaluations, may delay or complicate the patient's surgical recovery. Past Medical History Chronic Problems (Last Reviewed 01/18/20 @ 17:[address] 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) left breast reconstruction Deformity of reconstructed breast (Chronic) painful radiation scar contour deformity Estrogen receptor positive status [ER+] (Chronic) Current smoker (Chronic) Disproportion of reconstructed breast (Chronic) 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) Cancer phobia (Chronic) cancer phobia right breast Allergies/Adverse Reactions: Allergies ondansetron [From Zofran] Adverse Reaction (Verified 01/16/20 13:55) MIGRAINES Home Medications: Ambulatory Orders Medication Instructions Recorded anastrozole 1 mg tablet 1 mg PO QHS 07/05/18 cyanocobalamin (vitamin B-12) 1,000 mcg PO DAILY 07/05/18 1,000 mcg capsule pyridoxine (vitamin B6) 100 mg 100 mg PO QHS 07/05/18 tablet Pantoprazole Sodium [Protonix] 40 mg PO QHS 08/31/18 Vitamin C/Biotin [Hair, Skin and 2 ea PO QHS 01/08/19 Nails Gummies] Gabapentin [Neurontin] 100 mg PO BID PRN 11/08/19 Sertraline HCl [Zoloft] 100 mg PO DAILY 12/30/19 Cefadroxil [Duricef] 500 mg PO BID #30 cap 01/11/20 Diazepam [Valium] 5 mg PO 4X/DAY PRN PRN #30 tab 01/11/20 Docusate Sodium [Colace] 100 mg PO BID #60 cap 01/11/20 Iron Polysaccharide Complex 150 mg PO DAILYCM #30 cap 01/11/20 [Ferrex 150] Melatonin 20 mg PO QHS tab 01/11/20 proMETHazine tablet [Phenergan 25 mg PO 4X/DAY PRN PRN #30 tab 01/11/20 tablet] diazepam 5 mg tablet 5 mg PO TID PRN #30 tab 01/18/20 oxycodone-acetaminophen 5 mg-325 1 tab PO Q4H PRN #40 tab 01/18/20 mg tablet Smoking Status: Light Smoker (<10/day) Review of Systems Constitutional: Denies: Chills, Fever, Weight Change Eyes: Denies: Pain, Vision Change HEENT: Denies: Difficulty Hearing, Difficulty Swallowing, Sinus Congestion Cardiovascular: Denies: Chest Pain, Palpitations Respiratory: Denies: Cough, Shortness of Breath, Wheezing Gastrointestinal: Denies: Diarrhea, Nausea, Vomiting Genitourinary: Denies: Dysuria, Hematuria Musculoskeletal: Reports: Muscle pain - Postoperative pain of chest and abdomen Skin: Reports: Wounds - Surgical incisions of bilateral breasts Neurological: Denies: Balance problems, Slurred speech, Confusion, Focal weakness Psychiatric: Reports: Anxiety - Patient has anxiety which is currently being managed with sertraline. She feels that it is adequately controlled at this time. Endocrine: Denies: Heat/ Cold Intolerance, Polydipsia, Polyuria Hematologic/ Lymphatic: Reports: Anemia - Patient's last hemoglobin on 01/11/2020 was 8.9. Denies: Easy Bruising, Easy Bleeding - Physical Exam Vital Signs Temp Pulse Resp BP 98 F 83 18 112/80 01/20/20 14:12 01/20/20 14:12 01/20/20 14:12 01/20/20 14:12 General: Alert, Oriented x3, Cooperative, No apparent distress HEENT: Atraumatic, EOMI, Normocephalic, TM's Clear, EAC Clear Oral: Moist Mucosa Neck: Supple, No JVD, Trachea Midline Lungs: Clear to auscultation, Normal air movement, No rhonchi, No wheeze, No rales Cardiovascular: Regular rate, Regular Rhythm, Normal S1, Normal S2, No murmurs, No rub noted, No Gallop Abdomen: Bowel Sounds Present, Soft, Non-Distended Extremities: No clubbing, No cyanosis, No edema, Capillary Refill Less than 3 Seconds, Peripheral Pulses Normal Skin: Incision - Patient has bilateral breast incisions, which are well approximated. Her MARBELLA drains are well intact and draining serosanguineous fluid. There is no dehiscence. There is no periincisional erythema or edema. There is no purulent or malodorous drainage. Wound Measurements and Assessment - Nurse 2 - General Ulcer CM Notes Start: 01/20/20 13:01 Freq: Status: Active Protocol: Activity Type Activity Date Activity User E-Sign Co-Sign Detail Recorded Client Recorded Date Recorded By Document 01/20/20 14:54 [id number] 01/20/20 14:59 01/20/20 14:54 Pain Scale: 0-10 Numeric [Pain] -Is Patient Pain Free? Yes - Nurse 3 - General Ulcer D/C NN Start: 01/20/20 13:01 Freq: Status: Active Protocol: Activity Type Activity Date Activity User E-Sign Co-Sign Detail Recorded Client Recorded Date Recorded By Document 01/20/20 14:59 [id number] 01/20/20 15:00 01/20/20 14:59 -Is Patient Pain Free? Yes - Visit Discharge [Visit Discharge Information] -Discharge Condition Stable -Ambulatory Status Ambulatory -Transportation Private Auto -Accompanied by mom -Medication Reconcilliation completed Yes & provided to patient/care provider -Clinical Summary of Care Provided Yes Musculoskeletal: Tenderness - Along chest wall and abdomen; postoperative pain Neurological: Cranial nerves II-XII grossly intact, Neuro grossly intact Psych/Mental Status: Normal Affect, Appropriate Assessment/Plan Active Problems (Last Reviewed 01/18/20 @ 17:[address] Sandro Martinez MD) History of removal of right breast implant (Chronic) Soft tissue radionecrosis (Chronic) Late effect of radiation (Chronic) left breast reconstruction Estrogen receptor positive status [ER+] (Chronic) 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) TRI HAQUE is an appropriate candidate for hyperbaric oxygen therapy. Hyperbaric Oxygen Therapy would be an essential adjunct in the resolution and treatment of this patient's presenting problem. This patient has sufficient physiologic and psychological stamina to undergo the rigors of hyperbaric oxygen therapy. As such, I recommend the following: Hyperbaric Oxygen Treatments at 2.0 CADE in 100% Oxygen for 90 minutes per treatment, for 30 treatments. I have discussed the possible benefits of hyperbaric oxygen therapy with this patient. I have also presented and described the risks, including: air gas embolism, pneumothorax, central nervous system and pulmonary oxygen toxicity, flash pulmonary edema, hypoglycemia, reversible visual refractive changes, ear and sinus shaun-trauma, and confinement anxiety. The patient has verbalized understanding of these risks, and is still wanting to undergo hyperbaric oxygen therapy. The patient understands the significant time and transportation commitment involved in daily treatments of up to two hours duration and has stated that they are willing to commit to this therapy. Recent lab work was reviewed. The patient will be further evaluated with a chest x-ray and EKG prior to initiation of HBOT. - HBOT Diagnosis STRN/Late Effects of Radiation (990) Laboratory findings are significant for the following: CBC: RBC 3.01, hemoglobin 8.9, hematocrit 27.2%, RDW standard deviation 46.3 BMP: Anion gap 2, BUN 26, BUN/creatinine ratio 47.1, calcium 8.3 Chest x-ray and EKG were ordered. Patient plans to complete these on 01/22/2020. These results will be reviewed prior to initiating HBOT. Office Visits / Consults: [id number] OV L4 Est
== END 2020-02-08 23:59 ==
LOC: WC 13:50
PROVIDERS: PCP Student in an Organized Health Care Education/Training Program; Visit Provider Nurse Practitioner Family
DX: L59.8 Other specified disorders of the skin and subcutaneous tissue related to radiation (principal); Y84.2 Radiological procedure and radiotherapy as the cause of abnormal reaction of the patient, or of later complication, without mention of misadventure at the time of the procedure; C50.412 Malignant neoplasm of upper-outer quadrant of left female breast; Z90.13 Acquired absence of bilateral breasts and nipples; Z17.0 Estrogen receptor positive status [ER+]; Z88.8 Allergy status to other drugs, medicaments and biological substances; Z92.3 Personal history of irradiation; Z98.86 Personal history of breast implant removal
CPT/HCPCS: 99212; G0463

== ENCOUNTER → 2020-01-22 13:10 | Outpatient (CLI) | payer BC, SELFPAY ==
[2020-01-20 14:12] VITALS: BMI 25.0
--- NOTE | 2020-01-22 13:13 | RAD_ITS ---
STUDY: X-RAY CHEST REASON FOR EXAM: Female, 39 years old. PRE-HBO THERAPY. NO CHEST COMPLAINTS TODAY. HX BREAST CA W/ RECENT CONSTRUCTION SURGERY TECHNIQUE: Frontal and lateral views of the chest COMPARISON: September 14 2018 FINDINGS: There is no pneumothorax. Lungs are clear. Cardiac size is normal. Infusion port is present in the right upper chest entering the jugular and terminating with its tip at the caval atrial junction. There are plastic surgical tubings bilaterally in the breasts. Appearance is stable since prior. RAD/Chest PA and Lateral IMPRESSION: Normal chest x-ray. Bilateral breast surgical devices. Electronically Signed: Matilda Darby, at 15:07 EDT Tel , Service support ,
--- NOTE | 2020-01-22 13:14 | EKG12_ITS ---
Test Reason : HYBERERIC CHAMBER Blood Pressure : / mmHG Vent. Rate : 068 BPM Atrial Rate : 068 BPM P-R Int : 134 ms QRS Dur : 082 ms QT Int : 388 ms P-R-T Axes : 030 -12 005 degrees QTc Int : 412 ms Normal sinus rhythm Normal ECG Confirmed by HERBERT CABRERA, WEN ([id number]), map editor COSME GARCIA ([id number]) on 01/27/2020 8:49:06 A M Referred By: Claudia Zuniga Confirmed By:MICHAEL GODINEZ MD
== END ==
PROVIDERS: PCP Student in an Organized Health Care Education/Training Program; Referring Provider Nurse Practitioner Family; Visit Provider Nurse Practitioner Family
DX: Z99.81 Dependence on supplemental oxygen (principal)
CPT/HCPCS: 71046; 93005

== ENCOUNTER → 2020-01-30 16:53 | Outpatient (CLI) | payer BC, SELFPAY ==
[2020-01-30 18:07] LABS: Hematocrit 32.8 % (37-47); Hemoglobin 10.5 g/dL (12.0-15.0)
== END ==
PROVIDERS: Nurse Practitioner Family; PCP Student in an Organized Health Care Education/Training Program; Referring Provider Surgery; Visit Provider Surgery
DX: N64.89 Other specified disorders of breast (principal); D63.8 Anemia in other chronic diseases classified elsewhere
CPT/HCPCS: 36415; 85014; 85018

== ENCOUNTER 2020-04-08 08:00 | Outpatient (RCR) | payer BC, SELFPAY ==
[2020-01-22 15:40] VITALS: BMI 26.1
[2020-02-09 00:38] VITALS: BP 112/80; PULSE 83; RESP 18; TEMP 36.6
[2020-03-13 10:44] VITALS: BP 115/78; BP 128/72; PULSE 70; PULSE 79; RESP 16; TEMP 36.4; TEMP 36.5
--- NOTE | 2020-03-13 12:55 | HBO.PN.PCM_ITS ---
History of Present Illness Date of Service: 03/13/20 Presenting Chief Complaint: HBOT for soft tissue radionecrosis of left breast, failed skin graft LETICIA HAQUE is a 39 year old currently undergoing hyperbaric oxygen therapy for soft tissue radionecrosis of left breast and failed skin graft of left breast s/p mastectomy and reconstruction left breast Progress: Today is the patient's 1st treatment of hyperbaric oxygen therapy. The patient is scheduled for 30 treatments total. Tolerance of hyperbaric oxygen therapy: Hyperbaric oxygen treatment was provided as per the facility's protocol at 2.0 CADE in 100% oxygen for 90 minutes without air breaks. The patient tolerated hyperbaric oxygen well, she did have some pain in her right ear during treatment which she rated 5/10 at it's worst and reports popping and muffled hearing post-treatment. Upon emergence of the hyperbaric chamber, the patient's vital signs remained stable. Her ears were examined and her right TM was bulging with mild hemotypanum, left TM was bulging with mild erythema. Past Medical History Chronic Problems (Last Reviewed 03/12/20 @ 22:[address] 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) left breast reconstruction Deformity of reconstructed breast (Chronic) painful radiation scar contour deformity Estrogen receptor positive status [ER+] (Chronic) Current smoker (Chronic) Disproportion of reconstructed breast (Chronic) 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) Cancer phobia (Chronic) cancer phobia right breast Allergies/Adverse Reactions: Allergies ondansetron [From Zofran] Adverse Reaction (Verified 03/11/20 10:23) MIGRAINES Home Medications: Ambulatory Orders Medication Instructions Recorded anastrozole 1 mg tablet 1 mg PO QHS 07/05/18 cyanocobalamin (vitamin B-12) 1,000 mcg PO DAILY 07/05/18 1,000 mcg capsule pyridoxine (vitamin B6) 100 mg 100 mg PO QHS 07/05/18 tablet Pantoprazole Sodium [Protonix] 40 mg PO QHS 08/31/18 Vitamin C/Biotin [Hair, Skin and 2 ea PO QHS 01/08/19 Nails Gummies] Gabapentin [Neurontin] 100 mg PO BID PRN 11/08/19 Sertraline HCl [Zoloft] 100 mg PO DAILY 12/30/19 Docusate Sodium [Colace] 100 mg PO BID #60 cap 01/11/20 Iron Polysaccharide Complex 150 mg PO DAILYCM #30 cap 01/11/20 [Ferrex 150] Melatonin 20 mg PO QHS tab 01/11/20 mupirocin 2 % topical ointment 1 applic TOPICAL DAILY #3 tube 02/12/20 diazepam 5 mg tablet 5 mg PO TID PRN #20 tab 03/04/20 promethazine 25 mg tablet 25 mg PO 4X/DAY PRN PRN #30 tab 03/04/20 diazepam 5 mg tablet 5 mg PO BID PRN #14 tab 03/11/20 oxycodone-acetaminophen 5 mg-325 1 tab PO BID PRN #14 tab 03/11/20 mg tablet Smoking Status: Light Smoker (<10/day) Physical Exam Vital Signs Temp Pulse Resp BP 97.7 F L 79 16 115/78 03/13/20 10:44 03/13/20 10:44 03/13/20 10:44 03/13/20 10:44 General: Alert, Oriented x3, Cooperative, No apparent distress HEENT: EAC Clear, - - TMs WNL pre treatment, R TM with mild barotrauma/hemotypanum, L TM mild buling and erythema post treatment, nasal turbinate swelling L>R Psych/Mental Status: Normal Affect, Appropriate Assessment/Plan The patient appears to be tolerating hyperbaric oxygen therapy. Discussed with patient and HBO field installation technician that would recommend allergy medication and if when she comes for treatment on Monday her R TM is still erythematous or bulging then I would recommend holding treatments and referral to ENT for evaluation and myringotomy tube placement. HBO treatment will be continued as per her medical treatment plan. Treatment Course Number Number of HBO Treatments 30 Ordered Treatment Course Number 1 Treatment # 1 Chamber # 1 Chamber Type Monoplace Treatment Plan CADE (Atmospheric Absolute) 2 Number of Minutes 90 Number of Air Breaks 0
--- NOTE | 2020-03-16 13:50 | WC ---
Patient arrive to do treatment was assessed by Roxana Angel NONPROFIT FUNDRAISER who suggested patient see before continuing to dive. Appointment was set up by this nurse for at 9am. Patient informed and agreed.
[2020-03-17 11:21] VITALS: BP 118/78; BP 95/56; PULSE 51; PULSE 77; RESP 16; TEMP 36.3
--- NOTE | 2020-03-17 14:07 | PCM.HBO.PN ---
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 The patient is scheduled for 30 treatments total. Tolerance of hyperbaric oxygen therapy: Physical exam prior to hyperbaric oxygen therapy noted that the patient continued to have redness to the right tympanic membrane. Patient also reported popping over the weekend. She was compliant with the use of Claritin daily as recommended by the physician covering her last visit. At this point, the patient has been referred to ENT for evaluation. It is also recommended that she not participate in hyperbaric oxygen therapy until cleared by ENT. Past Medical History Chronic Problems (Last Reviewed 03/12/20 @ 22:[address] 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) left breast reconstruction Deformity of reconstructed breast (Chronic) painful radiation scar contour deformity Estrogen receptor positive status [ER+] (Chronic) Current smoker (Chronic) Disproportion of reconstructed breast (Chronic) 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) Cancer phobia (Chronic) cancer phobia right breast Allergies/Adverse Reactions: Allergies ondansetron [From Zofran] Adverse Reaction (Verified 03/11/20 10:23) MIGRAINES Home Medications: Ambulatory Orders Medication Instructions Recorded anastrozole 1 mg tablet 1 mg PO QHS 07/05/18 cyanocobalamin (vitamin B-12) 1,000 mcg PO DAILY 07/05/18 1,000 mcg capsule pyridoxine (vitamin B6) 100 mg 100 mg PO QHS 07/05/18 tablet Pantoprazole Sodium [Protonix] 40 mg PO QHS 08/31/18 Vitamin C/Biotin [Hair, Skin and 2 ea PO QHS 01/08/19 Nails Gummies] Gabapentin [Neurontin] 100 mg PO BID PRN 11/08/19 Sertraline HCl [Zoloft] 100 mg PO DAILY 12/30/19 Docusate Sodium [Colace] 100 mg PO BID #60 cap 01/11/20 Iron Polysaccharide Complex 150 mg PO DAILYCM #30 cap 01/11/20 [Ferrex 150] Melatonin 20 mg PO QHS tab 01/11/20 mupirocin 2 % topical ointment 1 applic TOPICAL DAILY #3 tube 02/12/20 diazepam 5 mg tablet 5 mg PO TID PRN #20 tab 03/04/20 promethazine 25 mg tablet 25 mg PO 4X/DAY PRN PRN #30 tab 03/04/20 diazepam 5 mg tablet 5 mg PO BID PRN #14 tab 03/11/20 oxycodone-acetaminophen 5 mg-325 1 tab PO BID PRN #14 tab 03/11/20 mg tablet Smoking Status: Light Smoker (<10/day) Physical Exam Vital Signs Temp Pulse Resp BP 97.4 F L 77 16 118/78 03/17/20 11:21 03/17/20 11:21 03/17/20 11:21 03/17/20 11:21 General: Alert, Oriented x3, Cooperative HEENT: Atraumatic, - - Right tympanic membrane injected Lungs: Clear to auscultation, Normal air movement Cardiovascular: Regular rate, Regular Rhythm Psych/Mental Status: Normal Affect, Appropriate, Alert and oriented to time, place, person, mood and affect Assessment/Plan Treatment Course Number Number of HBO Treatments 30 Ordered Treatment Course Number 1 Treatment # 2 Chamber # 0 Chamber Type Monoplace Treatment Plan CADE (Atmospheric Absolute) 2 Number of Minutes 90 Number of Air Breaks 0
--- NOTE | 2020-03-17 14:08 | PCM.HBO.PN ---
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 The patient is scheduled for 30 treatments total. Tolerance of hyperbaric oxygen therapy: Hyperbaric oxygen treatment was provided as per the facility's protocol at 2.0 CADE in 100% oxygen for 90 minutes without air breaks. The patient tolerated hyperbaric oxygen well. The patient had undergone placement of myringotomy tubes in both ears earlier today and denied any pain during or after hyperbaric oxygen therapy today. However, she stated that it felt as though there was liquid draining from my ear, referring to the right ear. Otoscopic examination was undertaken, and the right myringotomy tube was noted to be in place, with the tympanic membrane appearing to be unremarkable. A very focal area of erythema was noted within the right ear canal inferiorly, thought to be of little clinical significance. Past Medical History Chronic Problems (Last Reviewed 03/12/20 @ 22:[address] 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) left breast reconstruction Deformity of reconstructed breast (Chronic) painful radiation scar contour deformity Estrogen receptor positive status [ER+] (Chronic) Current smoker (Chronic) Disproportion of reconstructed breast (Chronic) 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) Cancer phobia (Chronic) cancer phobia right breast Allergies/Adverse Reactions: Allergies ondansetron [From Zofran] Adverse Reaction (Verified 03/11/20 10:23) MIGRAINES Home Medications: Ambulatory Orders Medication Instructions Recorded anastrozole 1 mg tablet 1 mg PO QHS 07/05/18 cyanocobalamin (vitamin B-12) 1,000 mcg PO DAILY 07/05/18 1,000 mcg capsule pyridoxine (vitamin B6) 100 mg 100 mg PO QHS 07/05/18 tablet Pantoprazole Sodium [Protonix] 40 mg PO QHS 08/31/18 Vitamin C/Biotin [Hair, Skin and 2 ea PO QHS 01/08/19 Nails Gummies] Gabapentin [Neurontin] 100 mg PO BID PRN 11/08/19 Sertraline HCl [Zoloft] 100 mg PO DAILY 12/30/19 Docusate Sodium [Colace] 100 mg PO BID #60 cap 01/11/20 Iron Polysaccharide Complex 150 mg PO DAILYCM #30 cap 01/11/20 [Ferrex 150] Melatonin 20 mg PO QHS tab 01/11/20 mupirocin 2 % topical ointment 1 applic TOPICAL DAILY #3 tube 02/12/20 diazepam 5 mg tablet 5 mg PO TID PRN #20 tab 03/04/20 promethazine 25 mg tablet 25 mg PO 4X/DAY PRN PRN #30 tab 03/04/20 diazepam 5 mg tablet 5 mg PO BID PRN #14 tab 03/11/20 oxycodone-acetaminophen 5 mg-325 1 tab PO BID PRN #14 tab 03/11/20 mg tablet Smoking Status: Light Smoker (<10/day) Physical Exam Vital Signs Temp Pulse Resp BP 97.4 F L 77 16 118/78 03/17/20 11:21 03/17/20 11:21 03/17/20 11:21 03/17/20 11:21 General: Alert, Oriented x3, Cooperative, No apparent distress, Well developed, Well nourished HEENT: Atraumatic, PERRLA, EOMI, Normocephalic, - - A right myringotomy tube is noted to be in place. Right tympanic membrane is unremarkable. Slight, focal erythema is noted inferiorly within the right ear canal. Lungs: Normal air movement Psych/Mental Status: Normal Affect, Appropriate, Alert and oriented to time, place, person, mood and affect Assessment/Plan The patient appears to be tolerating hyperbaric oxygen therapy well, which will be continued as per the patient's medical plan. Treatment Course Number Number of HBO Treatments 30 Ordered Treatment Course Number 1 Treatment # 2 Chamber # 1 Chamber Type Monoplace Treatment Plan CADE (Atmospheric Absolute) 2 Number of Minutes 90 Number of Air Breaks 0
[2020-03-18 10:44] VITALS: BP 102/67; BP 115/75; PULSE 62; PULSE 69; RESP 16; RESP 17; TEMP 36.6
--- NOTE | 2020-03-18 12:26 | PCM.HBO.PN ---
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 The patient is scheduled for 30 treatments total. Tolerance of hyperbaric oxygen therapy: Hyperbaric oxygen treatment was provided as per the facility's protocol at 2.0 CADE in 100% oxygen for 90 minutes without air breaks. The patient tolerated hyperbaric oxygen well. The patient had undergone placement of myringotomy tubes in both ears earlier today and denied any pain during or after hyperbaric oxygen therapy today. However, she stated that it felt as though there was liquid draining from my ear, referring to the right ear. Otoscopic examination was undertaken, and the right myringotomy tube was noted to be in place, with the tympanic membrane appearing to be unremarkable. A very focal area of erythema was noted within the right ear canal inferiorly, thought to be of little clinical significance. Past Medical History Chronic Problems (Last Reviewed 03/12/20 @ 22:[address] 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) left breast reconstruction Deformity of reconstructed breast (Chronic) painful radiation scar contour deformity Estrogen receptor positive status [ER+] (Chronic) Current smoker (Chronic) Disproportion of reconstructed breast (Chronic) 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) Cancer phobia (Chronic) cancer phobia right breast Allergies/Adverse Reactions: Allergies ondansetron [From Zofran] Adverse Reaction (Verified 03/11/20 10:23) MIGRAINES Home Medications: Ambulatory Orders Medication Instructions Recorded anastrozole 1 mg tablet 1 mg PO QHS 07/05/18 cyanocobalamin (vitamin B-12) 1,000 mcg PO DAILY 07/05/18 1,000 mcg capsule pyridoxine (vitamin B6) 100 mg 100 mg PO QHS 07/05/18 tablet Pantoprazole Sodium [Protonix] 40 mg PO QHS 08/31/18 Vitamin C/Biotin [Hair, Skin and 2 ea PO QHS 01/08/19 Nails Gummies] Gabapentin [Neurontin] 100 mg PO BID PRN 11/08/19 Sertraline HCl [Zoloft] 100 mg PO DAILY 12/30/19 Docusate Sodium [Colace] 100 mg PO BID #60 cap 01/11/20 Iron Polysaccharide Complex 150 mg PO DAILYCM #30 cap 01/11/20 [Ferrex 150] Melatonin 20 mg PO QHS tab 01/11/20 mupirocin 2 % topical ointment 1 applic TOPICAL DAILY #3 tube 02/12/20 diazepam 5 mg tablet 5 mg PO TID PRN #20 tab 03/04/20 promethazine 25 mg tablet 25 mg PO 4X/DAY PRN PRN #30 tab 03/04/20 diazepam 5 mg tablet 5 mg PO BID PRN #14 tab 03/11/20 oxycodone-acetaminophen 5 mg-325 1 tab PO BID PRN #14 tab 03/11/20 mg tablet Smoking Status: Light Smoker (<10/day) Physical Exam Vital Signs Temp Pulse Resp BP 97.9 F 69 17 102/67 03/18/20 10:44 03/18/20 10:44 03/18/20 10:44 03/18/20 10:44 Assessment/Plan The patient appears to be tolerating hyperbaric oxygen therapy well, which will be continued as per the patient's medical plan. Treatment Course Number Number of HBO Treatments 30 Ordered Treatment Course Number 1 Treatment # 3 Chamber # 1 Chamber Type Monoplace Treatment Plan CADE (Atmospheric Absolute) 2 Number of Minutes 90 Number of Air Breaks 0
--- NOTE | 2020-03-19 10:39 | PCM.HBO.PN ---
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 The patient is scheduled for 30 treatments total. Tolerance of hyperbaric oxygen therapy: Hyperbaric oxygen treatment was provided as per the facility's protocol at 2.0 CADE in 100% oxygen for 90 minutes without air breaks. The patient tolerated hyperbaric oxygen well. The patient had undergone placement of myringotomy tubes in both ears 03/18/20. She was discharged in good condition. Past Medical History Chronic Problems (Last Reviewed 03/12/20 @ 22:[address] 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) left breast reconstruction Deformity of reconstructed breast (Chronic) painful radiation scar contour deformity Estrogen receptor positive status [ER+] (Chronic) Current smoker (Chronic) Disproportion of reconstructed breast (Chronic) 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) Cancer phobia (Chronic) cancer phobia right breast Allergies/Adverse Reactions: Allergies ondansetron [From Zofran] Adverse Reaction (Verified 03/11/20 10:23) MIGRAINES Home Medications: Ambulatory Orders Medication Instructions Recorded anastrozole 1 mg tablet 1 mg PO QHS 07/05/18 cyanocobalamin (vitamin B-12) 1,000 mcg PO DAILY 07/05/18 1,000 mcg capsule pyridoxine (vitamin B6) 100 mg 100 mg PO QHS 07/05/18 tablet Pantoprazole Sodium [Protonix] 40 mg PO QHS 08/31/18 Vitamin C/Biotin [Hair, Skin and 2 ea PO QHS 01/08/19 Nails Gummies] Gabapentin [Neurontin] 100 mg PO BID PRN 11/08/19 Sertraline HCl [Zoloft] 100 mg PO DAILY 12/30/19 Docusate Sodium [Colace] 100 mg PO BID #60 cap 01/11/20 Iron Polysaccharide Complex 150 mg PO DAILYCM #30 cap 01/11/20 [Ferrex 150] Melatonin 20 mg PO QHS tab 01/11/20 mupirocin 2 % topical ointment 1 applic TOPICAL DAILY #3 tube 02/12/20 diazepam 5 mg tablet 5 mg PO TID PRN #20 tab 03/04/20 promethazine 25 mg tablet 25 mg PO 4X/DAY PRN PRN #30 tab 03/04/20 diazepam 5 mg tablet 5 mg PO BID PRN #14 tab 03/11/20 oxycodone-acetaminophen 5 mg-325 1 tab PO BID PRN #14 tab 03/11/20 mg tablet diazepam 5 mg tablet 5 mg PO BID PRN #14 tab 03/18/20 oxycodone-acetaminophen 5 mg-325 1 tab PO BID PRN #14 tab 03/18/20 mg tablet Smoking Status: Light Smoker (<10/day) Physical Exam Vital Signs Temp Pulse Resp BP 97.9 F 69 17 102/67 03/18/20 10:44 03/18/20 10:44 03/18/20 10:44 03/18/20 10:44 General: Alert, Oriented x3, Cooperative, No apparent distress HEENT: Atraumatic, TM's Clear Lungs: Clear to auscultation, Normal air movement Cardiovascular: Regular rate, Regular Rhythm Psych/Mental Status: Normal Affect, Appropriate, Alert and oriented to time, place, person, mood and affect Assessment/Plan Treatment Course Number Number of HBO Treatments 30 Ordered Treatment Course Number 1 Treatment # 4 Chamber # 1 Chamber Type Monoplace Treatment Plan CADE (Atmospheric Absolute) 2 Number of Minutes 90 Number of Air Breaks 0
[2020-03-19 11:00] VITALS: BP 103/71; BP 120/74; PULSE 63; PULSE 87; RESP 16; RESP 17; TEMP 36.3
[2020-03-20 08:18] VITALS: BP 102/61; BP 109/68; PULSE 63; PULSE 74; RESP 16; TEMP 36.4; TEMP 36.7
--- NOTE | 2020-03-20 13:46 | PCM.HBO.PN ---
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 The patient is scheduled for 30 treatments total. Tolerance of hyperbaric oxygen therapy: Hyperbaric oxygen treatment was provided as per the facility's protocol at 2.0 CADE in 100% oxygen for 90 minutes without air breaks. The patient tolerated hyperbaric oxygen well. The patient had undergone placement of myringotomy tubes in both ears 03/18/20. She was discharged in good condition. Past Medical History Chronic Problems (Last Reviewed 03/12/20 @ 22:[address] 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) left breast reconstruction Deformity of reconstructed breast (Chronic) painful radiation scar contour deformity Estrogen receptor positive status [ER+] (Chronic) Current smoker (Chronic) Disproportion of reconstructed breast (Chronic) 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) Cancer phobia (Chronic) cancer phobia right breast Allergies/Adverse Reactions: Allergies ondansetron [From Zofran] Adverse Reaction (Verified 03/11/20 10:23) MIGRAINES Home Medications: Ambulatory Orders Medication Instructions Recorded anastrozole 1 mg tablet 1 mg PO QHS 07/05/18 cyanocobalamin (vitamin B-12) 1,000 mcg PO DAILY 07/05/18 1,000 mcg capsule pyridoxine (vitamin B6) 100 mg 100 mg PO QHS 07/05/18 tablet Pantoprazole Sodium [Protonix] 40 mg PO QHS 08/31/18 Vitamin C/Biotin [Hair, Skin and 2 ea PO QHS 01/08/19 Nails Gummies] Gabapentin [Neurontin] 100 mg PO BID PRN 11/08/19 Sertraline HCl [Zoloft] 100 mg PO DAILY 12/30/19 Docusate Sodium [Colace] 100 mg PO BID #60 cap 01/11/20 Iron Polysaccharide Complex 150 mg PO DAILYCM #30 cap 01/11/20 [Ferrex 150] Melatonin 20 mg PO QHS tab 01/11/20 mupirocin 2 % topical ointment 1 applic TOPICAL DAILY #3 tube 02/12/20 diazepam 5 mg tablet 5 mg PO TID PRN #20 tab 03/04/20 promethazine 25 mg tablet 25 mg PO 4X/DAY PRN PRN #30 tab 03/04/20 diazepam 5 mg tablet 5 mg PO BID PRN #14 tab 03/11/20 oxycodone-acetaminophen 5 mg-325 1 tab PO BID PRN #14 tab 03/11/20 mg tablet diazepam 5 mg tablet 5 mg PO BID PRN #14 tab 03/18/20 oxycodone-acetaminophen 5 mg-325 1 tab PO BID PRN #14 tab 03/18/20 mg tablet Smoking Status: Light Smoker (<10/day) Physical Exam Vital Signs Temp Pulse Resp BP 97.5 F L 74 16 109/68 03/20/20 08:18 03/20/20 08:18 03/20/20 08:18 03/20/20 08:18 General: Alert, Oriented x3, Cooperative, No apparent distress HEENT: - - myringotomy tubes in place b/l Psych/Mental Status: Normal Affect, Appropriate Assessment/Plan The patient appears to be tolerating hyperbaric oxygen therapy well, which will be continued as per the patient's medical plan. Treatment Course Number Number of HBO Treatments 30 Ordered Treatment Course Number 1 Treatment # 5 Chamber # 1 Chamber Type Monoplace Treatment Plan CADE (Atmospheric Absolute) 2 Number of Minutes 90 Number of Air Breaks 0
--- NOTE | 2020-03-23 13:49 | PCM.HBO.PN ---
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 The patient is scheduled for 30 treatments total. Tolerance of hyperbaric oxygen therapy: Hyperbaric oxygen treatment was provided as per the facility's protocol at 2.0 CADE in 100% oxygen for 90 minutes without air breaks. The patient tolerated hyperbaric oxygen well. The patient had undergone placement of myringotomy tubes in both ears 03/18/20. She was discharged in good condition. Past Medical History Chronic Problems (Last Reviewed 03/12/20 @ 22:[address] 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) left breast reconstruction Deformity of reconstructed breast (Chronic) painful radiation scar contour deformity Estrogen receptor positive status [ER+] (Chronic) Current smoker (Chronic) Disproportion of reconstructed breast (Chronic) 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) Cancer phobia (Chronic) cancer phobia right breast Allergies/Adverse Reactions: Allergies ondansetron [From Zofran] Adverse Reaction (Verified 03/11/20 10:23) MIGRAINES Home Medications: Ambulatory Orders Medication Instructions Recorded anastrozole 1 mg tablet 1 mg PO QHS 07/05/18 cyanocobalamin (vitamin B-12) 1,000 mcg PO DAILY 07/05/18 1,000 mcg capsule pyridoxine (vitamin B6) 100 mg 100 mg PO QHS 07/05/18 tablet Pantoprazole Sodium [Protonix] 40 mg PO QHS 08/31/18 Vitamin C/Biotin [Hair, Skin and 2 ea PO QHS 01/08/19 Nails Gummies] Gabapentin [Neurontin] 100 mg PO BID PRN 11/08/19 Sertraline HCl [Zoloft] 100 mg PO DAILY 12/30/19 Docusate Sodium [Colace] 100 mg PO BID #60 cap 01/11/20 Iron Polysaccharide Complex 150 mg PO DAILYCM #30 cap 01/11/20 [Ferrex 150] Melatonin 20 mg PO QHS tab 01/11/20 mupirocin 2 % topical ointment 1 applic TOPICAL DAILY #3 tube 02/12/20 diazepam 5 mg tablet 5 mg PO TID PRN #20 tab 03/04/20 promethazine 25 mg tablet 25 mg PO 4X/DAY PRN PRN #30 tab 03/04/20 diazepam 5 mg tablet 5 mg PO BID PRN #14 tab 03/11/20 oxycodone-acetaminophen 5 mg-325 1 tab PO BID PRN #14 tab 03/11/20 mg tablet diazepam 5 mg tablet 5 mg PO BID PRN #14 tab 03/18/20 oxycodone-acetaminophen 5 mg-325 1 tab PO BID PRN #14 tab 03/18/20 mg tablet Smoking Status: Light Smoker (<10/day) Physical Exam Vital Signs Temp Pulse Resp BP 97.5 F L 74 16 109/68 03/20/20 08:18 03/20/20 08:18 03/20/20 08:18 03/20/20 08:18 General: Alert, Oriented x3, Cooperative HEENT: Atraumatic, TM's Clear Lungs: Clear to auscultation, Normal air movement Cardiovascular: Regular rate, Regular Rhythm Psych/Mental Status: Normal Affect, Appropriate, Alert and oriented to time, place, person, mood and affect Assessment/Plan Treatment Course Number Number of HBO Treatments 30 Ordered Treatment Course Number 1 Treatment # 6 Chamber # 1 Chamber Type Monoplace Treatment Plan CADE (Atmospheric Absolute) 2 Number of Minutes 90 Number of Air Breaks 0
[2020-03-23 13:59] VITALS: BP 112/71; BP 125/76; PULSE 75; PULSE 78; RESP 16; RESP 18; TEMP 36.4
[2020-03-24 10:59] VITALS: BP 116/83; BP 122/72; PULSE 69; PULSE 78; RESP 17; RESP 18; TEMP 36.7
--- NOTE | 2020-03-24 13:11 | PCM.HBO.PN ---
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 The patient is scheduled for 30 treatments total. Tolerance of hyperbaric oxygen therapy: Hyperbaric oxygen treatment was provided as per the facility's protocol at 2.0 CADE in 100% oxygen for 90 minutes without air breaks. The patient tolerated hyperbaric oxygen well. The patient had undergone placement of myringotomy tubes in both ears 03/18/20, and has done well since. Upon emergence from the hyperbaric chamber, patient's vital signs remained stable. She was discharged in good condition. Past Medical History Chronic Problems (Last Reviewed 03/12/20 @ 22:[address] 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) left breast reconstruction Deformity of reconstructed breast (Chronic) painful radiation scar contour deformity Estrogen receptor positive status [ER+] (Chronic) Current smoker (Chronic) Disproportion of reconstructed breast (Chronic) 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) Cancer phobia (Chronic) cancer phobia right breast Allergies/Adverse Reactions: Allergies ondansetron [From Zofran] Adverse Reaction (Verified 03/11/20 10:23) MIGRAINES Home Medications: Ambulatory Orders Medication Instructions Recorded anastrozole 1 mg tablet 1 mg PO QHS 07/05/18 cyanocobalamin (vitamin B-12) 1,000 mcg PO DAILY 07/05/18 1,000 mcg capsule pyridoxine (vitamin B6) 100 mg 100 mg PO QHS 07/05/18 tablet Pantoprazole Sodium [Protonix] 40 mg PO QHS 08/31/18 Vitamin C/Biotin [Hair, Skin and 2 ea PO QHS 01/08/19 Nails Gummies] Gabapentin [Neurontin] 100 mg PO BID PRN 11/08/19 Sertraline HCl [Zoloft] 100 mg PO DAILY 12/30/19 Docusate Sodium [Colace] 100 mg PO BID #60 cap 01/11/20 Iron Polysaccharide Complex 150 mg PO DAILYCM #30 cap 01/11/20 [Ferrex 150] Melatonin 20 mg PO QHS tab 01/11/20 mupirocin 2 % topical ointment 1 applic TOPICAL DAILY #3 tube 02/12/20 diazepam 5 mg tablet 5 mg PO TID PRN #20 tab 03/04/20 promethazine 25 mg tablet 25 mg PO 4X/DAY PRN PRN #30 tab 03/04/20 diazepam 5 mg tablet 5 mg PO BID PRN #14 tab 03/11/20 oxycodone-acetaminophen 5 mg-325 1 tab PO BID PRN #14 tab 03/11/20 mg tablet diazepam 5 mg tablet 5 mg PO BID PRN #14 tab 03/18/20 oxycodone-acetaminophen 5 mg-325 1 tab PO BID PRN #14 tab 03/18/20 mg tablet Smoking Status: Light Smoker (<10/day) Physical Exam Vital Signs Temp Pulse Resp BP 98.0 F 78 17 116/83 H 03/24/20 10:59 03/24/20 10:59 03/24/20 10:59 03/24/20 10:59 General: Alert, Oriented x3, Cooperative, No apparent distress, Well developed, Well nourished HEENT: Atraumatic, PERRLA, EOMI, Normocephalic Lungs: Normal air movement Psych/Mental Status: Normal Affect, Appropriate, Alert and oriented to time, place, person, mood and affect Assessment/Plan The patient appears to be tolerating hyperbaric oxygen therapy well, which will be continued as per the patient's medical plan. Treatment Course Number Number of HBO Treatments 30 Ordered Treatment Course Number 1 Treatment # 7 Chamber # 2 Chamber Type Monoplace Treatment Plan CADE (Atmospheric Absolute) 2 Number of Minutes 90 Number of Air Breaks 0
--- NOTE | 2020-03-25 13:50 | PCM.HBO.PN ---
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 The patient is scheduled for 30 treatments total. Tolerance of hyperbaric oxygen therapy: Hyperbaric oxygen treatment was provided as per the facility's protocol at 2.0 CADE in 100% oxygen for 90 minutes without air breaks. The patient tolerated hyperbaric oxygen well. The patient had undergone placement of myringotomy tubes in both ears 03/18/20, and has done well since. Upon emergence from the hyperbaric chamber, patient's vital signs remained stable. She was discharged in good condition. 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) left breast reconstruction Deformity of reconstructed breast (Chronic) painful radiation scar contour deformity Estrogen receptor positive status [ER+] (Chronic) Current smoker (Chronic) Disproportion of reconstructed breast (Chronic) 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) Cancer phobia (Chronic) cancer phobia right breast Allergies/Adverse Reactions: Allergies ondansetron [From Zofran] Adverse Reaction (Verified 03/25/20 10:28) MIGRAINES Home Medications: Ambulatory Orders Medication Instructions Recorded anastrozole 1 mg tablet 1 mg PO QHS 07/05/18 cyanocobalamin (vitamin B-12) 1,000 mcg PO DAILY 07/05/18 1,000 mcg capsule pyridoxine (vitamin B6) 100 mg 100 mg PO QHS 07/05/18 tablet Pantoprazole Sodium [Protonix] 40 mg PO QHS 08/31/18 Vitamin C/Biotin [Hair, Skin and 2 ea PO QHS 01/08/19 Nails Gummies] Gabapentin [Neurontin] 100 mg PO BID PRN 11/08/19 Sertraline HCl [Zoloft] 100 mg PO DAILY 12/30/19 Iron Polysaccharide Complex 150 mg PO DAILYCM #30 cap 01/11/20 [Ferrex 150] mupirocin 2 % topical ointment 1 applic TOPICAL DAILY #3 tube 02/12/20 diazepam 5 mg tablet 5 mg PO BID PRN #14 tab 03/18/20 oxycodone-acetaminophen 5 mg-325 1 tab PO BID PRN #14 tab 03/18/20 mg tablet Smoking Status: Light Smoker (<10/day) Physical Exam Vital Signs Temp Pulse Resp BP 98.0 F 78 17 116/83 H 03/24/20 10:59 03/24/20 10:59 03/24/20 10:59 03/24/20 10:59 General: Alert, Oriented x3, Cooperative, No apparent distress HEENT: Atraumatic, TM's Clear Lungs: Clear to auscultation, Normal air movement Cardiovascular: Regular rate, Regular Rhythm Psych/Mental Status: Normal Affect, Appropriate, Alert and oriented to time, place, person, mood and affect Assessment/Plan Treatment Course Number Number of HBO Treatments 30 Ordered Treatment Course Number 1 Treatment # 8 Chamber # 2 Chamber Type Monoplace Treatment Plan CADE (Atmospheric Absolute) 2 Number of Minutes 90 Number of Air Breaks 0
[2020-03-25 13:55] VITALS: BP 125/91; BP 135/84; PULSE 63; PULSE 93; RESP 17; RESP 18; TEMP 36.1; TEMP 36.2
[2020-03-26 13:29] VITALS: BP 113/81; BP 115/74; PULSE 83; PULSE 87; RESP 16; RESP 18; TEMP 36.2; TEMP 36.6
--- NOTE | 2020-03-26 16:29 | PCM.HBO.PN ---
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 The patient is scheduled for 30 treatments total. Tolerance of hyperbaric oxygen therapy: Hyperbaric oxygen treatment was provided as per the facility's protocol at 2.0 CADE in 100% oxygen for 90 minutes without air breaks. The patient tolerated hyperbaric oxygen well. The patient had undergone placement of myringotomy tubes in both ears 03/18/20, and has done well since. Upon emergence from the hyperbaric chamber, patient's vital signs remained stable. She was discharged in good condition. 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) left breast reconstruction Deformity of reconstructed breast (Chronic) painful radiation scar contour deformity Estrogen receptor positive status [ER+] (Chronic) Current smoker (Chronic) Disproportion of reconstructed breast (Chronic) 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) Cancer phobia (Chronic) cancer phobia right breast Allergies/Adverse Reactions: Allergies ondansetron [From Zofran] Adverse Reaction (Verified 03/25/20 10:28) MIGRAINES Home Medications: Ambulatory Orders Medication Instructions Recorded anastrozole 1 mg tablet 1 mg PO QHS 07/05/18 cyanocobalamin (vitamin B-12) 1,000 mcg PO DAILY 07/05/18 1,000 mcg capsule pyridoxine (vitamin B6) 100 mg 100 mg PO QHS 07/05/18 tablet Pantoprazole Sodium [Protonix] 40 mg PO QHS 08/31/18 Vitamin C/Biotin [Hair, Skin and 2 ea PO QHS 01/08/19 Nails Gummies] Gabapentin [Neurontin] 100 mg PO BID PRN 07/31/20 Sertraline HCl [Zoloft] 100 mg PO DAILY 12/30/19 Iron Polysaccharide Complex 150 mg PO DAILYCM #30 cap 01/11/20 [Ferrex 150] mupirocin 2 % topical ointment 1 applic TOPICAL DAILY #3 tube 02/12/20 diazepam 5 mg tablet 5 mg PO BID PRN #14 tab 03/18/20 oxycodone-acetaminophen 5 mg-325 1 tab PO BID PRN #14 tab 03/18/20 mg tablet Smoking Status: Light Smoker (<10/day) Physical Exam Vital Signs Temp Pulse Resp BP 97.9 F 87 16 113/81 H 03/26/20 13:29 03/26/20 13:29 03/26/20 13:29 03/26/20 13:29 General: Alert, Oriented x3, Cooperative, No apparent distress HEENT: Atraumatic, PERRLA, TM's Clear, - - Bilateral tympanostomy tubes Lungs: Clear to auscultation, Normal air movement, No rhonchi, No wheeze, No rales Cardiovascular: Regular rate, Regular Rhythm Psych/Mental Status: Normal Affect, Appropriate, Alert and oriented to time, place, person, mood and affect Assessment/Plan The patient appears to be tolerating hyperbaric oxygen therapy well, which will be continued as per the patient's medical plan. Treatment Course Number Number of HBO Treatments 30 Ordered Treatment Course Number 1 Treatment # 9 Chamber # 1 Chamber Type Monoplace Treatment Plan CADE (Atmospheric Absolute) 2 Number of Minutes 90 Number of Air Breaks 0
[2020-03-27 11:08] VITALS: BP 116/84; BP 127/80; PULSE 77; PULSE 85; RESP 17; RESP 18; TEMP 36.7; TEMP 36.9
--- NOTE | 2020-03-27 14:34 | PCM.HBO.PN ---
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 The patient is scheduled for 30 treatments total. Tolerance of hyperbaric oxygen therapy: Hyperbaric oxygen treatment was provided as per the facility's protocol at 2.0 CADE in 100% oxygen for 90 minutes without air breaks. The patient tolerated hyperbaric oxygen well. The patient had undergone placement of myringotomy tubes in both ears 03/18/20, and has done well since. Upon emergence from the hyperbaric chamber, patient's vital signs remained stable. She was discharged in good condition. 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) left breast reconstruction Deformity of reconstructed breast (Chronic) painful radiation scar contour deformity Estrogen receptor positive status [ER+] (Chronic) Current smoker (Chronic) Disproportion of reconstructed breast (Chronic) 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) Cancer phobia (Chronic) cancer phobia right breast Allergies/Adverse Reactions: Allergies ondansetron [From Zofran] Adverse Reaction (Verified 03/25/20 10:28) MIGRAINES Home Medications: Ambulatory Orders Medication Instructions Recorded anastrozole 1 mg tablet 1 mg PO QHS 07/05/18 cyanocobalamin (vitamin B-12) 1,000 mcg PO DAILY 07/05/18 1,000 mcg capsule pyridoxine (vitamin B6) 100 mg 100 mg PO QHS 07/05/18 tablet Pantoprazole Sodium [Protonix] 40 mg PO QHS 08/31/18 Vitamin C/Biotin [Hair, Skin and 2 ea PO QHS 01/08/19 Nails Gummies] Gabapentin [Neurontin] 100 mg PO BID PRN 11/08/19 Sertraline HCl [Zoloft] 100 mg PO DAILY 12/30/19 Iron Polysaccharide Complex 150 mg PO DAILYCM #30 cap 01/11/20 [Ferrex 150] mupirocin 2 % topical ointment 1 applic TOPICAL DAILY #3 tube 02/12/20 diazepam 5 mg tablet 5 mg PO BID PRN #14 tab 03/18/20 oxycodone-acetaminophen 5 mg-325 1 tab PO BID PRN #14 tab 03/18/20 mg tablet Smoking Status: Light Smoker (<10/day) Physical Exam Vital Signs Temp Pulse Resp BP 98.5 F 85 17 127/80 H 03/27/20 11:08 03/27/20 11:08 03/27/20 11:08 03/27/20 11:08 General: Alert, Oriented x3, Cooperative, No apparent distress Psych/Mental Status: Normal Affect, Appropriate Assessment/Plan The patient appears to be tolerating hyperbaric oxygen therapy well, which will be continued as per the patient's medical plan. Treatment Course Number Number of HBO Treatments 30 Ordered Treatment Course Number 1 Treatment # 10 Chamber # 1 Chamber Type Monoplace Treatment Plan CADE (Atmospheric Absolute) 2 Number of Minutes 90 Number of Air Breaks 0
--- NOTE | 2020-03-30 14:20 | PCM.HBO.PN ---
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 The patient is scheduled for 30 treatments total. Tolerance of hyperbaric oxygen therapy: Hyperbaric oxygen treatment was provided as per the facility's protocol at 2.0 CADE in 100% oxygen for 90 minutes without air breaks. The patient tolerated hyperbaric oxygen well. The patient had undergone placement of myringotomy tubes in both ears 03/18/20, and has done well since. Upon emergence from the hyperbaric chamber, patient's vital signs remained stable. She was discharged in good condition. Past Medical History Chronic Problems (Last Reviewed 03/27/20 @ 21:[address] 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) left breast reconstruction Deformity of reconstructed breast (Chronic) painful radiation scar contour deformity Estrogen receptor positive status [ER+] (Chronic) Current smoker (Chronic) Disproportion of reconstructed breast (Chronic) 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) Cancer phobia (Chronic) cancer phobia right breast Allergies/Adverse Reactions: Allergies ondansetron [From Zofran] Adverse Reaction (Verified 03/25/20 10:28) MIGRAINES Home Medications: Ambulatory Orders Medication Instructions Recorded anastrozole 1 mg tablet 1 mg PO QHS 07/05/18 cyanocobalamin (vitamin B-12) 1,000 mcg PO DAILY 07/05/18 1,000 mcg capsule pyridoxine (vitamin B6) 100 mg 100 mg PO QHS 07/05/18 tablet Pantoprazole Sodium [Protonix] 40 mg PO QHS 08/31/18 Vitamin C/Biotin [Hair, Skin and 2 ea PO QHS 01/08/19 Nails Gummies] Gabapentin [Neurontin] 100 mg PO BID PRN 11/08/19 Sertraline HCl [Zoloft] 100 mg PO DAILY 12/30/19 Iron Polysaccharide Complex 150 mg PO DAILYCM #30 cap 01/11/20 [Ferrex 150] mupirocin 2 % topical ointment 1 applic TOPICAL DAILY #3 tube 02/12/20 diazepam 5 mg tablet 5 mg PO BID PRN #14 tab 03/18/20 oxycodone-acetaminophen 5 mg-325 1 tab PO BID PRN #14 tab 03/18/20 mg tablet Smoking Status: Light Smoker (<10/day) Physical Exam Vital Signs Temp Pulse Resp BP 98.5 F 85 17 127/80 H 03/27/20 11:08 03/27/20 11:08 03/27/20 11:08 03/27/20 11:08 General: Alert, Oriented x3, Cooperative, No apparent distress HEENT: Atraumatic, TM's Clear Lungs: Clear to auscultation, Normal air movement Cardiovascular: Regular rate, Regular Rhythm Psych/Mental Status: Normal Affect, Appropriate, Alert and oriented to time, place, person, mood and affect Assessment/Plan The patient appears to be tolerating hyperbaric oxygen therapy well, which will be continued as per the patient's medical plan. Treatment Course Number Number of HBO Treatments 30 Ordered Treatment Course Number 1 Treatment # 11 Chamber # 1 Chamber Type Monoplace Treatment Plan CADE (Atmospheric Absolute) 2 Number of Minutes 90 Number of Air Breaks 0
[2020-03-30 15:12] VITALS: BP 103/64; BP 87/58; PULSE 53; PULSE 69; RESP 16; TEMP 36.3
[2020-03-31 13:25] VITALS: BP 102/69; BP 125/91; PULSE 80; PULSE 81; RESP 16; RESP 17; TEMP 36.8; TEMP 36.9
--- NOTE | 2020-03-31 15:11 | PCM.HBO.PN ---
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 The patient is scheduled for 30 treatments total. Tolerance of hyperbaric oxygen therapy: Hyperbaric oxygen treatment was provided as per the facility's protocol at 2.0 CADE in 100% oxygen for 90 minutes without air breaks. The patient tolerated hyperbaric oxygen well. The patient had undergone placement of myringotomy tubes in both ears 03/18/20, and has done well since. Upon emergence from the hyperbaric chamber, patient's vital signs remained stable. She was discharged in good condition. Past Medical History Chronic Problems (Last Reviewed 03/27/20 @ 21:[address] 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) left breast reconstruction Deformity of reconstructed breast (Chronic) painful radiation scar contour deformity Estrogen receptor positive status [ER+] (Chronic) Current smoker (Chronic) Disproportion of reconstructed breast (Chronic) 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) Cancer phobia (Chronic) cancer phobia right breast Allergies/Adverse Reactions: Allergies ondansetron [From Zofran] Adverse Reaction (Verified 03/25/20 10:28) MIGRAINES Home Medications: Ambulatory Orders Medication Instructions Recorded anastrozole 1 mg tablet 1 mg PO QHS 07/05/18 cyanocobalamin (vitamin B-12) 1,000 mcg PO DAILY 07/05/18 1,000 mcg capsule pyridoxine (vitamin B6) 100 mg 100 mg PO QHS 07/05/18 tablet Pantoprazole Sodium [Protonix] 40 mg PO QHS 08/31/18 Vitamin C/Biotin [Hair, Skin and 2 ea PO QHS 01/08/19 Nails Gummies] Gabapentin [Neurontin] 100 mg PO BID PRN 11/08/19 Sertraline HCl [Zoloft] 100 mg PO DAILY 12/30/19 Iron Polysaccharide Complex 150 mg PO DAILYCM #30 cap 01/11/20 [Ferrex 150] mupirocin 2 % topical ointment 1 applic TOPICAL DAILY #3 tube 02/12/20 diazepam 5 mg tablet 5 mg PO BID PRN #14 tab 03/18/20 oxycodone-acetaminophen 5 mg-325 1 tab PO BID PRN #14 tab 03/18/20 mg tablet Smoking Status: Light Smoker (<10/day) Physical Exam Vital Signs Temp Pulse Resp BP 98.5 F 81 17 125/91 H 03/31/20 13:25 03/31/20 13:25 03/31/20 13:25 03/31/20 13:25 General: Alert, Oriented x3, Cooperative, No apparent distress, Well developed, Well nourished HEENT: Atraumatic, PERRLA, EOMI, Normocephalic Lungs: Normal air movement Psych/Mental Status: Normal Affect, Appropriate, Alert and oriented to time, place, person, mood and affect Assessment/Plan Patient appears to be tolerating hyperbaric oxygen therapy well, which will be continued as per the patient's medical plan. Treatment Course Number Number of HBO Treatments 30 Ordered Treatment Course Number 1 Treatment # 12 Chamber # 1 Chamber Type Monoplace Treatment Plan CADE (Atmospheric Absolute) 2 Number of Minutes 90 Number of Air Breaks 0
[2020-04-01 08:19] VITALS: BP 110/74; BP 128/86; PULSE 67; PULSE 70; RESP 17; RESP 18; TEMP 36.8; TEMP 36.9
--- NOTE | 2020-04-01 09:39 | PCM.HBO.PN ---
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 The patient is scheduled for 30 treatments total. Tolerance of hyperbaric oxygen therapy: Hyperbaric oxygen treatment was provided as per the facility's protocol at 2.0 CADE in 100% oxygen for 90 minutes without air breaks. The patient tolerated hyperbaric oxygen well. The patient had undergone placement of myringotomy tubes in both ears 03/18/20, and has done well since. Upon emergence from the hyperbaric chamber, patient's vital signs remained stable. She was discharged in good condition. Past Medical History Chronic Problems (Last Reviewed 03/27/20 @ 21:[address] 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) left breast reconstruction Deformity of reconstructed breast (Chronic) painful radiation scar contour deformity Estrogen receptor positive status [ER+] (Chronic) Current smoker (Chronic) Disproportion of reconstructed breast (Chronic) 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) Cancer phobia (Chronic) cancer phobia right breast Allergies/Adverse Reactions: Allergies ondansetron [From Zofran] Adverse Reaction (Verified 03/25/20 10:28) MIGRAINES Home Medications: Ambulatory Orders Medication Instructions Recorded anastrozole 1 mg tablet 1 mg PO QHS 07/05/18 cyanocobalamin (vitamin B-12) 1,000 mcg PO DAILY 07/05/18 1,000 mcg capsule pyridoxine (vitamin B6) 100 mg 100 mg PO QHS 07/05/18 tablet Pantoprazole Sodium [Protonix] 40 mg PO QHS 08/31/18 Vitamin C/Biotin [Hair, Skin and 2 ea PO QHS 01/08/19 Nails Gummies] Gabapentin [Neurontin] 100 mg PO BID PRN 11/08/19 Sertraline HCl [Zoloft] 100 mg PO DAILY 12/30/19 Iron Polysaccharide Complex 150 mg PO DAILYCM #30 cap 01/11/20 [Ferrex 150] mupirocin 2 % topical ointment 1 applic TOPICAL DAILY #3 tube 02/12/20 diazepam 5 mg tablet 5 mg PO BID PRN #14 tab 03/18/20 oxycodone-acetaminophen 5 mg-325 1 tab PO BID PRN #14 tab 03/18/20 mg tablet Smoking Status: Light Smoker (<10/day) Physical Exam Vital Signs Temp Pulse Resp BP 98.5 F 70 18 128/86 H 04/01/20 08:19 04/01/20 08:19 04/01/20 08:19 04/01/20 08:19 Assessment/Plan Patient appears to be tolerating hyperbaric oxygen therapy well, which will be continued as per the patient's medical plan. Treatment Course Number Number of HBO Treatments 30 Ordered Treatment Course Number 1 Treatment # 12 Chamber # 1 Chamber Type Monoplace Treatment Plan CADE (Atmospheric Absolute) 2 Number of Minutes 90 Number of Air Breaks 0
[2020-04-06 08:45] VITALS: BP 105/71; BP 116/72; PULSE 62; PULSE 78; RESP 16; RESP 17; TEMP 36.2; TEMP 36.4
--- NOTE | 2020-04-06 10:25 | PCM.HBO.PN ---
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 The patient is scheduled for 30 treatments total. Tolerance of hyperbaric oxygen therapy: Hyperbaric oxygen treatment was provided as per the facility's protocol at 2.0 CADE in 100% oxygen for 90 minutes without air breaks. The patient tolerated hyperbaric oxygen well. The patient had undergone placement of myringotomy tubes in both ears 03/18/20, and has done well since. Upon emergence from the hyperbaric chamber, patient's vital signs remained stable. She was discharged in good condition. Past Medical History Chronic Problems (Last Reviewed 03/27/20 @ 21:[address] 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) left breast reconstruction Deformity of reconstructed breast (Chronic) painful radiation scar contour deformity Estrogen receptor positive status [ER+] (Chronic) Current smoker (Chronic) Disproportion of reconstructed breast (Chronic) 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) Cancer phobia (Chronic) cancer phobia right breast Allergies/Adverse Reactions: Allergies ondansetron [From Zofran] Adverse Reaction (Verified 03/25/20 10:28) MIGRAINES Home Medications: Ambulatory Orders Medication Instructions Recorded anastrozole 1 mg tablet 1 mg PO QHS 07/05/18 cyanocobalamin (vitamin B-12) 1,000 mcg PO DAILY 07/05/18 1,000 mcg capsule pyridoxine (vitamin B6) 100 mg 100 mg PO QHS 07/05/18 tablet Pantoprazole Sodium [Protonix] 40 mg PO QHS 08/31/18 Vitamin C/Biotin [Hair, Skin and 2 ea PO QHS 01/08/19 Nails Gummies] Gabapentin [Neurontin] 100 mg PO BID PRN 11/08/19 Sertraline HCl [Zoloft] 100 mg PO DAILY 12/30/19 Iron Polysaccharide Complex 150 mg PO DAILYCM #30 cap 01/11/20 [Ferrex 150] mupirocin 2 % topical ointment 1 applic TOPICAL DAILY #3 tube 02/12/20 diazepam 5 mg tablet 5 mg PO BID PRN #14 tab 03/18/20 oxycodone-acetaminophen 5 mg-325 1 tab PO BID PRN #14 tab 03/18/20 mg tablet Smoking Status: Light Smoker (<10/day) Physical Exam Vital Signs Temp Pulse Resp BP 97.2 F L 78 16 105/71 04/06/20 08:45 04/06/20 08:45 04/06/20 08:45 04/06/20 08:45 General: Alert, Oriented x3, Cooperative, No apparent distress HEENT: Atraumatic, TM's Clear Lungs: Clear to auscultation, Normal air movement Cardiovascular: Regular rate, Regular Rhythm Psych/Mental Status: Normal Affect, Appropriate, Alert and oriented to time, place, person, mood and affect Assessment/Plan Patient appears to be tolerating hyperbaric oxygen therapy well, which will be continued as per the patient's medical plan. Treatment Course Number Number of HBO Treatments 30 Ordered Treatment Course Number 1 Treatment # 14 Chamber # 1 Chamber Type Monoplace Treatment Plan CADE (Atmospheric Absolute) 2 Number of Minutes 90 Number of Air Breaks 0
--- NOTE | 2020-04-07 08:29 | PCM.HBO.PN ---
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 The patient is scheduled for 30 treatments total. Tolerance of hyperbaric oxygen therapy: Hyperbaric oxygen treatment was provided as per the facility's protocol at 2.0 CADE in 100% oxygen for 90 minutes without air breaks. The patient tolerated hyperbaric oxygen well. The patient had undergone placement of myringotomy tubes in both ears 03/18/20, and has done well since. Upon emergence from the hyperbaric chamber, patient's vital signs remained stable. She was discharged in good condition. Past Medical History Chronic Problems (Last Reviewed 03/27/20 @ 21:[address] 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) left breast reconstruction Deformity of reconstructed breast (Chronic) painful radiation scar contour deformity Estrogen receptor positive status [ER+] (Chronic) Current smoker (Chronic) Disproportion of reconstructed breast (Chronic) 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) Cancer phobia (Chronic) cancer phobia right breast Allergies/Adverse Reactions: Allergies ondansetron [From Zofran] Adverse Reaction (Verified 03/25/20 10:28) MIGRAINES Home Medications: Ambulatory Orders Medication Instructions Recorded anastrozole 1 mg tablet 1 mg PO QHS 07/05/18 cyanocobalamin (vitamin B-12) 1,000 mcg PO DAILY 07/05/18 1,000 mcg capsule pyridoxine (vitamin B6) 100 mg 100 mg PO QHS 07/05/18 tablet Pantoprazole Sodium [Protonix] 40 mg PO QHS 08/31/18 Vitamin C/Biotin [Hair, Skin and 2 ea PO QHS 01/08/19 Nails Gummies] Gabapentin [Neurontin] 100 mg PO BID PRN 11/08/19 Sertraline HCl [Zoloft] 100 mg PO DAILY 12/30/19 Iron Polysaccharide Complex 150 mg PO DAILYCM #30 cap 01/11/20 [Ferrex 150] mupirocin 2 % topical ointment 1 applic TOPICAL DAILY #3 tube 02/12/20 diazepam 5 mg tablet 5 mg PO BID PRN #14 tab 03/18/20 oxycodone-acetaminophen 5 mg-325 1 tab PO BID PRN #14 tab 03/18/20 mg tablet Smoking Status: Light Smoker (<10/day) Physical Exam Vital Signs Temp Pulse Resp BP 97.2 F L 78 16 105/71 04/06/20 08:45 04/06/20 08:45 04/06/20 08:45 04/06/20 08:45 General: Alert, Oriented x3, Cooperative, No apparent distress HEENT: Atraumatic, TM's Clear Lungs: Clear to auscultation, Normal air movement Cardiovascular: Regular rate, Regular Rhythm Psych/Mental Status: Normal Affect, Appropriate, Alert and oriented to time, place, person, mood and affect Assessment/Plan Patient appears to be tolerating hyperbaric oxygen therapy well, which will be continued as per the patient's medical plan. Treatment Course Number Number of HBO Treatments 30 Ordered Treatment Course Number 1 Treatment # 15 Chamber # 1 Chamber Type Monoplace Treatment Plan CADE (Atmospheric Absolute) 2 Number of Minutes 90 Number of Air Breaks 0
[2020-04-07 09:05] VITALS: BP 114/73; BP 123/89; PULSE 62; PULSE 84; RESP 16; RESP 17; TEMP 36
[2020-04-08 10:20] VITALS: BP 125/78; BP 128/77; PULSE 100; PULSE 101; RESP 18; TEMP 36; TEMP 36.2
--- NOTE | 2020-04-08 10:26 | PCM.HBO.PN ---
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 The patient is scheduled for 30 treatments total. Tolerance of hyperbaric oxygen therapy: Hyperbaric oxygen treatment was provided as per the facility's protocol at 2.0 CADE in 100% oxygen for 90 minutes without air breaks. The patient tolerated hyperbaric oxygen well. The patient had undergone placement of myringotomy tubes in both ears 03/18/20, and has done well since. Upon emergence from the hyperbaric chamber, patient's vital signs remained stable. She was discharged in good condition. Past Medical History Chronic Problems (Last Reviewed 03/27/20 @ 21:[address] 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) left breast reconstruction Deformity of reconstructed breast (Chronic) painful radiation scar contour deformity Estrogen receptor positive status [ER+] (Chronic) Current smoker (Chronic) Disproportion of reconstructed breast (Chronic) 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) Cancer phobia (Chronic) cancer phobia right breast Allergies/Adverse Reactions: Allergies ondansetron [From Zofran] Adverse Reaction (Verified 03/25/20 10:28) MIGRAINES Home Medications: Ambulatory Orders Medication Instructions Recorded anastrozole 1 mg tablet 1 mg PO QHS 07/05/18 cyanocobalamin (vitamin B-12) 1,000 mcg PO DAILY 07/05/18 1,000 mcg capsule pyridoxine (vitamin B6) 100 mg 100 mg PO QHS 07/05/18 tablet Pantoprazole Sodium [Protonix] 40 mg PO QHS 08/31/18 Vitamin C/Biotin [Hair, Skin and 2 ea PO QHS 01/08/19 Nails Gummies] Gabapentin [Neurontin] 100 mg PO BID PRN 11/08/19 Sertraline HCl [Zoloft] 100 mg PO DAILY 12/30/19 Iron Polysaccharide Complex 150 mg PO DAILYCM #30 cap 01/11/20 [Ferrex 150] mupirocin 2 % topical ointment 1 applic TOPICAL DAILY #3 tube 02/12/20 diazepam 5 mg tablet 5 mg PO BID PRN #14 tab 03/18/20 oxycodone-acetaminophen 5 mg-325 1 tab PO BID PRN #14 tab 03/18/20 mg tablet Smoking Status: Light Smoker (<10/day) Physical Exam Vital Signs Temp Pulse Resp BP 96.8 F L 100 18 128/77 H 04/08/20 10:20 04/08/20 10:20 04/08/20 10:20 04/08/20 10:20 Assessment/Plan Patient appears to be tolerating hyperbaric oxygen therapy well, which will be continued as per the patient's medical plan. Treatment Course Number Number of HBO Treatments 30 Ordered Treatment Course Number 1 Treatment # 16 Chamber # [id number] Chamber Type Monoplace Other - Detail Compromised/Failed Flap/Graft Yes (specify site in comment) Treatment Plan CADE (Atmospheric Absolute) 2.0 Number of Minutes 90 Number of Air Breaks 0
== END 2020-04-09 23:59 ==
LOC: WC 08:00
PROVIDERS: PCP Student in an Organized Health Care Education/Training Program; Visit Provider Nurse Practitioner Family
DX: L59.8 Other specified disorders of the skin and subcutaneous tissue related to radiation (principal); Y84.2 Radiological procedure and radiotherapy as the cause of abnormal reaction of the patient, or of later complication, without mention of misadventure at the time of the procedure; C50.412 Malignant neoplasm of upper-outer quadrant of left female breast; D63.8 Anemia in other chronic diseases classified elsewhere; Z17.0 Estrogen receptor positive status [ER+]; Z79.899 Other long term (current) drug therapy; F17.200 Nicotine dependence, unspecified, uncomplicated; N65.0 Deformity of reconstructed breast
CPT/HCPCS: 99183; G0277

== ENCOUNTER → 2020-04-28 08:56 | Outpatient (CLI) | payer SELFPAY ==
--- NOTE | 2020-04-28 | BRBX_PTH ---
PATIENT: LETICIA HAQUE LOC: [facility] U#:[id number] AGE/SX: 44/F ROOM: RE04/28/[address]: Dr. Ede Samayoa MD : 1980 BED: DIS: SPEC #: [id number] RECD: 04/28/20 10:42 STATUS: TAMAR REElmira #: [id number] JEANINE: 04/28/20 00:[address]: Ede Samayoa DEPT: SURGICAL PATHOLOGY RECD BY: Brandon Patton ENTERED: 04/28/20 10:42 SP TYPE: BREAST BX OTHR DR: Dr. Jack Mancuso, DO Dr. Frank Velasquez DO Tissues: Right breast, NOS Procedures: Surgery Specimen Level IV HEADER OPERATION: Ultrasound-guided needle core biopsy, right axilla mass PRE-OP DIAGNOSIS: Left breast cancer TISSUE SUBMITTED: Biopsy right axilla mass ISCHEMIC TIME: <1 minute FIXATION TIME: 11.5 hours MICROSCOPIC DIAGNOSIS Right axilla mass, ultrasound-guided core biopsy: Fragments of lymph node tissue with reactive changes. Negative for lymphoma or metastatic carcinoma. See comment. AVRIL:bella 04/29/2020 COMMENT Immunohistochemistry ([id number]) supports the above diagnosis. Please make reference to previous specimen ([id number]), left breast, mastectomy with diagnosis of invasive ductal carcinoma. Case has been reviewed in consultation with Dr. Seaman who concurs with the above diagnosis. IDC:AM MICROSCOPIC DESCRIPTION Slides are reviewed. GROSS DESCRIPTION Received in fixative is one container labeled with the patient's name and designated biopsy right axilla mass. The specimen consists of multiple elongated fragments of oenill-yellow soft tissue that in aggregate measure 1 x 0.3 x 0.1 cm. The specimen is totally submitted in one cassette. / AVRIL:bella 04/28/20 TC:5 CPT: 71392
--- NOTE | 2020-04-28 | IMM_PTH ---
PATIENT: LETICIA HAQUE LOC: [facility] U#:[id number] AGE/SX: 44/F ROOM: RE04/28/[address]: Dr. Ede Samayoa MD : 1980 BED: DIS: SPEC #: [id number] RECD: 04/29/20 13:48 STATUS: TAMAR REQ #: [id number] JEANINE: 04/28/20 00:[address]: Ede Samayoa DEPT: IMMUNOHISTOCHEMISTRY RECD BY: Pam Scott ENTERED: 04/29/20 13:50 SP TYPE: IMMUNO OTHR DR: Dr. Jack Mancuso DO Tissues: Axilla, NOS Procedures: BCL-2 (add) CD20 (add) CD3 (add) CD45 (add) CD5 (add) CD79A (add) CK7 (add) Pankeratin (initial) PHYSICIAN & INSTITUTION [facility] [id number] SPECIMEN INFORMATION: Tissue Source: Right axilla mass, ultrasound-guided core biopsy Clinical Info: Left breast cancer Specimen Number: [id number] CPT code: 20824, 99299 x7 METHODOLOGY: Deparaffinized sections of prefer/formalin-fixed tissue or PAP/DQ stained slides are incubated with monoclonal/polyclonal antibodies/oligonucleotide probes. Localization is made via biotin free immunoperoxidase method. Appropriate controls are performed and reacted as expected. Results on target cell population are indicated in the following table: RESULTS: ANTIBODY / CLONE RESULT AE1-3 (AE1/AE3/PCK26) negative CK7 (OV-TL12/30) negative CD3 (PS1) positive CD5 (SP10) positive CD20 (L26) positive CD45 (RP2/18) positive CD79a (11E3) positive BCL-2 (bcl-2/100/D5) negative (in germinal center) These tests were developed and their performance characteristics determined by [facility]. They may not have been cleared or approved by the [place]. Food and Drug Administration. The FDA has determined that such clearance or approval is not necessary. The above immunohistochemical/dualISH markers are ordered and reviewed by the Pathologist. INTERPRETATION: Right axilla mass, ultrasound-guided core biopsy: Benign lymph node tissue, negative for lymphoma or metastatic carcinoma. Reactive lymphoid hyperplasia. SJ:bella 04/30/2020
== END ==
LOC: LABSPEC 09:05
PROVIDERS: PCP Student in an Organized Health Care Education/Training Program; Referring Provider Surgery; Visit Provider Surgery
DX: R22.31 Localized swelling, mass and lump, right upper limb (principal)
CPT/HCPCS: 88305; 88341; 88342

== ENCOUNTER 2020-05-08 09:00 | Outpatient (RCR) | payer BC, SELFPAY ==
[2020-04-10 00:06] VITALS: BP 128/77; PULSE 100; RESP 18; TEMP 36
--- NOTE | 2020-04-13 08:17 | PCM.HBO.PN ---
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 The patient is scheduled for 30 treatments total. Tolerance of hyperbaric oxygen therapy: Hyperbaric oxygen treatment was provided as per the facility's protocol at 2.0 CADE in 100% oxygen for 90 minutes without air breaks. The patient tolerated hyperbaric oxygen well. The patient had undergone placement of myringotomy tubes in both ears 03/18/20, and has done well since. Upon emergence from the hyperbaric chamber, patient's vital signs remained stable. She was discharged in good condition. Past Medical History Chronic Problems (Last Reviewed 03/27/20 @ 21:[address] 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) left breast reconstruction Deformity of reconstructed breast (Chronic) painful radiation scar contour deformity Estrogen receptor positive status [ER+] (Chronic) Current smoker (Chronic) Disproportion of reconstructed breast (Chronic) 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) Cancer phobia (Chronic) cancer phobia right breast Allergies/Adverse Reactions: Allergies ondansetron [From Zofran] Adverse Reaction (Verified 03/25/20 10:28) MIGRAINES Home Medications: Ambulatory Orders Medication Instructions Recorded anastrozole 1 mg tablet 1 mg PO QHS 07/05/18 cyanocobalamin (vitamin B-12) 1,000 mcg PO DAILY 07/05/18 1,000 mcg capsule pyridoxine (vitamin B6) 100 mg 100 mg PO QHS 07/05/18 tablet Pantoprazole Sodium [Protonix] 40 mg PO QHS 08/31/18 Vitamin C/Biotin [Hair, Skin and 2 ea PO QHS 01/08/19 Nails Gummies] Gabapentin [Neurontin] 100 mg PO BID PRN 11/08/19 Sertraline HCl [Zoloft] 100 mg PO DAILY 12/30/19 Iron Polysaccharide Complex 150 mg PO DAILYCM #30 cap 01/11/20 [Ferrex 150] mupirocin 2 % topical ointment 1 applic TOPICAL DAILY #3 tube 02/12/20 diazepam 5 mg tablet 5 mg PO BID PRN #14 tab 03/18/20 oxycodone-acetaminophen 5 mg-325 1 tab PO BID PRN #14 tab 03/18/20 mg tablet Smoking Status: Light Smoker (<10/day) Physical Exam Vital Signs Temp Pulse Resp BP 96.8 F L 100 18 128/77 H 04/10/20 00:06 04/10/20 00:06 04/10/20 00:06 04/10/20 00:06 General: Alert, Oriented x3, Cooperative, No apparent distress HEENT: Atraumatic, TM's Clear Lungs: Clear to auscultation, Normal air movement Cardiovascular: Regular rate, Regular Rhythm Psych/Mental Status: Normal Affect, Appropriate, Alert and oriented to time, place, person, mood and affect Assessment/Plan Patient appears to be tolerating hyperbaric oxygen therapy well, which will be continued as per the patient's medical plan. Treatment Course Number Treatment Course Number 1 Treatment # 17 Other - Detail Compromised/Failed Flap/Graft Yes (specify site in comment)
[2020-04-13 08:54] VITALS: BP 117/86; BP 131/94; PULSE 67; PULSE 78; RESP 16; RESP 18; TEMP 36.6; TEMP 37
[2020-04-15 08:27] VITALS: BP 107/71; BP 116/84; PULSE 71; PULSE 74; RESP 16; RESP 18; TEMP 35.7; TEMP 36.1
--- NOTE | 2020-04-15 09:51 | PCM.HBO.PN ---
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 The patient is scheduled for 30 treatments total. Tolerance of hyperbaric oxygen therapy: Hyperbaric oxygen treatment was provided as per the facility's protocol at 2.0 CADE in 100% oxygen for 90 minutes without air breaks. The patient tolerated hyperbaric oxygen well. The patient had undergone placement of myringotomy tubes in both ears 03/18/20, and has done well since. Upon emergence from the hyperbaric chamber, patient's vital signs remained stable. She was discharged in good condition. Past Medical History Chronic Problems (Last Reviewed 03/27/20 @ 21:[address] 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) left breast reconstruction Deformity of reconstructed breast (Chronic) painful radiation scar contour deformity Estrogen receptor positive status [ER+] (Chronic) Current smoker (Chronic) Disproportion of reconstructed breast (Chronic) 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) Cancer phobia (Chronic) cancer phobia right breast Allergies/Adverse Reactions: Allergies ondansetron [From Zofran] Adverse Reaction (Verified 03/25/20 10:28) MIGRAINES Home Medications: Ambulatory Orders Medication Instructions Recorded anastrozole 1 mg tablet 1 mg PO QHS 07/05/18 cyanocobalamin (vitamin B-12) 1,000 mcg PO DAILY 07/05/18 1,000 mcg capsule pyridoxine (vitamin B6) 100 mg 100 mg PO QHS 07/05/18 tablet Pantoprazole Sodium [Protonix] 40 mg PO QHS 08/31/18 Vitamin C/Biotin [Hair, Skin and 2 ea PO QHS 01/08/19 Nails Gummies] Gabapentin [Neurontin] 100 mg PO BID PRN 11/08/19 Sertraline HCl [Zoloft] 100 mg PO DAILY 12/30/19 Iron Polysaccharide Complex 150 mg PO DAILYCM #30 cap 01/11/20 [Ferrex 150] mupirocin 2 % topical ointment 1 applic TOPICAL DAILY #3 tube 02/12/20 diazepam 5 mg tablet 5 mg PO BID PRN #14 tab 03/18/20 oxycodone-acetaminophen 5 mg-325 1 tab PO BID PRN #14 tab 03/18/20 mg tablet Smoking Status: Light Smoker (<10/day) Physical Exam Vital Signs Temp Pulse Resp BP 96.9 F L 71 18 116/84 H 04/15/20 08:27 04/15/20 08:27 04/15/20 08:27 04/15/20 08:27 General: Alert, Oriented x3, Cooperative, No apparent distress HEENT: Atraumatic, TM's Clear Lungs: Clear to auscultation, Normal air movement Cardiovascular: Regular rate, Regular Rhythm Psych/Mental Status: Normal Affect, Appropriate, Alert and oriented to time, place, person, mood and affect Assessment/Plan Patient appears to be tolerating hyperbaric oxygen therapy well, which will be continued as per the patient's medical plan. Treatment Course Number Number of HBO Treatments 30 Ordered Treatment Course Number 1 Treatment # 18 Chamber # 1 Chamber Type Monoplace Other - Detail Compromised/Failed Flap/Graft Yes (specify site in comment) Soft Tissue Radionecrosis ( breast specify site in comment) Treatment Plan CADE (Atmospheric Absolute) 30 Number of Minutes 90 Number of Air Breaks 0
[2020-04-16 10:24] VITALS: BP 118/91; BP 139/86; PULSE 102; PULSE 99; RESP 18; TEMP 35.5; TEMP 36.6
--- NOTE | 2020-04-16 12:58 | PCM.HBO.PN ---
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 The patient is scheduled for 30 treatments total. Tolerance of hyperbaric oxygen therapy: Hyperbaric oxygen treatment was provided as per the facility's protocol at 2.0 CADE in 100% oxygen for 30 minutes. Had to be discontinued because patient had abdominal discomfort/diarrhea. The patient tolerated hyperbaric oxygen well otherwise. The patient had undergone placement of myringotomy tubes in both ears 03/18/20, and has done well since. Upon emergence from the hyperbaric chamber, patient's vital signs remained stable. She was discharged in good condition. Past Medical History Chronic Problems (Last Reviewed 03/27/20 @ 21:[address] 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) left breast reconstruction Deformity of reconstructed breast (Chronic) painful radiation scar contour deformity Estrogen receptor positive status [ER+] (Chronic) Current smoker (Chronic) Disproportion of reconstructed breast (Chronic) 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) Cancer phobia (Chronic) cancer phobia right breast Allergies/Adverse Reactions: Allergies ondansetron [From Zofran] Adverse Reaction (Verified 03/25/20 10:28) MIGRAINES Home Medications: Ambulatory Orders Medication Instructions Recorded anastrozole 1 mg tablet 1 mg PO QHS 07/05/18 cyanocobalamin (vitamin B-12) 1,000 mcg PO DAILY 07/05/18 1,000 mcg capsule pyridoxine (vitamin B6) 100 mg 100 mg PO QHS 07/05/18 tablet Pantoprazole Sodium [Protonix] 40 mg PO QHS 08/31/18 Vitamin C/Biotin [Hair, Skin and 2 ea PO QHS 01/08/19 Nails Gummies] Gabapentin [Neurontin] 100 mg PO BID PRN 11/08/19 Sertraline HCl [Zoloft] 100 mg PO DAILY 12/30/19 Iron Polysaccharide Complex 150 mg PO DAILYCM #30 cap 01/11/20 [Ferrex 150] mupirocin 2 % topical ointment 1 applic TOPICAL DAILY #3 tube 02/12/20 diazepam 5 mg tablet 5 mg PO BID PRN #14 tab 03/18/20 oxycodone-acetaminophen 5 mg-325 1 tab PO BID PRN #14 tab 03/18/20 mg tablet Smoking Status: Light Smoker (<10/day) Physical Exam Vital Signs Temp Pulse Resp BP 95.9 F L 102 H 18 118/91 H 04/16/20 10:24 04/16/20 10:24 04/16/20 10:24 04/16/20 10:24 General: Alert, Oriented x3, Cooperative, No apparent distress HEENT: Atraumatic, Normocephalic, TM's Clear Lungs: Normal air movement Psych/Mental Status: Normal Affect Assessment/Plan Patient appears to be tolerating hyperbaric oxygen therapy well, which will be continued as per the patient's medical plan. Treatment Course Number Number of HBO Treatments 30 Ordered Treatment Course Number 1 Treatment # 19 Chamber # [id number] Chamber Type Monoplace Other - Detail Compromised/Failed Flap/Graft Yes (specify site in comment) Soft Tissue Radionecrosis ( breast specify site in comment) Treatment Plan CADE (Atmospheric Absolute) 2.0 Number of Minutes 90 Number of Air Breaks 0 - Wound Center CF Procedures HBO Supervision: [id number] Hyperbaric Oxygen; supervision
--- NOTE | 2020-04-20 08:29 | PCM.HBO.PN ---
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 The patient is scheduled for 30 treatments total. Tolerance of hyperbaric oxygen therapy: Hyperbaric oxygen treatment was provided as per the facility's protocol at 2.0 CADE in 100% oxygen for 30 minutes. Had to be discontinued because patient had abdominal discomfort/diarrhea. The patient tolerated hyperbaric oxygen well otherwise. The patient had undergone placement of myringotomy tubes in both ears 03/18/20, and has done well since. Upon emergence from the hyperbaric chamber, patient's vital signs remained stable. She was discharged in good condition. Past Medical History Chronic Problems (Last Reviewed 03/27/20 @ 21:[address] 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) left breast reconstruction Deformity of reconstructed breast (Chronic) painful radiation scar contour deformity Estrogen receptor positive status [ER+] (Chronic) Current smoker (Chronic) Disproportion of reconstructed breast (Chronic) 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) Cancer phobia (Chronic) cancer phobia right breast Allergies/Adverse Reactions: Allergies ondansetron [From Zofran] Adverse Reaction (Verified 03/25/20 10:28) MIGRAINES Home Medications: Ambulatory Orders Medication Instructions Recorded anastrozole 1 mg tablet 1 mg PO QHS 07/05/18 cyanocobalamin (vitamin B-12) 1,000 mcg PO DAILY 07/05/18 1,000 mcg capsule pyridoxine (vitamin B6) 100 mg 100 mg PO QHS 07/05/18 tablet Pantoprazole Sodium [Protonix] 40 mg PO QHS 08/31/18 Vitamin C/Biotin [Hair, Skin and 2 ea PO QHS 01/08/19 Nails Gummies] Gabapentin [Neurontin] 100 mg PO BID PRN 11/08/19 Sertraline HCl [Zoloft] 100 mg PO DAILY 12/30/19 Iron Polysaccharide Complex 150 mg PO DAILYCM #30 cap 01/11/20 [Ferrex 150] mupirocin 2 % topical ointment 1 applic TOPICAL DAILY #3 tube 02/12/20 diazepam 5 mg tablet 5 mg PO BID PRN #14 tab 03/18/20 oxycodone-acetaminophen 5 mg-325 1 tab PO BID PRN #14 tab 03/18/20 mg tablet Smoking Status: Light Smoker (<10/day) Physical Exam Vital Signs Temp Pulse Resp BP 95.9 F L 102 H 18 118/91 H 04/16/20 10:24 04/16/20 10:24 04/16/20 10:24 04/16/20 10:24 General: Alert, Oriented x3, Cooperative, No apparent distress HEENT: Atraumatic, TM's Clear Lungs: Clear to auscultation, Normal air movement Cardiovascular: Regular rate, Regular Rhythm Psych/Mental Status: Normal Affect, Appropriate, Alert and oriented to time, place, person, mood and affect Assessment/Plan Patient appears to be tolerating hyperbaric oxygen therapy well, which will be continued as per the patient's medical plan. Treatment Course Number Number of HBO Treatments 30 Ordered Treatment Course Number 1 Treatment # 20 Chamber # [id number] Chamber Type Monoplace Other - Detail Compromised/Failed Flap/Graft Yes (specify site in comment) Soft Tissue Radionecrosis ( breast specify site in comment) Treatment Plan CADE (Atmospheric Absolute) 2.0 Number of Minutes 90 Number of Air Breaks 0
[2020-04-20 08:31] VITALS: BP 114/60; BP 121/95; PULSE 66; PULSE 81; RESP 16; RESP 18; TEMP 36.1
[2020-04-21 08:22] VITALS: BP 125/73; BP 129/82; PULSE 67; PULSE 73; RESP 16; RESP 18; TEMP 35.9; TEMP 36.2
--- NOTE | 2020-04-21 12:20 | PCM.HBO.PN ---
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 The patient is scheduled for 30 treatments total. Tolerance of hyperbaric oxygen therapy: Hyperbaric oxygen treatment was provided as per the facility's protocol at 2.0 CADE in 100% oxygen for 90 minutes and no air breaks. The patient tolerated hyperbaric oxygen therapy well, without complaints or complications. The patient had undergone placement of myringotomy tubes in both ears 03/18/20, and has done well since. Upon emergence from the hyperbaric chamber, the patient's vital signs remained stable. She was discharged in good condition. Past Medical History Chronic Problems (Last Reviewed 03/27/20 @ 21:[address] 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) left breast reconstruction Deformity of reconstructed breast (Chronic) painful radiation scar contour deformity Estrogen receptor positive status [ER+] (Chronic) Current smoker (Chronic) Disproportion of reconstructed breast (Chronic) 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) Cancer phobia (Chronic) cancer phobia right breast Allergies/Adverse Reactions: Allergies ondansetron [From Zofran] Adverse Reaction (Verified 03/25/20 10:28) MIGRAINES Home Medications: Ambulatory Orders Medication Instructions Recorded anastrozole 1 mg tablet 1 mg PO QHS 07/05/18 cyanocobalamin (vitamin B-12) 1,000 mcg PO DAILY 07/05/18 1,000 mcg capsule pyridoxine (vitamin B6) 100 mg 100 mg PO QHS 07/05/18 tablet Pantoprazole Sodium [Protonix] 40 mg PO QHS 08/31/18 Vitamin C/Biotin [Hair, Skin and 2 ea PO QHS 01/08/19 Nails Gummies] Gabapentin [Neurontin] 100 mg PO BID PRN 11/08/19 Sertraline HCl [Zoloft] 100 mg PO DAILY 12/30/19 Iron Polysaccharide Complex 150 mg PO DAILYCM #30 cap 01/11/20 [Ferrex 150] mupirocin 2 % topical ointment 1 applic TOPICAL DAILY #3 tube 02/12/20 diazepam 5 mg tablet 5 mg PO BID PRN #14 tab 03/18/20 oxycodone-acetaminophen 5 mg-325 1 tab PO BID PRN #14 tab 03/18/20 mg tablet Smoking Status: Light Smoker (<10/day) Physical Exam Vital Signs Temp Pulse Resp BP 96.7 F L 73 18 129/82 H 04/21/20 08:22 04/21/20 08:22 04/21/20 08:22 04/21/20 08:22 General: Alert, Oriented x3, Cooperative, No apparent distress, Well developed, Well nourished HEENT: Atraumatic, PERRLA, EOMI, Normocephalic Lungs: Normal air movement Psych/Mental Status: Normal Affect, Appropriate, Alert and oriented to time, place, person, mood and affect Assessment/Plan The patient appears to be tolerating hyperbaric oxygen therapy well, which will be continued as per the patient's medical plan. Treatment Course Number Number of HBO Treatments 30 Ordered Treatment Course Number 21 Treatment # 1 Chamber # [id number] Chamber Type Monoplace Other - Detail Compromised/Failed Flap/Graft Yes (specify site in comment) Soft Tissue Radionecrosis ( breast specify site in comment) Treatment Plan CADE (Atmospheric Absolute) 30 Number of Minutes 90 Number of Air Breaks 0
[2020-04-22 08:17] VITALS: BP 108/73; BP 129/81; PULSE 63; PULSE 85; RESP 16; RESP 18; TEMP 36.3; TEMP 36.6
--- NOTE | 2020-04-22 10:26 | PCM.HBO.PN ---
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 The patient is scheduled for 30 treatments total. Tolerance of hyperbaric oxygen therapy: Hyperbaric oxygen treatment was provided as per the facility's protocol at 2.0 CADE in 100% oxygen for 90 minutes and no air breaks. The patient tolerated hyperbaric oxygen therapy well, without complaints or complications. The patient had undergone placement of myringotomy tubes in both ears 03/18/20, and has done well since. Upon emergence from the hyperbaric chamber, the patient's vital signs remained stable. She was discharged in good condition. Past Medical History Chronic Problems (Last Reviewed 03/27/20 @ 21:[address] 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) left breast reconstruction Deformity of reconstructed breast (Chronic) painful radiation scar contour deformity Estrogen receptor positive status [ER+] (Chronic) Current smoker (Chronic) Disproportion of reconstructed breast (Chronic) 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) Cancer phobia (Chronic) cancer phobia right breast Allergies/Adverse Reactions: Allergies ondansetron [From Zofran] Adverse Reaction (Verified 03/25/20 10:28) MIGRAINES Home Medications: Ambulatory Orders Medication Instructions Recorded anastrozole 1 mg tablet 1 mg PO QHS 07/05/18 cyanocobalamin (vitamin B-12) 1,000 mcg PO DAILY 07/05/18 1,000 mcg capsule pyridoxine (vitamin B6) 100 mg 100 mg PO QHS 07/05/18 tablet Pantoprazole Sodium [Protonix] 40 mg PO QHS 08/31/18 Vitamin C/Biotin [Hair, Skin and 2 ea PO QHS 01/08/19 Nails Gummies] Gabapentin [Neurontin] 100 mg PO BID PRN 11/08/19 Sertraline HCl [Zoloft] 100 mg PO DAILY 12/30/19 Iron Polysaccharide Complex 150 mg PO DAILYCM #30 cap 01/11/20 [Ferrex 150] mupirocin 2 % topical ointment 1 applic TOPICAL DAILY #3 tube 02/12/20 diazepam 5 mg tablet 5 mg PO BID PRN #14 tab 03/18/20 oxycodone-acetaminophen 5 mg-325 1 tab PO BID PRN #14 tab 03/18/20 mg tablet Smoking Status: Light Smoker (<10/day) Physical Exam Vital Signs Temp Pulse Resp BP 97.3 F L 85 18 129/81 H 04/22/20 08:17 04/22/20 08:17 04/22/20 08:17 04/22/20 08:17 Assessment/Plan The patient appears to be tolerating hyperbaric oxygen therapy well, which will be continued as per the patient's medical plan. Treatment Course Number Number of HBO Treatments 30 Ordered Treatment Course Number 1 Treatment # 21 Chamber # [id number] Chamber Type Monoplace Other - Detail Compromised/Failed Flap/Graft Yes (specify site in comment) Soft Tissue Radionecrosis ( breast specify site in comment) Treatment Plan CADE (Atmospheric Absolute) 30 Number of Minutes 90 Number of Air Breaks 0
[2020-04-23 08:18] VITALS: BP 122/80; BP 130/76; PULSE 74; PULSE 88; RESP 16; RESP 18; TEMP 35.7; TEMP 36
--- NOTE | 2020-04-23 11:53 | PCM.HBO.PN ---
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 The patient is scheduled for 30 treatments total. Tolerance of hyperbaric oxygen therapy: Hyperbaric oxygen treatment was provided as per the facility's protocol at 2.0 CADE in 100% oxygen for 90 minutes and no air breaks. The patient tolerated hyperbaric oxygen therapy well, without complaints or complications. The patient had undergone placement of myringotomy tubes in both ears 03/18/20, and has done well since. Upon emergence from the hyperbaric chamber, the patient's vital signs remained stable. She was discharged in good condition. Past Medical History Chronic Problems (Last Reviewed 03/27/20 @ 21:[address] 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) left breast reconstruction Deformity of reconstructed breast (Chronic) painful radiation scar contour deformity Estrogen receptor positive status [ER+] (Chronic) Current smoker (Chronic) Disproportion of reconstructed breast (Chronic) 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) Cancer phobia (Chronic) cancer phobia right breast Allergies/Adverse Reactions: Allergies ondansetron [From Zofran] Adverse Reaction (Verified 03/25/20 10:28) MIGRAINES Home Medications: Ambulatory Orders Medication Instructions Recorded anastrozole 1 mg tablet 1 mg PO QHS 07/05/18 cyanocobalamin (vitamin B-12) 1,000 mcg PO DAILY 07/05/18 1,000 mcg capsule pyridoxine (vitamin B6) 100 mg 100 mg PO QHS 07/05/18 tablet Pantoprazole Sodium [Protonix] 40 mg PO QHS 08/31/18 Vitamin C/Biotin [Hair, Skin and 2 ea PO QHS 01/08/19 Nails Gummies] Gabapentin [Neurontin] 100 mg PO BID PRN 11/08/19 Sertraline HCl [Zoloft] 100 mg PO DAILY 12/30/19 Iron Polysaccharide Complex 150 mg PO DAILYCM #30 cap 01/11/20 [Ferrex 150] mupirocin 2 % topical ointment 1 applic TOPICAL DAILY #3 tube 02/12/20 diazepam 5 mg tablet 5 mg PO BID PRN #14 tab 03/18/20 oxycodone-acetaminophen 5 mg-325 1 tab PO BID PRN #14 tab 03/18/20 mg tablet Smoking Status: Light Smoker (<10/day) Physical Exam Vital Signs Temp Pulse Resp BP 96.8 F L 88 18 122/80 H 04/23/20 08:18 04/23/20 08:18 04/23/20 08:18 04/23/20 08:18 General: Alert, Oriented x3, Cooperative, No apparent distress HEENT: TM's Clear Psych/Mental Status: Normal Affect Assessment/Plan The patient appears to be tolerating hyperbaric oxygen therapy well, which will be continued as per the patient's medical plan. Treatment Course Number Number of HBO Treatments 30 Ordered Treatment Course Number 1 Treatment # 23 Chamber # 1 Chamber Type Monoplace Other - Detail Compromised/Failed Flap/Graft Yes (specify site in comment) Soft Tissue Radionecrosis ( breast specify site in comment) Treatment Plan CADE (Atmospheric Absolute) 30 Number of Minutes 90 Number of Air Breaks 0 - Wound Center CF Procedures HBO Supervision: [id number] Hyperbaric Oxygen; supervision
[2020-05-05 10:31] VITALS: BP 125/81; BP 139/96; PULSE 67; PULSE 85; RESP 16; RESP 17; TEMP 36.4; TEMP 36.8
--- NOTE | 2020-05-05 12:30 | PCM.HBO.PN ---
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 The patient is scheduled for 30 treatments total. Tolerance of hyperbaric oxygen therapy: Hyperbaric oxygen treatment was provided as per the facility's protocol at 2.0 CADE in 100% oxygen for 90 minutes and no air breaks. The patient tolerated hyperbaric oxygen therapy well, without complaints or complications. The patient had undergone placement of myringotomy tubes in both ears 03/18/20, and has done well since. Upon emergence from the hyperbaric chamber, the patient's vital signs remained stable. She was discharged in good condition. 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) left breast reconstruction Deformity of reconstructed breast (Chronic) painful radiation scar contour deformity Estrogen receptor positive status [ER+] (Chronic) Current smoker (Chronic) Disproportion of reconstructed breast (Chronic) 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) Cancer phobia (Chronic) cancer phobia right breast Allergies/Adverse Reactions: Allergies ondansetron [From Zofran] Adverse Reaction (Verified 04/28/20 07:59) MIGRAINES Home Medications: Ambulatory Orders Medication Instructions Recorded anastrozole 1 mg tablet 1 mg PO QHS 07/05/18 Pantoprazole Sodium [Protonix] 40 mg PO DAILY 08/31/18 Vitamin C/Biotin [Hair, Skin and 2 ea PO QHS 01/08/19 Nails Gummies] Gabapentin [Neurontin] 100 mg PO BID PRN 11/08/19 Sertraline HCl [Zoloft] 100 mg PO DAILY 12/30/19 diazepam 5 mg tablet 5 mg PO BID PRN #14 tab 03/18/20 Melatonin 10 mg PO QHS 04/27/20 Smoking Status: Light Smoker (<10/day) Physical Exam Vital Signs Temp Pulse Resp BP 97.5 F L 85 17 139/96 H 05/05/20 10:31 05/05/20 10:31 05/05/20 10:31 05/05/20 10:31 General: Alert, Oriented x3, Cooperative, No apparent distress, Well developed, Well nourished HEENT: Atraumatic, PERRLA, EOMI, Normocephalic Lungs: Normal air movement Psych/Mental Status: Normal Affect, Appropriate, Alert and oriented to time, place, person, mood and affect Assessment/Plan The patient appears to be tolerating hyperbaric oxygen therapy well, which will be continued as per the patient's medical plan. Treatment Course Number Number of HBO Treatments 30 Ordered Treatment Course Number 1 Treatment # 22 Chamber # 1 Chamber Type Monoplace Other - Detail Compromised/Failed Flap/Graft Yes (specify site in comment) Soft Tissue Radionecrosis ( breast specify site in comment) Treatment Plan CADE (Atmospheric Absolute) 2 Number of Minutes 90 Number of Air Breaks 0
[2020-05-06 08:18] VITALS: BP 108/78; BP 133/89; PULSE 75; PULSE 76; RESP 16; RESP 17; TEMP 36.6; TEMP 36.8
--- NOTE | 2020-05-06 10:51 | PCM.HBO.PN ---
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 The patient is scheduled for 31 treatments total. Tolerance of hyperbaric oxygen therapy: Hyperbaric oxygen treatment was provided as per the facility's protocol at 2.0 CADE in 100% oxygen for 90 minutes and no air breaks. The patient tolerated hyperbaric oxygen therapy well, without complaints or complications. The patient had undergone placement of myringotomy tubes in both ears 03/18/20, and has done well since. Upon emergence from the hyperbaric chamber, the patient's vital signs remained stable. She was discharged in good condition. 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) left breast reconstruction Deformity of reconstructed breast (Chronic) painful radiation scar contour deformity Estrogen receptor positive status [ER+] (Chronic) Current smoker (Chronic) Disproportion of reconstructed breast (Chronic) 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) Cancer phobia (Chronic) cancer phobia right breast Allergies/Adverse Reactions: Allergies ondansetron [From Zofran] Adverse Reaction (Verified 04/28/20 07:59) MIGRAINES Home Medications: Ambulatory Orders Medication Instructions Recorded anastrozole 1 mg tablet 1 mg PO QHS 07/05/18 Pantoprazole Sodium [Protonix] 40 mg PO DAILY 08/31/18 Vitamin C/Biotin [Hair, Skin and 2 ea PO QHS 01/08/19 Nails Gummies] Gabapentin [Neurontin] 100 mg PO BID PRN 11/08/19 Sertraline HCl [Zoloft] 100 mg PO DAILY 12/30/19 diazepam 5 mg tablet 5 mg PO BID PRN #14 tab 03/18/20 Melatonin 10 mg PO QHS 04/27/20 Smoking Status: Light Smoker (<10/day) Physical Exam Vital Signs Temp Pulse Resp BP 97.9 F 76 16 133/89 H 05/06/20 08:18 05/06/20 08:18 05/06/20 08:18 05/06/20 08:18 Assessment/Plan The patient appears to be tolerating hyperbaric oxygen therapy well, which will be continued as per the patient's medical plan. Treatment Course Number Number of HBO Treatments 30 Ordered Treatment Course Number 1 Treatment # 25 Chamber # 1 Chamber Type Monoplace Other - Detail Compromised/Failed Flap/Graft Yes (specify site in comment) Soft Tissue Radionecrosis ( breast specify site in comment) Treatment Plan CADE (Atmospheric Absolute) 2 Number of Minutes 90 Number of Air Breaks 0
[2020-05-07 08:39] VITALS: BP 130/85; BP 139/83; PULSE 70; PULSE 74; RESP 16; TEMP 36.5; TEMP 36.6
--- NOTE | 2020-05-07 10:11 | PCM.HBO.PN ---
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 The patient is scheduled for 31 treatments total. Tolerance of hyperbaric oxygen therapy: Hyperbaric oxygen treatment was provided as per the facility's protocol at 2.0 CADE in 100% oxygen for 90 minutes and no air breaks. The patient tolerated hyperbaric oxygen therapy well, without complaints or complications. The patient had undergone placement of myringotomy tubes in both ears 03/18/20, and has done well since. Upon emergence from the hyperbaric chamber, the patient's vital signs remained stable. She was discharged in good condition. 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) left breast reconstruction Deformity of reconstructed breast (Chronic) painful radiation scar contour deformity Estrogen receptor positive status [ER+] (Chronic) Current smoker (Chronic) Disproportion of reconstructed breast (Chronic) 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) Cancer phobia (Chronic) cancer phobia right breast Allergies/Adverse Reactions: Allergies ondansetron [From Zofran] Adverse Reaction (Verified 04/28/20 07:59) MIGRAINES Home Medications: Ambulatory Orders Medication Instructions Recorded anastrozole 1 mg tablet 1 mg PO QHS 07/05/18 Pantoprazole Sodium [Protonix] 40 mg PO DAILY 08/31/18 Vitamin C/Biotin [Hair, Skin and 2 ea PO QHS 01/08/19 Nails Gummies] Gabapentin [Neurontin] 100 mg PO BID PRN 11/08/19 Sertraline HCl [Zoloft] 100 mg PO DAILY 12/30/19 diazepam 5 mg tablet 5 mg PO BID PRN #14 tab 03/18/20 Melatonin 10 mg PO QHS 04/27/20 Smoking Status: Light Smoker (<10/day) Physical Exam Vital Signs Temp Pulse Resp BP 97.7 F L 74 16 130/85 H 05/07/20 08:39 05/07/20 08:39 05/07/20 08:39 05/07/20 08:39 General: Alert, Oriented x3, Cooperative, No apparent distress HEENT: Atraumatic, Normocephalic Lungs: Normal air movement Psych/Mental Status: Normal Affect Assessment/Plan The patient appears to be tolerating hyperbaric oxygen therapy well, which will be continued as per the patient's medical plan. Treatment Course Number Number of HBO Treatments 30 Ordered Treatment Course Number 1 Treatment # 26 Chamber # 2 Chamber Type Monoplace Other - Detail Compromised/Failed Flap/Graft Yes (specify site in comment) Soft Tissue Radionecrosis ( breast specify site in comment) Treatment Plan CADE (Atmospheric Absolute) 2 Number of Minutes 90 Number of Air Breaks 0 - Wound Center [facility] Procedures HBO Supervision: [id number] Hyperbaric Oxygen; supervision
[2020-05-08 08:33] VITALS: BP 122/87; BP 129/92; PULSE 67; PULSE 75; RESP 16; RESP 17; TEMP 36.4; TEMP 36.6
--- NOTE | 2020-05-08 12:08 | PCM.HBO.PN ---
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 The patient is scheduled for 30 treatments total. Tolerance of hyperbaric oxygen therapy: Hyperbaric oxygen treatment was provided as per the facility's protocol at 2.0 CADE in 100% oxygen for 90 minutes and no air breaks. The patient tolerated hyperbaric oxygen therapy well, without complaints or complications. The patient had undergone placement of myringotomy tubes in both ears 03/18/20, and has done well since. Upon emergence from the hyperbaric chamber, the patient's vital signs remained stable. She was discharged in good condition. 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) left breast reconstruction Deformity of reconstructed breast (Chronic) painful radiation scar contour deformity Estrogen receptor positive status [ER+] (Chronic) Current smoker (Chronic) Disproportion of reconstructed breast (Chronic) 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) Cancer phobia (Chronic) cancer phobia right breast Allergies/Adverse Reactions: Allergies ondansetron [From Zofran] Adverse Reaction (Verified 04/28/20 07:59) MIGRAINES Home Medications: Ambulatory Orders Medication Instructions Recorded anastrozole 1 mg tablet 1 mg PO QHS 07/05/18 Pantoprazole Sodium [Protonix] 40 mg PO DAILY 08/31/18 Vitamin C/Biotin [Hair, Skin and 2 ea PO QHS 01/08/19 Nails Gummies] Gabapentin [Neurontin] 100 mg PO BID PRN 11/08/19 Sertraline HCl [Zoloft] 100 mg PO DAILY 12/30/19 diazepam 5 mg tablet 5 mg PO BID PRN #14 tab 03/18/20 Melatonin 10 mg PO QHS 04/27/20 Smoking Status: Light Smoker (<10/day) Physical Exam Vital Signs Temp Pulse Resp BP 97.8 F 75 16 129/92 H 05/08/20 08:33 05/08/20 08:33 05/08/20 08:33 05/08/20 08:33 General: Alert, Oriented x3, Cooperative, No apparent distress Psych/Mental Status: Normal Affect, Appropriate Assessment/Plan The patient appears to be tolerating hyperbaric oxygen therapy well, which will be continued as per the patient's medical plan. Treatment Course Number Number of HBO Treatments 30 Ordered Treatment Course Number 1 Treatment # 27 Chamber # 2 Chamber Type Monoplace Other - Detail Compromised/Failed Flap/Graft Yes (specify site in comment) Soft Tissue Radionecrosis ( breast specify site in comment) Treatment Plan CADE (Atmospheric Absolute) 2 Number of Minutes 90 Number of Air Breaks 0
== END 2020-05-10 23:59 ==
LOC: WC 09:00
PROVIDERS: PCP Student in an Organized Health Care Education/Training Program; Visit Provider Nurse Practitioner Family
DX: L59.8 Other specified disorders of the skin and subcutaneous tissue related to radiation (principal); Y84.2 Radiological procedure and radiotherapy as the cause of abnormal reaction of the patient, or of later complication, without mention of misadventure at the time of the procedure; T86.821 Skin graft (allograft) (autograft) failure; D63.8 Anemia in other chronic diseases classified elsewhere; F17.200 Nicotine dependence, unspecified, uncomplicated; N65.0 Deformity of reconstructed breast; C50.912 Malignant neoplasm of unspecified site of left female breast; Z17.0 Estrogen receptor positive status [ER+]
CPT/HCPCS: 99183; G0277

== ENCOUNTER 2020-05-12 08:00 | Outpatient (RCR) | payer BC, SELFPAY ==
[2020-05-11 09:24] VITALS: BP 117/86; BP 126/81; PULSE 65; PULSE 78; RESP 16; RESP 18; TEMP 35.8; TEMP 36.6
[2020-05-12 08:44] VITALS: BP 115/73; BP 130/83; PULSE 66; PULSE 80; RESP 17; TEMP 36.5
--- NOTE | 2020-05-12 13:36 | PCM.HBO.PN ---
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 Progress: Today's hyperbaric oxygen session represents the 29th session of hyperbaric oxygen therapy. Tolerance of hyperbaric oxygen therapy: Hyperbaric oxygen therapy was administered as per the facility's protocol. Hyperbaric oxygen therapy was administered at 2 nedra for 90 minutes with no air breaks. The patient tolerated hyperbaric oxygen therapy well, without complaints or complications. Upon emergence from the hyperbaric chamber, the patient's vital signs remained stable. She was discharged in good condition. Past Medical History Chronic Problems (Last Updated 05/08/20 @ 12:[address] Johanny Rubio DO) Anemia of chronic disease (Chronic) History of removal of right breast implant (Chronic) Family history of skin cancer (Chronic) Actinic keratosis (Chronic) 7 mm actinic damage left upper cheek near the lower eyelid History of bilateral breast implants (Chronic) Pain from breast implant (Chronic) Soft tissue radionecrosis (Chronic) Late effect of radiation (Chronic) left breast reconstruction Deformity of reconstructed breast (Chronic) painful radiation scar contour deformity Estrogen receptor positive status [ER+] (Chronic) Current smoker (Chronic) Disproportion of reconstructed breast (Chronic) 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) Cancer phobia (Chronic) cancer phobia right breast Allergies/Adverse Reactions: Allergies ondansetron [From Zofran] Adverse Reaction (Verified 04/28/20 07:59) MIGRAINES Home Medications: Ambulatory Orders Medication Instructions Recorded anastrozole 1 mg tablet 1 mg PO QHS 07/05/18 Pantoprazole Sodium [Protonix] 40 mg PO DAILY 08/31/18 Vitamin C/Biotin [Hair, Skin and 2 ea PO QHS 01/08/19 Nails Gummies] Gabapentin [Neurontin] 100 mg PO BID PRN 11/08/19 Sertraline HCl [Zoloft] 100 mg PO DAILY 12/30/19 diazepam 5 mg tablet 5 mg PO BID PRN #14 tab 03/18/20 Melatonin 10 mg PO QHS 04/27/20 Smoking Status: Light Smoker (<10/day) Physical Exam Vital Signs Temp Pulse Resp BP 97.7 F L 80 17 130/83 H 05/12/20 08:44 05/12/20 08:44 05/12/20 08:44 05/12/20 08:44 General: Alert, Oriented x3, Cooperative, No apparent distress, Well developed, Well nourished HEENT: Atraumatic, PERRLA, EOMI, Normocephalic Lungs: Normal air movement Psych/Mental Status: Normal Affect, Appropriate, Alert and oriented to time, place, person, mood and affect Assessment/Plan The patient appears to be tolerating hyperbaric oxygen therapy well, which will be continued as per the patient's medical plan. Treatment Course Number Number of HBO Treatments 30 Ordered Treatment Course Number 1 Treatment # 29 Chamber # 1 Chamber Type Monoplace Other - Detail Compromised/Failed Flap/Graft Yes (specify site in comment) Soft Tissue Radionecrosis ( breast specify site in comment) Treatment Plan CADE (Atmospheric Absolute) 2 Number of Minutes 90 Number of Air Breaks 0
== END 2020-06-07 23:59 ==
LOC: WC 08:00
PROVIDERS: PCP Student in an Organized Health Care Education/Training Program; Visit Provider Surgery
DX: L59.8 Other specified disorders of the skin and subcutaneous tissue related to radiation (principal); T86.821 Skin graft (allograft) (autograft) failure; Y84.2 Radiological procedure and radiotherapy as the cause of abnormal reaction of the patient, or of later complication, without mention of misadventure at the time of the procedure; Z17.0 Estrogen receptor positive status [ER+]; C50.912 Malignant neoplasm of unspecified site of left female breast; N65.0 Deformity of reconstructed breast; F17.200 Nicotine dependence, unspecified, uncomplicated; Z79.899 Other long term (current) drug therapy
CPT/HCPCS: 99183; G0277

== ENCOUNTER 2020-05-13 07:23 | Outpatient (RCR) | payer BC, SELFPAY ==
[2020-05-11 00:11] VITALS: BP 122/87; PULSE 67; RESP 17; TEMP 36.4
[2020-05-13 08:31] VITALS: BP 124/77; BP 124/79; PULSE 66; PULSE 82; RESP 16; TEMP 35.7; TEMP 36.2
--- NOTE | 2020-05-13 10:13 | PCM.HBO.PN ---
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 Johanny Rubio, DO) Anemia of chronic disease (Chronic) History of removal of right breast implant (Chronic) Family history of skin cancer (Chronic) Actinic keratosis (Chronic) 7 mm actinic damage left upper cheek near the lower eyelid History of bilateral breast implants (Chronic) Pain from breast implant (Chronic) Soft tissue radionecrosis (Chronic) Late effect of radiation (Chronic) left breast reconstruction Deformity of reconstructed breast (Chronic) painful radiation scar contour deformity Estrogen receptor positive status [ER+] (Chronic) Current smoker (Chronic) Disproportion of reconstructed breast (Chronic) 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) Cancer phobia (Chronic) cancer phobia right breast Allergies/Adverse Reactions: Allergies ondansetron [From Zofran] Adverse Reaction (Verified 04/28/20 07:59) MIGRAINES Home Medications: Ambulatory Orders Medication Instructions Recorded anastrozole 1 mg tablet 1 mg PO QHS 07/05/18 Pantoprazole Sodium [Protonix] 40 mg PO DAILY 08/31/18 Vitamin C/Biotin [Hair, Skin and 2 ea PO QHS 01/08/19 Nails Gummies] Gabapentin [Neurontin] 100 mg PO BID PRN 11/08/19 Sertraline HCl [Zoloft] 100 mg PO DAILY 12/30/19 diazepam 5 mg tablet 5 mg PO BID PRN #14 tab 03/18/20 Melatonin 10 mg PO QHS 04/27/20 Smoking Status: Light Smoker (<10/day) Physical Exam Vital Signs Temp Pulse Resp BP 96.2 F L 82 16 124/77 H 05/13/20 08:31 05/13/20 08:31 05/13/20 08:31 05/13/20 08:31 Assessment/Plan Treatment Course Number Number of HBO Treatments 30 Ordered Treatment Course Number 1 Treatment # 30 Chamber # 1 Chamber Type Monoplace Other - Detail Compromised/Failed Flap/Graft Yes (specify site in comment) Soft Tissue Radionecrosis ( breast specify site in comment) Treatment Plan CADE (Atmospheric Absolute) 2 Number of Minutes 90 Number of Air Breaks 0 Continue treatments as prescribed . reassess after surgery
== END 2020-06-07 23:59 ==
LOC: WC 07:23
PROVIDERS: PCP Student in an Organized Health Care Education/Training Program; Visit Provider Nurse Practitioner Family
DX: L59.8 Other specified disorders of the skin and subcutaneous tissue related to radiation (principal); Y84.2 Radiological procedure and radiotherapy as the cause of abnormal reaction of the patient, or of later complication, without mention of misadventure at the time of the procedure; T86.821 Skin graft (allograft) (autograft) failure; Z17.0 Estrogen receptor positive status [ER+]; C50.912 Malignant neoplasm of unspecified site of left female breast; N65.0 Deformity of reconstructed breast; F17.200 Nicotine dependence, unspecified, uncomplicated; Z79.899 Other long term (current) drug therapy
CPT/HCPCS: 99183; G0277

== ENCOUNTER 2020-05-18 11:30 | Observation (INO) | payer BC, SELFPAY ==
--- NOTE | 2020-05-17 10:34 | PCM.HP.BLA ---
History and Physical Date of Admission: 05/18/20 HISTORY OF PRESENT ILLNESS 39 year old woman presents for further discussion of her breast reconstruction. Her left breast cancer was biopsied on 05/23/17. On 06/16/17 where she underwent injection of 5 cc of Lymphazurin blue and left modified radical mastectomy and sentinel lymph node biopsy by Dr. Samayoa and prophylactic mastectomy right breast and immediate bilateral breast reconstruction with placement of submuscular saline tissue expanders (350 ml each) and placement of DermACELL decellularized dermis graft (128 cm2, each side) by Dr. Martinez. 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 One node showed macrometastasis. Estrogen receptors were positive. Progesterone receptors were positive. Her-2Neu was negative. She underwent chemotherapy and radiation therapy. She finished her radiation therapy on 03/06/18. She then underwent further surgery in 09/07/18 with revision reconstructed left breast with excision painful radiation scar contour deformity and 2nd stage delayed left breast reconstruction with removal of tissue machine pecan gatherer and capsulectomy and 2nd stage delayed left breast reconstruction with placement of left latissimus dorsi myocutaneous flap. She healed uneventfully. She continued her breast reconstruction process with revision left breast reconstruction with excision radiation scar contour deformity and delayed left breast reconstruction with placement of submuscular saline tissue machine pecan gatherer (350 ml) on 01/15/19. She finished the saline tissue expansion and proceeded with further surgery on 03/26/19 where she underwent revision right breast reconstruction with removal of saline tissue machine pecan gatherer and capsulectomy and delayed right breast reconstruction with placement of cohesive gel implant (430 ml) and placement Alloderm Select acellular dermal matrix graft (132 cm2) and revision left breast reconstruction with removal of saline tissue machine pecan gatherer and capsulectomy and revision left breast reconstruction radiation scar contour deformity with multiple W-plasty reconstruction (12 cm2) and delayed left breast reconstruction with placement cohesive gel implant (350 ml). She developed a Pseudomonas infection in the right breast that necessitated further surgery on 04/23/19 where she underwent revision right breast reconstruction with excisional debridement nonhealing infected wound with removal of Alloderm acellular dermal matrix graft and removal exposed infected cohesive gel implant and complex secondary wound closure. At that time, I told her that further breast reconstruction would have to wait at least 6 months. In the meantime, the incision healed satisfactory. She continued the breast reconstruction process on 11/19/19 where she underwent first stage delayed bilateral breast reconstruction with bilateral TRAM flap delay and revision left breast reconstruction with excision radiation scar contour deformity with multiple W-plasty reconstruction (18 cm2). Healing has been uneventful.. She underwent further surgery on 01/07/20 where she underwent revision reconstructed left breast with removal of cohesive gel implant and capsulectomy and excision radiation fibrosis with multiple W-plasty reconstruction (18 cm2) and second stage bilateral breast reconstruction with bilateral TRAM flaps and abdominal wall reconstruction with placement of Strattice acellular dermal matrix graft (160 cm2). Healing has been uneventful. The left breast is larger than on the right. She presents today for further breast reconstruction with placement of cohesive gel implants to help with symmetry. 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 Malignant neoplasm of upper-outer quadrant of left female breast Estrogen receptor positive status [ER+] Current smoker Disproportion of reconstructed breast Acquired absence of bilateral breasts and nipples Cancer phobia Left breast lump PAST SURGICAL HISTORY bilateral mastectomy History of reconstruction of both breasts Revision reconstructed left breast with removal of cohesive gel implant and capsulectomy and excision radiation fibrosis with multiple W-plasty reconstruction (18 cm2) and second stage bilateral breast reconstruction with bilateral TRAM flaps and abdominal wall reconstruction with placement of Strattice acellular dermal matrix graft (160 cm2) - 01/07/20 Port-a-cath in place ALLERGIES ondansetron [From Zofran] MEDICATIONS anastrozole cyanocobalamin (vitamin B-12) pyridoxine (vitamin B6) Pantoprazole Sodium [Protonix] Vitamin C/Biotin [Hair, Skin and Nails Gummies] gabapentin FAMILY HISTORY Mother - Hypertension SOCIAL HISTORY Smoking Status: Current some day smoker tobacco type: cigarettes alcohol intake: current alcohol intake frequency: a few times a month substance use type: does not use REVIEW OF SYSTEMS General - Denies fever, fatigue, and weight loss. Eyes - Denies eye pain. ENT - Denies nasal congestion and sore throat. Endocrine - Denies excessive thirst and urination. Has diagnosis of left breast cancer. Underwent bilateral mastectomy in 06/25. Has undergone bilateral breast reconstruction. Skin - Actinic lesion left upper cheek near the lower eyelid. Has family history of skin cancer. Musculoskeletal - Denies joint pain, joint stiffness, weakness of muscles and joints, back pain, and arthritis. Neuro - Denies headaches. Cardiovascular - Denies chest pain. Denies shortness of breath with exertion. Respiratory - Denies cough and shortness of breath. Patient is a smoker. Psych - Denies anxiety and depression. Gastrointestinal - Denies nausea, vomiting, diarrhea, and constipation. Hematologic -Denies abnormal bruising and bleeding. Genitourinary - Denies hematuria and urinary frequency. PHYSICAL EXAMINATION General - Alert and oriented. Bra size was 36 B before the mastectomy. HEENT - PERRL. EOMI. Throat is clear. Neck - Supple and nontender. No cervical adenopathy. Lungs - Clear to auscultation. Breasts - Bilateral mastectomy incisions are well healed. No axillary adenopathy noted. Breast width is 14 cm bilaterally. Breast height is 13 cm. Bilateral TRAM flaps are well healed. The left breast is larger than the right breast. No breast masses palpable. Heart - Regular rate and rhythm. Abdomen - There is a healing horizontal scar in the pubic area which was the result of the recent first stage TRAM flap delay procedure. Some skin and subcutaneous redundancy between the umbilicus and the pubic area. Good skin elasticity noted. Extremities - FROM. No axillary adenopathy. Neuro - CN II - XII grossly intact. ASSESSMENT 1. Left breast cancer. 2. 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 4. s/p removal bilateral breast implants 5. status breast reconstruction with bilateral TRAM flaps. 6. Deformity reconstructed left breast. 7. Disproportion reconstructed breasts. 8. 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 11. Smoker. 12. Estrogen receptor positive status. PLAN Discussed various breast reconstruction options with her. There is an area of thin skin on the left breast medially in an area of radiation damage. Also there is some residual pincushioning at the edge of the latissimus dorsi flap. There may be issues with the quality of the skin envelope in the future on the left breast. She would benefit from improving the quality of the radiated skin medially with a TRAM flap. Since the quality of the skin on the right breast could use some improvement as well she would benefit from a TRAM flap. With her history of smoking and her history of radiation therapy, she needed a first stage bilateral TRAM flap delay which was done on November 19, 2019. . At the same time, I revised the reconstructed left breast with excision radiation scar contour deformity and improve the pincushioning defect with multiple W-plasty reconstruction. After the delay procedure, would wait at least 3 weeks before proceeding with the bilateral TRAM flap. Would re-enforce the abdominal wall closure with Strattice acellular dermal matrix graft. Will remove the cohesive gel implant on the left at the time of the TRAM flap along with a capsulectomy. There is some thin radiated skin medially that may need to be excised as well at the time of the TRAM flap. Discussed with the patient that there is a small risk of developing a hernia that would require additional surgery. She voices understanding. One way to minimize that risk is to use the microscope for the breast reconstruction which preserves more of the muscle and fascia. That would necessitate going to a tertiary center for the reconstruction. She would prefer to stay local and wants to proceed with the pedicled TRAM flap. She would wear an abdominal binder for 6 months and be on a lifting restriction of 10 lbs. She would have drains in for several days and be maintained on antibiotics until the drains are removed. Patient is interested in the bilateral TRAM flap for reconstruction. With better quality skin envelope, can always place a small cohesive gel implant underneath the TRAM flap to improve the volume for symmetry in the future after the TRAM flap has healed. Surgery will be dome under general anesthesia with an inpatient stay of approximately 5-7 days. Patient was informed of the risks and complications of the procedure including alternatives to surgery. These were discussed with the patient personally. Patient voices understanding and wishes to proceed. Some of the risks and complications were included in a form from the [employer]. Encouraged patient to stop smoking as it may have deleterious effects on wound healing. We discussed the current risks associated with COVID-19. While it is understood that there is a community spread of COVID-19, the risk of rob COVID-19 while at [facility] ([facility]) is very low; however, the risk cannot be completely mitigated because of the community spread of the disease. We discussed in detail the risk of exposure to and/or potential harm posed by the COVID-19 virus with having a surgery/procedure at this time versus the risk of delaying the surgery/procedure. It is not possible to know either the risk of delaying the surgery or procedure or chance of getting an infection with perfect accuracy, but a joint decision was made to proceed at this time with the scheduled surgery/procedure as indicated on the consent form. Patient was notified that we will need to comply with any screening or testing [facility] wishes to perform or that surgery may be delayed for any positive results. Discussed with the patient that I was tested for COVID-19 on 10/10/19 which was negative and on 10/24/19 which was negative and on 11/07/19 which was negative and on 11/21/19 which was negative and on 12/05/19 which was negative and on 12/26/19 which was negative and on 01/16/20 which was negative and on 02/20/20 which was negative and on 03/12/20 which was negative and on 03/31/20 which was negative. My testing regimen at this time is to be COVID-19 tested every 2 weeks or so. I received the COVID-19 vaccine (Moderna) on 04/08/20 and the second vaccine dose was received on 05/06/20.
[2020-05-18] VITALS (14 sets, daily range): BP systolic 104–127; BP diastolic 71–90; PULSE 62–92; RESP 14–18; TEMP 36.3–36.8; O2SAT 94–100; BMI 25.3
[2020-05-18 06:50] LABS: Bedside Glucose 104 mg/dL (70-110)
[2020-05-18] MEDS: Gabapentin 600 MG Tablet PO (06:50)
[2020-05-18] MEDS: Acetaminophen 500 MG Tablet 1000 MG PO ×3 (06:51→18:31)
[2020-05-18] MEDS: Scopolamine 1mg/72hr Patch 1 PATCH TD (06:51)
[2020-05-18] MEDS: Lactated Ringers 1,000 ML 40 ML IV (07:12)
[2020-05-18 07:14] LABS: Hematocrit 33.5 % (37-47); Mean Corp Hgb Conc 32.8 g/dL (32-36); Mean Corpuscular Hgb 28.3 pg (27.0-32.0); Mean Corpuscular Volume 86.1 fL (81-99); Mean Platelet Vol. 10.4 fl (6.2-12.0); Platelet Count 157 K/mm3 (150-450); RBC Distribution Width CV 14.6 % (11.6-14.6); RBC Distribution Width SD 46.2 fl (35.1-43.9); Red Blood Count 3.89 M/mm3 (4.2-5.4); White Blood Count 4.2 K/mm3 (4.4-11.0)
[2020-05-18 07:29] LABS: Magnesium 1.9 mg/dL (1.6-2.6)
[2020-05-18] MEDS: Cefazolin 2 GM in 0.9% Normal Saline 100 ML IV (07:34)
[2020-05-18] MEDS: Lidocaine 2% /Epi 1:100 (50ml) 50 ML Vial (08:30)
--- NOTE | 2020-05-18 10:44 | PCM.OPRPT ---
Report of Operation Date of Procedure: 05/18/20 Pre-Operative Diagnosis: 1. Left breast cancer. 2. 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 4. s/p removal bilateral breast implants. 5. status breast reconstruction with bilateral TRAM flaps. 6. Deformity reconstructed left breast. 7. Disproportion reconstructed breasts. 8. Late effect radiation left breast. 9. Soft tissue radionecrosis. 10. Smoker. 11. Estrogen receptor positive status. Post-Operative Diagnosis: Same. Surgery/Procedure Performed:: 1. Revision left breast reconstruction with placement of cohesive gel implant (225 ml). 2. Revision right breast reconstruction with placement of cohesive gel implant (275 ml). Description of Surgical Findings:: 39 year old woman presents for further discussion of her breast reconstruction. Her left breast cancer was biopsied on 05/23/17. On 06/16/17 where she underwent injection of 5 cc of Lymphazurin blue and left modified radical mastectomy and sentinel lymph node biopsy by Dr. Samayoa and prophylactic mastectomy right breast and immediate bilateral breast reconstruction with placement of submuscular saline tissue expanders (350 ml each) and placement of DermACELL decellularized dermis graft (128 cm2, each side) by Dr. Martinez. 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 One node showed macrometastasis. Estrogen receptors were positive. Progesterone receptors were positive. Her-2Neu was negative. She underwent chemotherapy and radiation therapy. She finished her radiation therapy on 03/06/18. She then underwent further surgery in 09/07/18 with revision reconstructed left breast with excision painful radiation scar contour deformity and 2nd stage delayed left breast reconstruction with removal of tissue pad machine feeder and capsulectomy and 2nd stage delayed left breast reconstruction with placement of left latissimus dorsi myocutaneous flap. She healed uneventfully. She continued her breast reconstruction process with revision left breast reconstruction with excision radiation scar contour deformity and delayed left breast reconstruction with placement of submuscular saline tissue pad machine feeder (350 ml) on 01/15/19. She finished the saline tissue expansion and proceeded with further surgery on 03/26/19 where she underwent revision right breast reconstruction with removal of saline tissue pad machine feeder and capsulectomy and delayed right breast reconstruction with placement of cohesive gel implant (430 ml) and placement Alloderm Select acellular dermal matrix graft (132 cm2) and revision left breast reconstruction with removal of saline tissue pad machine feeder and capsulectomy and revision left breast reconstruction radiation scar contour deformity with multiple W-plasty reconstruction (12 cm2) and delayed left breast reconstruction with placement cohesive gel implant (350 ml). She developed a Pseudomonas infection in the right breast that necessitated further surgery on 04/23/19 where she underwent revision right breast reconstruction with excisional debridement nonhealing infected wound with removal of Alloderm acellular dermal matrix graft and removal exposed infected cohesive gel implant and complex secondary wound closure. At that time, I told her that further breast reconstruction would have to wait at least 6 months. In the meantime, the incision healed satisfactory. She continued the breast reconstruction process on 11/19/19 where she underwent first stage delayed bilateral breast reconstruction with bilateral TRAM flap delay and revision left breast reconstruction with excision radiation scar contour deformity with multiple W-plasty reconstruction (18 cm2). Healing has been uneventful.. She underwent further surgery on 01/07/20 where she underwent revision reconstructed left breast with removal of cohesive gel implant and capsulectomy and excision radiation fibrosis with multiple W-plasty reconstruction (18 cm2) and second stage bilateral breast reconstruction with bilateral TRAM flaps and abdominal wall reconstruction with placement of Strattice acellular dermal matrix graft (160 cm2). Healing has been uneventful. The left breast is larger than on the right. She presents today for further breast reconstruction with placement of cohesive gel implants to help with symmetry. Patient was informed of the risks and complications of the procedure including alternatives to surgery. These were discussed with the patient personally. Patient voices understanding and wishes to proceed. Some of the risks and complications were included in a form from the [place]. Encouraged patient to stop smoking as it may have deleterious effects on wound healing. IV Fluids - 0 ml. Urine Output - 750 ml. I used Breckenridge MemoryGel Breast Implant, Smooth Round High Profile, (225 ml on the left). Reference Number - [id number]. Lot Number - [id number]. Serial Number - [id number]. Expiration - December 21, 2021. I used Breckenridge MemoryGel Breast Implant, Smooth Round High Profile, (275 ml on the right). Reference Number - [id number]. Lot Number - [id number]. Serial Number - [id number]. Expiration - May 29,2022. I used Pao absorbable hemostat, (I used 2 vials, one in each breast). Reference Number - [id number]. Lot Number - [id number]. Expiration - October 05, 2024. layout designer: Cameron Wynn. Type of Anesthesia:: General Specimen's removed: None. Drains: Otoniel x2 (one in each breast). Estimated Blood Loss (mL): 150 ml. Fluids Replaced: 2800 ml (IV Fluids - 2050 ml, Urine Output - 750 ml). Description of Procedure: Patient was placed in standing position in the preop area and markings wre made. The sternal midline was marked down to the umbilicus. The inframammary folds were marked bilaterally. She was taken to OR in supine position and was placed under general anesthesia. The breasts were prepped and draped in the usual fashion. Ioban was also used for draping. SCD's were placed for DVT prophylaxis. Perioperative antibiotics were given intravenously. A galindo catheter was placed. Using xylocaine with epinephrine, the horizontal inferolateral scars were infiltrated. After waiting 5 minutes for the anesthetic to take effect, incisions were made first on the left side and then on the right side. Dissection was carried down through subcutaneous tissue until the chest wall was seen. A breast pocket was created beneath the TRAM flap medially to the sternal area, laterally to the anterior axillary line, inferiorly to the inframammary fold, and superiorly to the clavicle. Since starting HBO treatments, the breasts have softened especially the radiated left breast. No additional radiation fibrosis was noted today so no excision was done. I minimized dissection medially because of the presence of the vascular pedicle for the TRAM flap. I was able to dissect underneath the vascular pedicle at the level of the chest wall. I placed Breckenridge sizers into the breast pockets. I started with 200 ml High Profile sizer on the left and it was felt more pocket was available. I then placed a 225 ml High Profile sizer into the left breast. The incision was temporarily closed with 3-0 Vicryl simple running suture. Since the left breast was larger than the right breast preoperatively, I started with a 300 ml High Profile sizer into the right breast. Patient was placed in the sitting position and it was felt the the right breast was slightly larger than the left breast especially in the superior pole. I then placed a 275 ml High Profile sizer into the right breast., The incision was temporarily closed with 3-0 Vicryl simple running suture. Good symmetry was noted between the right breast and the left breast. Patient was placed back in the supine position. The sutures were removed and the sizers were removed. For insertion of the cohesive gel implants, our gloves were changed. I used Breckenridge MemoryGel breast implants smooth round High Profile, 225 ml on the left and 275 ml on the right. The implants were placed in Betadine. The breast pockets were irrigated with Irrisept 0.05% chlorhexidine solution followed by saline irrigation. A size 15 Otoniel drain was placed through separate stab incisions laterally and secured to the skin with 3-0 Nylon suture. One drain was placed in each breast pocket. I then sprayed Pao absorbable hemostat into the breast pockets to minimize seroma formation. I used on vial in each breast pocket. The cohesive gel implants were then placed into the breast pockets, 225 ml in the left breast and 275 ml in the right breast. I closed the breast wounds in a layered fashion with 3-0 Monocryl interrupted sutures for the deep subcutaneous tissue. A malleable was placed over the implant to prevent injury to the implants. The deep dermis and subcutaneous tissue was approximated with 3-0 Monocryl interrupted sutures. The skin was approximated with 3-0 V lock unidirectional barbed running subcuticular suture followed by Histoacryl skin tissue adhesive. No vascular compromise was seen on the TRAM flaps. No clinical evidence of hematoma. Kerlix gauze was applied to the breast incisions followed by a compression michel wrap. Patient tolerated the procedure well and was sent to PACU in satisfactory condition. Patient will be sent upstairs for continued postop care. She will be discharged when she is tolerating po analgesia. Grafts/Implants Used: Breckenridge MemoryGel Breast Implants x2, Pao. - Complications None. - Admit VTE Documentation VTE Present on Admission: No VTE Mechan Device Prophylaxis: SCD's VTE Pharm Prophylaxis ordered?: Yes Surgery Charges CPT - 25817 ICD-10 - C50.412, F40.298, Z90.13, Z98.86, Z98.890, N65.0, N65.1, T66.xxxS, L59.8, F17.200, Z17.0 [id number] C50.412, F40.298, Z90.13, Z98.86, Z98.890, N65.0, N65.1, T66.xxxS, L59.8, F17.200, Z17.0
[2020-05-18] MEDS: Lactated Ringers 1,000 ML 60 ML IV (11:25)
[2020-05-18] MEDS: diazePAM 5 MG Tablet PO (14:12)
[2020-05-18] MEDS: Gabapentin 100 MG Capsule 200 MG PO ×2 (14:13→17:35)
[2020-05-18] MEDS: oxyCODONE 5 MG Tablet PO ×2 (14:13→19:55)
[2020-05-18] MEDS: Cefazolin 1 GM/50 ML BAG IV ×2 (14:58→22:39)
[2020-05-18] MEDS: HYDROmorphone 0.5 MG/0.5 ML SYRINGE IV ×2 (15:22→18:32)
[2020-05-18] MEDS: 0.9% Saline Lock 10 ML Syringe IV ×3 (15:26→23:22)
[2020-05-18] MEDS: Docusate Sodium 100 MG Capsule PO (20:57)
[2020-05-18] MEDS: MELATONIN 10 MG TABLET PO (20:57)
[2020-05-18] MEDS: HYDROmorphone 1 MG/ML Syringe IV (23:25)
[2020-05-19 00:52] VITALS: BP 116/72; PULSE 65; RESP 16; TEMP 36.7; O2SAT 94
[2020-05-19] MEDS: Acetaminophen 500 MG Tablet 1000 MG PO ×3 (00:57→15:16)
[2020-05-19] MEDS: Gabapentin 100 MG Capsule PO (01:03)
[2020-05-19] MEDS: HYDROmorphone 1 MG/ML Syringe IV ×2 (02:47→06:38)
[2020-05-19] MEDS: 0.9% Saline Lock 10 ML Syringe IV ×5 (02:48→16:18)
[2020-05-19 04:44] VITALS: BP 113/76; PULSE 79; RESP 18; TEMP 36.8; O2SAT 94
[2020-05-19] MEDS: oxyCODONE 5 MG Tablet PO ×3 (04:48→12:44)
[2020-05-19 06:39] LABS: Hematocrit 30.9 % (37-47); Hemoglobin 9.9 g/dL (12.0-15.0); Mean Corpuscular Volume 87.5 fL (81-99); Mean Platelet Vol. 10.8 fl (6.2-12.0); Platelet Count 161 K/mm3 (150-450); RBC Distribution Width CV 15.2 % (11.6-14.6); Red Blood Count 3.53 M/mm3 (4.2-5.4); White Blood Count 8.8 K/mm3 (4.4-11.0)
[2020-05-19] MEDS: Cefazolin 1 GM/50 ML BAG IV ×2 (06:42→15:16)
[2020-05-19 07:05] LABS: Anion Gap 3 (5-15); BUN 18 mg/dL (7-18); Calcium,Total 8.7 mg/dL (8.5-10.1); Chloride 106 mmol/L (98-107); Creatinine, Serum 0.69 mg/dL (0.55-1.02); EST Glomerular Filtration Rate 99 mL/min (>60); Est Glom Filt Rate - Afr Amer 120 mL/min (>60); Estimated Creatinine Clearance 105.39 ml/min; Glucose 132 mg/dL (74-106); Potassium 3.8 mmol/L (3.5-5.1); Prealbumin 25.4 mg/dL (20.0-40.0); Sodium Level 137 mmol/L (136-145)
[2020-05-19 07:12] VITALS: O2SAT 99
[2020-05-19 08:24] VITALS: BP 108/80; PULSE 73; RESP 18; TEMP 36.5; O2SAT 97
--- NOTE | 2020-05-19 08:29 | PCS.PANDOC ---
PANDEMIC DOCUMENTATION INITIATED: Date: 03/16/2020 Time:
[2020-05-19] MEDS: Pantoprazole Sodium 40 MG Tablet PO (08:37)
[2020-05-19] MEDS: Gabapentin 100 MG Capsule 200 MG PO ×2 (08:37→12:43)
[2020-05-19] MEDS: Enoxaparin 40 MG/0.4 ML Syringe SC (08:37)
[2020-05-19] MEDS: diazePAM 5 MG Tablet PO ×2 (08:37→15:16)
[2020-05-19] MEDS: Docusate Sodium 100 MG Capsule PO (08:37)
[2020-05-19] MEDS: Anastrozole 1 MG TABLET PO (08:39)
[2020-05-19] MEDS: Sertraline 100 MG Tablet PO (08:39)
--- NOTE | 2020-05-19 11:57 | CASEMGMT ---
Social Work Note RENAE reviewed chart. Pt with history of breast cancer and multiple surgeries. SW in to speak with pt. SW introduced self and role at [facility]. Pt is alert and orientated x3. Pt confirms she has had multiple surgeries, states she lost count of how many surgeries she has had. Pt states it's just another day. Pt states she was first diagnosed with breast cancer in May 2017. Pt states that she feels well supported by friends/family. SW spoke with pt regarding Mental Health Hx. Pt states she has history of depression and anxiety. Pt states my depression never gets severe though. Pt denied any history or current suicidal thoughts/plans/ideations. Pt states sometimes she has days where everything is wrong and cries it out. SW offered support to pt. Pt states to cope with depression/anxiety she likes to watch TV and sit with her dog and rahat. Pt states she is currently on medications for depression and anxiety. SW offered additional resources to pt, pt denied. Pt denied additional needs or concerns at this time. Lilia Shipley REINFORCEMENT MAKER, RAILWAY SIGNAL OPERATOR
[2020-05-19 12:48] VITALS: BP 106/65; PULSE 98; RESP 18; TEMP 36.9; O2SAT 97
--- NOTE | 2020-05-19 14:11 | PCM.PN.SRG ---
Subjective: Postop #1 Patient is resting in bed. - Physical Exam Vitals/I&O's: Vital Signs Temp Pulse Resp BP Pulse Ox 98.5 F 98 18 106/65 97 05/19/20 12:48 05/19/20 12:48 05/19/20 12:48 05/19/20 12:48 05/19/20 12:48 Oxygen Flow Rate (L/min) 6 Oxygen Delivery Method Room Air Weight: 161 lb 13.109 oz Body Mass Index (BMI) 25.3 Intake and Output for Last 24 Hours 05/17/20 05/18/20 05/19/20 23:59 23:59 23:59 Intake Total 3227.5 / 3227.5 350 / 350 Output Total 1617 / 1617 Balance 1610.5 / 1610.5 350 / 350 Left Otoniel drainage yesterday 81 ml, Right Otoniel drainage yesterday 46 ml. General: Alert, Oriented x3, Cooperative HEENT: Atraumatic Oral: Moist Mucosa Lungs: Normal air movement Cardiovascular: Regular rate Abdomen: Soft Extremities: Capillary Refill Less than 3 Seconds Skin: Incision - Bilateral breast incisions are dry and intact. Breasts are soft, symmetrical with no bruising. Otoniel drains draining serosanguineous drainage. Musculoskeletal: No Tenderness to Palpation of Joints or Extremities Neurological: Cranial nerves II-XII grossly intact Psych/Mental Status: Normal Affect, Appropriate Laboratory Results 05/19/20 05:45: WBC 8.8, RBC 3.53 L, Hgb 9.9 L, Hct 30.9 L, MCV 87.5, MCH 28.0, MCHC 32.0, RDW Std Deviation 49.0 H, RDW Coeff of Silvana 15.2 H, Plt Count 161, MPV 10.8 05/19/20 05:45: Sodium 137, Potassium 3.8, Chloride 106, Carbon Dioxide 28.0, Anion Gap 3 L, BUN 18, Creatinine 0.69, Estim Creat Clear Calc 105.39, Est GFR (MDRD) Af Amer 120, Est GFR (MDRD) Non-Af 99, BUN/Creatinine Ratio 26.0 H, Glucose 132 H, Calcium 8.7, Prealbumin 25.4 Current Medications Acetaminophen (Acetaminophen 500 Mg Tablet) 1,000 mg PO Q6H TYSHAWN Last Admin: 05/19/20 06:57 Dose: 1,000 mg Documented by: Anastrozole (Anastrozole 1 Mg Tablet) 1 mg PO DAILY [facility] Last Admin: 05/19/20 08:39 Dose: 1 mg Documented by: Diazepam (Diazepam 5 Mg Tablet) 5 mg PO 4X/DAY PRN PRN PRN Reason: SPASMS Last Admin: 05/19/20 08:37 Dose: 5 mg Documented by: Docusate Sodium (Docusate Sodium 100 Mg Capsule) 100 mg PO BID [facility] Last Admin: 05/19/20 08:37 Dose: 100 mg Documented by: Enoxaparin Sodium (Enoxaparin 40 Mg/0.4 Ml Syringe) 40 mg SC DAILY [facility] Last Admin: 05/19/20 08:37 Dose: 40 mg Documented by: Gabapentin (Gabapentin 100 Mg Capsule) 100 mg PO BID PRN PRN Reason: nerve pain Last Admin: 05/19/20 01:03 Dose: 100 mg Documented by: Gabapentin (Gabapentin 100 Mg Capsule) 200 mg PO TIDCM [facility] Last Admin: 05/19/20 12:43 Dose: 200 mg Documented by: Hydromorphone HCl (Hydromorphone 1 Mg/Ml Syringe) 0.5 - 1 mg IV Q3H PRN PRN PRN Reason: Pain Score 6-10 Last Admin: 05/19/20 06:38 Dose: 1 mg Documented by: Hydromorphone HCl (Hydromorphone 0.5 Mg/0.5 Ml Syringe) 0.5 - 1 mg IV Q3H PRN PRN PRN Reason: Pain Score 6-10 Last Admin: 05/18/20 18:32 Dose: 0.5 mg Documented by: Cefazolin Sodium () 1 gm in 50 mls @ 100 mls/hr IV Q8H [facility] Last Infusion: 05/19/20 07:12 Dose: Infused Documented by: Magnesium Chloride (Magnesium Chloride 64 Mg Delay Rel.Tablet) 128 mg PO DAILY PRN PRN PRN Reason: Constipation Melatonin (Melatonin 10 Mg Tablet) 10 mg PO QHS [facility] Last Admin: 05/18/20 20:57 Dose: 10 mg Documented by: Ondansetron HCl (Ondansetron Odt 4 Mg Tablet) 4 mg PO Q6H PRN PRN PRN Reason: NAUSEA Oxycodone HCl (Oxycodone 5 Mg Tablet) 5 - 10 mg PO Q4H PRN PRN PRN Reason: Pain Score 4-10 Last Admin: 05/19/20 12:44 Dose: 10 mg Documented by: Pantoprazole Sodium (Pantoprazole Sodium 40 Mg Tablet) 40 mg PO DAILY [facility] Last Admin: 05/19/20 08:37 Dose: 40 mg Documented by: Sertraline HCl (Sertraline 100 Mg Tablet) 100 mg PO DAILY [facility] Last Admin: 05/19/20 08:39 Dose: 100 mg Documented by: Sodium Chloride (0.9% Saline Lock 10 Ml Syringe) 10 - 40 ml IV UD PRN PRN Reason: SALINE FLUSH Last Admin: 05/19/20 08:38 Dose: 30 ml Documented by: Medical Necessity - Tobacco Use Smoking Status: Light Smoker (<10/day) Tobacco Use: Cigarettes Assessment/Plan All Active Problems (Last Updated 05/08/20 @ 12:[address] Johanny Rubio, DO) Mass of right axilla (Acute) Other complications of skin graft (allograft) (autograft) (Acute) Infection of breast implant (Resolved) Exposed breast implant (Resolved) Pseudomonas aeruginosa infection (Resolved) Muscle spasm of left shoulder (Resolved) Muscle spasm of back (Resolved) Capsular contracture of breast implant, initial encounter (Resolved) Nonhealing surgical wound (Resolved) Malignant neoplasm of upper-outer quadrant of left female breast (Resolved) 1. Left breast cancer. 2. 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 4. s/p removal bilateral breast implants. 5. status breast reconstruction with bilateral TRAM flaps. 6. Deformity reconstructed left breast. 7. Disproportion reconstructed breasts. 8. 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 11. Smoker. 12. Estrogen receptor positive status. Patient is doing well. She states she has had to have IV pain meds to help control her pain. Will prescribe Dilaudid po for when she goes home. Her incisions are dry and intact. The Otoniel drains are draining serosanguineous drainage. She is on Cefazolin while in the hospital. She will be discharged on Levaquin until her drains are removed. Continue to wear compression bra or USHA wrap for compression. Keep head elevated and restrict lifting to 20 lbs. She will follow up in the office next week to have the drains removed.
[2020-05-19] MEDS: HYDROmorphone 0.5 MG/0.5 ML SYRINGE IV (15:17)
--- NOTE | 2020-05-19 15:22 | DCINST_ITS ---
You will use the following diet at home:: No restrictions, Other - encourage nutrtional supplementation with protein to help the healing process. Discharge Activity: May not drive while taking narcotic pain medications., May Not Shower - until the drains are removed. May shower in (days): 14 - after the drains are removed. May resume sexual activity in: 10-14 days Weight Bearing Status: Weight bearing as tolerated Lifting Restrictions: 20 lbs. Keep extremity elevated above heart level: - - elevate head. Call your doctor if your incision/area has: Continuous Slow Oozing, Sudden Inc reased Bleeding, Increased Pain/ Swelling, Increased Redness, Foul Smelling Discharge, Swelling at the incision site Call your doctor if you observe: Fever of 101 or Higher, Coldness, Increased Pain, Shortness of breath, Chest pain, Calf discomfort, Uncontrolled pain Suture Line Care: - - dry dressings daily. Change Dressing in (Days):: 1 - dry dressings daily. Cleanse incision/area with: - - may get incisions wet in the shower after the drains are removed. Drain: Suction - katlin drain x2 to bulb suction. empty and record output daily. Allergies/Adverse Reactions: Allergies ondansetron [From Zofran] Adverse Reaction (Verified 05/18/20 06:33) MIGRAINES Medications to take at Discharge anastrozole 1 mg tablet 1 mg PO QHS 07/05/18 Pantoprazole Sodium [Protonix] 40 mg PO DAILY 08/31/18 Vitamin C/Biotin [Hair, Skin and Nails Gummies] 2 ea PO QHS 01/08/19 Gabapentin [Neurontin] 100 mg PO BID PRN 11/08/19 Sertraline HCl [Zoloft] 100 mg PO DAILY 12/30/19 Melatonin 10 mg PO QHS 04/27/20 Diazepam [Valium] 5 mg PO 4X/DAY PRN PRN #30 tab 05/19/20 HYDROmorphone tablet [Dilaudid] 2 mg PO Q4H PRN PRN 7 Days #40 tab 05/19/20 levoFLOXacin tablet [Levaquin tablet] 500 mg PO DAILY #14 tab 05/19/20 The following prescriptions were given: HYDROmorphone tablet [Dilaudid] 2 mg PO Q4H PRN PRN 7 Days #40 tab PRN Reason: Pain Score 6-10 Transmission Status: Received by [id number] levoFLOXacin tablet [Levaquin tablet] 500 mg PO DAILY #14 tab Transmission Status: Received by [id number] Diazepam [Valium] 5 mg PO 4X/DAY PRN PRN #30 tab PRN Reason: muscle spasm Transmission Status: Received by [id number] Primary Care Physician: Jack Mancuso DO [Primary Care Provider] - Test Results: Test results from this visit will be discussed in further detail at your follow- up appointment, if applicable. Please Follow Up With: Sandro Martinez MD When: one week. call [phone] for appt. Proposed Discharge Date: 05/19/20
[2020-05-19 15:52] VITALS: BP 108/65; PULSE 76; RESP 14; TEMP 37.1; O2SAT 94
--- NOTE | 2020-05-20 20:44 | NURSING ---
Late note: Contacted [facility] to let her know that we have her purple charging cord that she left behind when she was discharged. Advised her to stop in the ER at some point and we would tube it down to them. She will try to pick it up on 05/21/20.
== END 2020-05-19 17:06 | disposition home or self-care (01) ==
LOC: SDC 12:22 → MS3 05-19 06:57
PROVIDERS: Anesthesiology; Admitting Provider Surgery; PCP Student in an Organized Health Care Education/Training Program; Referring Provider Surgery; Visit Provider Surgery
PROC: (CPT 19342; principal; 2020-05-18 07:10)
DX: C50.412 Malignant neoplasm of upper-outer quadrant of left female breast (principal); N65.1 Disproportion of reconstructed breast; Z17.0 Estrogen receptor positive status [ER+]; F17.210 Nicotine dependence, cigarettes, uncomplicated; F41.9 Anxiety disorder, unspecified; F32.9 Major depressive disorder, single episode, unspecified; K21.9 Gastro-esophageal reflux disease without esophagitis; T85.898A Other specified complication of other internal prosthetic devices, implants and grafts, initial encounter; T66.XXXS Radiation sickness, unspecified, sequela; Y84.2 Radiological procedure and radiotherapy as the cause of abnormal reaction of the patient, or of later complication, without mention of misadventure at the time of the procedure; Z20.828 Contact with and (suspected) exposure to other viral communicable diseases; Z90.13 Acquired absence of bilateral breasts and nipples; Z79.899 Other long term (current) drug therapy
CPT/HCPCS: 00402; 19342; 36415; 80048; 82962; 83735; 84134; 85027; 87426; 96365; 96366; 96372; 96375; 96376; 99218; C9803; J7120; A4216; G0378; G0379; J2405

== ENCOUNTER 2020-07-08 08:00 | Outpatient (RCR) | payer BC, SELFPAY ==
[2020-06-08 00:34] VITALS: BP 115/73; PULSE 66; RESP 17; TEMP 36.5
--- NOTE | 2020-06-08 08:51 | PCM.HBO.PN ---
History of Present Illness Date of Service: 06/08/20 Presenting Chief Complaint: HBOT for soft tissue radionecrosis of left breast, failed skin graft LETICIA HAQUE is a 39 year old currently undergoing hyperbaric oxygen therapy for eft breast, failed skin graft Progress: Today's hyperbaric oxygen session represents the First session of A planned 30 sessions of hyperbaric oxygen therapy. Tolerance of hyperbaric oxygen therapy: Hyperbaric oxygen therapy was administered as per the facility's protocol. Hyperbaric oxygen therapy was administered at 2 nedra for 90 minutes with no air breaks. The patient tolerated hyperbaric oxygen therapy well, without complaints or complications. Upon emergence from the hyperbaric chamber, the patient's vital signs remained stable. She was discharged in good condition. Past Medical History Chronic Problems (Last Reviewed 06/05/20 @ 22:[address] 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 Deformity of reconstructed breast (Chronic) painful radiation scar contour deformity Estrogen receptor positive status [ER+] (Chronic) Current smoker (Chronic) Disproportion of reconstructed breast (Chronic) 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) Cancer phobia (Chronic) cancer phobia right breast Allergies/Adverse Reactions: Allergies ondansetron [From Zofran] Adverse Reaction (Verified 06/03/20 11:17) MIGRAINES Home Medications: Ambulatory Orders Medication Instructions Recorded anastrozole 1 mg tablet 1 mg PO QHS 07/05/18 Pantoprazole Sodium [Protonix] 40 mg PO DAILY 08/31/18 Vitamin C/Biotin [Hair, Skin and 2 ea PO QHS 01/08/19 Nails Gummies] Gabapentin [Neurontin] 100 mg PO BID PRN 11/08/19 Sertraline HCl [Zoloft] 100 mg PO DAILY 12/30/19 Melatonin 10 mg PO QHS 04/27/20 Diazepam [Valium] 5 mg PO 4X/DAY PRN PRN #30 tab 05/19/20 levoFLOXacin tablet [Levaquin 500 mg PO DAILY #14 tab 05/19/20 tablet] oxycodone-acetaminophen 5 mg-325 1 tab PO 4X/DAY PRN #28 tab 05/27/20 mg tablet diazepam 5 mg tablet 5 mg PO TID PRN 7 Days #21 tab 06/05/20 oxycodone-acetaminophen 5 mg-325 1 tab PO TID PRN 7 Days #21 tab 06/05/20 mg tablet Smoking Status: Light Smoker (<10/day) Physical Exam Vital Signs Temp Pulse Resp BP 97.7 F L 66 17 115/73 06/08/20 00:34 06/08/20 00:34 06/08/20 00:34 06/08/20 00:34 General: Alert, Oriented x3, Cooperative, No apparent distress HEENT: Atraumatic, TM's Clear Lungs: Clear to auscultation, Normal air movement Cardiovascular: Regular rate, Regular Rhythm Psych/Mental Status: Normal Affect, Appropriate, Alert and oriented to time, place, person, mood and affect Assessment/Plan The patient appears to be tolerating hyperbaric oxygen therapy well, which will be continued as per the patient's medical plan. Treatment Course Number Treatment Course Number 1 Treatment # 30 Other - Detail Compromised/Failed Flap/Graft Yes (specify site in comment) Soft Tissue Radionecrosis ( breast specify site in comment)
[2020-06-08 11:16] VITALS: BP 123/77; BP 128/84; PULSE 62; PULSE 79; RESP 16; RESP 18; TEMP 36.2; TEMP 36.3
[2020-06-09 09:39] VITALS: BP 112/69; BP 143/75; PULSE 18; PULSE 83; RESP 16; RESP 68; TEMP 36.2
--- NOTE | 2020-06-09 13:42 | PCM.HBO.PN ---
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 Tolerance of hyperbaric oxygen therapy: Hyperbaric oxygen therapy was administered as per the facility's protocol. Hyperbaric oxygen therapy was administered at 2 nedra for 90 minutes with no air breaks. The patient tolerated hyperbaric oxygen therapy well, without complaints or complications. Upon emergence from the hyperbaric chamber, the patient's vital signs remained stable. She was discharged in good condition. Past Medical History Chronic Problems (Last Reviewed 06/05/20 @ 22:[address] 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 Deformity of reconstructed breast (Chronic) painful radiation scar contour deformity Estrogen receptor positive status [ER+] (Chronic) Current smoker (Chronic) Disproportion of reconstructed breast (Chronic) 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) Cancer phobia (Chronic) cancer phobia right breast Allergies/Adverse Reactions: Allergies ondansetron [From Zofran] Adverse Reaction (Verified 06/03/20 11:17) MIGRAINES Home Medications: Ambulatory Orders Medication Instructions Recorded anastrozole 1 mg tablet 1 mg PO QHS 07/05/18 Pantoprazole Sodium [Protonix] 40 mg PO DAILY 08/31/18 Vitamin C/Biotin [Hair, Skin and 2 ea PO QHS 01/08/19 Nails Gummies] Gabapentin [Neurontin] 100 mg PO BID PRN 11/08/19 Sertraline HCl [Zoloft] 100 mg PO DAILY 12/30/19 Melatonin 10 mg PO QHS 04/27/20 Diazepam [Valium] 5 mg PO 4X/DAY PRN PRN #30 tab 05/19/20 levoFLOXacin tablet [Levaquin 500 mg PO DAILY #14 tab 05/19/20 tablet] oxycodone-acetaminophen 5 mg-325 1 tab PO 4X/DAY PRN #28 tab 05/27/20 mg tablet diazepam 5 mg tablet 5 mg PO TID PRN 7 Days #21 tab 06/05/20 oxycodone-acetaminophen 5 mg-325 1 tab PO TID PRN 7 Days #21 tab 06/05/20 mg tablet Smoking Status: Light Smoker (<10/day) Physical Exam Vital Signs Temp Pulse Resp BP 97.1 F L 83 16 143/75 H 06/09/20 09:39 06/09/20 09:39 06/09/20 09:39 06/09/20 09:39 General: Alert, Oriented x3, Cooperative, No apparent distress, Well developed, Well nourished HEENT: Atraumatic, PERRLA, EOMI, Normocephalic Lungs: Normal air movement Psych/Mental Status: Normal Affect, Appropriate, Alert and oriented to time, place, person, mood and affect Assessment/Plan The patient appears to be tolerating hyperbaric oxygen therapy well, which will be continued as per the patient's medical plan. Treatment Course Number Number of HBO Treatments 50 Ordered Treatment Course Number 1 Treatment # 32 Chamber # 1 Chamber Type Monoplace Other - Detail Compromised/Failed Flap/Graft Yes (specify site in comment) Soft Tissue Radionecrosis ( breast specify site in comment) Treatment Plan CADE (Atmospheric Absolute) 2 Number of Minutes 90 Number of Air Breaks 0
--- NOTE | 2020-06-11 09:38 | HBO.PN.PCM_ITS ---
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 Tolerance of hyperbaric oxygen therapy: Hyperbaric oxygen therapy was a dministered as per the facility's protocol. Hyperbaric oxygen therapy was administered at 2 nedra for 90 minutes with no air breaks. The patient tolerated hyperbaric oxygen therapy well, without complaints or complications. Upon emergence from the hyperbaric chamber, the patient's vital signs remained stable. She was discharged in good condition. Past Medical History Chronic Problems (Last Reviewed 06/05/20 @ 22:[address] 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 Deformity of reconstructed breast (Chronic) painful radiation scar contour deformity Estrogen receptor positive status [ER+] (Chronic) Current smoker (Chronic) Disproportion of reconstructed breast (Chronic) 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) Cancer phobia (Chronic) cancer phobia right breast Allergies/Adverse Reactions: Allergies ondansetron [From Zofran] Adverse Reaction (Verified 06/03/20 11:17) MIGRAINES Home Medications: Ambulatory Orders Medication Instructions Recorded anastrozole 1 mg tablet 1 mg PO QHS 07/05/18 Pantoprazole Sodium [Protonix] 40 mg PO DAILY 08/31/18 Vitamin C/Biotin [Hair, Skin and 2 ea PO QHS 01/08/19 Nails Gummies] Gabapentin [Neurontin] 100 mg PO BID PRN 11/08/19 Sertraline HCl [Zoloft] 100 mg PO DAILY 12/30/19 Melatonin 10 mg PO QHS 04/27/20 Diazepam [Valium] 5 mg PO 4X/DAY PRN PRN #30 tab 05/19/20 levoFLOXacin tablet [Levaquin 500 mg PO DAILY #14 tab 05/19/20 tablet] oxycodone-acetaminophen 5 mg-325 1 tab PO 4X/DAY PRN #28 tab 05/27/20 mg tablet diazepam 5 mg tablet 5 mg PO TID PRN 7 Days #21 tab 06/05/20 oxycodone-acetaminophen 5 mg-325 1 tab PO TID PRN 7 Days #21 tab 06/05/20 mg tablet Smoking Status: Light Smoker (<10/day) Physical Exam Vital Signs Temp Pulse Resp BP 97.1 F L 83 16 143/75 H 06/09/20 09:39 06/09/20 09:39 06/09/20 09:39 06/09/20 09:39 General: Alert, Oriented x3, Cooperative, No apparent distress HEENT: Atraumatic, TM's Clear Lungs: Clear to auscultation, Normal air movement Cardiovascular: Regular rate, Regular Rhythm Psych/Mental Status: Normal Affect, Appropriate, Alert and oriented to time, place, person, mood and affect Assessment/Plan The patient appears to be tolerating hyperbaric oxygen therapy well, which will be continued as per the patient's medical plan. Treatment Course Number Number of HBO Treatments 50 Ordered Treatment Course Number 1 Treatment # 33 Chamber # 1 Chamber Type Monoplace Other - Detail Compromised/Failed Flap/Graft Yes (specify site in comment) Soft Tissue Radionecrosis ( breast specify site in comment) Treatment Plan CADE (Atmospheric Absolute) 2 Number of Minutes 90 Number of Air Breaks 0
[2020-06-11 11:06] VITALS: BP 110/71; BP 129/92; PULSE 105; PULSE 64; RESP 16; RESP 18; TEMP 35.9; TEMP 36.1
[2020-06-12 08:53] VITALS: BP 119/76; BP 132/84; PULSE 63; PULSE 86; RESP 16; RESP 18; TEMP 36; TEMP 36.2
--- NOTE | 2020-06-12 12:29 | HBO.PN.PCM_ITS ---
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 Tolerance of hyperbaric oxygen therapy: Hyperbaric oxygen therapy was a dministered as per the facility's protocol. Hyperbaric oxygen therapy was administered at 2 nedra for 90 minutes with no air breaks. The patient tolerated hyperbaric oxygen therapy well, without complaints or complications. Upon emergence from the hyperbaric chamber, the patient's vital signs remained stable. She was discharged in good condition. Past Medical History Chronic Problems (Last Reviewed 06/05/20 @ 22:[address] 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 Deformity of reconstructed breast (Chronic) painful radiation scar contour deformity Estrogen receptor positive status [ER+] (Chronic) Current smoker (Chronic) Disproportion of reconstructed breast (Chronic) 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) Cancer phobia (Chronic) cancer phobia right breast Allergies/Adverse Reactions: Allergies ondansetron [From Zofran] Adverse Reaction (Verified 06/03/20 11:17) MIGRAINES Home Medications: Ambulatory Orders Medication Instructions Recorded anastrozole 1 mg tablet 1 mg PO QHS 07/05/18 Pantoprazole Sodium [Protonix] 40 mg PO DAILY 08/31/18 Vitamin C/Biotin [Hair, Skin and 2 ea PO QHS 01/08/19 Nails Gummies] Gabapentin [Neurontin] 100 mg PO BID PRN 11/08/19 Sertraline HCl [Zoloft] 100 mg PO DAILY 12/30/19 Melatonin 10 mg PO QHS 04/27/20 Diazepam [Valium] 5 mg PO 4X/DAY PRN PRN #30 tab 05/19/20 levoFLOXacin tablet [Levaquin 500 mg PO DAILY #14 tab 05/19/20 tablet] oxycodone-acetaminophen 5 mg-325 1 tab PO 4X/DAY PRN #28 tab 05/27/20 mg tablet Smoking Status: Light Smoker (<10/day) Physical Exam Vital Signs Temp Pulse Resp BP 96.8 F L 86 16 132/84 H 06/12/20 08:53 06/12/20 08:53 06/12/20 08:53 06/12/20 08:53 General: Alert, Oriented x3, Cooperative, No apparent distress Psych/Mental Status: Normal Affect, Appropriate Assessment/Plan The patient appears to be tolerating hyperbaric oxygen therapy well, which will be continued as per the patient's medical plan. Treatment Course Number Number of HBO Treatments 50 Ordered Treatment Course Number 1 Treatment # 34 Chamber # 1 Chamber Type Monoplace Other - Detail Compromised/Failed Flap/Graft Yes (specify site in comment) Soft Tissue Radionecrosis ( breast specify site in comment) Treatment Plan CADE (Atmospheric Absolute) 2 Number of Minutes 90 Number of Air Breaks 0
[2020-06-16 08:46] VITALS: BP 127/93; BP 135/77; PULSE 75; PULSE 78; RESP 16; TEMP 36.2; TEMP 36.3
--- NOTE | 2020-06-16 10:18 | PCM.HBO.PN ---
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 Tolerance of hyperbaric oxygen therapy: Hyperbaric oxygen therapy was administered as per the facility's protocol. Hyperbaric oxygen therapy was administered at 2 nedra for 90 minutes with no air breaks. The patient tolerated hyperbaric oxygen therapy well, without complaints or complications. Upon emergence from the hyperbaric chamber, the patient's vital signs remained stable. She was discharged in good condition. Past Medical History Chronic Problems (Last Reviewed 06/05/20 @ 22:[address] 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 Deformity of reconstructed breast (Chronic) painful radiation scar contour deformity Estrogen receptor positive status [ER+] (Chronic) Current smoker (Chronic) Disproportion of reconstructed breast (Chronic) 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) Cancer phobia (Chronic) cancer phobia right breast Allergies/Adverse Reactions: Allergies ondansetron [From Zofran] Adverse Reaction (Verified 06/03/20 11:17) MIGRAINES Home Medications: Ambulatory Orders Medication Instructions Recorded anastrozole 1 mg tablet 1 mg PO QHS 07/05/18 Pantoprazole Sodium [Protonix] 40 mg PO DAILY 08/31/18 Vitamin C/Biotin [Hair, Skin and 2 ea PO QHS 01/08/19 Nails Gummies] Gabapentin [Neurontin] 100 mg PO BID PRN 11/08/19 Sertraline HCl [Zoloft] 100 mg PO DAILY 12/30/19 Melatonin 10 mg PO QHS 04/27/20 Diazepam [Valium] 5 mg PO 4X/DAY PRN PRN #30 tab 05/19/20 levoFLOXacin tablet [Levaquin 500 mg PO DAILY #14 tab 05/19/20 tablet] oxycodone-acetaminophen 5 mg-325 1 tab PO 4X/DAY PRN #28 tab 05/27/20 mg tablet Smoking Status: Light Smoker (<10/day) Physical Exam Vital Signs Temp Pulse Resp BP 97.4 F L 78 16 127/93 H 06/16/20 08:46 06/16/20 08:46 06/16/20 08:46 06/16/20 08:46 General: Alert, Oriented x3, Cooperative, No apparent distress, Well developed, Well nourished HEENT: Atraumatic, PERRLA, EOMI, Normocephalic Lungs: Normal air movement Psych/Mental Status: Normal Affect, Appropriate, Alert and oriented to time, place, person, mood and affect Assessment/Plan The patient appears to be tolerating hyperbaric oxygen therapy well, which will be continued as per the patient's medical plan. Treatment Course Number Number of HBO Treatments 50 Ordered Treatment Course Number 1 Treatment # 35 Chamber # 1 Chamber Type Monoplace Other - Detail Compromised/Failed Flap/Graft Yes (specify site in comment) Soft Tissue Radionecrosis ( breast specify site in comment) Treatment Plan CADE (Atmospheric Absolute) 2 Number of Minutes 90 Number of Air Breaks 0
[2020-06-17 09:05] VITALS: BP 108/74; BP 129/71; PULSE 72; PULSE 74; RESP 16; RESP 18; TEMP 36.1; TEMP 36.6
--- NOTE | 2020-06-17 10:06 | PCM.HBO.PN ---
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 Tolerance of hyperbaric oxygen therapy: Hyperbaric oxygen therapy was administered as per the facility's protocol. Hyperbaric oxygen therapy was administered at 2 nedra for 90 minutes with no air breaks. The patient tolerated hyperbaric oxygen therapy well, without complaints or complications. Upon emergence from the hyperbaric chamber, the patient's vital signs remained stable. She was discharged in good condition. Past Medical History Chronic Problems (Last Reviewed 06/05/20 @ 22:[address] 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 breast reconstruction Deformity of reconstructed breast (Chronic) painful radiation scar contour deformity Estrogen receptor positive status [ER+] (Chronic) Current smoker (Chronic) Disproportion of reconstructed breast (Chronic) 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) Cancer phobia (Chronic) cancer phobia right breast Allergies/Adverse Reactions: Allergies ondansetron [From Zofran] Adverse Reaction (Verified 06/03/20 11:17) MIGRAINES Home Medications: Ambulatory Orders Medication Instructions Recorded anastrozole 1 mg tablet 1 mg PO QHS 07/05/18 Pantoprazole Sodium [Protonix] 40 mg PO DAILY 08/31/18 Vitamin C/Biotin [Hair, Skin and 2 ea PO QHS 01/08/19 Nails Gummies] Gabapentin [Neurontin] 100 mg PO BID PRN 11/08/19 Sertraline HCl [Zoloft] 100 mg PO DAILY 12/30/19 Melatonin 10 mg PO QHS 04/27/20 Diazepam [Valium] 5 mg PO 4X/DAY PRN PRN #30 tab 05/19/20 levoFLOXacin tablet [Levaquin 500 mg PO DAILY #14 tab 05/19/20 tablet] oxycodone-acetaminophen 5 mg-325 1 tab PO 4X/DAY PRN #28 tab 05/27/20 mg tablet Smoking Status: Light Smoker (<10/day) Physical Exam Vital Signs Temp Pulse Resp BP 97.9 F 74 18 129/71 H 06/17/20 09:05 06/17/20 09:05 06/17/20 09:05 06/17/20 09:05 Assessment/Plan The patient appears to be tolerating hyperbaric oxygen therapy well, which will be continued as per the patient's medical plan. Treatment Course Number Number of HBO Treatments 50 Ordered Treatment Course Number 1 Treatment # 36 Chamber # 1 Chamber Type Monoplace Other - Detail Compromised/Failed Flap/Graft Yes (specify site in comment) Soft Tissue Radionecrosis ( breast specify site in comment) Treatment Plan CADE (Atmospheric Absolute) 2 Number of Minutes 90 Number of Air Breaks 0
--- NOTE | 2020-06-18 09:18 | PCM.HBO.PN ---
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 Tolerance of hyperbaric oxygen therapy: Hyperbaric oxygen therapy was administered as per the facility's protocol. Hyperbaric oxygen therapy was administered at 2 nedra for 90 minutes with no air breaks. The patient tolerated hyperbaric oxygen therapy well, without complaints or complications. Upon emergence from the hyperbaric chamber, the patient's vital signs remained stable. She was discharged in good condition. Past Medical History Chronic Problems (Last Reviewed 06/17/20 @ 20:[address] 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 Deformity of reconstructed breast (Chronic) painful radiation scar contour deformity Estrogen receptor positive status [ER+] (Chronic) Current smoker (Chronic) Disproportion of reconstructed breast (Chronic) 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) Cancer phobia (Chronic) cancer phobia right breast Allergies/Adverse Reactions: Allergies ondansetron [From Zofran] Adverse Reaction (Verified 06/17/20 10:34) MIGRAINES Home Medications: Ambulatory Orders Medication Instructions Recorded anastrozole 1 mg tablet 1 mg PO QHS 07/05/18 Pantoprazole Sodium [Protonix] 40 mg PO DAILY 08/31/18 Vitamin C/Biotin [Hair, Skin and 2 ea PO QHS 01/08/19 Nails Gummies] Gabapentin [Neurontin] 100 mg PO BID PRN 11/08/19 Sertraline HCl [Zoloft] 100 mg PO DAILY 12/30/19 Melatonin 10 mg PO QHS 04/27/20 Diazepam [Valium] 5 mg PO 4X/DAY PRN PRN #30 tab 05/19/20 levoFLOXacin tablet [Levaquin 500 mg PO DAILY #14 tab 05/19/20 tablet] oxycodone-acetaminophen 5 mg-325 1 tab PO 4X/DAY PRN #28 tab 05/27/20 mg tablet diazepam 5 mg tablet 5 mg PO BID PRN 7 Days #14 tab 06/17/20 oxycodone-acetaminophen 5 mg-325 1 tab PO BID PRN 7 Days #14 tab 06/17/20 mg tablet Smoking Status: Light Smoker (<10/day) Physical Exam Vital Signs Temp Pulse Resp BP 97.9 F 74 18 129/71 H 06/17/20 09:05 06/17/20 09:05 06/17/20 09:05 06/17/20 09:05 General: Alert, Oriented x3, Cooperative, No apparent distress HEENT: Atraumatic, TM's Clear Lungs: Clear to auscultation, Normal air movement Cardiovascular: Regular rate, Regular Rhythm Psych/Mental Status: Normal Affect, Appropriate, Alert and oriented to time, place, person, mood and affect Assessment/Plan The patient appears to be tolerating hyperbaric oxygen therapy well, which will be continued as per the patient's medical plan. Treatment Course Number Number of HBO Treatments 50 Ordered Treatment Course Number 1 Treatment # 37 Chamber # 1 Chamber Type Monoplace Other - Detail Compromised/Failed Flap/Graft Yes (specify site in comment) Soft Tissue Radionecrosis ( breast specify site in comment) Treatment Plan CADE (Atmospheric Absolute) 2 Number of Minutes 90 Number of Air Breaks 0
[2020-06-18 09:42] VITALS: BP 131/87; BP 134/78; PULSE 73; PULSE 83; RESP 16; TEMP 36.1; TEMP 36.2
[2020-06-19 08:15] VITALS: BP 117/79; BP 129/76; PULSE 71; PULSE 87; RESP 16; TEMP 36.1; TEMP 36.4
--- NOTE | 2020-06-19 12:38 | PCM.HBO.PN ---
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 Tolerance of hyperbaric oxygen therapy: Hyperbaric oxygen therapy was administered as per the facility's protocol. Hyperbaric oxygen therapy was administered at 2 nedra for 90 minutes with no air breaks. The patient tolerated hyperbaric oxygen therapy well, without complaints or complications. Upon emergence from the hyperbaric chamber, the patient's vital signs remained stable. She was discharged in good condition. Past Medical History Chronic Problems (Last Reviewed 06/17/20 @ 20:[address] 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 Deformity of reconstructed breast (Chronic) painful radiation scar contour deformity Estrogen receptor positive status [ER+] (Chronic) Current smoker (Chronic) Disproportion of reconstructed breast (Chronic) 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) Cancer phobia (Chronic) cancer phobia right breast Allergies/Adverse Reactions: Allergies ondansetron [From Zofran] Adverse Reaction (Verified 06/17/20 10:34) MIGRAINES Home Medications: Ambulatory Orders Medication Instructions Recorded anastrozole 1 mg tablet 1 mg PO QHS 07/05/18 Pantoprazole Sodium [Protonix] 40 mg PO DAILY 08/31/18 Vitamin C/Biotin [Hair, Skin and 2 ea PO QHS 01/08/19 Nails Gummies] Gabapentin [Neurontin] 100 mg PO BID PRN 11/08/19 Sertraline HCl [Zoloft] 100 mg PO DAILY 12/30/19 Melatonin 10 mg PO QHS 04/27/20 Diazepam [Valium] 5 mg PO 4X/DAY PRN PRN #30 tab 05/19/20 levoFLOXacin tablet [Levaquin 500 mg PO DAILY #14 tab 05/19/20 tablet] oxycodone-acetaminophen 5 mg-325 1 tab PO 4X/DAY PRN #28 tab 05/27/20 mg tablet diazepam 5 mg tablet 5 mg PO BID PRN 7 Days #14 tab 06/17/20 oxycodone-acetaminophen 5 mg-325 1 tab PO BID PRN 7 Days #14 tab 06/17/20 mg tablet Smoking Status: Light Smoker (<10/day) Physical Exam Vital Signs Temp Pulse Resp BP 97.5 F L 87 16 117/79 06/19/20 08:15 06/19/20 08:15 06/19/20 08:15 06/19/20 08:15 General: Alert, Oriented x3, Cooperative, No apparent distress Psych/Mental Status: Normal Affect, Appropriate Assessment/Plan The patient appears to be tolerating hyperbaric oxygen therapy well, which will be continued as per the patient's medical plan. Treatment Course Number Number of HBO Treatments 50 Ordered Treatment Course Number 1 Treatment # 38 Chamber # 1 Chamber Type Monoplace Other - Detail Compromised/Failed Flap/Graft Yes (specify site in comment) Soft Tissue Radionecrosis ( breast specify site in comment) Treatment Plan CADE (Atmospheric Absolute) 2 Number of Minutes 90 Number of Air Breaks 0
[2020-06-22 08:59] VITALS: BP 113/80; BP 131/78; PULSE 70; PULSE 75; RESP 16; TEMP 36.2
--- NOTE | 2020-06-22 09:09 | PCM.HBO.PN ---
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 Tolerance of hyperbaric oxygen therapy: Hyperbaric oxygen therapy was administered as per the facility's protocol. Hyperbaric oxygen therapy was administered at 2 nedra for 90 minutes with no air breaks. The patient tolerated hyperbaric oxygen therapy well, without complaints or complications. Upon emergence from the hyperbaric chamber, the patient's vital signs remained stable. She was discharged in good condition. Past Medical History Chronic Problems (Last Reviewed 06/17/20 @ 20:[address] 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 Deformity of reconstructed breast (Chronic) painful radiation scar contour deformity Estrogen receptor positive status [ER+] (Chronic) Current smoker (Chronic) Disproportion of reconstructed breast (Chronic) 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) Cancer phobia (Chronic) cancer phobia right breast Allergies/Adverse Reactions: Allergies ondansetron [From Zofran] Adverse Reaction (Verified 06/17/20 10:34) MIGRAINES Home Medications: Ambulatory Orders Medication Instructions Recorded anastrozole 1 mg tablet 1 mg PO QHS 07/05/18 Pantoprazole Sodium [Protonix] 40 mg PO DAILY 08/31/18 Vitamin C/Biotin [Hair, Skin and 2 ea PO QHS 01/08/19 Nails Gummies] Gabapentin [Neurontin] 100 mg PO BID PRN 11/08/19 Sertraline HCl [Zoloft] 100 mg PO DAILY 12/30/19 Melatonin 10 mg PO QHS 04/27/20 Diazepam [Valium] 5 mg PO 4X/DAY PRN PRN #30 tab 05/19/20 levoFLOXacin tablet [Levaquin 500 mg PO DAILY #14 tab 05/19/20 tablet] oxycodone-acetaminophen 5 mg-325 1 tab PO 4X/DAY PRN #28 tab 05/27/20 mg tablet diazepam 5 mg tablet 5 mg PO BID PRN 7 Days #14 tab 06/17/20 oxycodone-acetaminophen 5 mg-325 1 tab PO BID PRN 7 Days #14 tab 06/17/20 mg tablet Smoking Status: Light Smoker (<10/day) Physical Exam Vital Signs Temp Pulse Resp BP 97.1 F L 75 16 131/78 H 06/22/20 08:59 06/22/20 08:59 06/22/20 08:59 06/22/20 08:59 General: Alert, Oriented x3, No apparent distress HEENT: Atraumatic, TM's Clear Lungs: Clear to auscultation, Normal air movement Cardiovascular: Regular rate, Regular Rhythm Psych/Mental Status: Normal Affect, Appropriate, Alert and oriented to time, place, person, mood and affect Assessment/Plan The patient appears to be tolerating hyperbaric oxygen therapy well, which will be continued as per the patient's medical plan. Treatment Course Number Number of HBO Treatments 50 Ordered Treatment Course Number 1 Treatment # 39 Chamber # 1 Chamber Type Monoplace Other - Detail Compromised/Failed Flap/Graft Yes (specify site in comment) Soft Tissue Radionecrosis ( breast specify site in comment) Treatment Plan CADE (Atmospheric Absolute) 2 Number of Minutes 90 Number of Air Breaks 0
[2020-06-23 08:11] VITALS: BP 115/94; BP 116/78; PULSE 78; PULSE 81; RESP 16; TEMP 36.2
--- NOTE | 2020-06-23 12:15 | PCM.HBO.PN ---
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 Tolerance of hyperbaric oxygen therapy: Hyperbaric oxygen therapy was administered as per the facility's protocol. Hyperbaric oxygen therapy was administered at 2 nedra for 90 minutes with no air breaks. The patient tolerated hyperbaric oxygen therapy well, without complaints or complications. Upon emergence from the hyperbaric chamber, the patient's vital signs remained stable. She was discharged in good condition. Past Medical History Chronic Problems (Last Reviewed 06/17/20 @ 20:[address] 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 Deformity of reconstructed breast (Chronic) painful radiation scar contour deformity Estrogen receptor positive status [ER+] (Chronic) Current smoker (Chronic) Disproportion of reconstructed breast (Chronic) 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) Cancer phobia (Chronic) cancer phobia right breast Allergies/Adverse Reactions: Allergies ondansetron [From Zofran] Adverse Reaction (Verified 06/17/20 10:34) MIGRAINES Home Medications: Ambulatory Orders Medication Instructions Recorded anastrozole 1 mg tablet 1 mg PO QHS 07/05/18 Pantoprazole Sodium [Protonix] 40 mg PO DAILY 08/31/18 Vitamin C/Biotin [Hair, Skin and 2 ea PO QHS 01/08/19 Nails Gummies] Gabapentin [Neurontin] 100 mg PO BID PRN 11/08/19 Sertraline HCl [Zoloft] 100 mg PO DAILY 12/30/19 Melatonin 10 mg PO QHS 04/27/20 Diazepam [Valium] 5 mg PO 4X/DAY PRN PRN #30 tab 05/19/20 levoFLOXacin tablet [Levaquin 500 mg PO DAILY #14 tab 05/19/20 tablet] oxycodone-acetaminophen 5 mg-325 1 tab PO 4X/DAY PRN #28 tab 05/27/20 mg tablet diazepam 5 mg tablet 5 mg PO BID PRN 7 Days #14 tab 06/17/20 oxycodone-acetaminophen 5 mg-325 1 tab PO BID PRN 7 Days #14 tab 06/17/20 mg tablet Smoking Status: Light Smoker (<10/day) Physical Exam Vital Signs Temp Pulse Resp BP 97.1 F L 81 16 116/78 06/23/20 08:11 06/23/20 08:11 06/23/20 08:11 06/23/20 08:11 General: Alert, Oriented x3, Cooperative, No apparent distress, Well developed, Well nourished HEENT: Atraumatic, PERRLA, EOMI, Normocephalic Lungs: Normal air movement Psych/Mental Status: Normal Affect, Appropriate, Alert and oriented to time, place, person, mood and affect Assessment/Plan The patient appears to be tolerating hyperbaric oxygen therapy well, which will be continued as per the patient's medical plan. Treatment Course Number Number of HBO Treatments 50 Ordered Treatment Course Number 1 Treatment # 40 Chamber # 1 Chamber Type Monoplace Other - Detail Compromised/Failed Flap/Graft Yes (specify site in comment) Soft Tissue Radionecrosis ( breast specify site in comment) Treatment Plan CADE (Atmospheric Absolute) 2 Number of Minutes 90 Number of Air Breaks 0
--- NOTE | 2020-06-24 09:36 | PCM.HBO.PN ---
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 Tolerance of hyperbaric oxygen therapy: Hyperbaric oxygen therapy was administered as per the facility's protocol. Hyperbaric oxygen therapy was administered at 2 nedra for 90 minutes with no air breaks. The patient tolerated hyperbaric oxygen therapy well, without complaints or complications. Upon emergence from the hyperbaric chamber, the patient's vital signs remained stable. She was discharged in good condition. Past Medical History Chronic Problems (Last Reviewed 06/17/20 @ 20:[address] 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 Deformity of reconstructed breast (Chronic) painful radiation scar contour deformity Estrogen receptor positive status [ER+] (Chronic) Current smoker (Chronic) Disproportion of reconstructed breast (Chronic) 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) Cancer phobia (Chronic) cancer phobia right breast Allergies/Adverse Reactions: Allergies ondansetron [From Zofran] Adverse Reaction (Verified 06/17/20 10:34) MIGRAINES Home Medications: Ambulatory Orders Medication Instructions Recorded anastrozole 1 mg tablet 1 mg PO QHS 07/05/18 Pantoprazole Sodium [Protonix] 40 mg PO DAILY 08/31/18 Vitamin C/Biotin [Hair, Skin and 2 ea PO QHS 01/08/19 Nails Gummies] Gabapentin [Neurontin] 100 mg PO BID PRN 11/08/19 Sertraline HCl [Zoloft] 100 mg PO DAILY 12/30/19 Melatonin 10 mg PO QHS 04/27/20 Diazepam [Valium] 5 mg PO 4X/DAY PRN PRN #30 tab 05/19/20 levoFLOXacin tablet [Levaquin 500 mg PO DAILY #14 tab 05/19/20 tablet] oxycodone-acetaminophen 5 mg-325 1 tab PO 4X/DAY PRN #28 tab 05/27/20 mg tablet Smoking Status: Light Smoker (<10/day) Physical Exam Vital Signs Temp Pulse Resp BP 97.1 F L 81 16 116/78 06/23/20 08:11 06/23/20 08:11 06/23/20 08:11 06/23/20 08:11 Assessment/Plan The patient appears to be tolerating hyperbaric oxygen therapy well, which will be continued as per the patient's medical plan. Treatment Course Number Number of HBO Treatments 50 Ordered Treatment Course Number 1 Treatment # 40 Chamber # 1 Chamber Type Monoplace Other - Detail Compromised/Failed Flap/Graft Yes (specify site in comment) Soft Tissue Radionecrosis ( breast specify site in comment) Treatment Plan CADE (Atmospheric Absolute) 2 Number of Minutes 90 Number of Air Breaks 0
[2020-06-24 09:48] VITALS: BP 112/81; BP 128/70; PULSE 66; PULSE 68; RESP 16; RESP 6; TEMP 36.3
[2020-06-25 08:43] VITALS: BP 121/78; BP 134/72; PULSE 63; PULSE 72; RESP 16; RESP 18; TEMP 36.1; TEMP 36.6
--- NOTE | 2020-06-25 14:59 | PCM.HBO.PN ---
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 Tolerance of hyperbaric oxygen therapy: Hyperbaric oxygen therapy was administered as per the facility's protocol. Hyperbaric oxygen therapy was administered at 2 nedra for 90 minutes with no air breaks. The patient tolerated hyperbaric oxygen therapy well, without complaints or complications. Upon emergence from the hyperbaric chamber, the patient's vital signs remained stable. She was discharged in good condition. Past Medical History Chronic Problems (Last Reviewed 06/17/20 @ 20:[address] 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 Deformity of reconstructed breast (Chronic) painful radiation scar contour deformity Estrogen receptor positive status [ER+] (Chronic) Current smoker (Chronic) Disproportion of reconstructed breast (Chronic) 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) Cancer phobia (Chronic) cancer phobia right breast Allergies/Adverse Reactions: Allergies ondansetron [From Zofran] Adverse Reaction (Verified 06/17/20 10:34) MIGRAINES Home Medications: Ambulatory Orders Medication Instructions Recorded anastrozole 1 mg tablet 1 mg PO QHS 07/05/18 Pantoprazole Sodium [Protonix] 40 mg PO DAILY 08/31/18 Vitamin C/Biotin [Hair, Skin and 2 ea PO QHS 01/08/19 Nails Gummies] Gabapentin [Neurontin] 100 mg PO BID PRN 11/08/19 Sertraline HCl [Zoloft] 100 mg PO DAILY 12/30/19 Melatonin 10 mg PO QHS 04/27/20 Diazepam [Valium] 5 mg PO 4X/DAY PRN PRN #30 tab 05/19/20 levoFLOXacin tablet [Levaquin 500 mg PO DAILY #14 tab 05/19/20 tablet] oxycodone-acetaminophen 5 mg-325 1 tab PO 4X/DAY PRN #28 tab 05/27/20 mg tablet Smoking Status: Light Smoker (<10/day) Physical Exam Vital Signs Temp Pulse Resp BP 97.9 F 72 16 121/78 H 06/25/20 08:43 06/25/20 08:43 06/25/20 08:43 06/25/20 08:43 General: Alert, Oriented x3, Cooperative, No apparent distress HEENT: Atraumatic, TM's Clear Lungs: Clear to auscultation, Normal air movement Cardiovascular: Regular rate, Regular Rhythm Psych/Mental Status: Normal Affect, Alert and oriented to time, place, person, mood and affect Assessment/Plan The patient appears to be tolerating hyperbaric oxygen therapy well, which will be continued as per the patient's medical plan. Treatment Course Number Number of HBO Treatments 50 Ordered Treatment Course Number 1 Treatment # 42 Chamber # 1 Chamber Type Monoplace Other - Detail Compromised/Failed Flap/Graft Yes (specify site in comment) Soft Tissue Radionecrosis ( breast specify site in comment) Treatment Plan CADE (Atmospheric Absolute) 2 Number of Minutes 90 Number of Air Breaks 0
[2020-06-29 08:47] VITALS: BP 109/60; BP 120/68; PULSE 67; PULSE 80; RESP 16; RESP 18; TEMP 36.1; TEMP 36.2
--- NOTE | 2020-06-29 08:49 | PCM.HBO.PN ---
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 Tolerance of hyperbaric oxygen therapy: Hyperbaric oxygen therapy was administered as per the facility's protocol. Hyperbaric oxygen therapy was administered at 2 nedra for 90 minutes with no air breaks. The patient tolerated hyperbaric oxygen therapy well, without complaints or complications. Upon emergence from the hyperbaric chamber, the patient's vital signs remained stable. She was discharged in good condition. Past Medical History Chronic Problems (Last Reviewed 06/17/20 @ 20:[address] 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 Deformity of reconstructed breast (Chronic) painful radiation scar contour deformity Estrogen receptor positive status [ER+] (Chronic) Current smoker (Chronic) Disproportion of reconstructed breast (Chronic) 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) Cancer phobia (Chronic) cancer phobia right breast Allergies/Adverse Reactions: Allergies ondansetron [From Zofran] Adverse Reaction (Verified 06/17/20 10:34) MIGRAINES Home Medications: Ambulatory Orders Medication Instructions Recorded anastrozole 1 mg tablet 1 mg PO QHS 07/05/18 Pantoprazole Sodium [Protonix] 40 mg PO DAILY 08/31/18 Vitamin C/Biotin [Hair, Skin and 2 ea PO QHS 01/08/19 Nails Gummies] Gabapentin [Neurontin] 100 mg PO BID PRN 11/08/19 Sertraline HCl [Zoloft] 100 mg PO DAILY 12/30/19 Melatonin 10 mg PO QHS 04/27/20 Diazepam [Valium] 5 mg PO 4X/DAY PRN PRN #30 tab 05/19/20 levoFLOXacin tablet [Levaquin 500 mg PO DAILY #14 tab 05/19/20 tablet] oxycodone-acetaminophen 5 mg-325 1 tab PO 4X/DAY PRN #28 tab 05/27/20 mg tablet Smoking Status: Light Smoker (<10/day) Physical Exam Vital Signs Temp Pulse Resp BP 97.1 F L 80 16 120/68 06/29/20 08:47 06/29/20 08:47 06/29/20 08:47 06/29/20 08:47 General: Alert, Oriented x3, Cooperative, No apparent distress HEENT: Atraumatic, TM's Clear Lungs: Clear to auscultation, Normal air movement Cardiovascular: Regular rate, Regular Rhythm Psych/Mental Status: Normal Affect, Appropriate, Alert and oriented to time, place, person, mood and affect Assessment/Plan The patient appears to be tolerating hyperbaric oxygen therapy well, which will be continued as per the patient's medical plan. Treatment Course Number Number of HBO Treatments 50 Ordered Treatment Course Number 1 Treatment # 43 Chamber # 1 Chamber Type Monoplace Other - Detail Compromised/Failed Flap/Graft Yes (specify site in comment) Soft Tissue Radionecrosis ( breast specify site in comment) Treatment Plan CADE (Atmospheric Absolute) 2 Number of Minutes 90 Number of Air Breaks 0
[2020-06-30 08:48] VITALS: BP 114/79; BP 121/61; PULSE 69; PULSE 74; RESP 16; TEMP 36.7
--- NOTE | 2020-06-30 13:51 | PCM.HBO.PN ---
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 Tolerance of hyperbaric oxygen therapy: Hyperbaric oxygen therapy was administered as per the facility's protocol. Hyperbaric oxygen therapy was administered at 2 nedra for 90 minutes with no air breaks. The patient tolerated hyperbaric oxygen therapy well, without complaints or complications. Upon emergence from the hyperbaric chamber, the patient's vital signs remained stable. She was discharged in good condition. Past Medical History Chronic Problems (Last Reviewed 06/17/20 @ 20:[address] 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 Deformity of reconstructed breast (Chronic) painful radiation scar contour deformity Estrogen receptor positive status [ER+] (Chronic) Current smoker (Chronic) Disproportion of reconstructed breast (Chronic) 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) Cancer phobia (Chronic) cancer phobia right breast Allergies/Adverse Reactions: Allergies ondansetron [From Zofran] Adverse Reaction (Verified 06/17/20 10:34) MIGRAINES Home Medications: Ambulatory Orders Medication Instructions Recorded anastrozole 1 mg tablet 1 mg PO QHS 07/05/18 Pantoprazole Sodium [Protonix] 40 mg PO DAILY 08/31/18 Vitamin C/Biotin [Hair, Skin and 2 ea PO QHS 01/08/19 Nails Gummies] Gabapentin [Neurontin] 100 mg PO BID PRN 11/08/19 Sertraline HCl [Zoloft] 100 mg PO DAILY 12/30/19 Melatonin 10 mg PO QHS 04/27/20 Diazepam [Valium] 5 mg PO 4X/DAY PRN PRN #30 tab 05/19/20 levoFLOXacin tablet [Levaquin 500 mg PO DAILY #14 tab 05/19/20 tablet] oxycodone-acetaminophen 5 mg-325 1 tab PO 4X/DAY PRN #28 tab 05/27/20 mg tablet Smoking Status: Light Smoker (<10/day) Physical Exam Vital Signs Temp Pulse Resp BP 98.0 F 74 16 114/79 06/30/20 08:48 06/30/20 08:48 06/30/20 08:48 06/30/20 08:48 General: Alert, Oriented x3, Cooperative, No apparent distress, Well developed, Well nourished HEENT: Atraumatic, PERRLA, EOMI, Normocephalic Lungs: Normal air movement Psych/Mental Status: Normal Affect, Appropriate, Alert and oriented to time, place, person, mood and affect Assessment/Plan The patient appears to be tolerating hyperbaric oxygen therapy well, which will be continued as per the patient's medical plan. Treatment Course Number Number of HBO Treatments 50 Ordered Treatment Course Number 1 Treatment # 44 Chamber # 1 Chamber Type Monoplace Other - Detail Compromised/Failed Flap/Graft Yes (specify site in comment) Soft Tissue Radionecrosis ( breast specify site in comment) Treatment Plan CADE (Atmospheric Absolute) 2 Number of Minutes 90 Number of Air Breaks 0
--- NOTE | 2020-07-01 08:00 | PCM.HBO.PN ---
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 Tolerance of hyperbaric oxygen therapy: Hyperbaric oxygen therapy was administered as per the facility's protocol. Hyperbaric oxygen therapy was administered at 2 nedra for 90 minutes with no air breaks. The patient tolerated hyperbaric oxygen therapy well, without complaints or complications. Upon emergence from the hyperbaric chamber, the patient's vital signs remained stable. She was discharged in good condition. Past Medical History Chronic Problems (Last Reviewed 06/17/20 @ 20:[address] 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 Deformity of reconstructed breast (Chronic) painful radiation scar contour deformity Estrogen receptor positive status [ER+] (Chronic) Current smoker (Chronic) Disproportion of reconstructed breast (Chronic) 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) Cancer phobia (Chronic) cancer phobia right breast Allergies/Adverse Reactions: Allergies ondansetron [From Zofran] Adverse Reaction (Verified 06/17/20 10:34) MIGRAINES Home Medications: Ambulatory Orders Medication Instructions Recorded anastrozole 1 mg tablet 1 mg PO QHS 07/05/18 Pantoprazole Sodium [Protonix] 40 mg PO DAILY 08/31/18 Vitamin C/Biotin [Hair, Skin and 2 ea PO QHS 01/08/19 Nails Gummies] Gabapentin [Neurontin] 100 mg PO BID PRN 11/08/19 Sertraline HCl [Zoloft] 100 mg PO DAILY 12/30/19 Melatonin 10 mg PO QHS 04/27/20 Diazepam [Valium] 5 mg PO 4X/DAY PRN PRN #30 tab 05/19/20 levoFLOXacin tablet [Levaquin 500 mg PO DAILY #14 tab 05/19/20 tablet] oxycodone-acetaminophen 5 mg-325 1 tab PO 4X/DAY PRN #28 tab 05/27/20 mg tablet Smoking Status: Light Smoker (<10/day) Physical Exam Vital Signs Temp Pulse Resp BP 98.0 F 74 16 114/79 06/30/20 08:48 06/30/20 08:48 06/30/20 08:48 06/30/20 08:48 General: Alert, Oriented x3, Cooperative, No apparent distress HEENT: Atraumatic, TM's Clear Lungs: Clear to auscultation, Normal air movement Cardiovascular: Regular rate, Regular Rhythm Psych/Mental Status: Normal Affect, Appropriate, Alert and oriented to time, place, person, mood and affect Assessment/Plan The patient appears to be tolerating hyperbaric oxygen therapy well, which will be continued as per the patient's medical plan. Treatment Course Number Number of HBO Treatments 50 Ordered Treatment Course Number 1 Treatment # 45 Chamber # 1 Chamber Type Monoplace Other - Detail Compromised/Failed Flap/Graft Yes (specify site in comment) Soft Tissue Radionecrosis ( breast specify site in comment) Treatment Plan CADE (Atmospheric Absolute) 2 Number of Minutes 90 Number of Air Breaks 0
[2020-07-01 08:23] VITALS: BP 119/79; BP 123/78; PULSE 77; PULSE 79; RESP 16; TEMP 36.4; TEMP 36.7
--- NOTE | 2020-07-02 08:21 | PCM.HBO.PN ---
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 Tolerance of hyperbaric oxygen therapy: Hyperbaric oxygen therapy was administered as per the facility's protocol. Hyperbaric oxygen therapy was administered at 2 nedra for 90 minutes with no air breaks. The patient tolerated hyperbaric oxygen therapy well, without complaints or complications. Upon emergence from the hyperbaric chamber, the patient's vital signs remained stable. She was discharged in good condition. Past Medical History Chronic Problems (Last Reviewed 06/17/20 @ 20:[address] 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 Deformity of reconstructed breast (Chronic) painful radiation scar contour deformity Estrogen receptor positive status [ER+] (Chronic) Current smoker (Chronic) Disproportion of reconstructed breast (Chronic) 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) Cancer phobia (Chronic) cancer phobia right breast Allergies/Adverse Reactions: Allergies ondansetron [From Zofran] Adverse Reaction (Verified 06/17/20 10:34) MIGRAINES Home Medications: Ambulatory Orders Medication Instructions Recorded anastrozole 1 mg tablet 1 mg PO QHS 07/05/18 Pantoprazole Sodium [Protonix] 40 mg PO DAILY 08/31/18 Vitamin C/Biotin [Hair, Skin and 2 ea PO QHS 01/08/19 Nails Gummies] Gabapentin [Neurontin] 100 mg PO BID PRN 11/08/19 Sertraline HCl [Zoloft] 100 mg PO DAILY 12/30/19 Melatonin 10 mg PO QHS 04/27/20 Diazepam [Valium] 5 mg PO 4X/DAY PRN PRN #30 tab 05/19/20 levoFLOXacin tablet [Levaquin 500 mg PO DAILY #14 tab 05/19/20 tablet] oxycodone-acetaminophen 5 mg-325 1 tab PO 4X/DAY PRN #28 tab 05/27/20 mg tablet Smoking Status: Light Smoker (<10/day) Physical Exam Vital Signs Temp Pulse Resp BP 98.0 F 79 16 123/78 H 07/01/20 08:23 07/01/20 08:23 07/01/20 08:23 07/01/20 08:23 General: Alert, Oriented x3, Cooperative, No apparent distress HEENT: Atraumatic, Normocephalic Lungs: Normal air movement Psych/Mental Status: Normal Affect Assessment/Plan The patient appears to be tolerating hyperbaric oxygen therapy well, which will be continued as per the patient's medical plan. Treatment Course Number Number of HBO Treatments 50 Ordered Treatment Course Number 1 Treatment # 46 Chamber # 1 Chamber Type Monoplace Other - Detail Compromised/Failed Flap/Graft Yes (specify site in comment) Soft Tissue Radionecrosis ( breast specify site in comment) Treatment Plan CADE (Atmospheric Absolute) 2 Number of Minutes 90 Number of Air Breaks 0 - [facility] Procedures HBO Supervision: [id number] Hyperbaric Oxygen; supervision
[2020-07-02 08:57] VITALS: BP 117/71; BP 143/84; PULSE 67; PULSE 99; RESP 16; TEMP 36.3; TEMP 36.6
[2020-07-03 08:23] VITALS: BP 115/67; BP 116/64; PULSE 65; PULSE 82; RESP 16; RESP 18; TEMP 36.2; TEMP 36.6
--- NOTE | 2020-07-03 11:56 | PCM.HBO.PN ---
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 Tolerance of hyperbaric oxygen therapy: Hyperbaric oxygen therapy was administered as per the facility's protocol. Hyperbaric oxygen therapy was administered at 2 nedra for 90 minutes with no air breaks. The patient tolerated hyperbaric oxygen therapy well, without complaints or complications. Upon emergence from the hyperbaric chamber, the patient's vital signs remained stable. She was discharged in good condition. Past Medical History Chronic Problems (Last Reviewed 06/17/20 @ 20:[address] 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 Deformity of reconstructed breast (Chronic) painful radiation scar contour deformity Estrogen receptor positive status [ER+] (Chronic) Current smoker (Chronic) Disproportion of reconstructed breast (Chronic) 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) Cancer phobia (Chronic) cancer phobia right breast Allergies/Adverse Reactions: Allergies ondansetron [From Zofran] Adverse Reaction (Verified 06/17/20 10:34) MIGRAINES Home Medications: Ambulatory Orders Medication Instructions Recorded anastrozole 1 mg tablet 1 mg PO QHS 07/05/18 Pantoprazole Sodium [Protonix] 40 mg PO DAILY 08/31/18 Vitamin C/Biotin [Hair, Skin and 2 ea PO QHS 01/08/19 Nails Gummies] Gabapentin [Neurontin] 100 mg PO BID PRN 11/08/19 Sertraline HCl [Zoloft] 100 mg PO DAILY 12/30/19 Melatonin 10 mg PO QHS 04/27/20 Diazepam [Valium] 5 mg PO 4X/DAY PRN PRN #30 tab 05/19/20 levoFLOXacin tablet [Levaquin 500 mg PO DAILY #14 tab 05/19/20 tablet] oxycodone-acetaminophen 5 mg-325 1 tab PO 4X/DAY PRN #28 tab 05/27/20 mg tablet Smoking Status: Light Smoker (<10/day) Alcohol: None Drugs: None Physical Exam Vital Signs Temp Pulse Resp BP 97.8 F 82 18 116/64 07/03/20 08:23 07/03/20 08:23 07/03/20 08:23 07/03/20 08:23 General: Alert, Oriented x3, Cooperative, No apparent distress Psych/Mental Status: Normal Affect, Appropriate Assessment/Plan The patient appears to be tolerating hyperbaric oxygen therapy well, which will be continued as per the patient's medical plan. Treatment Course Number Number of HBO Treatments 50 Ordered Treatment Course Number 1 Treatment # 47 Chamber # 1 Chamber Type Monoplace Other - Detail Compromised/Failed Flap/Graft Yes (specify site in comment) Soft Tissue Radionecrosis ( breast specify site in comment) Treatment Plan CADE (Atmospheric Absolute) 2 Number of Minutes 90 Number of Air Breaks 0
[2020-07-06 08:49] VITALS: BP 114/94; BP 120/68; PULSE 71; PULSE 96; RESP 16; RESP 17; TEMP 36.2
--- NOTE | 2020-07-06 09:03 | PCM.HBO.PN ---
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 Progress: Today's hyperbaric oxygen session represents the 48th of 50 planned sessions of hyperbaric oxygen therapy. Tolerance of hyperbaric oxygen therapy: Hyperbaric oxygen therapy was administered as per the facility's protocol. Hyperbaric oxygen therapy was administered at 2 nedra for 90 minutes with no air breaks. The patient tolerated hyperbaric oxygen therapy well, without complaints or complications. Upon emergence from the hyperbaric chamber, the patient's vital signs remained stable. She was discharged in good condition. Past Medical History Chronic Problems (Last Reviewed 06/17/20 @ 20:[address] 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 Deformity of reconstructed breast (Chronic) painful radiation scar contour deformity Estrogen receptor positive status [ER+] (Chronic) Current smoker (Chronic) Disproportion of reconstructed breast (Chronic) 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) Cancer phobia (Chronic) cancer phobia right breast Allergies/Adverse Reactions: Allergies ondansetron [From Zofran] Adverse Reaction (Verified 06/17/20 10:34) MIGRAINES Home Medications: Ambulatory Orders Medication Instructions Recorded anastrozole 1 mg tablet 1 mg PO QHS 07/05/18 Pantoprazole Sodium [Protonix] 40 mg PO DAILY 08/31/18 Vitamin C/Biotin [Hair, Skin and 2 ea PO QHS 01/08/19 Nails Gummies] Gabapentin [Neurontin] 100 mg PO BID PRN 11/08/19 Sertraline HCl [Zoloft] 100 mg PO DAILY 12/30/19 Melatonin 10 mg PO QHS 04/27/20 Diazepam [Valium] 5 mg PO 4X/DAY PRN PRN #30 tab 05/19/20 levoFLOXacin tablet [Levaquin 500 mg PO DAILY #14 tab 05/19/20 tablet] oxycodone-acetaminophen 5 mg-325 1 tab PO 4X/DAY PRN #28 tab 05/27/20 mg tablet Smoking Status: Light Smoker (<10/day) Alcohol: None Drugs: None Physical Exam Vital Signs Temp Pulse Resp BP 97.1 F L 96 17 114/94 H 07/06/20 08:49 07/06/20 08:49 07/06/20 08:49 07/06/20 08:49 General: Alert, Oriented x3, Cooperative, No apparent distress HEENT: Atraumatic, TM's Clear Lungs: Clear to auscultation, Normal air movement Cardiovascular: Regular rate, Regular Rhythm Psych/Mental Status: Normal Affect, Appropriate, Alert and oriented to time, place, person, mood and affect Assessment/Plan The patient appears to be tolerating hyperbaric oxygen therapy well, which will be continued as per the patient's medical plan. Treatment Course Number Number of HBO Treatments 50 Ordered Treatment Course Number 1 Treatment # 48 Chamber # 1 Chamber Type Monoplace Other - Detail Compromised/Failed Flap/Graft Yes (specify site in comment) Soft Tissue Radionecrosis ( breast specify site in comment) Treatment Plan CADE (Atmospheric Absolute) 2 Number of Minutes 90 Number of Air Breaks 0
[2020-07-07 08:36] VITALS: BP 111/73; BP 116/65; PULSE 70; PULSE 74; RESP 16; TEMP 36.2
--- NOTE | 2020-07-07 11:42 | PCM.HBO.PN ---
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 Progress: Today's hyperbaric oxygen session represents the 49th of 50 planned sessions of hyperbaric oxygen therapy. Tolerance of hyperbaric oxygen therapy: Hyperbaric oxygen therapy was administered as per the facility's protocol. Hyperbaric oxygen therapy was administered at 2 nedra for 90 minutes with no air breaks. The patient tolerated hyperbaric oxygen therapy well, without complaints or complications. Upon emergence from the hyperbaric chamber, the patient's vital signs remained stable. She was discharged in good condition. Past Medical History Chronic Problems (Last Reviewed 06/17/20 @ 20:[address] 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 Deformity of reconstructed breast (Chronic) painful radiation scar contour deformity Estrogen receptor positive status [ER+] (Chronic) Current smoker (Chronic) Disproportion of reconstructed breast (Chronic) 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) Cancer phobia (Chronic) cancer phobia right breast Allergies/Adverse Reactions: Allergies ondansetron [From Zofran] Adverse Reaction (Verified 06/17/20 10:34) MIGRAINES Home Medications: Ambulatory Orders Medication Instructions Recorded anastrozole 1 mg tablet 1 mg PO QHS 07/05/18 Pantoprazole Sodium [Protonix] 40 mg PO DAILY 08/31/18 Vitamin C/Biotin [Hair, Skin and 2 ea PO QHS 01/08/19 Nails Gummies] Gabapentin [Neurontin] 100 mg PO BID PRN 11/08/19 Sertraline HCl [Zoloft] 100 mg PO DAILY 12/30/19 Melatonin 10 mg PO QHS 04/27/20 Diazepam [Valium] 5 mg PO 4X/DAY PRN PRN #30 tab 05/19/20 levoFLOXacin tablet [Levaquin 500 mg PO DAILY #14 tab 05/19/20 tablet] oxycodone-acetaminophen 5 mg-325 1 tab PO 4X/DAY PRN #28 tab 05/27/20 mg tablet Smoking Status: Light Smoker (<10/day) Alcohol: None Drugs: None Physical Exam Vital Signs Temp Pulse Resp BP 97.1 F L 74 16 116/65 07/07/20 08:36 07/07/20 08:36 07/07/20 08:36 07/07/20 08:36 General: Alert, Oriented x3, Cooperative, No apparent distress, Well developed, Well nourished HEENT: Atraumatic, PERRLA, EOMI, Normocephalic Lungs: Normal air movement Psych/Mental Status: Normal Affect, Appropriate, Alert and oriented to time, place, person, mood and affect Assessment/Plan The patient appears to be tolerating hyperbaric oxygen therapy well, which will be continued as per the patient's medical plan. Treatment Course Number Number of HBO Treatments 50 Ordered Treatment Course Number 1 Treatment # 49 Chamber # 1 Chamber Type Monoplace Other - Detail Compromised/Failed Flap/Graft Yes (specify site in comment) Soft Tissue Radionecrosis ( breast specify site in comment) Treatment Plan CADE (Atmospheric Absolute) 2 Number of Minutes 90 Number of Air Breaks 0
[2020-07-08 08:20] VITALS: BP 121/75; BP 135/87; PULSE 68; PULSE 80; RESP 16; RESP 17; TEMP 36.1; TEMP 36.6
--- NOTE | 2020-07-08 11:59 | HBO.PN.PCM_ITS ---
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 Progress: Today's hyperbaric oxygen session represents the 50th of 50 planned sessions of hyperbaric oxygen therapy. Tolerance of hyperbaric oxygen therapy: Hyperbaric oxygen therapy was administered as per the facility's protocol. Hyperbaric oxygen therapy was administered at 2 nedra for 90 minutes with no air breaks. The patient tolerated hyperbaric oxygen therapy well, without complaints or complications. Upon emergence from the hyperbaric chamber, the patient's vital signs remained stable. She was discharged in good condition. 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 breast reconstruction Deformity of reconstructed breast (Chronic) painful radiation scar contour deformity Estrogen receptor positive status [ER+] (Chronic) Current smoker (Chronic) Disproportion of reconstructed breast (Chronic) 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) Cancer phobia (Chronic) cancer phobia right breast Allergies/Adverse Reactions: Allergies ondansetron [From Zofran] Adverse Reaction (Verified 07/08/20 10:38) MIGRAINES Home Medications: Ambulatory Orders Medication Instructions Recorded anastrozole 1 mg tablet 1 mg PO QHS 07/05/18 Pantoprazole Sodium [Protonix] 40 mg PO DAILY 08/31/18 Vitamin C/Biotin [Hair, Skin and 2 ea PO QHS 01/08/19 Nails Gummies] Gabapentin [Neurontin] 100 mg PO BID PRN 11/08/19 Sertraline HCl [Zoloft] 100 mg PO DAILY 12/30/19 Melatonin 10 mg PO QHS 04/27/20 Diazepam [Valium] 5 mg PO 4X/DAY PRN PRN #30 tab 05/19/20 levoFLOXacin tablet [Levaquin 500 mg PO DAILY #14 tab 05/19/20 tablet] oxycodone-acetaminophen 5 mg-325 1 tab PO 4X/DAY PRN #28 tab 05/27/20 mg tablet Smoking Status: Light Smoker (<10/day) Alcohol: None Drugs: None Physical Exam Vital Signs Temp Pulse Resp BP 96.9 F L 80 16 135/87 H 07/08/20 08:20 07/08/20 08:20 07/08/20 08:20 07/08/20 08:20 Assessment/Plan The patient appears to be tolerating hyperbaric oxygen therapy well, which will be continued as per the patient's medical plan. Treatment Course Number Number of HBO Treatments 50 Ordered Treatment Course Number 1 Treatment # 50 Chamber # 1 Chamber Type Monoplace Other - Detail Compromised/Failed Flap/Graft Yes (specify site in comment) Soft Tissue Radionecrosis ( breast specify site in comment) Treatment Plan CADE (Atmospheric Absolute) 2 Number of Minutes 90 Number of Air Breaks 0
== END 2020-07-08 23:59 ==
LOC: WC 08:00
PROVIDERS: PCP Student in an Organized Health Care Education/Training Program; Visit Provider Surgery
DX: L59.8 Other specified disorders of the skin and subcutaneous tissue related to radiation (principal); Y84.2 Radiological procedure and radiotherapy as the cause of abnormal reaction of the patient, or of later complication, without mention of misadventure at the time of the procedure; T86.821 Skin graft (allograft) (autograft) failure; Z17.0 Estrogen receptor positive status [ER+]; N65.0 Deformity of reconstructed breast; F17.200 Nicotine dependence, unspecified, uncomplicated; Z79.899 Other long term (current) drug therapy
CPT/HCPCS: 99183; G0277

== ENCOUNTER → 2021-12-24 | Outpatient (CLI) | payer BC, SELFPAY ==
[2021-12-24 17:03] LABS: Color, Urine Straw (Yellow); Glucose, Dipstick Normal (Normal); Ketone-Dipstick Negative (Negative); Leukocyte Esterase-Dipstick Negative /ul (Negative); Nitrite-Dipstick Negative (Negative); Occult Blood-Urine Negative /ul (Negative); Protein-Dipstick Negative (Negative); Specific Gravity, Urine 1.005 (1.002-1.030); Urine Bilirubin Dipstick Negative (Negative); Urine Clarity Clear (Clear); Urine Urobilinogen Normal (Normal)
== END | disposition home or self-care (01) ==
LOC: LAB 13:55
PROVIDERS: PCP Student in an Organized Health Care Education/Training Program
DX: Z00.00 Encounter for general adult medical examination without abnormal findings (principal)
CPT/HCPCS: 81002

== ENCOUNTER → 2022-01-03 | Outpatient (CLI) | payer BC, SELFPAY ==
[2022-01-03 10:19] LABS: COTININE Drug Screen Negative (<200 ng/mL)
== END | disposition home or self-care (01) ==
PROVIDERS: PCP Student in an Organized Health Care Education/Training Program
DX: Z13.89 Encounter for screening for other disorder (principal)
CPT/HCPCS: 80307